=== PATIENT | male | born 1950 | race Caucasian/White ===

== ENCOUNTER 2023-11-29 15:09 | Emergency (ER) | payer OTHER ==
--- NOTE | 2023-11-29 15:14 | ED ---
Lower Extremity Injury HPI - General Source: patient, RN notes reviewed Mode of arrival: ambulatory Limitations: no limitations <Kathryn Angel - Last Filed: 11/29/23 15:12> <Jose Bunch - Last Filed: 11/29/23 18:02> - General Chief Complaint: Extremity Injury, Lower Stated Complaint: poss hematoma Time Seen by Provider: 11/29/23 15:12 - History of Present Illness Initial Comments: Quick Note: This is a 73-year-old male who presents to the emergency department for a left leg injury. States that part of his lawnmower injured his left lower leg about a week ago and he has since had swelling. This morning he started to notice that the scab came off and the wound was leaking. Believes that he has a hematoma to the leg. This is not particularly painful. He does take warfarin. (Kathryn Angel) Patient presents to the ED with his for evaluation. Patient states that he accidentally injured his left lower leg when he put down his lawnmower seat about 10 days ago. Patient states that he developed swelling and bruising along his left lower leg at that time. Patient states that today this area of swelling/bruising has opened up and been draining blood. Patient is on warfarin due to atrial fibrillation. Patient states that he is unsure of his last tetanus shot. Patient denies any other injury or site of bleeding. Patient denies fever or chills, headache, chest pain, dyspnea, dizziness, nausea or vomiting, focal neuro deficit, or any other symptoms or complaints. (Jose Bunch) - Related Data Previous Rx's Medication Instructions Recorded Cephalexin [Keflex] 500 mg PO QID 7 Days #28 cap 11/29/23 Menthol-Zinc Oxide Oint 1 applic TOPICAL BID #113 gm 11/29/23 [Calmoseptine Ointment] Allergies Allergy/AdvReac Type Severity Reaction Status Date / Time No Known Allergies Allergy Verified 11/29/23 16:19 Review of Systems ROS Other: All systems not noted in ROS Statement are negative. <Kathryn Angel - Last Filed: 11/29/23 15:12> ROS Other: All systems not noted in ROS Statement are negative. <Jose Bunch - Last Filed: 06/02/24 18:02> ROS Statement: Those systems with pertinent positive or pertinent negative responses have been documented in the HPI. General Exam <Kathryn Angel - Last Filed: 11/29/23 15:12> Limitations: no limitations General appearance: alert, in no apparent distress Head exam: Present: atraumatic Eye exam: Present: normal appearance ENT exam: Present: mucous membranes moist Respiratory exam: Present: normal lung sounds bilaterally. Absent: respiratory distress, wheezes, rales, rhonchi, stridor Cardiovascular Exam: Present: regular rate, normal rhythm, normal heart sounds, other (Normal dorsalis pedis pulses bilaterally) GI/Abdominal exam: Present: soft. Absent: distended, tenderness, guarding Extremities exam: Present: full ROM, other (2+ bilateral lower extremity pitting edema; a golf ball-sized hematoma noted to left lower lateral johnson region with a portion of it open and draining a small amount of clotted blood-> mild surrounding tenderness, no deformity or crepitation, no evidence of cellulitis/infection at this time) Neurological exam: Present: alert, oriented X3. Absent: motor sensory deficit Psychiatric exam: Present: normal affect Skin exam: Present: warm, dry <Jose Bunch - Last Filed: 11/29/23 18:02> - General Exam Comments Initial Comments: Visual Physical Exam Vital signs reviewed General: Well-appearing, nontoxic, no acute distress. Head: Normocephalic, atraumatic Eyes: PERRLA, EOMI ENT: Airway patent Chest: Nonlabored breathing Skin: No visual rash, normal skin tone Neuro: Alert and oriented 3 Musculoskeletal: No gross abnormalities (Kathryn Angel) Course Vital Signs 11/29/23 16:16 Temperature 98.1 F Pulse Rate 102 H Respiratory 18 Rate Blood Pressure 167/85 O2 Sat by Pulse 98 Oximetry Medical Decision Making <Kathryn Angel - Last Filed: 11/29/23 15:12> - Lab Data Result diagrams: 11/29/23 17:01 <Jose Bunch - Last Filed: 11/29/23 18:02> - Medical Decision Making I performed the QuickNote portion of this chart. Signed Kathryn Angel PA-C. (Kathryn Angel) Was pt. sent in by a medical professional or institution (SHAUNNA Nash, HOSPITAL SALES REPRESENTATIVE, urgent care, hospital, or half-way...) When possible be specific @ -No Did you speak to anyone other than the patient for history (EMS, parent, family, police, friend...)? What history was obtained from this source @ -No Did you review nursing and triage notes (agree or disagree)? Why? @ -I reviewed and agree with nursing and triage notes Were old charts reviewed (outside hosp., previous admission, EMS record, old EKG, old radiological studies, urgent care reports/EKG's, half-way records)? Report findings @ -No old charts were reviewed Differential Diagnosis (chest pain, altered mental status, abdominal pain women, abdominal pain men, vaginal bleeding, weakness, fever, dyspnea, syncope, headache, dizziness, GI bleed, back pain, seizure, CVA, palpatations, mental health, musculoskeletal)? @ -Contusion, fracture, hematoma, open wound, coagulopathy, anemia EKG interpreted by me (3pts min.). @ -None done X-rays interpreted by me (1pt min.). @ -Left tibia/fib x-rays were reviewed myself and do not demonstrate any acute osseous injury. I agree with the radiologist's interpretation as above. CT interpreted by me (1pt min.). @ -None done U/S interpreted by me (1pt. min.). @ -None done What testing was considered but not performed or refused? (CT, X-rays, U/S, labs)? Why? @ -None What meds were considered but not given or refused? Why? @ -None Did you discuss the management of the patient with other professionals (moise cali i.e. SHAUNNA Nash, HOSPITAL SALES REPRESENTATIVE, lab, RT, psych nurse, social director, sign writer hand, teacher, public relations officer, briefcase sewer)? Give summary @ -No Was smoking cessation discussed for >3mins.? @ -No Was critical care preformed (if so, how long)? @ -No Were there social determinants of health that impacted care today? How? (Homelessness, low income, unemployed, alcoholism, drug addiction, transportation, low edu. Level, literacy, decrease access to med. care, correction, rehab)? @ -No Was there de-escalation of care discussed even if they declined (Discuss DNR or withdrawal of care, Hospice)? DNR status @ -No What co-morbidities impacted this encounter? (DM, HTN, Smoking, COPD, CAD, Cancer, CVA, ARF, Chemo, Hep., AIDS, mental health diagnosis, sleep apnea, morbid obesity)? @ -None Was patient admitted / discharged? Hospital course, mention meds given and route, prescriptions, significant lab abnormalities, going to OR and other pertinent info. @ -Patient reports developing a left lower leg hematoma about 10 days ago, and he states that his hematoma opened and began draining blood today. Patient is not noted to have any active bleeding at this time. Patient's wound does not appear infected. Patient's x-rays are negative. Patient's hemoglobin is stable. Patient's INR is subtherapeutic. Patient's wound was cleaned and dressed with a pressure dressing by ED nurse. Patient's tetanus was updated. Will start the patient on a prophylactic course of Keflex given risk of infection with his wound. Patient was counseled about draining hematomas and provided instructions on regular dressing changes. Patient was also provided with materials from the ED to perform dressing changes at home. Patient was instructed to follow-up closely with his primary care provider for wound reevaluation. Patient was clearly explained return and follow-up instructions. Patient feels comfortable with this plan, and he feels comfortable being discharged home at this time. states that she will contact the patient's wound care nurse who is seen in the past for wound issues. Undiagnosed new problem with uncertain prognosis? @ -No Drug Therapy requiring intensive monitoring for toxicity (Heparin, Nitro, Insulin, Cardizem)? @ -No Were any procedures done? @ -No Diagnosis/symptom? @ -Draining left lower leg hematoma Acute, or Chronic, or Acute on Chronic? @ -Acute Uncomplicated (without systemic symptoms) or Complicated (systemic symptoms)? @ -Default Side effects of treatment? @ -No Exacerbation, Progression, or Severe Exacerbation? @ -No Poses a threat to life or bodily function? How? (Chest pain, [place], [place], pneumonia, PE, COPD, DKA, ARF, appy, cholecystitis, CVA, Diverticulitis, Homicidal, Suicidal, threat to staff... and all critical care pts) @ -No (Jose Bunch) - Lab Data Lab Results 11/29/23 11/29/23 Range/Units 17:01 17:01 WBC 7.4 (3.8-10.6) k/uL RBC 3.99 L (4.30-5.90) m/uL Hgb 12.7 L (13.0-17.5) gm/dL Hct 39.2 (39.0-53.0) % MCV 98.2 (80.0-100.0) fL MCH 31.8 (25.0-35.0) pg MCHC 32.4 (31.0-37.0) g/dL RDW 16.1 H (11.5-15.5) % Plt Count 196 (150-450) k/uL MPV 7.1 Neutrophils % 85 % Lymphocytes % 7 % Monocytes % 6 % Eosinophils % 0 % Basophils % 0 % Neutrophils # 6.3 (1.3-7.7) k/uL Lymphocytes # 0.5 L (1.0-4.8) k/uL Monocytes # 0.4 (0-1.0) k/uL Eosinophils # 0.0 (0-0.7) k/uL Basophils # 0.0 (0-0.2) k/uL Anisocytosis Slight Macrocytosis Slight PT 19.4 H (10.0-12.5) sec INR 1.9 H (<1.2) APTT 33.9 H (22.0-30.0) sec - Radiology Data Left tibia/fib x-rays: 1. Soft tissue swelling without evidence of acute fracture. 2. Severe end-stage osteoarthrosis of the left knee. (Jose Bunch) Disposition <Kathryn Angel - Last Filed: 11/29/23 15:12> Is patient prescribed a controlled substance at d/c from ED?: No Time of Disposition: 18:02 <Jose Bunch - Last Filed: 11/29/23 18:02> Clinical Impression: Hematoma of left lower leg, Lower extremity edema Disposition: HOME SELF-CARE Condition: Stable Instructions (If sedation given, give patient instructions): Hematoma (ED) Additional Instructions: Return to the ER immediately should you develop significant bleeding, new or worsening pain, leg redness or drainage of pus, a fever, shortness of breath, feeling dizzy or pain, or new or worsening symptoms. Follow-up closely with your primary care provider. Prescriptions: Menthol-Zinc Oxide Oint [Calmoseptine Ointment] 1 applic TOPICAL BID #113 gm Cephalexin [Keflex] 500 mg PO QID 7 Days #28 cap Referrals: Nonstaff,Physician [Primary Care Provider] - 1-2 days Enrique Vega DO [STAFF PHYSICIAN] - 1-2 days
--- NOTE | 2023-11-29 16:06 | XR ---
EXAMINATION TYPE: XR tibia fibula LT DATE OF EXAM: 11/29/2023 3:51 PM CLINICAL INDICATION:Male, 73 years old with history of Injury; [facility] COMPARISON: None TECHNIQUE: XR tibia fibula LT; tibia/fibula was examined in AP and lateral projections. FINDINGS: Severe degeneration changes throughout the knee with joint space loss osteophytes present. Diffuse soft tissue swelling throughout the leg. Degeneration changes of the ankle. No evidence of an y acute osseous pathology, joint dislocation, or soft tissue swelling is noted. IMPRESSION: 1. Soft tissue swelling without evidence of acute fracture. 2. Severe end-stage osteoarthrosis of the left knee.
[2023-11-29 16:30] VITALS: BP 167/85; PULSE 102; RESP 18; TEMP 98.1
[2023-11-29 17:11] LABS: Anisocytosis Slight; Basophils % (A) 0 %; Eosinophils % (A) 0 %; HCT 39.2 % (39.0-53.0); HGB 12.7 gm/dL (13.0-17.5); Lymphocytes # (A) 0.5 k/uL (1.0-4.8); Lymphocytes % (A) 7 %; MCH 31.8 pg (25.0-35.0); MCHC 32.4 g/dL (31.0-37.0); MCV 98.2 fL (80.0-100.0); Macrocytosis Slight; Mean Platelet Volume 7.1; Monocytes # (A) 0.4 k/uL (0-1.0); Monocytes % (A) 6 %; Neutrophils # (A) 6.3 k/uL (1.3-7.7); Neutrophils % (A) 85 %; Platelet Count 196 k/uL (150-450); RBC 3.99 m/uL (4.30-5.90); RDW 16.1 % (11.5-15.5); WBC 7.4 k/uL (3.8-10.6)
[2023-11-29] MEDS: CEPHALEXIN 500 MG CAP PO STA (17:17)
[2023-11-29 17:18] LABS: INR 1.9 (<1.2); Partial Thromboplastin Time 33.9 sec (22.0-30.0); Prothrombin Time 19.4 sec (10.0-12.5)
[2023-11-29] MEDS: DIPH,PERTUS(ACELL)TETVAC-LF 0.5 ML VIAL IM ONE (17:18)
== END 2023-11-29 18:50 | disposition home or self-care (01) ==
LOC: EC 15:09
DX: S80.12XA Contusion of left lower leg, initial encounter (principal); R60.0 Localized edema; Z23 Encounter for immunization; X58.XXXA Exposure to other specified factors, initial encounter
CPT/HCPCS: 36415; 85025; 85610; 85730; 90471; 90715; 99283

== ENCOUNTER 2024-01-05 15:35 | Inpatient (IN) | payer MEDICARE, OTHER ==
--- NOTE | 2024-01-05 16:12 | ED ---
Upper Extremity HPI - General Source: patient, RN notes reviewed Mode of arrival: wheelchair Limitations: no limitations - History of Present Illness MD Complaint: Injury to:: left, shoulder <Kathryn Angel - Last Filed: 01/05/24 16:12> <Shaquille Harris - Last Filed: 01/05/24 20:03> - General Chief Complaint: Extremity Injury, Upper Stated Complaint: Pain R Arm/Neck Time Seen by Provider: 01/05/24 16:09 - History of Present Illness Initial Comments: Quick Note: This is a 73-year-old male who presents to the emergency department for left arm pain. Patient states that a couple of days ago he was working out lifting weights above his head. That evening he developed severe pain in the left shoulder. Believes that he pulled a muscle in his deltoid region. He has since had a lot of difficulty moving the arm. Not taking anything for pain. (Kathryn Angel) Dictation was produced using [employer] dictation software. please excuse any grammatical, word or spelling errors. Chief Complaint: 73-year-old male presents with left shoulder pain History of Present Illness: Patient 73-year-old male with 3 days of left shoulder pain states that his pain was triggered while he was doing shoulder press at the gym. He was lifting 3 pounds all of a sudden he felt a strain in his neck and left shoulder. Patient denies any other complaints. at the bedside states that he is been significantly ecchymotic. Patient takes Coumadin for A-fib. The ROS documented in this emergency department record has been reviewed and confirmed by me. Those systems with pertinent positive or negative responses have been documented in the HPI. All other systems are other negative and/or noncontributory. (Shaquille Harris) - Related Data Previous Rx's Medication Instructions Recorded Cephalexin [Keflex] 500 mg PO QID 7 Days #28 cap 11/29/23 Menthol-Zinc Oxide Oint 1 applic TOPICAL BID #113 gm 11/29/23 [Calmoseptine Ointment] Allergies Allergy/AdvReac Type Severity Reaction Status Date / Time No Known Allergies Allergy Verified 11/29/23 16:19 Review of Systems ROS Other: All systems not noted in ROS Statement are negative. <Kathryn Angel - Last Filed: 01/05/24 16:12> ROS Other: All systems not noted in ROS Statement are negative. <Shaquille Harris - Last Filed: 01/05/24 20:03> ROS Statement: Those systems with pertinent positive or pertinent negative responses have been documented in the HPI. Past Medical History Past Medical History: Atrial Fibrillation, Hypertension History of Any Multi-Drug Resistant Organisms: None Reported Past Surgical History: Orthopedic Surgery Additional Past Surgical History / Comment(s): cardiac ablation Past Psychological History: No Psychological Hx Reported Smoking Status: Former smoker Past Alcohol Use History: None Reported Past Drug Use History: None Reported <Kathryn Angel - Last Filed: 01/05/24 16:12> General Exam Limitations: no limitations <Kathryn Angel - Last Filed: 01/05/24 16:12> <Shaquille Harris - Last Filed: 01/05/24 20:03> - General Exam Comments Initial Comments: Visual Physical Exam Vital signs reviewed General: Well-appearing, nontoxic, no acute distress. Head: Normocephalic, atraumatic Eyes: PERRLA, EOMI ENT: Airway patent Chest: Nonlabored breathing Skin: No visual rash, normal skin tone Neuro: Alert and oriented 3 Musculoskeletal: No gross abnormalities (Kathryn Angel) PHYSICAL EXAM: General Impression: Alert and oriented x3, not in acute distress HEENT: Normocephalic atraumatic, extra-ocular movements intact, pupils equal and reactive to light bilaterally, mucous membranes moist. Cardiovascular: Heart regular rate and rhythm Chest: Able to complete full sentences, no retractions, no tachypnea Abdomen: abdomen soft, non-tender, non-distended, no organomegaly Musculoskeletal: Pulses present and equal in all extremities, no peripheral edema Motor: no focal deficits noted Neurological: CN II-XII grossly intact, no focal motor or sensory deficits noted Skin: Ecchymosis diffusely Psych: Normal affect and mood Left shoulder: Passive range of motion intact though painful. Active range of motion diminished to approximately 40 degrees abduction (Shaquille Harris) Course Vital Signs 01/05/24 01/05/24 15:59 18:27 Temperature 97.3 F L 98 F Pulse Rate 70 95 Respiratory 18 18 Rate Blood Pressure 95/51 107/72 O2 Sat by Pulse 100 100 Oximetry Medical Decision Making <Kathryn Angel - Last Filed: 01/05/24 16:12> - Lab Data Result diagrams: 01/05/24 18:15 01/05/24 18:15 <Akhil Harrissspj Garcia - Last Filed: 01/05/24 20:03> - Medical Decision Making I performed the QuickNote portion of this chart. Signed Kathryn Angel PA-C. (Kathryn Angel) Was pt. sent in by a medical professional or institution (SHAUNNA Nash, ARTIST SUSPECT, urgent care, hospital, or snf...) When possible be specific @ -No Did you speak to anyone other than the patient for history (EMS, parent, family, police, friend...)? What history was obtained from this source @ -Some history obtained from at the bedside states that he has history of CKD Did you review nursing and triage notes (agree or disagree)? Why? @ -I reviewed and agree with nursing and triage notes Were old charts reviewed (outside hosp., previous admission, EMS record, old EKG, old radiological studies, urgent care reports/EKG's, snf records)? Report findings @ -No old charts were reviewed Differential Diagnosis (chest pain, altered mental status, abdominal pain women, abdominal pain men, vaginal bleeding, musculoskeletal, weakness, fever, dyspnea, syncope, headache, dizziness, GI bleed, back pain, seizure, CVA, palpatations, mental health)? @ -Shoulder strain, shoulder dislocation, shoulder fracture EKG interpreted by me (3pts min.). @ -None done X-rays interpreted by me (1pt min.). @ -None done CT interpreted by me (1pt min.). @ -None done U/S interpreted by me (1pt. min.). @ -None done What testing was considered but not performed or refused? (CT, X-rays, U/S, labs)? Why? @ -None What meds were considered but not given or refused? Why? @ -None Was smoking cessation discussed for >3mins.? @ -No Were there social determinants of health that impacted care today? How? (Homelessness, low income, unemployed, alcoholism, drug addiction, transportation, low edu. Level, literacy, decrease access to med. care, retirement, rehab)? @ -No Was there de-escalation of care discussed even if they declined (Discuss DNR or withdrawal of care, Hospice)? DNR status @ -No What co-morbidities impacted this encounter? (DM, HTN, Smoking, COPD, CAD, Cancer, CVA, ARF, Chemo, Hep., AIDS, mental health diagnosis, sleep apnea, morbid obesity)? @ -None Was patient admitted / discharged? Hospital course, mention meds given and route, prescriptions, significant lab abnormalities, going to OR and other pertinent info. @ -73-year-old male with multiple comorbidities presents emergency department chief complaint of left shoulder pain he was noted to have significant bruising at the bedside. Vital signs upon arrival shows blood pressure 95/51, rest of vital signs within acceptable limits. Laboratory evaluation obtained. Hemoglobin stable. INR supratherapeutic 6.4. Metabolic panel shows sodium 128, elevated renal function with creatinine of 3.9 and BUN of 116. Left shoulder x- ray shows no acute processes. Given patient's metabolic derangement he will be admitted with consultation to nephrology. Case discussed with hospitalist for admission. Patient given IV fluids. Warfarin will be withheld at this time. Nephrology consulted Did you discuss the management of the patient with other professionals (professionals i.e. , PA, ARTIST SUSPECT, lab, RT, psych nurse, social work faculty member, fabrication supervisor, teacher, drug abuse resistance education officer, case liner)? Give summary @ -See above Was critical care preformed (if so, how long)? @ -No Undiagnosed new problem with uncertain prognosis? @ -No Drug Therapy requiring intensive monitoring for toxicity (Heparin, Nitro, Insulin, Cardizem)? @ -No Were any procedures done? @ -No Diagnosis/symptom? Acute, or Chronic, or Acute on Chronic? Uncomplicated (without systemic symptoms) or Complicated (systemic symptoms)? @ -FRED Side effects of treatment? @ -No Exacerbation, Progression, or Severe Exacerbation? @ -No Poses a threat to life or bodily function? How? (Chest pain, [place], [place], pneumonia, PE, COPD, DKA, ARF, appy, cholecystitis, CVA, Diverticulitis, Homicidal, Suicidal, threat to staff... and all critical care pts) @ -yes (Shaquille Harris) - Lab Data Lab Results 01/05/24 01/05/24 01/05/24 Range/Units 18:15 18:15 18:15 WBC 6.6 (3.8-10.6) k/uL RBC 3.58 L (4.30-5.90) m/uL Hgb 11.3 L (13.0-17.5) gm/dL Hct 34.7 L (39.0-53.0) % MCV 97.0 (80.0-100.0) fL MCH 31.7 (25.0-35.0) pg MCHC 32.6 (31.0-37.0) g/dL RDW 15.9 H (11.5-15.5) % Plt Count 182 (150-450) k/uL MPV 8.7 Neutrophils % 93 % Lymphocytes % 2 % Monocytes % 2 % Eosinophils % 0 % Basophils % 0 % Neutrophils # 6.1 (1.3-7.7) k/uL Lymphocytes # 0.1 L (1.0-4.8) k/uL Monocytes # 0.1 (0-1.0) k/uL Eosinophils # 0.0 (0-0.7) k/uL Basophils # 0.0 (0-0.2) k/uL PT 62.8 H (10.0-12.5) sec INR 6.4 H* (<1.2) APTT 64.9 H (22.0-30.0) sec Sodium 128 L (137-145) mmol/L Potassium 5.4 H (3.5-5.1) mmol/L Chloride 93 L (98-107) mmol/L Carbon Dioxide 22 (22-30) mmol/L Anion Gap 13 mmol/L BUN 116 H* (9-20) mg/dL Creatinine 3.90 H (0.66-1.25) mg/dL Est GFR (CKD-EPI)AfAm 17 (>60 ml/min/1.73 sqM) Est GFR (CKD-EPI)NonAf 15 (>60 ml/min/1.73 sqM) Glucose 77 (74-99) mg/dL Calcium 7.8 L (8.4-10.2) mg/dL Total Bilirubin 0.9 (0.2-1.3) mg/dL AST 105 H (17-59) U/L ALT 40 (4-49) U/L Alkaline Phosphatase 101 (38-126) U/L Total Protein 5.5 L (6.3-8.2) g/dL Albumin 2.8 L (3.5-5.0) g/dL Disposition <Kathryn Angel - Last Filed: 01/05/24 16:12> Decision Time: 20:03 <Shaquille Harris - Last Filed: 01/05/24 20:03> Clinical Impression: FRED (acute kidney injury) Disposition: ADMITTED IP TO THIS HOSP Condition: Fair Referrals: Laura Wade DO [Primary Care Provider] - 1-2 days
--- NOTE | 2024-01-05 16:46 | XR ---
EXAMINATION TYPE: XR shoulder complete LT DATE OF EXAM: 01/05/2024 4:27 PM CLINICAL INDICATION:Male, 73 years old with history of pain; [facility] COMPARISON: None TECHNIQUE: XR shoulder complete LT; examined in AP, internally rotated and scapular Y projections. FINDINGS: No evidence of acute osseous pathology, joint dislocation, or soft tissue swelling. The remaining po rtions of the visualized chest are unremarkable. As acetabularization of the acromion with severe deg eneration changes of the right and acromion. IMPRESSION: 1. No acute osseous pathology. 2. Severe degeneration changes of the left shoulder with likely full-thickness rotator cuff tear
[2024-01-05] MEDS: MORPHINE SULFATE 4 MG/ML SYRINGE IVP PRN (18:28)
[2024-01-05 18:35] LABS: Basophils % (A) 0 %; Eosinophils % (A) 0 %; HCT 34.7 % (39.0-53.0); HGB 11.3 gm/dL (13.0-17.5); Lymphocytes # (A) 0.1 k/uL (1.0-4.8); Lymphocytes % (A) 2 %; MCH 31.7 pg (25.0-35.0); MCHC 32.6 g/dL (31.0-37.0); Mean Platelet Volume 8.7; Monocytes # (A) 0.1 k/uL (0-1.0); Monocytes % (A) 2 %; Neutrophils # (A) 6.1 k/uL (1.3-7.7); Neutrophils % (A) 93 %; Platelet Count 182 k/uL (150-450); RBC 3.58 m/uL (4.30-5.90); RDW 15.9 % (11.5-15.5); WBC 6.6 k/uL (3.8-10.6)
[2024-01-05 18:52] LABS: ALT 40 U/L (4-49); AST 105 U/L (17-59); African American GFR (CKD) 17 (>60 ml/min/1.73 sqM); Albumin 2.8 g/dL (3.5-5.0); Alkaline Phosphatase 101 U/L (38-126); Anion Gap 13 mmol/L; Calcium 7.8 mg/dL (8.4-10.2); Carbon Dioxide 22 mmol/L (22-30); Chloride 93 mmol/L (98-107); Glucose 77 mg/dL (74-99); Non-African American GFR(CKD) 15 (>60 ml/min/1.73 sqM); Potassium 5.4 mmol/L (3.5-5.1); Prothrombin Time 62.8 sec (10.0-12.5); Sodium 128 mmol/L (137-145); Total Bilirubin 0.9 mg/dL (0.2-1.3); Total Protein 5.5 g/dL (6.3-8.2)
[2024-01-05 18:57] LABS: Blood Urea Nitrogen 116 mg/dL (9-20)
[2024-01-05 19:05] LABS: INR 6.4 (<1.2)
[2024-01-05 19:06] LABS: Partial Thromboplastin Time 64.9 sec (22.0-30.0)
[2024-01-05] MEDS ORDERED: NALOXONE 0.4 MG/ML 1 ML VIAL IV PRN (19:55)
[2024-01-05] MEDS: SODIUM CHLORIDE 0.9% 1,000 ML IV SCH (20:49)
[2024-01-06] MEDS: MORPHINE SULFATE 4 MG/ML SYRINGE IVP PRN (03:33)
--- NOTE | 2024-01-06 12:03 | P.NPCON ---
History of Present Illness - Reason for Consult acute renal failure - History of Present Illness patient is a 73-year-old male with history of A. fib and hypertension, who was admitted to the hospital with complaints of severe pain in his left shoulder after lifting weights. Patient states that the pain has been getting worse. Patient denies any previous history of kidney diseases. No history of fever chills nausea vomiting or abdominal pain. At this time patient states he is not able to move any of his arms or shoulders. His neck hurts as well. He does have underlying history of rheumatoid arthri tis. Patient has an external catheter and has had decent urine output. Blood pressure was low with systolic blood pressure documented at 95 mmHg. Patient is maintained on CAR inhibitor's and Farxiga at home. Serum creatinine was 3.9 on admission with BUN of 116. Sodium was 128. Previous creatinine was 2.3 on 10/13/2023 and 1.5-1.8 in August 2023. Previous creatinine had been around 2-2.3 in 2022 Review of Systems as per HPI Past Medical History Past Medical History: Atrial Fibrillation, Hypertension History of Any Multi-Drug Resistant Organisms: None Reported Past Surgical History: Orthopedic Surgery Additional Past Surgical History / Comment(s): cardiac ablation Past Psychological History: No Psychological Hx Reported Smoking Status: Former smoker Past Alcohol Use History: None Reported Past Drug Use History: None Reported Medications and Allergies Home Medications Medication Instructions Recorded Confirmed Type Ascorbic Acid/Multivit-Min 1,000 mg PO DAILY 01/05/24 01/05/24 History [Emergen-C 1,000 mg Packet] Cholecalciferol [Vitamin D3 (25 50 mcg PO DAILY 01/05/24 01/05/24 History Mcg = 1000 Iu)] Colchicine 0.6 mg PO DAILY 01/05/24 01/05/24 History Cyanocobalamin (Vitamin B-12) 1,000 mcg PO DAILY 01/05/24 01/05/24 History [Vitamin B-12] Empagliflozin [Jardiance] 10 mg PO DAILY 01/05/24 01/05/24 History Folic Acid 1 mg PO DAILY 01/05/24 01/05/24 History Furosemide [Lasix] 40 mg PO BID 01/05/24 01/05/24 History Glucosa Yeh 2Kcl/Chondroitin Yeh 1 cap PO BID 01/05/24 01/05/24 History [Glucosamine-Chondroitin Cap] L.acidoph,Paracasei, B.lactis 1 cap PO DAILY 01/05/24 01/05/24 History [Probiotic] Magnesium Oxide [Mag-Ox] 400 mg PO DAILY 01/05/24 01/05/24 History Potassium Chloride ER [K-Dur 10] 20 meq PO BID 01/05/24 01/05/24 History Super Beets 1 scoop PO DAILY 01/05/24 01/05/24 History Tart Bourne 2 tab PO DAILY 01/05/24 01/05/24 History Warfarin [Coumadin] 2.5 mg PO MOTUWETHFRSA 01/05/24 01/05/24 History Warfarin [Coumadin] 5 mg PO YEH 01/05/24 01/05/24 History allopurinoL [Zyloprim] 300 mg PO W/SUPPER 01/05/24 01/05/24 History atenoloL [Tenormin] 50 mg PO DAILY 01/05/24 01/05/24 History calcitrioL [Rocaltrol] 0.25 mcg PO MOFR 01/05/24 01/05/24 History lisinopriL [Zestril] 5 mg PO PC-LUNCH 01/05/24 01/05/24 History metHOTREXate sodium [Methotrexate] 17.5 mg PO SA 01/05/24 01/05/24 History metOLazone [Zaroxolyn] 2.5 mg PO MOWEFR 01/05/24 01/05/24 History methIMAzole [Tapazole] 2.5 mg PO Q2D 01/05/24 01/05/24 History Allergies Allergy/AdvReac Type Severity Reaction Status Date / Time No Known Allergies Allergy Verified 01/05/24 20:31 Physical Exam Vitals: Vital Signs Temp Pulse Resp BP Pulse Ox 01/06/24 08:50 98.4 F 80 18 105/71 95 01/06/24 06:10 97.3 F L 91 17 109/65 96 01/06/24 01:58 98.2 F 93 18 111/74 99 01/05/24 23:35 98.8 F 96 16 107/65 96 01/05/24 20:57 97.9 F 112 H 20 132/56 95 01/05/24 18:27 98 F 95 18 107/72 100 07/09/24 15:59 97.3 F L 70 18 95/51 100 Intake and Output 01/05/24 01/06/24 01/06/24 22:59 06:59 14:59 Other: # Voids 4 Weight 93.44 kg patient is awake, comfortable, no acute distress complaining of significant pain and stiffness in the neck and shoulders. Examination of the heart S1 and S2 Examination the lungs bilateral breath sounds are heard Areas of bruising noted in the left upper arm. Rheumatoid deformities noted in the right hand Abdomen is soft nontender Examination lower extremities shows edema 1+ bilaterally Results - Lab Results Most recent lab results Calcium 7.8 mg/dL (8.4-10.2) L 01/05/24 18:15 01/05/24 18:15 01/05/24 18:15 Assessment and Plan Assessment: 1. Acute kidney injury, ATN currently nonoliguric.. Patient is maintained on IV fluids. Blood pressure was low on admission. check UA and ultrasound of the kidneys. Rule out rhabdo my lysis 2. Chronic kidney disease, NKF stage IIIB to 4 with baseline creatinine around 1.5-1.8 mg/dL.etiology is likely nephrosclerosis. No significant proteinuria in May 2023. 3. Hyperkalemia associated with acute kidney injury and use of CAR inhibitor'sand potassium supplementation. 4. CK D mineral bone disorder 5. Rheumatoid arthritis maintained on methotrexate 6. Hypertension with blood pressure currently low 7. Type 2 diabetes maintained on Jardiance 8. Chronic A. fib maintained on Coumadin and atenolol Plan: continue with IV fluids. Hold Car inhibitors and jardiance. Check CK level Repeat labs in a.m. Check ultrasound of the kidneys Continue to hold CAR inhibitor's Consider cervical imaging Thank you for the consultation. We will continue to follow the patient with you during his hospitalization.
[2024-01-06 12:20] LABS: Anisocytosis Slight; Basophils # (A) 0.1 k/uL (0-0.2); Basophils % (A) 3 %; Eosinophils % (A) 1 %; Lymphocytes # (A) 0.3 k/uL (1.0-4.8); Lymphocytes % (A) 9 %; MCH 31.8 pg (25.0-35.0); MCHC 33.4 g/dL (31.0-37.0); Mean Platelet Volume 9.5; Monocytes # (A) 0.1 k/uL (0-1.0); Monocytes % (A) 4 %; Neutrophils # (A) 2.7 k/uL (1.3-7.7); Neutrophils % (A) 80 %; Platelet Count 168 k/uL (150-450); RBC 3.47 m/uL (4.30-5.90); RDW 16.4 % (11.5-15.5); WBC 3.4 k/uL (3.8-10.6)
[2024-01-06 15:08] LABS: ALT 46 U/L (4-49); African American GFR (CKD) 24 (>60 ml/min/1.73 sqM); Albumin 2.6 g/dL (3.5-5.0); Anion Gap 15 mmol/L; Carbon Dioxide 19 mmol/L (22-30); Chloride 97 mmol/L (98-107); Creatine Kinase 55 U/L (55-170); Glucose 112 mg/dL (74-99); Non-African American GFR(CKD) 20 (>60 ml/min/1.73 sqM); Sodium 131 mmol/L (137-145); Total Bilirubin 1.2 mg/dL (0.2-1.3); Total Protein 5.4 g/dL (6.3-8.2)
[2024-01-06] MEDS ORDERED: ACETAMINOPHEN TAB 325 MG TAB PO PRN (15:09)
[2024-01-06 15:13] LABS: NT-Pro-B-Type Natriuretic Pept 10100 pg/mL
[2024-01-06 15:21] LABS: AST 127 U/L (17-59); Alkaline Phosphatase 69 U/L (38-126); Potassium 4.4 mmol/L (3.5-5.1)
[2024-01-06 15:22] LABS: Blood Urea Nitrogen 138 mg/dL (9-20)
--- NOTE | 2024-01-06 15:22 | US ---
EXAMINATION TYPE: US kidneys/renal and bladder DATE OF EXAM: 01/06/2024 COMPARISON: NONE CLINICAL INDICATION: Male, 73 years old with history of arely; arely, patient is in extreme pain everywh ere EXAM MEASUREMENTS: Right Kidney: 9.6 x 3.8 x 4.0 cm Left Kidney: not seen Right Kidney: No hydronephrosis or masses seen Left Kidney: Patient could not tolerate any pressure in LUQ Bladder: wnl There is no evidence for hydronephrosis at this point in time. No nephrolithiasis is seen. No bessie s are identified. The urinary bladder is anechoic. Bilateral ureteral jets are seen. IMPRESSION: No evidence for obstructive uropathy. No renal calculi visualized.
[2024-01-06] MEDS: HYDROcodone/APAP 7.5-325MG 1 EACH TAB PO PRN (15:35)
[2024-01-06] MEDS: METOPROLOL TARTRATE 50 MG TAB PO SCH (15:35)
--- NOTE | 2024-01-06 15:36 | P.HPIM ---
History of Present Illness Patient is 73-year-old male came in for left shoulder pain found to have rotator cuff. The left shoulder. Patient also found to have elevated INR of around 6.5 patient takes Coumadin for atrial fibrillation. Patient is also found to have acute renal failure with creatinine of around 3.6 patient was hypotensive patient is on Lasix, metolazone, lisinopril at home. Patient does have history of rheumatoid arthritis with rheumatoid deformities patient is on colchicine, methotrexate as an outpatient. Patient is also taking Farxiga at home. Patient does have a history of atrial fibrillation on atenolol patient is hypotensive cannot use atenolol patient heart rate started going up now is around 120s at this time. REVIEW OF SYSTEMS: All other systems are negative except those mentioned in the HPI PHYSICAL EXAMINATION: GENERAL: The patient is alert and oriented x3, not in any acute distress. Well developed, well nourished. HEENT: Pupils are round and equally reacting to light. EOMI. No scleral icterus. No conjunctival pallor. Normocephalic, atraumatic. No pharyngeal erythema. No thyromegaly. CARDIOVASCULAR: S1 and S2 present. No murmurs, rubs, or gallops. Tachycardic irregularly irregular rhythm PULMONARY: Chest is clear to auscultation, no wheezing or crackles. ABDOMEN: Soft, nontender, nondistended, normoactive bowel sounds. No palpable organomegaly. MUSCULOSKELETAL: Passive and active to motions of the shoulder limited EXTREMITIES: No cyanosis, clubbing, or pedal edema. NEUROLOGICAL: Gross neurological examination did not reveal any focal deficits. SKIN: No rashes. Assessment and plan -Acute renal failure: Nonoliguric acute tubular necrosis from hypotension kidney ultrasound is being obtained patient was started on IV fluids nephrology evaluated the patient -Chronic kidney disease stage IV baseline creatinine around 1.5-0.8 -Supratherapeutic INR hold off on Coumadin target INR 2-3 patient is on Coumadin for atrial fibrillation -Atrial fibrillation paroxysmal rapid ventricular rate secondary to not taking his atenolol today because of low blood pressure I will start him on metoprolol whenever this patient is awake patient will be given the metoprolol. -Left rotator cuff tear: Orthopedic surgery was consulted avoid morphine because of acute renal failure. Patient was started on Risingsun as needed Dilaudid unfortunately cannot utilize NSAIDs and will also use Tylenol for pain -Hypertension hold off antihypertensive medications as mentioned above because of low blood pressure and acute renal failure -Type 2 diabetes mellitus patient was started on insulin hold off further medica tions Farxiga will be held because of renal failure -Rheumatoid arthritis for now we have to hold colchicine and methotrexate because of renal failure Hyperkalemia: Secondary to REX inhibitor, acute renal failure -Hypothyroidism for which patient is on methimazole will obtain a TSH level -Hyponatremia secondary to renal failure IV fluids as mentioned above DVT prophylaxis: Patient's INR is supratherapeutic will not need any pharmacological anticoagulation at this time Past Medical History Past Medical History: Atrial Fibrillation, Hypertension History of Any Multi-Drug Resistant Organisms: None Reported Past Surgical History: Orthopedic Surgery Additional Past Surgical History / Comment(s): cardiac ablation Past Psychological History: No Psychological Hx Reported Smoking Status: Former smoker Past Alcohol Use History: None Reported Past Drug Use History: None Reported Medications and Allergies Home Medications Medication Instructions Recorded Confirmed Type Ascorbic Acid/Multivit-Min 1,000 mg PO DAILY 01/05/24 01/05/24 History [Emergen-C 1,000 mg Packet] Cholecalciferol [Vitamin D3 (25 50 mcg PO DAILY 01/05/24 01/05/24 History Mcg = 1000 Iu)] Colchicine 0.6 mg PO DAILY 01/05/24 01/05/24 History Cyanocobalamin (Vitamin B-12) 1,000 mcg PO DAILY 01/05/24 01/05/24 History [Vitamin B-12] Empagliflozin [Jardiance] 10 mg PO DAILY 01/05/24 01/05/24 History Folic Acid 1 mg PO DAILY 01/05/24 01/05/24 History Furosemide [Lasix] 40 mg PO BID 01/05/24 01/05/24 History Glucosa Yeh 2Kcl/Chondroitin Yeh 1 cap PO BID 01/05/24 01/05/24 History [Glucosamine-Chondroitin Cap] L.acidoph,Paracasei, B.lactis 1 cap PO DAILY 01/05/24 01/05/24 History [Probiotic] Magnesium Oxide [Mag-Ox] 400 mg PO DAILY 01/05/24 01/05/24 History Potassium Chloride ER [K-Dur 10] 20 meq PO BID 01/05/24 01/05/24 History Super Beets 1 scoop PO DAILY 01/05/24 01/05/24 History Tart Bourne 2 tab PO DAILY 01/05/24 01/05/24 History Warfarin [Coumadin] 2.5 mg PO MOTUWETHFRSA 01/05/24 01/05/24 History Warfarin [Coumadin] 5 mg PO YEH 01/05/24 01/05/24 History allopurinoL [Zyloprim] 300 mg PO W/SUPPER 01/05/24 01/05/24 History atenoloL [Tenormin] 50 mg PO DAILY 01/05/24 01/05/24 History calcitrioL [Rocaltrol] 0.25 mcg PO MOFR 01/05/24 01/05/24 History lisinopriL [Zestril] 5 mg PO PC-LUNCH 01/05/24 01/05/24 History metHOTREXate sodium [Methotrexate] 17.5 mg PO SA 01/05/24 01/05/24 History metOLazone [Zaroxolyn] 2.5 mg PO MOWEFR 01/05/24 01/05/24 History methIMAzole [Tapazole] 2.5 mg PO Q2D 01/05/24 01/05/24 History Allergies Allergy/AdvReac Type Severity Reaction Status Date / Time No Known Allergies Allergy Verified 01/05/24 20:31 Physical Exam Vitals: Vital Signs Temp Pulse Resp BP Pulse Ox 01/06/24 15:04 117 H 19 112/91 96 01/06/24 14:50 99.7 F H 120 H 20 104/37 97 01/06/24 14:23 98.3 F 01/06/24 12:00 98.1 F 86 18 112/62 95 01/06/24 08:50 98.4 F 80 18 105/71 95 01/06/24 06:10 97.3 F L 91 17 109/65 96 01/06/24 01:58 98.2 F 93 18 111/74 99 01/05/24 23:35 98.8 F 96 16 107/65 96 01/05/24 20:57 97.9 F 112 H 20 132/56 95 01/05/24 18:27 98 F 95 18 107/72 100 01/05/24 15:59 97.3 F L 70 18 95/51 100 Intake and Output 01/06/24 01/06/24 01/06/24 06:59 14:59 22:59 Output Total 600 Balance -600 Output: Urine 600 Male - External 600 Other: # Voids 4 Results CBC & Chem 7: 01/06/24 11:52 01/06/24 14:23 Labs: Abnormal Lab Results - Last 24 Hours (Table) 01/05/24 01/05/24 01/05/24 Range/Units 18:15 18:15 18:15 WBC (3.8-10.6) k/uL RBC 3.58 L (4.30-5.90) m/uL Hgb 11.3 L (13.0-17.5) gm/dL Hct 34.7 L (39.0-53.0) % RDW 15.9 H (11.5-15.5) % Lymphocytes # 0.1 L (1.0-4.8) k/uL PT 62.8 H (10.0-12.5) sec INR 6.4 H* (<1.2) APTT 64.9 H (22.0-30.0) sec Sodium 128 L (137-145) mmol/L Potassium 5.4 H (3.5-5.1) mmol/L Chloride 93 L (98-107) mmol/L Carbon Dioxide (22-30) mmol/L BUN 116 H* (9-20) mg/dL Creatinine 3.90 H (0.66-1.25) mg/dL Glucose (74-99) mg/dL Calcium 7.8 L (8.4-10.2) mg/dL AST 105 H (17-59) U/L Total Protein 5.5 L (6.3-8.2) g/dL Albumin 2.8 L (3.5-5.0) g/dL 01/06/24 01/06/24 Range/Units 11:52 14:23 WBC 3.4 L (3.8-10.6) k/uL RBC 3.47 L (4.30-5.90) m/uL Hgb 11.0 L (13.0-17.5) gm/dL Hct 33.0 L (39.0-53.0) % RDW 16.4 H (11.5-15.5) % Lymphocytes # 0.3 L (1.0-4.8) k/uL PT (10.0-12.5) sec INR (<1.2) APTT (22.0-30.0) sec Sodium 131 L (137-145) mmol/L Potassium (3.5-5.1) mmol/L Chloride 97 L (98-107) mmol/L Carbon Dioxide 19 L (22-30) mmol/L BUN 138 H* (9-20) mg/dL Creatinine 2.96 H (0.66-1.25) mg/dL Glucose 112 H (74-99) mg/dL Calcium 8.0 L (8.4-10.2) mg/dL AST 127 H (17-59) U/L Total Protein 5.4 L (6.3-8.2) g/dL Albumin 2.6 L (3.5-5.0) g/dL
[2024-01-06] MEDS: methIMAzole 5 MG TAB PO SCH (16:05)
[2024-01-06 17:56] LABS: Glucose,Whole Blood 105 mg/dL (70-110)
[2024-01-06] MEDS: INSULIN ASPART (NovoLOG) 100 UNIT/ML VIAL SQ SCH (17:56)
[2024-01-06] MEDS: ACETAMINOPHEN IV (For NPO) 1,000 MG in EMPTY BAG 1 BAG IVPB PRN (18:55)
[2024-01-06] MEDS ORDERED: MIDODRINE 5 MG TAB PO PRN (21:13)
[2024-01-06] MEDS: SODIUM CHLORIDE 0.9% 500 ML 500 ML IV ONE (21:16)
[2024-01-07] MEDS: SODIUM CHLORIDE 0.9% 500 ML 500 ML IV ONE (00:45)
[2024-01-07 03:27] LABS: Glucose,Whole Blood 72 mg/dL (70-110)
[2024-01-07 04:07] LABS: Glucose,Whole Blood 72 mg/dL (70-110)
[2024-01-07 04:34] LABS: ABG Base Excess -3.5 mmol/L; ABG HCO3 20 mmol/L (21-25); ABG Oxygen Saturation 97.5 % (94-97); ABG PCO2 27 mmHg (35-45); ABG PH 7.46 (7.35-7.45); ABG PO2 91 mmHg (83-108); ABG TCO2 20 mmol/L (19-24); Allen Test Performed? Yes
[2024-01-07] MEDS: NOREPINEPHRINE 4 MG in SODIUM CHLORIDE 0.9% 250 ML IV SCH (04:51)
[2024-01-07] MEDS: HYDROmorphone 0.5 MG/0.5 ML SYRINGE IVP PRN (04:53)
[2024-01-07 04:59] LABS: Anisocytosis Slight; HCT 29.8 % (39.0-53.0); MCH 30.9 pg (25.0-35.0); MCHC 31.6 g/dL (31.0-37.0); MCV 97.6 fL (80.0-100.0); Macrocytosis Slight; Mean Platelet Volume 8.1; Platelet Count 100 k/uL (150-450); RBC 3.06 m/uL (4.30-5.90); RDW 16.2 % (11.5-15.5)
[2024-01-07 05:15] LABS: Prothrombin Time 89.9 sec (10.0-12.5)
[2024-01-07 05:33] LABS: HGB 9.4 gm/dL (13.0-17.5); WBC 0.6 k/uL (3.8-10.6)
[2024-01-07 05:54] LABS: INR 9.1 (<1.2)
[2024-01-07] MEDS ORDERED: PHYTONADIONE 5 MG in SODIUM CHLORIDE 0.9% 50 ML IVPB STA (05:59)
[2024-01-07] MEDS: PHYTONADIONE 10 MG in SODIUM CHLORIDE 0.9% 50 ML IVPB STA ×2 (06:30→09:17)
[2024-01-07 06:34] LABS: Glucose,Whole Blood 65 mg/dL (70-110)
[2024-01-07] MEDS: DEXTROSE 50% SYRINGE 50 ML IVP ONE (06:44)
[2024-01-07] MEDS: DEXTROSE 50% SYRINGE 50 ML IVP STA (06:44)
[2024-01-07] MEDS: VASOPRESSIN 20 UNIT in SODIUM CHLORIDE 0.9% 50 ML IV SCH (07:00)
[2024-01-07 07:02] LABS: Glucose,Whole Blood 70 mg/dL (70-110)
[2024-01-07 07:03] LABS: African American GFR (CKD) 23 (>60 ml/min/1.73 sqM); Anion Gap 14 mmol/L; Calcium 7.3 mg/dL (8.4-10.2); Carbon Dioxide 17 mmol/L (22-30); Chloride 104 mmol/L (98-107); Glucose 73 mg/dL (74-99); Non-African American GFR(CKD) 20 (>60 ml/min/1.73 sqM); Potassium 3.5 mmol/L (3.5-5.1); Sodium 135 mmol/L (137-145)
[2024-01-07 07:11] LABS: Blood Urea Nitrogen 154 mg/dL (9-20)
--- NOTE | 2024-01-07 07:28 | CT ---
EXAMINATION TYPE: CT brain wo con DATE OF EXAM: 01/07/2024 COMPARISON: None INDICATION: AMS DLP: 1271.4 mGycm, Automated exposure control for dose reduction was used. CONTRAST: None CT of the brain is performed utilizing 3 mm thick sections through the posterior fossa and 3 mm thick sections through the remaining calvarium. Study is performed within 24 hours of arrival to the hosp [facility]. No abnormal hyperdensity is present to suggest an acute intracranial hemorrhage. No mass lesion is evident. No acute infarcts are evident. There is some periventricular white matter hypodensity, likely on the basis of chronic white matter ischemic changes. Ventricles and sulci are mildly prominent for the patient age. Some mild mucosal thickening anterior and mid ethmoid air cells. Remaining paranasal sinuses are jermaine r. Left septal deviation is noted. Mastoid air cells are clear. IMPRESSION: 1. Mild atrophy with chronic appearing periventricular white matter ischemic changes
[2024-01-07] MEDS: SODIUM CHLORIDE 0.9% 1,000 ML IV ONE ×2 (08:20→15:44)
[2024-01-07] MEDS ORDERED: VANCOMYCIN IV PER PHARMACY 1 EACH MISC MISCELLANE PRN (09:04)
[2024-01-07] MEDS ORDERED: PROTHROMBIN COMPLEX CONCENTRATE IV ONE (09:17)
[2024-01-07] MEDS: [UNRECOGNIZED DRUG - MIXTURE] IV ONE (09:17)
[2024-01-07] MEDS ORDERED: [UNRECOGNIZED DRUG - OTHER] IV ONE (09:17)
[2024-01-07] MEDS ORDERED: [UNRECOGNIZED DRUG - OTHER] IV ONE (09:17)
[2024-01-07 09:18] LABS: Partial Thromboplastin Time 62.5 sec (22.0-30.0)
[2024-01-07] MEDS ORDERED: VANCOMYCIN 1,500 MG in SODIUM CHLORIDE 0.9% 500 ML 500 ML IVPB ONE (09:30)
[2024-01-07] MEDS: DEXTROSE 5% IN WATER 1,000 ML with SODIUM BICARB (1 MEQ/ML) 150 ML IV SCH (10:40)
[2024-01-07] MEDS: LEUCOVORIN IV SCH (10:50)
[2024-01-07 11:12] LABS: Glucose,Whole Blood 83 mg/dL (70-110)
[2024-01-07] MEDS: METOPROLOL TARTRATE 25 MG TAB PO SCH (11:21)
[2024-01-07] MEDS: CEFEPIME 2 GM in SODIUM CHLORIDE 0.9% 100 ML IVPB SCH (11:50)
[2024-01-07 11:52] LABS: INR 2.2 (<1.2); Prothrombin Time 21.5 sec (10.0-12.5)
--- NOTE | 2024-01-07 12:13 | P.PN ---
Subjective patient is a 73-year-old male being seen for follow-up for acute kidney injury. He has underlying chronic kidney disease stage IIIB to 4 with baseline creatinine 1.5-1.8 mg/dL. This morning patient was transferred to the ICU as he was hypotensive with altered mentation. Patient is currently maintained on pressors. He has received a liter of fluid bolus. Currently with indwelling Villanueva catheter with urine output at about 50 mL an hour. BUN is 154 today with serum creatinine at 3.0. No GI bleed noted however INR is elevated at 9.1. Objective - Vital Signs Vital signs: Vital Signs Temp 98.9 F 01/07/24 08:15 Pulse 103 H 01/07/24 11:30 Resp 15 01/07/24 11:30 BP 82/45 01/07/24 09:30 Pulse Ox 99 01/07/24 11:30 FiO2 Intake & Output 01/06/24 01/07/24 01/07/24 18:59 06:59 18:59 Intake Total 4.094 1810.906 Output Total 400 550 265 Balance -400 -234.615 6498.906 Weight 96.6 kg Intake: IV 1511 0.9 Pressure Bag 12 Dextrose 5% in Water 1, 100 000 ml @ 100 mls/hr IV . [id number] JESSA with Sodium Bicarb (1 Meq/ml) 150 ml Rx#:[id number] Phytonadione 10 mg In 100 Sodium Chloride 0.9% 50 ml @ 100 mls/hr IVPB ONCE STA Rx#:[id number] Sodium Chloride 0.9% 1, 300 000 ml @ 100 mls/hr IV . Q10H JESSA Rx#:[id number] Sodium Chloride 0.9% 1, 999 000 ml @ 999 mls/hr IV . Q1H1M ONE Rx#:[id number] Intake, IV Titration 4.094 299.906 Amount Norepinephrine 4 mg In 4.094 249.906 Sodium Chloride 0.9% 250 ml @ 0.03 MCG/KG/MIN 10. 68 mls/hr IV .[id number] JESSA Rx#:[id number] Phytonadione 10 mg In 50 Sodium Chloride 0.9% 50 ml @ 100 mls/hr IVPB ONCE STA Rx#:[id number] Output: Urine 400 550 265 Male - External 400 ABP, PAP, CO, CI - Last Documented Arterial Blood Pressure 110/53 - Exam patient is awake, comfortable, no acute distress. Exec examination of the heart S1 and S2 Examination of the lungs bilateral breath sounds are heard Abdomen is soft Examination of lower extremities was chronic skin changes no significant edema noted. Left lower extremity has a wound. - Labs CBC & Chem 7: 01/07/24 04:29 01/07/24 04:29 Labs: Abnormal Lab Results - Last 24 Hours (Table) 01/06/24 01/06/24 01/07/24 Range/Units 11:52 14:23 04:23 WBC 3.4 L (3.8-10.6) k/uL RBC 3.47 L (4.30-5.90) m/uL Hgb 11.0 L (13.0-17.5) gm/dL Hct 33.0 L (39.0-53.0) % RDW 16.4 H (11.5-15.5) % Plt Count (150-450) k/uL Lymphocytes # 0.3 L (1.0-4.8) k/uL PT (10.0-12.5) sec INR (<1.2) APTT (22.0-30.0) sec Fibrinogen (200-500) mg/dL D-Dimer (<0.60) mg/L FEU ABG pH 7.46 H (7.35-7.45) ABG pCO2 27 L (35-45) mmHg ABG HCO3 20 L (21-25) mmol/L ABG O2 Saturation 97.5 H (94-97) % Sodium 131 L (137-145) mmol/L Chloride 97 L (98-107) mmol/L Carbon Dioxide 19 L (22-30) mmol/L BUN 138 H* (9-20) mg/dL Creatinine 2.96 H (0.66-1.25) mg/dL Glucose 112 H (74-99) mg/dL POC Glucose (mg/dL) (70-110) mg/dL Plasma Lactic Acid Sav (0.7-2.0) mmol/L Calcium 8.0 L (8.4-10.2) mg/dL AST 127 H (17-59) U/L Total Protein 5.4 L (6.3-8.2) g/dL Albumin 2.6 L (3.5-5.0) g/dL 01/07/24 01/07/24 01/07/24 Range/Units 04:29 04:29 04:29 WBC 0.6 L* (3.8-10.6) k/uL RBC 3.06 L (4.30-5.90) m/uL Hgb 9.4 L D (13.0-17.5) gm/dL Hct 29.8 L (39.0-53.0) % RDW 16.2 H (11.5-15.5) % Plt Count 100 L (150-450) k/uL Lymphocytes # (1.0-4.8) k/uL PT 89.9 H (10.0-12.5) sec INR 9.1 H* (<1.2) APTT (22.0-30.0) sec Fibrinogen (200-500) mg/dL D-Dimer (<0.60) mg/L FEU ABG pH (7.35-7.45) ABG pCO2 (35-45) mmHg ABG HCO3 (21-25) mmol/L ABG O2 Saturation (94-97) % Sodium 135 L (137-145) mmol/L Chloride (98-107) mmol/L Carbon Dioxide 17 L (22-30) mmol/L BUN 154 H* (9-20) mg/dL Creatinine 3.05 H (0.66-1.25) mg/dL Glucose 73 L (74-99) mg/dL POC Glucose (mg/dL) (70-110) mg/dL Plasma Lactic Acid Sav (0.7-2.0) mmol/L Calcium 7.3 L (8.4-10.2) mg/dL AST (17-59) U/L Total Protein (6.3-8.2) g/dL Albumin (3.5-5.0) g/dL 01/07/24 01/07/24 01/07/24 Range/Units 06:33 08:31 08:31 WBC (3.8-10.6) k/uL RBC (4.30-5.90) m/uL Hgb (13.0-17.5) gm/dL Hct (39.0-53.0) % RDW (11.5-15.5) % Plt Count (150-450) k/uL Lymphocytes # (1.0-4.8) k/uL PT (10.0-12.5) sec INR (<1.2) APTT 62.5 H (22.0-30.0) sec Fibrinogen 611 H (200-500) mg/dL D-Dimer 6.16 H (<0.60) mg/L FEU ABG pH (7.35-7.45) ABG pCO2 (35-45) mmHg ABG HCO3 (21-25) mmol/L ABG O2 Saturation (94-97) % Sodium (137-145) mmol/L Chloride (98-107) mmol/L Carbon Dioxide (22-30) mmol/L BUN (9-20) mg/dL Creatinine (0.66-1.25) mg/dL Glucose (74-99) mg/dL POC Glucose (mg/dL) 65 L (70-110) mg/dL Plasma Lactic Acid Sav (0.7-2.0) mmol/L Calcium (8.4-10.2) mg/dL AST 100 H (17-59) U/L Total Protein (6.3-8.2) g/dL Albumin (3.5-5.0) g/dL 01/07/24 01/07/24 01/07/24 Range/Units 08:33 11:37 11:37 WBC (3.8-10.6) k/uL RBC (4.30-5.90) m/uL Hgb (13.0-17.5) gm/dL Hct (39.0-53.0) % RDW (11.5-15.5) % Plt Count (150-450) k/uL Lymphocytes # (1.0-4.8) k/uL PT 21.5 H (10.0-12.5) sec INR 2.2 H (<1.2) APTT (22.0-30.0) sec Fibrinogen (200-500) mg/dL D-Dimer (<0.60) mg/L FEU ABG pH (7.35-7.45) ABG pCO2 (35-45) mmHg ABG HCO3 (21-25) mmol/L ABG O2 Saturation (94-97) % Sodium (137-145) mmol/L Chloride (98-107) mmol/L Carbon Dioxide (22-30) mmol/L BUN (9-20) mg/dL Creatinine (0.66-1.25) mg/dL Glucose (74-99) mg/dL POC Glucose (mg/dL) (70-110) mg/dL Plasma Lactic Acid Sav 2.1 H* 2.8 H* (0.7-2.0) mmol/L Calcium (8.4-10.2) mg/dL AST (17-59) U/L Total Protein (6.3-8.2) g/dL Albumin (3.5-5.0) g/dL Assessment and Plan Assessment: 1. Acute kidney injury, ATN currently nonoliguric secondary to hypotension and underlying infection. Patient is maintained on IV fluids. . check UA and ultrasound of the kidneys does not show any evidence of obstruction. B UN is disproportionately related most likely secondary to underlying GI bleed associated with coagulopathy. 2. Chronic kidney disease, NKF stage IIIB to 4 with baseline creatinine around 1.5-1.8 mg/dL.etiology is likely nephrosclerosis. No significant proteinuria in May 2023. 3. Hyperkalemia associated with acute kidney injury and use of REX inhibitor' sand potassium supplementation. 4. CK D mineral bone disorder 5. Rheumatoid arthritis maintained on methotrexate 6. Hypertension with blood pressure currently low 7. Type 2 diabetes maintained on Jardiance 8. Chronic A. fib maintained on Coumadin and atenolol 9. Non-gap metabolic acidosis associated with acute kidney injury Plan: continue with IV fluids. change to IV bicarb. Repeat labs in a.m. Discussed with family that if renal function continues to deteriorate patient may need renal replacement therapy.
--- NOTE | 2024-01-07 12:15 | CA ---
Transthoracic Echo Report Name: Hardik Mccann Age: 73 Gender: M : 1950 Exam Date: 01/07/2024 08:03 Exam Location: [facility] Ht (in): 67 Wt (lb): 212 Ordering Physician: Garry Ramsey MD ([id number]) Attending/Referring Phys: Braulio PÉREZ [employer] Hali Fleming RDCS Procedure CPT: Indications: hemodynamically unstable Cardiac Hx: Technical Quality: Technically difficult study Contrast 1: Definity Total Dose (mL): 2 Contrast 2: Total Dose (mL): MEASUREMENTS (Male / Female) Normal Values 2D ECHO LV Diastolic Diameter PLAX 3.5 cm 4.2 - 5.9 / 3.9 - 5.3 cm LV Systolic Diameter PLAX 2.7 cm IVS Diastolic Thickness 1.6 cm 0.6 - 1.0 / 0.6 - 0.9 cm LVPW Diastolic Thickness 1.3 cm 0.6 - 1.0 / 0.6 - 0.9 cm LV Relative Wall Thickness 0.8 RV Internal Dim ED PLAX 3.9 cm LA Volume 117.9 cm??? 18 - 58 / 22 - 52 cm??? LA Volume Index 54.4 cm???/m??? 16 - 28 cm???/m??? M-MODE Aortic Root Diameter MM 3.5 cm LA Systolic Diameter MM 4.3 cm LA Ao Ratio MM 1.2 AV Cusp Separation MM 1.8 cm DOPPLER AV Peak Velocity 162.2 cm/s AV Peak Gradient 10.5 mmHg AV Mean Velocity 112.0 cm/s AV Mean Gradient 5.6 mmHg AV Velocity Time Integral 25.1 cm AI Peak Velocity 422.4 cm/s AI Peak Gradient 71.4 mmHg AI Pressure Half Time 470.3 ms LVOT Peak Velocity 75.5 cm/s LVOT Peak Gradient 2.3 mmHg LVOT Velocity Time Integral 14.3 cm MV Area PHT 5.3 cm??? Mitral E Point Velocity 103.5 cm/s Mitral A Point Velocity 0.4 cm/s Mitral E to A Ratio 256.9 MV Deceleration Time 144.1 ms MV E' Velocity 7.7 cm/s Mitral E to MV E' Ratio 13.5 TR Peak Velocity 262.3 cm/s TR Peak Gradient 27.5 mmHg Right Ventricular Systolic Press 32.0 mmHg FINDINGS Left Ventricle Moderately increased left ventricular wall thickness. Left ventricular cavity size normal. Reduced global left ventricular systolic function. Left ventricular ejection fraction is estimated at 50 %. Grade 1 diastolic dysfunction. Right Ventricle Mild right ventricular dilatation. Right ventricular systolic pressure within normal limits. Right Atrium Moderate right atrial dilatation. Left Atrium Severely increased left atrial volume. Moderately increased left atrial area. Mitral Valve Structurally normal mitral valve. Mitral valve thickened. Mild mitral annular calcification. [id number] mitral regurgitation. Aortic Valve Trileaflet aortic valve. No aortic stenosis. [id number] aortic regurgitation. Tricuspid Valve Structurally normal tricuspid valve. Mild tricuspid regurgitation. Pulmonic Valve Structurally normal pulmonic valve. Pericardium No pericardial effusion. Aorta Normal size aortic root and proximal ascending aorta. CONCLUSIONS Moderately increased left ventricular wall thickness Mild global reduced left ventricular function Left ventricular ejection fraction 50% RVSP 32 Mild to moderate mitral regurgitation Mild to moderate aortic regurgitation Previewed by: Dr. Jerry Vicente DO (Electronically Signed) Final Date: 07 January 2024 12:15
--- NOTE | 2024-01-07 12:35 | P.CNPUL ---
History of Present Illness Consult date: 01/07/24 Requesting physician: Leticia Obregon Reason for consult: other (ICU management) Chief complaint: Left shoulder. Pain History of present illness: This is a 73-year-old white male with history of chronic atrial fibrillation, hypertension, rheumatoid arthritis, patient is normally maintained on Coumadin for his atrial fibrillation, he is also maintained on methotrexate for rheumatoid arthritis. For the last few days, the patient has been complaining of left shoulder pain. He saw his primary care physician/Dr. Lopez, and he was directed to go to the ER. Patient was evaluated in the ER on 01/05/2024, and after reviewing the ER note, and the admitting note by the admitting physician, patient was admitted with possible rotator cuff tear of the left shoulder, however on his initial evaluation, the patient was found to have significant abnormal labs. Patient was clearly found to have acute on chronic renal failure felt to be acute tubular necrosis related to hypotension as the patient was noted to be hypotensive initially in the ER. Patient was also found to have supratherapeutic INR level. And this was felt to be related to Coumadin. In addition to this the patient is known to have history of diabetes, he is also known to have history of hyperkalemia and hyperthyroidism, maintained on methimazole. Patient was admitted to 3 [address] and seen by the hospitalist, he was also seen by the clothing cutter, and the main concern was mostly related to his acute kidney injury and elevated INR. However at 330 this morning, the rapid response team attended to the patient were in he was noted to have low blood pressure, he was also noted to have INR of 6.4, worsening creatinine of 2.96, and the patient was mostly hypotensive with blood pressure as low as 50/39. Patient was given 1.5 L of fluid bolus, blood pressure came up slightly, and I was notified about this patient at that time. I recommended immediate transfer to the ICU. In the ICU, patient required pressors in the form of norepinephrine he is presently on 0.23 mcg/kg/min he is also on vasopressin at 0.03 units/h. Bailey on IV fluid at 100 cc/h in the form of 0.9 normal saline. Labs in the ICU showed significant worsening compared to previous labs on admission including a WBC count of 0.6, hemoglobin is 9.4, platelets are 100,000's, INR was still elevated, and his D-dimer was 6.16. Renal profile has become worse with a BUN of 154 creatinine 3.05, slightly abnormal liver enzymes. Uric acid was 10.8 on admission. Patient had a CT of the brain earlier this morning which showed no evidence of bleed. I saw the patient in the ICU this morning, he seems to be quite ill and I have reviewed the chart, discussed and updated the family on his condition. In the meantime I have recommended different consultations including infectious disease consult for significant wound noted in the left calf region with purulent drainage from a large deep ulcer in the left calf area. I have also recommended broad-spectrum antibiotics to start empirically. Recommended hematology consultation. Looking at the significant abnormalities and specially his elevated INR, I recommended vitamin K, I also recommended Kcentra to be given repeat INR was 2.2 few hours later considering the overall presentation, I am quite concerned about the possibility of sepsis/septic shock and the most likely source for his sepsis would likely be the left leg wound which seems to be quite deep, and there is a significant purulent drainage from that left leg. Surgical consultation was initiated to address this large wound in the left calf region. Patient was seen by hematology, and felt that this could be methotrexate toxicity. Although this is in the differential, I am more concerned about patient having sepsis/septic shock, of course the differential diagnosis will include methotrexate toxicity or methimazole toxicity. But again clinically this is felt to be less likely based on the fact that the patient presented with normal labs except for abnormal renal profile and abnormal INR on admission. His CBC was otherwise unremarkable. And looking back at his labs from October he had relatively normal CBC and slightly abnormal renal profile with GFR in the 40s. Review of Systems Could not obtain an adequate review of systems as the patient seems to be in significant amount of. Involving his whole body especially the shoulders, also the lower extremities bilaterally patient is not a great historian however according to the this patient has been quite active has not had any issues recently until he developed this left shoulder pain for which she was evaluated in the emergency room to begin with Past Medical History Past Medical History: Atrial Fibrillation, Heart Failure, Diabetes Mellitus, Hypertension Additional Past Medical History / Comment(s): Gout History of Any Multi-Drug Resistant Organisms: None Reported Past Surgical History: Orthopedic Surgery Additional Past Surgical History / Comment(s): cardiac ablation, pain pump in lower back (hockey puck size) Past Psychological History: No Psychological Hx Reported Smoking Status: Former smoker Past Alcohol Use History: None Reported Past Drug Use History: None Reported Medications and Allergies Home Medications Medication Instructions Recorded Confirmed Type Ascorbic Acid/Multivit-Min 1,000 mg PO DAILY 01/05/24 01/05/24 History [Emergen-C 1,000 mg Packet] Cholecalciferol [Vitamin D3 (25 50 mcg PO DAILY 01/05/24 01/05/24 History Mcg = 1000 Iu)] Colchicine 0.6 mg PO DAILY 01/05/24 01/05/24 History Cyanocobalamin (Vitamin B-12) 1,000 mcg PO DAILY 01/05/24 01/05/24 History [Vitamin B-12] Empagliflozin [Jardiance] 10 mg PO DAILY 01/05/24 01/05/24 History Folic Acid 1 mg PO DAILY 01/05/24 01/05/24 History Furosemide [Lasix] 40 mg PO BID 01/05/24 01/05/24 History Glucosa Rondon 2Kcl/Chondroitin Rondon 1 cap PO BID 01/05/24 01/05/24 History [Glucosamine-Chondroitin Cap] L.acidoph,Paracasei, B.lactis 1 cap PO DAILY 01/05/24 01/05/24 History [Probiotic] Magnesium Oxide [Mag-Ox] 400 mg PO DAILY 01/05/24 01/05/24 History Potassium Chloride ER [K-Dur 10] 20 meq PO BID 01/05/24 01/05/24 History Super Beets 1 scoop PO DAILY 01/05/24 01/05/24 History Tart Bourne 2 tab PO DAILY 01/05/24 01/05/24 History Warfarin [Coumadin] 2.5 mg PO MOTUWETHFRSA 01/05/24 01/05/24 History Warfarin [Coumadin] 5 mg PO RONDON 01/05/24 01/05/24 History allopurinoL [Zyloprim] 300 mg PO W/SUPPER 01/05/24 01/05/24 History atenoloL [Tenormin] 50 mg PO DAILY 01/05/24 01/05/24 History calcitrioL [Rocaltrol] 0.25 mcg PO MOFR 01/05/24 01/05/24 History lisinopriL [Zestril] 5 mg PO PC-LUNCH 01/05/24 01/05/24 History metHOTREXate sodium [Methotrexate] 17.5 mg PO SA 01/05/24 01/05/24 History metOLazone [Zaroxolyn] 2.5 mg PO MOWEFR 01/05/24 01/05/24 History methIMAzole [Tapazole] 2.5 mg PO Q2D 01/05/24 01/05/24 History Allergies Allergy/AdvReac Type Severity Reaction Status Date / Time No Known Allergies Allergy Verified 01/05/24 20:31 Physical Exam Vitals: Vital Signs Temp Pulse Pulse Resp BP BP Pulse Ox 01/07/24 11:30 103 H 15 99 01/07/24 11:15 102 H 16 100 01/07/24 11:00 98 12 99 01/07/24 10:45 103 H 12 100 01/07/24 10:30 98 12 100 01/07/24 10:00 117 H 21 100 01/07/24 09:30 82/45 01/07/24 09:00 109 H 19 100 01/07/24 08:45 111/83 01/07/24 08:30 82/45 01/07/24 08:15 98.9 F 105 H 19 103/49 100 01/07/24 08:00 92/48 01/07/24 07:45 82/45 01/07/24 07:00 98.9 F 108 H 25 H 101/58 99 01/07/24 06:00 101 H 19 75/44 100 01/07/24 05:00 99.3 F 20 82/45 76/43 100 01/07/24 04:00 82/45 01/07/24 03:39 100 100/66 96 01/07/24 03:37 112 H 89/56 01/07/24 03:31 99 F 75 79/50 92 L 01/07/24 03:00 68/42 01/07/24 02:45 59/34 01/07/24 02:15 98 22 86/57 92 L 01/07/24 02:00 98.8 F 78 21 72/68 88 L 01/07/24 01:36 98.6 F 78 22 97/67 92 L 01/07/24 00:14 101 H 22 89/42 92 L 01/06/24 23:50 99.1 F 104 H 94/65 99 01/06/24 22:59 106 H 20 94/54 99 01/06/24 21:01 113 H 20 107/95 92 L 01/06/24 20:50 117 H 22 92/72 96 01/06/24 20:43 113 H 20 80/43 94 L 01/06/24 20:28 98.7 F 112 H 16 111/47 95 01/06/24 18:26 100.5 F H 120 H 16 97/54 98 01/06/24 17:09 111 H 16 103/77 98 01/06/24 16:00 114 H 16 112/61 95 01/06/24 15:04 117 H 19 112/91 96 01/06/24 14:50 99.7 F H 120 H 20 104/37 97 01/06/24 14:23 98.3 F Intake and Output 01/06/24 01/07/24 01/07/24 22:59 06:59 14:59 Intake Total 4.094 1810.906 Output Total 400 550 265 Balance -400 -865.953 1400.906 Intake: IV 1511 0.9 Pressure Bag 12 Dextrose 5% in Water 1, 100 000 ml @ 100 mls/hr IV . [id number] JESSA with Sodium Bicarb (1 Meq/ml) 150 ml Rx#:[id number] Phytonadione 10 mg In 100 Sodium Chloride 0.9% 50 ml @ 100 mls/hr IVPB ONCE STA Rx#:[id number] Sodium Chloride 0.9% 1, 300 000 ml @ 100 mls/hr IV . Q10H JESSA Rx#:[id number] Sodium Chloride 0.9% 1, 999 000 ml @ 999 mls/hr IV . Q1H1M ONE Rx#:[id number] Intake, IV Titration 4.094 299.906 Amount Norepinephrine 4 mg In 4.094 249.906 Sodium Chloride 0.9% 250 ml @ 0.03 MCG/KG/MIN 10. 68 mls/hr IV .[id number] JESSA Rx#:[id number] Phytonadione 10 mg In 50 Sodium Chloride 0.9% 50 ml @ 100 mls/hr IVPB ONCE STA Rx#:[id number] Output: Urine 400 550 265 Male - External 400 Other: Weight 96.6 kg ABP, PAP, CO, CI - Last 8 Hours Arterial Blood Pressure 110/53 Arterial Blood Pressure 107/56 Arterial Blood Pressure 111/55 Arterial Blood Pressure 117/61 Arterial Blood Pressure 108/56 Arterial Blood Pressure 98/54 Arterial Blood Pressure 105/58 Arterial Blood Pressure 106/57 Arterial Blood Pressure 103/54 Arterial Blood Pressure 98/58 Arterial Blood Pressure 94/54 GENERAL: Revealed a 73-year-old white male, quite ill, complaining of severe pain and aches all over., On 2 L nasal cannula with O2 sat of 99% And: Atraumatic, normocephalic. HEENT: Pupils are round and equally reacting to light. EOMI. No scleral icterus. No conjunctival pallor. Normocephalic, atraumatic. No pharyngeal erythema. No thyromegaly. CARDIOVASCULAR: Irregular irregular rhythm, no S3 gallop. PULMONARY: Diminished breath sounds at the bases, minimal crackles, no rhonchi no wheezes ABDOMEN: Obese, soft, slightly tender to palpation, no rebound, no guarding.. MUSCULOSKELETAL: Extreme limitation range of motion of upper extremities with significant ecchymosis and swelling of both upper extremities bilaterally. EXTREMITIES: Limitation range of motion and ecchymosis of both upper extremities otherwise negative. There is a large ulcer, relatively deep into the skin, noted at the left calf region, mid aspect laterally, with significant drainage of purulent material., There is also chronic venous stasis changes in both lower extremities. NEUROLOGICAL: Patient is awake, but he is in severe pain, follows simple instructions, no gross focal deficit otherwise SKIN: Numerous areas of bruising and ecchymosis all over involving upper and lower extremities also involving the chest and abdomen.. Results - Laboratory Findings CBC and BMP: 01/07/24 04:29 01/07/24 04:29 ABG ABG pH 7.46 (7.35-7.45) H 01/07/24 04:23 ABG pCO2 27 mmHg (35-45) L 01/07/24 04:23 ABG pO2 91 mmHg (83-108) 01/07/24 04:23 ABG O2 Saturation 97.5 % (94-97) H 01/07/24 04:23 PT/INR, D-dimer PT 21.5 sec (10.0-12.5) H 01/07/24 11:37 INR 2.2 (<1.2) H 01/07/24 11:37 D-Dimer 6.16 mg/L FEU (<0.60) H 01/07/24 08:31 Abnormal lab findings: Abnormal Labs 01/05/24 01/05/24 01/05/24 18:15 18:15 18:15 WBC RBC 3.58 L Hgb 11.3 L Hct 34.7 L RDW 15.9 H Plt Count Lymphocytes # 0.1 L PT 62.8 H INR 6.4 H* APTT 64.9 H Fibrinogen D-Dimer ABG pH ABG pCO2 ABG HCO3 ABG O2 Saturation Sodium 128 L Potassium 5.4 H Chloride 93 L Carbon Dioxide BUN 116 H* Creatinine 3.90 H Glucose POC Glucose (mg/dL) Plasma Lactic Acid Sav Calcium 7.8 L AST 105 H Total Protein 5.5 L Albumin 2.8 L 01/06/24 01/06/24 01/07/24 11:52 14:23 04:23 WBC 3.4 L RBC 3.47 L Hgb 11.0 L Hct 33.0 L RDW 16.4 H Plt Count Lymphocytes # 0.3 L PT INR APTT Fibrinogen D-Dimer ABG pH 7.46 H ABG pCO2 27 L ABG HCO3 20 L ABG O2 Saturation 97.5 H Sodium 131 L Potassium Chloride 97 L Carbon Dioxide 19 L BUN 138 H* Creatinine 2.96 H Glucose 112 H POC Glucose (mg/dL) Plasma Lactic Acid Sav Calcium 8.0 L AST 127 H Total Protein 5.4 L Albumin 2.6 L 01/07/24 01/07/24 01/07/24 04:29 04:29 04:29 WBC 0.6 L* RBC 3.06 L Hgb 9.4 L D Hct 29.8 L RDW 16.2 H Plt Count 100 L Lymphocytes # PT 89.9 H INR 9.1 H* APTT Fibrinogen D-Dimer ABG pH ABG pCO2 ABG HCO3 ABG O2 Saturation Sodium 135 L Potassium Chloride Carbon Dioxide 17 L BUN 154 H* Creatinine 3.05 H Glucose 73 L POC Glucose (mg/dL) Plasma Lactic Acid Sav Calcium 7.3 L AST Total Protein Albumin 01/07/24 01/07/24 01/07/24 06:33 08:31 08:31 WBC RBC Hgb Hct RDW Plt Count Lymphocytes # PT INR APTT 62.5 H Fibrinogen 611 H D-Dimer 6.16 H ABG pH ABG pCO2 ABG HCO3 ABG O2 Saturation Sodium Potassium Chloride Carbon Dioxide BUN Creatinine Glucose POC Glucose (mg/dL) 65 L Plasma Lactic Acid Sav Calcium AST 100 H Total Protein Albumin 01/07/24 01/07/24 08:33 11:37 WBC RBC Hgb Hct RDW Plt Count Lymphocytes # PT 21.5 H INR 2.2 H APTT Fibrinogen D-Dimer ABG pH ABG pCO2 ABG HCO3 ABG O2 Saturation Sodium Potassium Chloride Carbon Dioxide BUN Creatinine Glucose POC Glucose (mg/dL) Plasma Lactic Acid Sav 2.1 H* Calcium AST Total Protein Albumin - Diagnostic Findings Additional studies: Brain CT report was noted, as noted in HPI X-rays of left shoulder showed no acute osseous pathology however there is diffuse severe degenerative changes in the left shoulder with likely full- thickness rotator cuff tear Assessment and Plan Assessment: Impression: Sepsis/septic shock, I believe the most likely source is his left lower extremity. Pancytopenia most likely secondary to sepsis although the possibility of methotrexate and methimazole toxicity is in the differential., That is being addressed by hematology on the case. Elevated INR most likely secondary to his supratherapeutic Coumadin although I am concerned that the patient may be a set up for possible DIC. Left lower extremity cellulitis and large infected ulcer noted in the calf region. Severe pain/left shoulder secondary to rotator cuff tear. Chronic atrial fibrillation History of rheumatoid arthritis history of chronic kidney disease stage IIIb History of type 2 diabetes, maintained on Jardiance. Acute on chronic kidney injury, most likely secondary to acute tubular necrosis secondary to hypotension and I suspect underlying infection. Profound hypotension secondary to sepsis/septic shock requiring pressors and received multiple fluid boluses since admission. History of hyperthyroidism, maintained on methimazole. Recommendation: Continue to monitor the patient in the ICU, I did transfer the patient down to the ICU as soon as I was made aware of this patient earlier this morning Broad-spectrum antibiotics empirically for presumptive sepsis and septic shock Reverse elevated INR by giving the patient Kcentra and he also received vitamin K no need for fresh frozen plasma at this point. Continue pressors including norepinephrine and vasopressin, will try to establish central access in this patient shortly. Hematology consultation initiated. Infectious disease consultation initiated. Surgical consultation initiated to evaluate left leg deep ulcer which could be the likely source of infection./Sepsis Updated family on his condition and made aware that the patient is extremely ill and may eventually require intubation mechanical ventilation Continue to monitor daily labs including CBC and complete metabolic profile as well as renal profile patient is a good set up for possible worsening renal failure where and he may require renal replacement but not at this point yet. Hold methotrexate and hold methimazole, leucovorin was initiated by hematology on the case. Orthopedics to evaluate shoulders pain Patient is extremely and critically ill. Critical care time is over 55 minutes. Time with Patient: Greater than 30
[2024-01-07] MEDS ORDERED: ACETAMINOPHEN IV (For NPO) 1,000 MG in EMPTY BAG 1 BAG IVPB PRN (13:20)
--- NOTE | 2024-01-07 13:24 | XR ---
EXAMINATION TYPE: XR chest 1V portable DATE OF EXAM: 01/07/2024 COMPARISON: None INDICATION: Short of breath TECHNIQUE: Single frontal view of the chest is obtained. FINDINGS: The heart size is normal. The pulmonary vasculature is normal. The lungs are clear. IMPRESSION: 1. No acute pulmonary process.
--- NOTE | 2024-01-07 13:26 | P.PN ---
Subjective January 07, 2024 Patient mental status close and and the patient is also receiving Dilaudid may have contributed to his altered mental status his blood pressure dropped as well and patient was presumed to have sepsis and septic shock was transferred to ICU he is on 2 pressors at this time patient does not have any fever but does have severe neutropenia may be related to methotrexate although patient white count was normal yesterday which probably because of his left shoulder tear. Patient is moaning unable to give me any history patient does have wounds but does not appear to have any cellulitis there is no foul-smelling discharge there is some redness which is chronic and chronic venous stasis dermatosis patient was started on vancomycin and cefepime, logging superintendent was consulted. January 06, 2024 Patient is 73-year-old male came in for left shoulder pain found to have rotator cuff. The left shoulder. Patient also found to have elevated INR of around 6.5 patient takes Coumadin for atrial fibrillation. Patient is also found to have acute renal failure with creatinine of around 3.6 patient was hypotensive patient is on Lasix, metolazone, lisinopril at home. Patient does have history of rheumatoid arthritis with rheumatoid deformities patient is on colchicine, methotrexate as an outpatient. Patient is also taking Farxiga at home. Patient does have a history of atrial fibrillation on atenolol patient is hypotensive cannot use atenolol patient heart rate started going up now is around 120s at this time. REVIEW OF SYSTEMS: All other systems are negative except those mentioned in the HPI PHYSICAL EXAMINATION: GENERAL: Patient sleeping morning HEENT: Pupils are round and equally reacting to light. EOMI. No scleral icterus. No conjunctival pallor. Normocephalic, atraumatic. No pharyngeal erythema. No thyromegaly. CARDIOVASCULAR: S1 and S2 present. No murmurs, rubs, or gallops. Tachycardic irregularly irregular rhythm PULMONARY: Chest is clear to auscultation, no wheezing or crackles. ABDOMEN: Soft, nontender, nondistended, normoactive bowel sounds. No palpable organomegaly. MUSCULOSKELETAL: Passive and active to motions of the shoulder limited EXTREMITIES: No cyanosis, clubbing, or pedal edema. NEUROLOGICAL: Gross neurological examination did not reveal any focal deficits. SKIN: Ulcers in the lower extremity chronic venous stasis with no cellulitis Assessment and plan -Shock etiology of shock is not clear although septic shock cannot be ruled out possible cirrhosis not clear infectious disease will evaluate the patient patient is presently on broad-spectrum antibiotics -Severe neutropenia secondary to methotrexate which is being held -Acute renal failure: Nonoliguric acute tubular necrosis from hypotension nephrology is following the patient renal ultrasound did not show any obstruction -Chronic kidney disease stage IV baseline creatinine around 1.5-0.8 -Supratherapeutic INR hold off on Coumadin target INR 2-3 patient is on Coumadin for atrial fibrillation. Patient INR today has come down to 2.2 after vitamin K -Atrial fibrillation paroxysmal rapid ventricular rate presently on metoprolol failure rate controlled -Left rotator cuff tear: Orthopedic surgery evaluated the patient, Tylenol for pain and low-dose Dilaudid -Hypertension hold off antihypertensive medications as mentioned above because of low blood pressure and acute renal failure -Type 2 diabetes mellitus patient was started on insulin hold off further medications Farxiga will be held because of renal failure -Rheumatoid arthritis for now we have to hold colchicine and methotrexate because of renal failure Hyperkalemia: Secondary to REX inhibitor, acute renal failure -Hypothyroidism for which patient is on methimazole will obtain a TSH level -Hyponatremia secondary to renal failure IV fluids as mentioned above DVT prophylaxis: Patient's INR is supratherapeutic will not need any pharmacological anticoagulation at this time Objective - Vital Signs Vital signs: Vital Signs Temp 98.9 F 01/07/24 08:15 Pulse 103 H 01/07/24 11:30 Resp 15 01/07/24 11:30 BP 82/45 01/07/24 09:30 Pulse Ox 99 01/07/24 11:30 FiO2 Intake & Output 01/06/24 01/07/24 01/07/24 18:59 06:59 18:59 Intake Total 4.094 1810.906 Output Total 400 550 265 Balance -400 -830.033 2452.906 Weight 96.6 kg 96.6 kg Intake: IV 1511 0.9 Pressure Bag 12 Dextrose 5% in Water 1, 100 000 ml @ 100 mls/hr IV . [id number] JESSA with Sodium Bicarb (1 Meq/ml) 150 ml Rx#:[id number] Phytonadione 10 mg In 100 Sodium Chloride 0.9% 50 ml @ 100 mls/hr IVPB ONCE STA Rx#:[id number] Sodium Chloride 0.9% 1, 300 000 ml @ 100 mls/hr IV . Q10H [facility] Rx#:[id number] Sodium Chloride 0.9% 1, 999 000 ml @ 999 mls/hr IV . Q1H1M [facility] Rx#:[id number] Intake, IV Titration 4.094 299.906 Amount Norepinephrine 4 mg In 4.094 249.906 Sodium Chloride 0.9% 250 ml @ 0.03 MCG/KG/MIN 10. 68 mls/hr IV .[id number] [facility] Rx#:[id number] Phytonadione 10 mg In 50 Sodium Chloride 0.9% 50 ml @ 100 mls/hr IVPB ONCE STA Rx#:[id number] Output: Urine 400 550 265 Male - External 400 ABP, PAP, CO, CI - Last Documented Arterial Blood Pressure 110/53 - Labs CBC & Chem 7: 01/07/24 04:29 01/07/24 04:29 Labs: Abnormal Lab Results - Last 24 Hours (Table) 01/06/24 01/06/24 01/07/24 Range/Units 11:52 14:23 04:23 WBC (3.8-10.6) k/uL RBC (4.30-5.90) m/uL Hgb (13.0-17.5) gm/dL Hct (39.0-53.0) % RDW (11.5-15.5) % Plt Count (150-450) k/uL Lymphocytes # 0.3 L (1.0-4.8) k/uL PT (10.0-12.5) sec INR (<1.2) APTT (22.0-30.0) sec Fibrinogen (200-500) mg/dL D-Dimer (<0.60) mg/L FEU ABG pH 7.46 H (7.35-7.45) ABG pCO2 27 L (35-45) mmHg ABG HCO3 20 L (21-25) mmol/L ABG O2 Saturation 97.5 H (94-97) % Sodium 131 L (137-145) mmol/L Chloride 97 L (98-107) mmol/L Carbon Dioxide 19 L (22-30) mmol/L BUN 138 H* (9-20) mg/dL Creatinine 2.96 H (0.66-1.25) mg/dL Glucose 112 H (74-99) mg/dL POC Glucose (mg/dL) (70-110) mg/dL Plasma Lactic Acid Sav (0.7-2.0) mmol/L Calcium 8.0 L (8.4-10.2) mg/dL AST 127 H (17-59) U/L Total Protein 5.4 L (6.3-8.2) g/dL Albumin 2.6 L (3.5-5.0) g/dL 01/07/24 01/07/24 01/07/24 Range/Units 04:29 04:29 04:29 WBC 0.6 L* (3.8-10.6) k/uL RBC 3.06 L (4.30-5.90) m/uL Hgb 9.4 L D (13.0-17.5) gm/dL Hct 29.8 L (39.0-53.0) % RDW 16.2 H (11.5-15.5) % Plt Count 100 L (150-450) k/uL Lymphocytes # (1.0-4.8) k/uL PT 89.9 H (10.0-12.5) sec INR 9.1 H* (<1.2) APTT (22.0-30.0) sec Fibrinogen (200-500) mg/dL D-Dimer (<0.60) mg/L FEU ABG pH (7.35-7.45) ABG pCO2 (35-45) mmHg ABG HCO3 (21-25) mmol/L ABG O2 Saturation (94-97) % Sodium 135 L (137-145) mmol/L Chloride (98-107) mmol/L Carbon Dioxide 17 L (22-30) mmol/L BUN 154 H* (9-20) mg/dL Creatinine 3.05 H (0.66-1.25) mg/dL Glucose 73 L (74-99) mg/dL POC Glucose (mg/dL) (70-110) mg/dL Plasma Lactic Acid Sav (0.7-2.0) mmol/L Calcium 7.3 L (8.4-10.2) mg/dL AST (17-59) U/L Total Protein (6.3-8.2) g/dL Albumin (3.5-5.0) g/dL 01/07/24 01/07/24 01/07/24 Range/Units 06:33 08:31 08:31 WBC (3.8-10.6) k/uL RBC (4.30-5.90) m/uL Hgb (13.0-17.5) gm/dL Hct (39.0-53.0) % RDW (11.5-15.5) % Plt Count (150-450) k/uL Lymphocytes # (1.0-4.8) k/uL PT (10.0-12.5) sec INR (<1.2) APTT 62.5 H (22.0-30.0) sec Fibrinogen 611 H (200-500) mg/dL D-Dimer 6.16 H (<0.60) mg/L FEU ABG pH (7.35-7.45) ABG pCO2 (35-45) mmHg ABG HCO3 (21-25) mmol/L ABG O2 Saturation (94-97) % Sodium (137-145) mmol/L Chloride (98-107) mmol/L Carbon Dioxide (22-30) mmol/L BUN (9-20) mg/dL Creatinine (0.66-1.25) mg/dL Glucose (74-99) mg/dL POC Glucose (mg/dL) 65 L (70-110) mg/dL Plasma Lactic Acid Sav (0.7-2.0) mmol/L Calcium (8.4-10.2) mg/dL AST 100 H (17-59) U/L Total Protein (6.3-8.2) g/dL Albumin (3.5-5.0) g/dL 01/07/24 01/07/24 01/07/24 Range/Units 08:33 11:37 11:37 WBC (3.8-10.6) k/uL RBC (4.30-5.90) m/uL Hgb (13.0-17.5) gm/dL Hct (39.0-53.0) % RDW (11.5-15.5) % Plt Count (150-450) k/uL Lymphocytes # (1.0-4.8) k/uL PT 21.5 H (10.0-12.5) sec INR 2.2 H (<1.2) APTT (22.0-30.0) sec Fibrinogen (200-500) mg/dL D-Dimer (<0.60) mg/L FEU ABG pH (7.35-7.45) ABG pCO2 (35-45) mmHg ABG HCO3 (21-25) mmol/L ABG O2 Saturation (94-97) % Sodium (137-145) mmol/L Chloride (98-107) mmol/L Carbon Dioxide (22-30) mmol/L BUN (9-20) mg/dL Creatinine (0.66-1.25) mg/dL Glucose (74-99) mg/dL POC Glucose (mg/dL) (70-110) mg/dL Plasma Lactic Acid Sav 2.1 H* 2.8 H* (0.7-2.0) mmol/L Calcium (8.4-10.2) mg/dL AST (17-59) U/L Total Protein (6.3-8.2) g/dL Albumin (3.5-5.0) g/dL
--- NOTE | 2024-01-07 13:46 | P.GSCN ---
History of Present Illness Consult date: 01/07/24 Reason for Consult: Lower extremity wound Requesting physician: Stephanie Guillory History of present illness: This is a 73-year-old male who had presented to the emergency department 2 days ago with complaints of left arm pain after working out. He has a past medical history of atrial fibrillation on Coumadin, rheumatoid arthritis, and hypertension. On initial evaluation patient had significantly abnormal labs. He was admitted to the ICU. Patient has a wound to the left lower extremity patient's family is at the bedside and states that he had hit his leg and had a blood clot a couple weeks ago that caused the wound. Vascular surgery consulted for lower extremity wound. Initially it was much deeper. They have a wound care nurse coming to the house that takes care of his wound weekly and states they have been using wet-to-dry dressing with Dakin solution and Triad cream on his leg. Family states the wound is looking better. Patient has been afebrile for the most part he did have a spike in his temp yesterday to 100.5. He is currently on cefepime and daptomycin. Patient is moaning in pain that there is pain all over. Vascular surgery was consulted Review of Systems A 14 point review systems was completed all pertinent positives and negatives as stated in the HPI. Past Medical History Past Medical History: Atrial Fibrillation, Heart Failure, Diabetes Mellitus, Hypertension Additional Past Medical History / Comment(s): Gout History of Any Multi-Drug Resistant Organisms: None Reported Past Surgical History: Orthopedic Surgery Additional Past Surgical History / Comment(s): cardiac ablation, pain pump in lower back (hockey puck size) Past Psychological History: No Psychological Hx Reported Smoking Status: Former smoker Past Alcohol Use History: None Reported Past Drug Use History: None Reported Medications and Allergies Home Medications Medication Instructions Recorded Confirmed Type Ascorbic Acid/Multivit-Min 1,000 mg PO DAILY 01/05/24 01/05/24 History [Emergen-C 1,000 mg Packet] Cholecalciferol [Vitamin D3 (25 50 mcg PO DAILY 01/05/24 01/05/24 History Mcg = 1000 Iu)] Colchicine 0.6 mg PO DAILY 01/05/24 01/05/24 History Cyanocobalamin (Vitamin B-12) 1,000 mcg PO DAILY 01/05/24 01/05/24 History [Vitamin B-12] Empagliflozin [Jardiance] 10 mg PO DAILY 01/05/24 01/05/24 History Folic Acid 1 mg PO DAILY 01/05/24 01/05/24 History Furosemide [Lasix] 40 mg PO BID 01/05/24 01/05/24 History Glucosa Yeh 2Kcl/Chondroitin Yeh 1 cap PO BID 01/05/24 01/05/24 History [Glucosamine-Chondroitin Cap] L.acidoph,Paracasei, B.lactis 1 cap PO DAILY 01/05/24 01/05/24 History [Probiotic] Magnesium Oxide [Mag-Ox] 400 mg PO DAILY 01/05/24 01/05/24 History Potassium Chloride ER [K-Dur 10] 20 meq PO BID 01/05/24 01/05/24 History Super Beets 1 scoop PO DAILY 01/05/24 01/05/24 History Tart Bourne 2 tab PO DAILY 01/05/24 01/05/24 History Warfarin [Coumadin] 2.5 mg PO [id number] 01/05/24 01/05/24 History Warfarin [Coumadin] 5 mg PO YEH 01/05/24 01/05/24 History allopurinoL [Zyloprim] 300 mg PO W/SUPPER 01/05/24 01/05/24 History atenoloL [Tenormin] 50 mg PO DAILY 01/05/24 01/05/24 History calcitrioL [Rocaltrol] 0.25 mcg PO MOFR 01/05/24 01/05/24 History lisinopriL [Zestril] 5 mg PO PC-LUNCH 01/05/24 01/05/24 History metHOTREXate sodium [Methotrexate] 17.5 mg PO SA 01/05/24 01/05/24 History metOLazone [Zaroxolyn] 2.5 mg PO MOWEFR 01/05/24 01/05/24 History methIMAzole [Tapazole] 2.5 mg PO Q2D 01/05/24 01/05/24 History Allergies Allergy/AdvReac Type Severity Reaction Status Date / Time No Known Allergies Allergy Verified 01/05/24 20:31 Surgical - Exam Vital Signs Temp Pulse Resp BP Pulse Ox 97.3 F L 70 18 95/51 100 01/05/24 15:59 01/05/24 15:59 01/05/24 15:59 01/05/24 15:59 01/05/24 15:59 General appearance: The patient is alert, oriented, appears in no acute distress. HET: Head is normocephalic and atraumatic. Pupils are equal and reactive. Neck: Supple. Heart: Regular. Lungs: Equal expansion, normal respiratory effort. Abdomen: Soft, nontender, nondistended. Extremities: Bilateral lower extremities warm to the touch, venous stasis/dermatitis. Palpable DP pulses with multiphasic PT and DP signals. Left lower extremity wound to the lateral aspect to subcutaneous tissue with granulation. No drainage, no foul odor and does not appear infected. Neurological: Alert Results - Labs 01/07/24 04:29 01/07/24 04:29 Abnormal Lab Results - Last 24 Hours (Table) 01/06/24 01/06/24 01/07/24 Range/Units 11:52 14:23 04:23 WBC 3.4 L (3.8-10.6) k/uL RBC 3.47 L (4.30-5.90) m/uL Hgb 11.0 L (13.0-17.5) gm/dL Hct 33.0 L (39.0-53.0) % RDW 16.4 H (11.5-15.5) % Plt Count (150-450) k/uL Lymphocytes # 0.3 L (1.0-4.8) k/uL PT (10.0-12.5) sec INR (<1.2) APTT (22.0-30.0) sec Fibrinogen (200-500) mg/dL D-Dimer (<0.60) mg/L FEU ABG pH 7.46 H (7.35-7.45) ABG pCO2 27 L (35-45) mmHg ABG HCO3 20 L (21-25) mmol/L ABG O2 Saturation 97.5 H (94-97) % Sodium 131 L (137-145) mmol/L Chloride 97 L (98-107) mmol/L Carbon Dioxide 19 L (22-30) mmol/L BUN 138 H* (9-20) mg/dL Creatinine 2.96 H (0.66-1.25) mg/dL Glucose 112 H (74-99) mg/dL POC Glucose (mg/dL) (70-110) mg/dL Plasma Lactic Acid Sav (0.7-2.0) mmol/L Calcium 8.0 L (8.4-10.2) mg/dL AST 127 H (17-59) U/L Total Protein 5.4 L (6.3-8.2) g/dL Albumin 2.6 L (3.5-5.0) g/dL 01/07/24 01/07/24 01/07/24 Range/Units 04:29 04:29 04:29 WBC 0.6 L* (3.8-10.6) k/uL RBC 3.06 L (4.30-5.90) m/uL Hgb 9.4 L D (13.0-17.5) gm/dL Hct 29.8 L (39.0-53.0) % RDW 16.2 H (11.5-15.5) % Plt Count 100 L (150-450) k/uL Lymphocytes # (1.0-4.8) k/uL PT 89.9 H (10.0-12.5) sec INR 9.1 H* (<1.2) APTT (22.0-30.0) sec Fibrinogen (200-500) mg/dL D-Dimer (<0.60) mg/L FEU ABG pH (7.35-7.45) ABG pCO2 (35-45) mmHg ABG HCO3 (21-25) mmol/L ABG O2 Saturation (94-97) % Sodium 135 L (137-145) mmol/L Chloride (98-107) mmol/L Carbon Dioxide 17 L (22-30) mmol/L BUN 154 H* (9-20) mg/dL Creatinine 3.05 H (0.66-1.25) mg/dL Glucose 73 L (74-99) mg/dL POC Glucose (mg/dL) (70-110) mg/dL Plasma Lactic Acid Sav (0.7-2.0) mmol/L Calcium 7.3 L (8.4-10.2) mg/dL AST (17-59) U/L Total Protein (6.3-8.2) g/dL Albumin (3.5-5.0) g/dL 01/07/24 01/07/24 01/07/24 Range/Units 06:33 08:31 08:31 WBC (3.8-10.6) k/uL RBC (4.30-5.90) m/uL Hgb (13.0-17.5) gm/dL Hct (39.0-53.0) % RDW (11.5-15.5) % Plt Count (150-450) k/uL Lymphocytes # (1.0-4.8) k/uL PT (10.0-12.5) sec INR (<1.2) APTT 62.5 H (22.0-30.0) sec Fibrinogen 611 H (200-500) mg/dL D-Dimer 6.16 H (<0.60) mg/L FEU ABG pH (7.35-7.45) ABG pCO2 (35-45) mmHg ABG HCO3 (21-25) mmol/L ABG O2 Saturation (94-97) % Sodium (137-145) mmol/L Chloride (98-107) mmol/L Carbon Dioxide (22-30) mmol/L BUN (9-20) mg/dL Creatinine (0.66-1.25) mg/dL Glucose (74-99) mg/dL POC Glucose (mg/dL) 65 L (70-110) mg/dL Plasma Lactic Acid Sav (0.7-2.0) mmol/L Calcium (8.4-10.2) mg/dL AST 100 H (17-59) U/L Total Protein (6.3-8.2) g/dL Albumin (3.5-5.0) g/dL 01/07/24 Range/Units 08:33 WBC (3.8-10.6) k/uL RBC (4.30-5.90) m/uL Hgb (13.0-17.5) gm/dL Hct (39.0-53.0) % RDW (11.5-15.5) % Plt Count (150-450) k/uL Lymphocytes # (1.0-4.8) k/uL PT (10.0-12.5) sec INR (<1.2) APTT (22.0-30.0) sec Fibrinogen (200-500) mg/dL D-Dimer (<0.60) mg/L FEU ABG pH (7.35-7.45) ABG pCO2 (35-45) mmHg ABG HCO3 (21-25) mmol/L ABG O2 Saturation (94-97) % Sodium (137-145) mmol/L Chloride (98-107) mmol/L Carbon Dioxide (22-30) mmol/L BUN (9-20) mg/dL Creatinine (0.66-1.25) mg/dL Glucose (74-99) mg/dL POC Glucose (mg/dL) (70-110) mg/dL Plasma Lactic Acid Sav 2.1 H* (0.7-2.0) mmol/L Calcium (8.4-10.2) mg/dL AST (17-59) U/L Total Protein (6.3-8.2) g/dL Albumin (3.5-5.0) g/dL Diabetes panel 01/06/24 01/07/24 01/07/24 Range/Units 14:23 04:29 08:31 Sodium 131 L 135 L (137-145) mmol/L Potassium 4.4 3.5 (3.5-5.1) mmol/L Chloride 97 L 104 (98-107) mmol/L Carbon Dioxide 19 L 17 L (22-30) mmol/L BUN 138 H* 154 H* (9-20) mg/dL Creatinine 2.96 H 3.05 H (0.66-1.25) mg/dL Glucose 112 H 73 L (74-99) mg/dL Calcium 8.0 L 7.3 L (8.4-10.2) mg/dL AST 127 H 100 H (17-59) U/L ALT 46 38 (4-49) U/L Alkaline Phosphatase 69 (38-126) U/L Total Protein 5.4 L (6.3-8.2) g/dL Albumin 2.6 L (3.5-5.0) g/dL Thyroid panel 01/07/24 Range/Units 04:29 TSH 0.989 (0.465-4.680) mIU/L Calcium panel 01/06/24 01/07/24 Range/Units 14:23 04:29 Calcium 8.0 L 7.3 L (8.4-10.2) mg/dL Albumin 2.6 L (3.5-5.0) g/dL Pituitary panel 01/06/24 01/07/24 Range/Units 14:23 04:29 Sodium 131 L 135 L (137-145) mmol/L Potassium 4.4 3.5 (3.5-5.1) mmol/L Chloride 97 L 104 (98-107) mmol/L Carbon Dioxide 19 L 17 L (22-30) mmol/L BUN 138 H* 154 H* (9-20) mg/dL Creatinine 2.96 H 3.05 H (0.66-1.25) mg/dL Glucose 112 H 73 L (74-99) mg/dL Calcium 8.0 L 7.3 L (8.4-10.2) mg/dL TSH 0.989 (0.465-4.680) mIU/L Adrenal panel 01/06/24 01/07/24 01/07/24 Range/Units 14:23 04:29 08:31 Sodium 131 L 135 L (137-145) mmol/L Potassium 4.4 3.5 (3.5-5.1) mmol/L Chloride 97 L 104 (98-107) mmol/L Carbon Dioxide 19 L 17 L (22-30) mmol/L BUN 138 H* 154 H* (9-20) mg/dL Creatinine 2.96 H 3.05 H (0.66-1.25) mg/dL Glucose 112 H 73 L (74-99) mg/dL Calcium 8.0 L 7.3 L (8.4-10.2) mg/dL Total Bilirubin 1.2 (0.2-1.3) mg/dL AST 127 H 100 H (17-59) U/L ALT 46 38 (4-49) U/L Alkaline Phosphatase 69 (38-126) U/L Total Protein 5.4 L (6.3-8.2) g/dL Albumin 2.6 L (3.5-5.0) g/dL Assessment and Plan Assessment: 1. Left lower extremity wound status post injury and hematoma evacuation 2. Acute on chronic kidney injury 3. left shoulder pain 4. Atrial fibrillation Plan: 1. Continue symptomatic and supportive care 2. Consult to wound care for left lower extremity 3. Wet-to-dry dressing for now 4. Continue with recommendations from other consultants 5. There is no indication for any vascular surgical intervention Thank you for this consultation, we will sign off at this time. The impression and plan of care has been dictated as directed. I performed a history and examination of this patient, discussed the same with the dictator. I agree with the dictator's note ,documented as a scribe. Any ad ditional findings or plans will be noted.
[2024-01-07] MEDS ORDERED: methylPREDNISolone SOD SUCCI 125 MG/2 ML VIAL IV SCH (14:00)
[2024-01-07] MEDS ORDERED: IPRATROPIUM-ALBUTEROL 3 ML NEB INHALATION PRN (15:20)
[2024-01-07 15:23] LABS: Protein, Total 4.4 g/dL (6.2-8.2)
[2024-01-07] MEDS: IPRATROPIUM-ALBUTEROL 3 ML NEB INHALATION SCH (15:33)
--- NOTE | 2024-01-07 15:37 | P.CONS ---
History of Present Illness - Reason for Consult Consult date: 01/07/24 coagulopathy, DIC? Requesting physician: Emma Collazo - Chief Complaint shoulder pain - History of Present Illness Mr. Mccann is a 73 yo male we have been asked to see because of concerns for possible DIC. Pt is a poor historian, confused and unable to give much information, most info comes from chart and Nursing. He was lifting weights and heard a "pop" in his shoulder associated with pain, the pain did not improve so, he came to ER to have it evaluated. Once here he was found to be in acute on chronic renal failure, coagulopathic (on coumadin for a-fib, INR 6.4, 9.1, and 2.2 after 20mg vit K) and pancytopenic. On chart review patient has not been pancytopenic previously, some mild anemia is noted chronically. Review of Systems ROS unobtainable: due to mental status Past Medical History Past Medical History: Atrial Fibrillation, Heart Failure, Diabetes Mellitus, Hypertension Additional Past Medical History / Comment(s): Gout History of Any Multi-Drug Resistant Organisms: None Reported Past Surgical History: Orthopedic Surgery Additional Past Surgical History / Comment(s): cardiac ablation, pain pump in lower back (hockey puck size) Past Psychological History: No Psychological Hx Reported Smoking Status: Former smoker Past Alcohol Use History: None Reported Past Drug Use History: None Reported Medications and Allergies Home Medications Medication Instructions Recorded Confirmed Type Ascorbic Acid/Multivit-Min 1,000 mg PO DAILY 01/05/24 01/05/24 History [Emergen-C 1,000 mg Packet] Cholecalciferol [Vitamin D3 (25 50 mcg PO DAILY 01/05/24 01/05/24 History Mcg = 1000 Iu)] Colchicine 0.6 mg PO DAILY 01/05/24 01/05/24 History Cyanocobalamin (Vitamin B-12) 1,000 mcg PO DAILY 01/05/24 01/05/24 History [Vitamin B-12] Empagliflozin [Jardiance] 10 mg PO DAILY 01/05/24 01/05/24 History Folic Acid 1 mg PO DAILY 01/05/24 01/05/24 History Furosemide [Lasix] 40 mg PO BID 01/05/24 01/05/24 History Glucosa Rondon 2Kcl/Chondroitin Rondon 1 cap PO BID 01/05/24 01/05/24 History [Glucosamine-Chondroitin Cap] L.acidoph,Paracasei, B.lactis 1 cap PO DAILY 01/05/24 01/05/24 History [Probiotic] Magnesium Oxide [Mag-Ox] 400 mg PO DAILY 01/05/24 01/05/24 History Potassium Chloride ER [K-Dur 10] 20 meq PO BID 01/05/24 01/05/24 History Super Beets 1 scoop PO DAILY 01/05/24 01/05/24 History Tart Bourne 2 tab PO DAILY 01/05/24 01/05/24 History Warfarin [Coumadin] 2.5 mg PO [id number] 01/05/24 01/05/24 History Warfarin [Coumadin] 5 mg PO RONDON 01/05/24 01/05/24 History allopurinoL [Zyloprim] 300 mg PO W/SUPPER 01/05/24 01/05/24 History atenoloL [Tenormin] 50 mg PO DAILY 01/05/24 01/05/24 History calcitrioL [Rocaltrol] 0.25 mcg PO MOFR 01/05/24 01/05/24 History lisinopriL [Zestril] 5 mg PO PC-LUNCH 01/05/24 01/05/24 History metHOTREXate sodium [Methotrexate] 17.5 mg PO SA 01/05/24 01/05/24 History metOLazone [Zaroxolyn] 2.5 mg PO MOWEFR 01/05/24 01/05/24 History methIMAzole [Tapazole] 2.5 mg PO Q2D 01/05/24 01/05/24 History Allergies Allergy/AdvReac Type Severity Reaction Status Date / Time No Known Allergies Allergy Verified 01/05/24 20:31 Physical Exam Vitals: Vital Signs Temp Pulse Pulse Resp BP BP Pulse Ox 01/07/24 10:00 117 H 21 100 01/07/24 09:30 82/45 01/07/24 09:00 109 H 19 100 01/07/24 08:45 111/83 01/07/24 08:30 82/45 01/07/24 08:15 98.9 F 105 H 19 103/49 100 01/07/24 08:00 92/48 01/07/24 07:45 82/45 01/07/24 07:00 98.9 F 108 H 25 H 101/58 99 01/07/24 06:00 101 H 19 75/44 100 01/07/24 05:00 99.3 F 20 82/45 76/43 100 01/07/24 04:00 82/45 01/07/24 03:39 100 100/66 96 01/07/24 03:37 112 H 89/56 01/07/24 03:31 99 F 75 79/50 92 L 01/07/24 03:00 68/42 01/07/24 02:45 59/34 01/07/24 02:15 98 22 86/57 92 L 01/07/24 02:00 98.8 F 78 21 72/68 88 L 01/07/24 01:36 98.6 F 78 22 97/67 92 L 01/07/24 00:14 101 H 22 89/42 92 L 01/06/24 23:50 99.1 F 104 H 94/65 99 01/06/24 22:59 106 H 20 94/54 99 01/06/24 21:01 113 H 20 107/95 92 L 01/06/24 20:50 117 H 22 92/72 96 01/06/24 20:43 113 H 20 80/43 94 L 01/06/24 20:28 98.7 F 112 H 16 111/47 95 01/06/24 18:26 100.5 F H 120 H 16 97/54 98 01/06/24 17:09 111 H 16 103/77 98 01/06/24 16:00 114 H 16 112/61 95 01/06/24 15:04 117 H 19 112/91 96 01/06/24 14:50 99.7 F H 120 H 20 104/37 97 01/06/24 14:23 98.3 F 01/06/24 12:00 98.1 F 86 18 112/62 95 Intake and Output 01/06/24 01/07/24 01/07/24 22:59 06:59 14:59 Intake Total 4.094 50 Output Total 400 550 40 Balance -400 -545.906 10 Intake: Intake, IV Titration 4.094 50 Amount Norepinephrine 4 mg In 4.094 Sodium Chloride 0.9% 250 ml @ 0.03 MCG/KG/MIN 10. 68 mls/hr IV .[id number] [facility] Rx#:[id number] Phytonadione 10 mg In 50 Sodium Chloride 0.9% 50 ml @ 100 mls/hr IVPB ONCE STA Rx#:[id number] Output: Urine 400 550 40 Male - External 400 Other: Weight 96.6 kg ABP, PAP, CO, CI - Last 8 Hours Arterial Blood Pressure 98/54 Arterial Blood Pressure 105/58 Arterial Blood Pressure 106/57 Arterial Blood Pressure 103/54 Arterial Blood Pressure 98/58 Arterial Blood Pressure 94/54 - Constitutional General appearance: disheveled, mild distress, obese - EENT oral mucosal ulcerations, dried blood in mouth, dry Eyes: anicteric sclerae, EOMI ENT: pharyngeal erythema - Neck Neck: no lymphadenopathy - Respiratory Respiratory: bilateral: diminished - Cardiovascular tachycardia leg Peripheral Edema: bilateral: 1+, Other (upper extremity 3+) - Gastrointestinal General gastrointestinal: soft - Integumentary significant bruising to the arms - Neurologic speech is not always clear, allodynia when plantar surface of foot touched (pt screamed out in pain) - Musculoskeletal Musculoskeletal: generalized weakness - Psychiatric alert to place, cannot carry on a conversation Results CBC & Chem 7: 01/07/24 04:29 01/07/24 04:29 Labs: Abnormal Lab Results - Last 24 Hours (Table) 01/06/24 01/06/24 01/07/24 Range/Units 11:52 14:23 04:23 WBC 3.4 L (3.8-10.6) k/uL RBC 3.47 L (4.30-5.90) m/uL Hgb 11.0 L (13.0-17.5) gm/dL Hct 33.0 L (39.0-53.0) % RDW 16.4 H (11.5-15.5) % Plt Count (150-450) k/uL Lymphocytes # 0.3 L (1.0-4.8) k/uL PT (10.0-12.5) sec INR (<1.2) APTT (22.0-30.0) sec Fibrinogen (200-500) mg/dL D-Dimer (<0.60) mg/L FEU ABG pH 7.46 H (7.35-7.45) ABG pCO2 27 L (35-45) mmHg ABG HCO3 20 L (21-25) mmol/L ABG O2 Saturation 97.5 H (94-97) % Sodium 131 L (137-145) mmol/L Chloride 97 L (98-107) mmol/L Carbon Dioxide 19 L (22-30) mmol/L BUN 138 H* (9-20) mg/dL Creatinine 2.96 H (0.66-1.25) mg/dL Glucose 112 H (74-99) mg/dL POC Glucose (mg/dL) (70-110) mg/dL Plasma Lactic Acid Sav (0.7-2.0) mmol/L Calcium 8.0 L (8.4-10.2) mg/dL AST 127 H (17-59) U/L Total Protein 5.4 L (6.3-8.2) g/dL Albumin 2.6 L (3.5-5.0) g/dL 01/07/24 01/07/24 01/07/24 Range/Units 04:29 04:29 04:29 WBC 0.6 L* (3.8-10.6) k/uL RBC 3.06 L (4.30-5.90) m/uL Hgb 9.4 L D (13.0-17.5) gm/dL Hct 29.8 L (39.0-53.0) % RDW 16.2 H (11.5-15.5) % Plt Count 100 L (150-450) k/uL Lymphocytes # (1.0-4.8) k/uL PT 89.9 H (10.0-12.5) sec INR 9.1 H* (<1.2) APTT (22.0-30.0) sec Fibrinogen (200-500) mg/dL D-Dimer (<0.60) mg/L FEU ABG pH (7.35-7.45) ABG pCO2 (35-45) mmHg ABG HCO3 (21-25) mmol/L ABG O2 Saturation (94-97) % Sodium 135 L (137-145) mmol/L Chloride (98-107) mmol/L Carbon Dioxide 17 L (22-30) mmol/L BUN 154 H* (9-20) mg/dL Creatinine 3.05 H (0.66-1.25) mg/dL Glucose 73 L (74-99) mg/dL POC Glucose (mg/dL) (70-110) mg/dL Plasma Lactic Acid Sav (0.7-2.0) mmol/L Calcium 7.3 L (8.4-10.2) mg/dL AST (17-59) U/L Total Protein (6.3-8.2) g/dL Albumin (3.5-5.0) g/dL 01/07/24 01/07/24 01/07/24 Range/Units 06:33 08:31 08:31 WBC (3.8-10.6) k/uL RBC (4.30-5.90) m/uL Hgb (13.0-17.5) gm/dL Hct (39.0-53.0) % RDW (11.5-15.5) % Plt Count (150-450) k/uL Lymphocytes # (1.0-4.8) k/uL PT (10.0-12.5) sec INR (<1.2) APTT 62.5 H (22.0-30.0) sec Fibrinogen 611 H (200-500) mg/dL D-Dimer 6.16 H (<0.60) mg/L FEU ABG pH (7.35-7.45) ABG pCO2 (35-45) mmHg ABG HCO3 (21-25) mmol/L ABG O2 Saturation (94-97) % Sodium (137-145) mmol/L Chloride (98-107) mmol/L Carbon Dioxide (22-30) mmol/L BUN (9-20) mg/dL Creatinine (0.66-1.25) mg/dL Glucose (74-99) mg/dL POC Glucose (mg/dL) 65 L (70-110) mg/dL Plasma Lactic Acid Sav (0.7-2.0) mmol/L Calcium (8.4-10.2) mg/dL AST 100 H (17-59) U/L Total Protein (6.3-8.2) g/dL Albumin (3.5-5.0) g/dL 01/07/24 Range/Units 08:33 WBC (3.8-10.6) k/uL RBC (4.30-5.90) m/uL Hgb (13.0-17.5) gm/dL Hct (39.0-53.0) % RDW (11.5-15.5) % Plt Count (150-450) k/uL Lymphocytes # (1.0-4.8) k/uL PT (10.0-12.5) sec INR (<1.2) APTT (22.0-30.0) sec Fibrinogen (200-500) mg/dL D-Dimer (<0.60) mg/L FEU ABG pH (7.35-7.45) ABG pCO2 (35-45) mmHg ABG HCO3 (21-25) mmol/L ABG O2 Saturation (94-97) % Sodium (137-145) mmol/L Chloride (98-107) mmol/L Carbon Dioxide (22-30) mmol/L BUN (9-20) mg/dL Creatinine (0.66-1.25) mg/dL Glucose (74-99) mg/dL POC Glucose (mg/dL) (70-110) mg/dL Plasma Lactic Acid Sav 2.1 H* (0.7-2.0) mmol/L Calcium (8.4-10.2) mg/dL AST (17-59) U/L Total Protein (6.3-8.2) g/dL Albumin (3.5-5.0) g/dL Chest x-ray: report reviewed CT Scan - head: report reviewed Assessment and Plan (1) Coagulopathy Current Visit: Yes Status: Acute Priority: High Code(s): D68.9 - COAGULA TION DEFECT, UNSPECIFIED SNOMED Code(s): 01176726 (2) Methotrexate adverse reaction Current Visit: Yes Status: Acute Priority: High Code(s): T45.1X5A - ADVERSE EFFECT OF ANTINEOPLASTIC AND IMMUNOSUP DRUGS, INIT SNOMED Code(s): 452583906 (3) Pancytopenia Current Visit: Yes Status: Acute Priority: High Code(s): D61.818 - OTHER PANCYTOPENIA SNOMED Code(s): 974377704 Plan: Coagulopathy -Patient on Coumadin for atrial fibrillation. On admission INR 9.1 -Patient has received 2 doses of IV vitamin K, INR 2.2 on recheck. -INR daily for now. INR may rebound as patient is not consuming oral intake at this time and is acutely ill Concerns for DIC -Fibrinogen ordered, currently level is elevated. INR is lowering with administration of vit K. Plt stable at this time -CBC, Coags and fibrinogen daily for now as pt condition remains acute and critical Pancytopenia -After chart review, suspect methotrexate toxicity secondary to acute on chronic renal failure -Rescue leucovorin ordered -Methotrexate levels have been ordered prior to administration of leucovorin and for level to be drawn tomorrow after several doses of leucovorin. Unfo rtunately, this lab can take several days to return. Will base leucovorin administration on response i.e. improvement in patient's pancytopenia -Pancytopenia work up ordered -CBC daily. -Transfuse for hemoglobin less than 7. -Transfuse for platelets less than 10,000 or if patient is symptomatic -No G-CSF at this time as methotrexate levels may still be elevated and would potentially destroy new white blood cells sent into the periphery. Doctor attests: I performed a history and physical examination of this patient, developed impression and plan of care. Discussed with dictator. I agree with dictators note, documented as a scribe.
[2024-01-07 15:39] LABS: % Iron Saturation 61.24 (15.00-50.00)
[2024-01-07] MEDS: CISATRACURIUM 2 MG/ML 5 ML VIAL IV ONE ×2 (15:41→16:21)
[2024-01-07] MEDS: propofoL 100 ML IV ONE (15:44)
[2024-01-07 16:10] LABS: ABG Base Excess -8.8 mmol/L; ABG HCO3 16 mmol/L (21-25); ABG Oxygen Saturation 100.4 % (94-97); ABG PCO2 32 mmHg (35-45); ABG PH 7.32 (7.35-7.45); ABG PO2 415 mmHg (83-108); ABG TCO2 17 mmol/L (19-24)
[2024-01-07 16:12] LABS: Allen Test Performed? no
--- NOTE | 2024-01-07 16:16 | XR ---
EXAMINATION TYPE: XR chest 1V DATE OF EXAM: 01/07/2024 COMPARISON: 01/07/2024 INDICATION: ET tube placement TECHNIQUE: Single frontal view of the chest is obtained. FINDINGS: The heart size is normal. The pulmonary vasculature is normal. The lungs are clear. Endotracheal tube is in place with tip 1.5 cm above the hayder. This could be pulled back 1 cm. Nasog astric tube transverses the thorax with tip in the left upper quadrant of the abdomen. IMPRESSION: 1. No acute pulmonary process. 2. ET tube 1.5 cm above the hayder. 2. Nasogastric tube tip in the left upper quadrant of the abdomen.
[2024-01-07] MEDS: EPINEPHrine 4 MG in DEXTROSE 5% IN WATER 250 ML IV SCH (16:21)
[2024-01-07] MEDS: DAPTOmycin 500 MG in SODIUM CHLORIDE 0.9% 50 ML IVPB SCH (16:27)
[2024-01-07] MEDS: HYDROCORTISONE SUCCINATE 100 MG/2 ML VIAL IV SCH (16:31)
--- NOTE | 2024-01-07 20:21 | CONS ---
CONSULTATION CHIEF COMPLAINT: Atrial fibrillation. HISTORY OF PRESENT ILLNESS: Hardik Mccann is a 73-year-old gentleman with multiple medical problems including permanent atrial fibrillation, rheumatoid arthritis, hypertension, and type 2 diabetes, who presented to hospital with left shoulder pain, thought to be secondary to the rotator cuff related issue. He also had coagulopathy on initial presentation with an elevated INR. The patient came to hospital on 01/05/2024. Cardiology was consulted on the evening of 01/05 because of his history of atrial fibrillation. I am evaluating the patient in ICU on the morning of 01/06 . The patient had renalinsufficiency on his initial presentation with BUN of 116 and creatinine of 3.9. The patient is currently in the intensive care unit. He was initially admitted to [address] [place] [address] and had profound hypotension with systolic blood pressures dropping into the 50s and had to be transferred to ICU. INR this morning is 9.1 and the patient is waiting to receive FFP, apparently has already received vitamin K. Patient is on pressors and systolic blood pressure is around 101/58, heart rate is 110 beats per minute. It is varying between 100 and 110 beats per minute. O2 saturation is 99% on 3 L. The patient appears intravascularly volume depleted, and his hypotension and renal failure were probably partly related to it. CBC done this morning shows that the white cell count is 0.6. It was 6.6 on his initial presentation and subsequently dropped to 3.4 and this morning it is 0.6. Hematology had been consulted for the same. I ordered a stat echocardiogram to evaluate his LV function and the patient is currently receiving IV fluids at KVO rate. I asked the ICU nurse to increase it to 100 mL/hour. I spoke to the automatic typewriter inspector. Nephrology is already on the case. PAST MEDICAL HISTORY: Significant for permanent atrial fibrillation, CHF ,rheumatoid arthritis, diabetes, and hypertension. MEDICATIONS: At home include: 1. K-Dur 20 b.i.d. 2. Colchicine. 3. Metolazone. 4. Calcitriol. 5. Jardiance. 6. Vitamin D. 7. B12. 8. Methimazole. 9. Methotrexate. 10.Zestril. 11.Zyloprim. 12.Lasix 40 b.i.d. 13.Tenormin 50 daily. 14.Coumadin. ALLERGIES: There are no known drug allergies. SOCIAL HISTORY: Negative for current smoking, EtOH abuse, or drug abuse. REVIEW OF SYSTEMS: I am unable to obtain from the patient at the moment. PHYSICAL EXAMINATION: VITAL SIGNS: Afebrile, heart rate is around 100-110 beats per minute, blood pressure is 101/58, respiratory rate is 19, O2 saturation is 99% on 3 L. CHEST: Reveals good air entry without any crackles or rhonchi. HEART: Reveals first and second heart sounds. Irregular rhythm and a short systolic murmur at the apex. ABDOMEN: Soft. EXTREMITIES: Reveal mild bilateral edema. Both his lower extremities are covered by dressing. He has deformities related to his rheumatoid arthritis and has areas of skin excoriation. stasis dermatitis involving lower extremities IMAGING: EKG shows atrial fibrillation with a heart rate of 110 beats per minute, PVC, and nonspecific ST-T wave changes. Echocardiogram is pending at this time. LABS: Show that the white cell count is 0.6, hemoglobin is 9.4, INR is elevated at 9.1, potassium is 3.5, BUN is 154, creatinine is 3. TSH is normal at 0.9. ASSESSMENT: 1. Persistent atrial fibrillation with elevated heart rate. 2. Acute renal failure. 3. Hypotension, probably secondary to intravascular volume depletion. 4. Coagulopathy from Coumadin. PLAN: I ordered a stat echo, IV fluids at 100 mL/hour. I spoke to the automatic typewriter inspector. The patient is to receive FFP which has already been ordered. I will decrease the dose of his metoprolol to 25 b.i.d. JEFF / DARRICK: [id number] / MTDD
--- NOTE | 2024-01-07 20:37 | OP ---
OPERATIVE REPORT DATE OF SERVICE : PROCEDURE PERFORMED: Placement of a right femoral arterial line. PREOPERATIVE DIAGNOSIS: Respiratory failure and hypotension. POSTOPERATIVE DIAGNOSIS: Respiratory failure and hypotension. ANESTHESIA USED: 2 mL of 1% lidocaine. DESCRIPTION OF PROCEDURE: The patient was placed in supine position. The right groin was prepared in a sterile fashion. Drapes were applied. The right groin was locally anesthetized. Then, the right femoral artery was easily palpated, cannulated, and a guidewire was placed. A Cook's catheter was inserted over the guidewire, and the guidewire was removed. Good blood flow, good waveform noted. No complications. Line was secured using 3.0 silk sutures. MMODL / IJN: [id number] /
--- NOTE | 2024-01-07 20:37 | OP ---
OPERATIVE REPORT DATE OF SERVICE : OPERATIVE REPORT: Placement of a right femoral triple-lumen catheter. PREOPERATIVE DIAGNOSIS: Acute hypoxic respiratory failure and hypotension with suspected sepsis and septic shock. POSTOPERATIVE DIAGNOSIS: Acute hypoxic respiratory failure and hypotension with suspected sepsis and septic shock. ANESTHESIA USED: 2 mL of 1% lidocaine. DESCRIPTION OF PROCEDURE: The patient was placed in a supine position. The right groin was prepared in a sterile fashion. Drapes were applied. The area was locally anesthetized with lidocaine. Then, the right femoral vein was easily cannulated and a guidewire was placed. A triple-lumen catheter was inserted over the guidewire, and the guidewire was removed. Good blood flow noted in 3 different ports of the triple-lumen catheter. Line was secured using 3.0 silk sutures. The procedure was well tolerated and no complications. MMODL / IJN: [id number] /
[2024-01-07] MEDS: NOREPINEPHRINE 32 MG in SODIUM CHLORIDE 0.9% 218 ML IV SCH (21:00)
[2024-01-07] MEDS: CHLORHEXIDINE GLUCONATE 15 ML CUP MUCOUS MEM SCH (21:50)
[2024-01-07] MEDS: CEFEPIME 1 GM in SODIUM CHLORIDE 0.9% 50 ML IVPB SCH (21:50)
--- NOTE | 2024-01-07 22:40 | P.CONS ---
History of Present Illness - Reason for Consult Consult date: 01/07/24 Wounds Requesting physician: Lesly Slade - Chief Complaint Left shoulder pain x days - History of Present Illness Patient is 73-year-old male with a past medical history significant for diabetes mellitus hypertension heart failure atrial fibrillation gout pat ient presenting to the hospital 2 days ago concerning for left shoulder pain apparently patient has been working out lifting weights and has developed severe pain in his left shoulder area that has been treated with some local care with ice packing at home and pain medication however the patient did have worsening of the pain and difficulty moving his arm for the patient was brought into the hospital on arrival to the ER patient was afebrile and the patient was initially admitted to the cardiac floor last evening the patient did spike a fever of 100.5 F patient was tachycardic and hypotensive for the patient was transferred to the ICU patient did have a normal white count elevation with a white count of 0.6 this morning did have elevated lactic acid elevated BUN and creatinine patient did have a shoulder x-ray did show severe degenerative changes likely full-thickness rotator cuff tear chest x-ray no acute pulmonary process patient has been started on cefepime and vancomycin infectious disease was consulted for further management of antibiotic therapy. Patient's time my evaluation is afebrile patient has been screaming in pain and did not provide any history most information has been pain from review the chart talking to the at the bedside no clear history of nausea vomiting or diarrhea reported patient also have a wound to the left lower extremity apparently has been going on for the last few weeks started as a trauma has been taking care of at home by the home care nurse is not clear about the lack currently being provided did not mention any foul-smelling drainage from it Review of Systems Positive points has been mentioned in HPI complete review could not be obtained because of his underlying mental status Past Medical History Past Medical History: Atrial Fibrillation, Heart Failure, Diabetes Mellitus, Hypertension Additional Past Medical History / Comment(s): Gout History of Any Multi-Drug Resistant Organisms: None Reported Past Surgical History: Orthopedic Surgery Additional Past Surgical History / Comment(s): cardiac ablation, pain pump in lower back (hockey puck size) Past Psychological History: No Psychological Hx Reported Smoking Status: Former smoker Past Alcohol Use History: None Reported Past Drug Use History: None Reported Medications and Allergies Home Medications Medication Instructions Recorded Confirmed Type Ascorbic Acid/Multivit-Min 1,000 mg PO DAILY 01/05/24 01/05/24 History [Emergen-C 1,000 mg Packet] Cholecalciferol [Vitamin D3 (25 50 mcg PO DAILY 01/05/24 01/05/24 History Mcg = 1000 Iu)] Colchicine 0.6 mg PO DAILY 01/05/24 01/05/24 History Cyanocobalamin (Vitamin B-12) 1,000 mcg PO DAILY 01/05/24 01/05/24 History [Vitamin B-12] Empagliflozin [Jardiance] 10 mg PO DAILY 01/05/24 01/05/24 History Folic Acid 1 mg PO DAILY 01/05/24 01/05/24 History Furosemide [Lasix] 40 mg PO BID 01/05/24 01/05/24 History Glucosa Yeh 2Kcl/Chondroitin Yeh 1 cap PO BID 01/05/24 01/05/24 History [Glucosamine-Chondroitin Cap] L.acidoph,Paracasei, B.lactis 1 cap PO DAILY 01/05/24 01/05/24 History [Probiotic] Magnesium Oxide [Mag-Ox] 400 mg PO DAILY 01/05/24 01/05/24 History Potassium Chloride ER [K-Dur 10] 20 meq PO BID 01/05/24 01/05/24 History Super Beets 1 scoop PO DAILY 01/05/24 01/05/24 History Tart Bourne 2 tab PO DAILY 01/05/24 01/05/24 History Warfarin [Coumadin] 2.5 mg PO [id number] 01/05/24 01/05/24 History Warfarin [Coumadin] 5 mg PO YEH 01/05/24 01/05/24 History allopurinoL [Zyloprim] 300 mg PO W/SUPPER 01/05/24 01/05/24 History atenoloL [Tenormin] 50 mg PO DAILY 01/05/24 01/05/24 History calcitrioL [Rocaltrol] 0.25 mcg PO MOFR 01/05/24 01/05/24 History lisinopriL [Zestril] 5 mg PO PC-LUNCH 01/05/24 01/05/24 History metHOTREXate sodium [Methotrexate] 17.5 mg PO SA 01/05/24 01/05/24 History metOLazone [Zaroxolyn] 2.5 mg PO MOWEFR 01/05/24 01/05/24 History methIMAzole [Tapazole] 2.5 mg PO Q2D 01/05/24 01/05/24 History Allergies Allergy/AdvReac Type Severity Reaction Status Date / Time No Known Allergies Allergy Verified 01/05/24 20:31 Physical Exam Vitals: Vital Signs Temp Pulse Pulse Resp BP BP Pulse Ox 01/07/24 10:00 117 H 21 100 01/07/24 09:30 82/45 01/07/24 09:00 109 H 19 100 01/07/24 08:45 111/83 01/07/24 08:30 82/45 01/07/24 08:15 98.9 F 105 H 19 103/49 100 01/07/24 08:00 92/48 01/07/24 07:45 82/45 01/07/24 07:00 98.9 F 108 H 25 H 101/58 99 01/07/24 06:00 101 H 19 75/44 100 01/07/24 05:00 99.3 F 20 82/45 76/43 100 01/07/24 04:00 82/45 01/07/24 03:39 100 100/66 96 01/07/24 03:37 112 H 89/56 01/07/24 03:31 99 F 75 79/50 92 L 01/07/24 03:00 68/42 01/07/24 02:45 59/34 01/07/24 02:15 98 22 86/57 92 L 01/07/24 02:00 98.8 F 78 21 72/68 88 L 01/07/24 01:36 98.6 F 78 22 97/67 92 L 01/07/24 00:14 101 H 22 89/42 92 L 01/06/24 23:50 99.1 F 104 H 94/65 99 01/06/24 22:59 106 H 20 94/54 99 01/06/24 21:01 113 H 20 107/95 92 L 01/06/24 20:50 117 H 22 92/72 96 01/06/24 20:43 113 H 20 80/43 94 L 01/06/24 20:28 98.7 F 112 H 16 111/47 95 01/06/24 18:26 100.5 F H 120 H 16 97/54 98 01/06/24 17:09 111 H 16 103/77 98 01/06/24 16:00 114 H 16 112/61 95 01/06/24 15:04 117 H 19 112/91 96 01/06/24 14:50 99.7 F H 120 H 20 104/37 97 01/06/24 14:23 98.3 F 01/06/24 12:00 98.1 F 86 18 112/62 95 Intake and Output 01/06/24 01/07/24 01/07/24 22:59 06:59 14:59 Intake Total 4.094 299.906 Output Total 400 550 40 Balance -400 -545.906 259.906 Intake: Intake, IV Titration 4.094 299.906 Amount Norepinephrine 4 mg In 4.094 249.906 Sodium Chloride 0.9% 250 ml @ 0.03 MCG/KG/MIN 10. 68 mls/hr IV .[id number] [facility] Rx#:[id number] Phytonadione 10 mg In 50 Sodium Chloride 0.9% 50 ml @ 100 mls/hr IVPB ONCE STA Rx#:[id number] Output: Urine 400 550 40 Male - External 400 Other: Weight 96.6 kg ABP, PAP, CO, CI - Last 8 Hours Arterial Blood Pressure 98/54 Arterial Blood Pressure 105/58 Arterial Blood Pressure 106/57 Arterial Blood Pressure 103/54 Arterial Blood Pressure 98/58 Arterial Blood Pressure 94/54 GENERAL DESCRIPTION: Elderly male lying in bed, mild distress. No tachypnea or accessory muscle of respiration use. HEENT: Shows Pallor , no scleral icterus. Oral mucous membrane is dry. NECK: Trachea central, no thyromegaly. LUNGS: Unlabored breathing. Decreased breath sound the base. HEART: S1, S2, regular rate and rhythm. No loud murmur ABDOMEN: Soft, no tenderness , EXTREMITIES: Left lower leg with a gaping wound some slough tissue no significant surrounding redness SKIN: Multiple skin bruises and erythema especially to the left shoulder, no masses palpable. NEUROLOGICAL: The patient is awake, screaming in pain orientation could not determine Results CBC & Chem 7: 01/07/24 04:29 01/07/24 04:29 Labs: Abnormal Lab Results - Last 24 Hours (Table) 01/06/24 01/06/24 01/07/24 Range/Units 11:52 14:23 04:23 WBC 3.4 L (3.8-10.6) k/uL RBC 3.47 L (4.30-5.90) m/uL Hgb 11.0 L (13.0-17.5) gm/dL Hct 33.0 L (39.0-53.0) % RDW 16.4 H (11.5-15.5) % Plt Count (150-450) k/uL Lymphocytes # 0.3 L (1.0-4.8) k/uL PT (10.0-12.5) sec INR (<1.2) APTT (22.0-30.0) sec Fibrinogen (200-500) mg/dL D-Dimer (<0.60) mg/L FEU ABG pH 7.46 H (7.35-7.45) ABG pCO2 27 L (35-45) mmHg ABG HCO3 20 L (21-25) mmol/L ABG O2 Saturation 97.5 H (94-97) % Sodium 131 L (137-145) mmol/L Chloride 97 L (98-107) mmol/L Carbon Dioxide 19 L (22-30) mmol/L BUN 138 H* (9-20) mg/dL Creatinine 2.96 H (0.66-1.25) mg/dL Glucose 112 H (74-99) mg/dL POC Glucose (mg/dL) (70-110) mg/dL Plasma Lactic Acid Sav (0.7-2.0) mmol/L Calcium 8.0 L (8.4-10.2) mg/dL AST 127 H (17-59) U/L Total Protein 5.4 L (6.3-8.2) g/dL Albumin 2.6 L (3.5-5.0) g/dL 01/07/24 01/07/24 01/07/24 Range/Units 04:29 04:29 04:29 WBC 0.6 L* (3.8-10.6) k/uL RBC 3.06 L (4.30-5.90) m/uL Hgb 9.4 L D (13.0-17.5) gm/dL Hct 29.8 L (39.0-53.0) % RDW 16.2 H (11.5-15.5) % Plt Count 100 L (150-450) k/uL Lymphocytes # (1.0-4.8) k/uL PT 89.9 H (10.0-12.5) sec INR 9.1 H* (<1.2) APTT (22.0-30.0) sec Fibrinogen (200-500) mg/dL D-Dimer (<0.60) mg/L FEU ABG pH (7.35-7.45) ABG pCO2 (35-45) mmHg ABG HCO3 (21-25) mmol/L ABG O2 Saturation (94-97) % Sodium 135 L (137-145) mmol/L Chloride (98-107) mmol/L Carbon Dioxide 17 L (22-30) mmol/L BUN 154 H* (9-20) mg/dL Creatinine 3.05 H (0.66-1.25) mg/dL Glucose 73 L (74-99) mg/dL POC Glucose (mg/dL) (70-110) mg/dL Plasma Lactic Acid Sav (0.7-2.0) mmol/L Calcium 7.3 L (8.4-10.2) mg/dL AST (17-59) U/L Total Protein (6.3-8.2) g/dL Albumin (3.5-5.0) g/dL 01/07/24 01/07/24 01/07/24 Range/Units 06:33 08:31 08:31 WBC (3.8-10.6) k/uL RBC (4.30-5.90) m/uL Hgb (13.0-17.5) gm/dL Hct (39.0-53.0) % RDW (11.5-15.5) % Plt Count (150-450) k/uL Lymphocytes # (1.0-4.8) k/uL PT (10.0-12.5) sec INR (<1.2) APTT 62.5 H (22.0-30.0) sec Fibrinogen 611 H (200-500) mg/dL D-Dimer 6.16 H (<0.60) mg/L FEU ABG pH (7.35-7.45) ABG pCO2 (35-45) mmHg ABG HCO3 (21-25) mmol/L ABG O2 Saturation (94-97) % Sodium (137-145) mmol/L Chloride (98-107) mmol/L Carbon Dioxide (22-30) mmol/L BUN (9-20) mg/dL Creatinine (0.66-1.25) mg/dL Glucose (74-99) mg/dL POC Glucose (mg/dL) 65 L (70-110) mg/dL Plasma Lactic Acid Sav (0.7-2.0) mmol/L Calcium (8.4-10.2) mg/dL AST 100 H (17-59) U/L Total Protein (6.3-8.2) g/dL Albumin (3.5-5.0) g/dL 01/07/24 Range/Units 08:33 WBC (3.8-10.6) k/uL RBC (4.30-5.90) m/uL Hgb (13.0-17.5) gm/dL Hct (39.0-53.0) % RDW (11.5-15.5) % Plt Count (150-450) k/uL Lymphocytes # (1.0-4.8) k/uL PT (10.0-12.5) sec INR (<1.2) APTT (22.0-30.0) sec Fibrinogen (200-500) mg/dL D-Dimer (<0.60) mg/L FEU ABG pH (7.35-7.45) ABG pCO2 (35-45) mmHg ABG HCO3 (21-25) mmol/L ABG O2 Saturation (94-97) % Sodium (137-145) mmol/L Chloride (98-107) mmol/L Carbon Dioxide (22-30) mmol/L BUN (9-20) mg/dL Creatinine (0.66-1.25) mg/dL Glucose (74-99) mg/dL POC Glucose (mg/dL) (70-110) mg/dL Plasma Lactic Acid Sav 2.1 H* (0.7-2.0) mmol/L Calcium (8.4-10.2) mg/dL AST (17-59) U/L Total Protein (6.3-8.2) g/dL Albumin (3.5-5.0) g/dL Assessment and Plan (1) Sepsis Current Visit: Yes Status: Acute Code(s): A41.9 - SEPSIS, UNSPECIFIED ORGANISM SNOMED Code(s): 18470902 (2) Leg wound, left Current Visit: Yes Status: Acute Code(s): S81.802A - UNSPECIFIED OPEN WOUND, LEFT LOWER LEG, INITIAL ENCOUNTER SNOMED Code(s): 59997141133135652 Plan: 1patient with sepsis in this patient who did have fever leukopenia hypertension requiring admission to the ICU and this patient was in the hospital with escalation pain to the left shoulder area and also have a wound to the left lower extremity likely differential of as currently no evidence of pneumonia on the chest x-ray abdominal soft on clinical examination 2-patient with renal insufficiency high risk of nephrotoxicity 3-we will discontinue vancomycin start the patient on daptomycin to cover for the gram-positive and continue with cefepime 4-local wound care to the left leg wound with Santyl followed by moist dressing change daily 5-we will follow-up on clinical condition and culture and adjust body further if needed We will follow on clinical condition and cultures to further adjust medication if needed Thank you for this consultation we will follow the patient along with you Dictation was produced using [email or web address] dictation software. please excuse any grammatical, word or spelling errors. Time with Patient: Greater than 30
[2024-01-08 00:24] LABS: Glucose,Whole Blood 106 mg/dL (70-110)
[2024-01-08] MEDS: SODIUM CHLORIDE 0.9% 1,000 ML IV ONE ×2 (00:24→10:02)
[2024-01-08 01:52] LABS: Amorphous Sediment,Urine Occasional /hpf; Appearance,Urine Cloudy (Clear); Bacteria,Urine Occasional /hpf; Bilirubin,Urine Negative (Negative); Blood,Urine Negative (Negative); Color,Urine Yellow; Glucose,Urine (UA) Negative (Negative); Hyaline Casts,Urine 88 /lpf (0-2); Ketones,Urine Negative (Negative); Leukocyte Esterase,Urine Negative (Negative); Mucus,Urine Occasional /hpf; Nitrite,Urine Negative (Negative); Protein,Urine Trace (Negative); RBC,Urine 6 /hpf (0-5); Specific Gravity,Urine 1.015 (1.001-1.035); Squamous Epithelial Cell,Urine 1 /hpf (0-4); Urobilinogen,Urine <2.0 mg/dL (<2.0); WBC,Urine 10 /hpf (0-5)
[2024-01-08 05:11] LABS: ABG Base Excess -7.6 mmol/L; ABG HCO3 17 mmol/L (21-25); ABG Oxygen Saturation 99.6 % (94-97); ABG PCO2 29 mmHg (35-45); ABG PH 7.37 (7.35-7.45); ABG PO2 146 mmHg (83-108); ABG TCO2 18 mmol/L (19-24); Allen Test Performed? Yes
[2024-01-08 05:26] LABS: Anisocytosis Slight; HCT 28.8 % (39.0-53.0); HGB 9.1 gm/dL (13.0-17.5); MCH 31.4 pg (25.0-35.0); MCHC 31.8 g/dL (31.0-37.0); MCV 98.8 fL (80.0-100.0); Macrocytosis Slight; Mean Platelet Volume 10.5; RBC 2.91 m/uL (4.30-5.90); RDW 16.6 % (11.5-15.5)
[2024-01-08 05:28] LABS: WBC 1.2 k/uL (3.8-10.6)
[2024-01-08 05:29] LABS: Platelet Count 33 k/uL (150-450)
[2024-01-08 05:45] LABS: ALT 31 U/L (4-49); AST 80 U/L (17-59); Albumin 1.8 g/dL (3.5-5.0); Alkaline Phosphatase 50 U/L (38-126); Anion Gap 16 mmol/L; Calcium 7.2 mg/dL (8.4-10.2); Carbon Dioxide 13 mmol/L (22-30); Chloride 106 mmol/L (98-107); Glucose 102 mg/dL (74-99); Sodium 135 mmol/L (137-145); Total Bilirubin 2.7 mg/dL (0.2-1.3); Total Protein 4.1 g/dL (6.3-8.2)
[2024-01-08 05:51] LABS: African American GFR (CKD) 22 (>60 ml/min/1.73 sqM); Non-African American GFR(CKD) 19 (>60 ml/min/1.73 sqM)
[2024-01-08 05:57] LABS: Blood Urea Nitrogen 157 mg/dL (9-20)
[2024-01-08 06:22] LABS: INR 1.6 (<1.2); Partial Thromboplastin Time 34.4 sec (22.0-30.0); Prothrombin Time 16.3 sec (10.0-12.5)
[2024-01-08 06:24] LABS: Glucose,Whole Blood 92 mg/dL (70-110)
[2024-01-08] MEDS ORDERED: VANCOMYCIN 1,500 MG in SODIUM CHLORIDE 0.9% 500 ML 500 ML IVPB ONE (08:00)
--- NOTE | 2024-01-08 08:04 | XR ---
EXAMINATION TYPE: XR chest 1V portable DATE OF EXAM: 01/08/2024 COMPARISON: 01/07/2024 INDICATION: Tube placement TECHNIQUE: Single frontal view of the chest is obtained. FINDINGS: The heart size is normal. The pulmonary vasculature is normal. Some mild right lower lobe infiltrate is present. Atelectasis or pneumonia. Endotracheal tube tip is 2.3 cm above hayder. Nasogastric tube tip is in the left upper quadrant of t he abdomen. There are advanced degenerative changes at the bilateral shoulders. IMPRESSION: 1. Mild right lower lobe infiltrate. Correlate for atelectasis and pneumonia
[2024-01-08 09:09] LABS: Eosinophils # (M) 0.01 k/uL (0-0.7); Lymphocytes # (M) 0.44 k/uL (1.0-4.8); Monocytes # (M) 0.23 k/uL (0-1.0); Neutrophils # (M) 0.52 k/uL (1.3-7.7); Neutrophils % (M) 43 %; Nucleated Red Blood Cells 0 /100 WBC (0-0); Total Cells Counted 100
[2024-01-08 09:10] LABS: Poikilocytosis (M) Present
--- NOTE | 2024-01-08 09:13 | P.PN ---
Progress Note - Text Progress Note Date: 01/08/24 This is a 73-year-old male whom we were asked to evaluate for rotator cuff tear of the left shoulder. The patient was admitted through the emergency department with severe left shoulder pain. He was also found to have elevated BUN/creatinine and had developed septic shock and was transferred to ICU. I presented to the ICU on 01/07/2024 to evaluate the patient. Family was present at bedside. The patient was unable to participate with exam and was unable to communicate at that time. 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 It was discussed with the family that treatment options under ordinary circumstances would include possible cortisone injection, physical therapy and surgical intervention consisting of a reverse total shoulder. The patient is not a candidate for any surgical intervention at this time. I would hesitate to do a cortisone injection with his current medical issues. Family has requested that we canceled the Ortho consult at this time. We may be reconsulted when the patient is stable medically and able to participate in exam.
[2024-01-08] MEDS: PANTOPRAZOLE 40 MG/10 ML VIAL IVP SCH (10:01)
[2024-01-08] MEDS ORDERED: ZINC OXIDE 20% OINT 28.4 GM TUBE TOPICAL PRN (10:01)
--- NOTE | 2024-01-08 10:05 | P.CONS ---
History of Present Illness - Reason for Consult Consult date: 01/08/24 wound care - History of Present Illness 73-year-old patient being seen in ICU for a nonhealing ulceration to the left lateral calf. Patient is currently intubated. Weeping edema noted to all 4 extremities. Patient has multiple skin tears and ecchymosis noted to bilateral upper extremities and bilateral lower extremities. Patient has a open ulceration measuring 4 x 3 x 1 cm with muscle involvement without necrosis no tunneling noted undermining noted from 12:00 to 3:00. Per nursing note patient has had the ulceration for some time after a hematoma. Home care has been providing treatment of Dakin solution and a wet to dry dressing to the site. Family stated that the ulceration had been improving. Patient's past medical history significant for atrial fibrillation, heart failure, diabetes, hypertension. Review of system: Unable to obtain due to intubation Physical exam: General Appearance: Alert, cooperative, no distress, appears stated age. Skin: See HPI all other Skin color, texture, tugor normal, no rashes or lesions. Neurologic: Alert oriented x3 Assessment: 1. Nonhealing ulceration left lateral calf with muscle involvement without necrosis 2. Diabetes with skin ulceration Plan: 1. Left lateral lower extremity: Apply Santyl, saline moist gauze, dry gauze, rolled gauze and secure with paper tape. Change daily right lower extremity bilateral arms multiple skin tears: Apply zinc barrier cream and may cover with dressing as needed. Change daily and as needed. Thank you for the consultation any questions please contact the wound care center. DNP note has been reviewed and discussed with Dr. Talley and the impression and plan of care has been directed as dictated. Past Medical History Past Medical History: Atrial Fibrillation, Heart Failure, Diabetes Mellitus, Hypertension Additional Past Medical History / Comment(s): Gout History of Any Multi-Drug Resistant Organisms: None Reported Past Surgical History: Orthopedic Surgery Additional Past Surgical History / Comment(s): cardiac ablation, pain pump in lower back (hockey puck size) Past Psychological History: No Psychological Hx Reported Smoking Status: Former smoker Past Alcohol Use History: None Reported Past Drug Use History: None Reported Medications and Allergies Home Medications Medication Instructions Recorded Confirmed Type Ascorbic Acid/Multivit-Min 1,000 mg PO DAILY 01/05/24 01/05/24 History [Emergen-C 1,000 mg Packet] Cholecalciferol [Vitamin D3 (25 50 mcg PO DAILY 01/05/24 01/05/24 History Mcg = 1000 Iu)] Colchicine 0.6 mg PO DAILY 01/05/24 01/05/24 History Cyanocobalamin (Vitamin B-12) 1,000 mcg PO DAILY 01/05/24 01/05/24 History [Vitamin B-12] Empagliflozin [Jardiance] 10 mg PO DAILY 01/05/24 01/05/24 History Folic Acid 1 mg PO DAILY 01/05/24 01/05/24 History Furosemide [Lasix] 40 mg PO BID 01/05/24 01/05/24 History Glucosa Yeh 2Kcl/Chondroitin Yeh 1 cap PO BID 01/05/24 01/05/24 History [Glucosamine-Chondroitin Cap] L.acidoph,Paracasei, B.lactis 1 cap PO DAILY 01/05/24 01/05/24 History [Probiotic] Magnesium Oxide [Mag-Ox] 400 mg PO DAILY 01/05/24 01/05/24 History Potassium Chloride ER [K-Dur 10] 20 meq PO BID 01/05/24 01/05/24 History Super Beets 1 scoop PO DAILY 01/05/24 01/05/24 History Tart Bourne 2 tab PO DAILY 01/05/24 01/05/24 History Warfarin [Coumadin] 2.5 mg PO [id number] 01/05/24 01/05/24 History Warfarin [Coumadin] 5 mg PO YEH 01/05/24 01/05/24 History allopurinoL [Zyloprim] 300 mg PO W/SUPPER 01/05/24 01/05/24 History atenoloL [Tenormin] 50 mg PO DAILY 01/05/24 01/05/24 History calcitrioL [Rocaltrol] 0.25 mcg PO MOFR 01/05/24 01/05/24 History lisinopriL [Zestril] 5 mg PO PC-LUNCH 01/05/24 01/05/24 History metHOTREXate sodium [Methotrexate] 17.5 mg PO SA 01/05/24 01/05/24 History metOLazone [Zaroxolyn] 2.5 mg PO MOWEFR 01/05/24 01/05/24 History methIMAzole [Tapazole] 2.5 mg PO Q2D 01/05/24 01/05/24 History Allergies Allergy/AdvReac Type Severity Reaction Status Date / Time No Known Allergies Allergy Verified 01/05/24 20:31 Physical Exam Vitals: Vital Signs Temp Pulse Pulse Resp BP Pulse Ox FiO2 01/08/24 08:30 100 20 100 01/08/24 08:15 101 H 20 99 01/08/24 08:00 98.0 F 103 H 20 100 40 01/08/24 07:45 104 H 20 100 01/08/24 07:30 107 H 20 100 01/08/24 07:15 97 23 100 01/08/24 07:00 109 H 20 99 01/08/24 06:45 108 H 20 100 01/08/24 06:30 102 H 20 99 01/08/24 06:15 112 H 20 99 01/08/24 06:00 117 H 21 99 01/08/24 05:45 133 H 20 99 01/08/24 05:30 112 H 20 99 01/08/24 05:15 121 H 22 100 01/08/24 05:13 40 01/08/24 05:00 140 H 20 100 01/08/24 04:45 149 H 20 100 01/08/24 04:30 140 H 20 99 01/08/24 04:15 133 H 20 100 01/08/24 04:14 50 01/08/24 04:00 98.8 F 170 H 25 H 100 50 01/08/24 03:45 135 H 22 100 01/08/24 03:30 114 H 20 100 01/08/24 03:15 111 H 20 100 01/08/24 03:00 104 H 16 100 01/08/24 02:45 113 H 20 100 01/08/24 02:30 105 H 18 100 01/08/24 02:15 109 H 20 99 01/08/24 02:00 114 H 20 100 01/08/24 01:45 125 H 20 100 01/08/24 01:30 112 H 22 100 01/08/24 01:15 137 H 20 100 01/08/24 01:00 115 H 20 100 01/08/24 00:45 126 H 20 100 01/08/24 00:30 117 H 20 100 01/08/24 00:15 122 H 20 100 01/08/24 00:01 146 H 20 99 01/08/24 00:00 99.2 F 109 H 20 99 50 01/07/24 23:55 111 H 21 50 01/07/24 23:45 124 H 20 100 01/07/24 23:30 128 H 20 100 01/07/24 23:15 122 H 20 100 01/07/24 23:00 129 H 21 100 01/07/24 22:45 122 H 20 100 01/07/24 22:30 122 H 20 99 01/07/24 22:15 144 H 22 99 01/07/24 22:00 163 H 21 99 01/07/24 21:45 125 H 22 98 01/07/24 21:30 129 H 23 98 01/07/24 21:15 140 H 23 96 01/07/24 21:00 118 H 26 H 98 01/07/24 20:45 120 H 24 98 01/07/24 20:30 124 H 25 H 99 01/07/24 20:15 121 H 24 98 01/07/24 20:00 98.5 F 134 H 24 99 50 01/07/24 19:47 109 H 20 01/07/24 19:45 128 H 24 99 01/07/24 19:43 50 01/07/24 19:40 120 H 24 01/07/24 19:30 103 H 22 99 01/07/24 19:15 104 H 26 H 99 01/07/24 19:00 108 H 32 H 59/21 99 01/07/24 18:45 112 H 24 59/21 99 01/07/24 18:30 118 H 23 83/32 100 01/07/24 18:15 128 H 25 H 83/32 99 01/07/24 18:00 101 H 23 71/32 99 01/07/24 17:45 109 H 24 71/32 99 01/07/24 17:30 115 H 27 H 73/30 98 01/07/24 17:15 112 H 26 H 73/30 98 01/07/24 17:00 108 H 26 H 89/34 99 01/07/24 16:45 121 H 24 70/33 100 01/07/24 16:30 99.0 F 125 H 20 77/37 99 01/07/24 16:21 50 01/07/24 16:15 141 H 20 119/41 100 01/07/24 16:00 138 H 100 37 H 102/51 100 50 01/07/24 15:45 121 H 20 74/56 100 01/07/24 15:30 151 H 19 100 01/07/24 15:23 100 01/07/24 15:16 100 01/07/24 15:15 147 H 31 H 98 01/07/24 15:00 141 H 20 94 L 01/07/24 14:45 142 H 22 95 01/07/24 14:30 142 H 26 H 98 01/07/24 14:15 123 H 25 H 98 01/07/24 14:00 122 H 23 100 01/07/24 13:45 115 H 18 99 01/07/24 13:30 112 H 13 99 01/07/24 13:15 109 H 12 100 01/07/24 13:00 106 H 15 100 01/07/24 12:45 105 H 23 98 01/07/24 12:30 111 H 20 100 01/07/24 12:15 103 H 20 100 01/07/24 12:00 98.9 F 105 H 100 14 100 50 01/07/24 11:45 99 20 100 01/07/24 11:30 103 H 15 99 01/07/24 11:15 102 H 16 100 01/07/24 11:00 98 12 99 01/07/24 10:45 103 H 12 100 01/07/24 10:30 98 12 100 01/07/24 10:00 117 H 21 100 Intake and Output 01/07/24 01/08/24 01/08/24 22:59 06:59 14:59 Intake Total 3903.317 7410.537 246 Output Total 375 560 95 Balance 648.864 2610.537 151 Intake: IV 924 4 246 0.9 Pressure Bag 24 24 6 0.9 at KVO 200 40 Cefepime 1 gm In Sodium 50 Chloride 0.9% 50 ml @ 12. 5 mls/hr IVPB Q12HR [facility] Rx#:[id number] DAPTOmycin 500 mg In 50 Sodium Chloride 0.9% 50 ml @ 100 mls/hr IVPB Q48H [facility] Rx#:[id number] Dextrose 5% in Water 1, 800 800 200 000 ml @ 100 mls/hr IV . [id number] [facility] with Sodium Bicarb (1 Meq/ml) 150 ml Rx#:[id number] Sodium Chloride 0.9% 1, 1000 000 ml @ 999 mls/hr IV . Q1H1M [facility] Rx#:[id number] Intake, IV Titration 347.752 415.537 Amount Norepinephrine 32 mg In 197.617 Sodium Chloride 0.9% 218 ml @ 0.03 MCG/KG/MIN 1. 358 mls/hr IV .Q24H [facility] Rx#:[id number] Norepinephrine 4 mg In 254.000 Sodium Chloride 0.9% 250 ml @ 0.03 MCG/KG/MIN 10. 68 mls/hr IV .[id number] [facility] Rx#:[id number] Vasopressin 20 unit In 21.012 27.617 Sodium Chloride 0.9% 50 ml @ 0.03 UNITS/MIN 4.59 mls/hr IV .Q11H7M [facility] Rx# :[id number] propofoL 1,000 mg In 72.740 190.303 Empty Bag 1 bag @ 15 MCG/ KG/MIN 8.694 mls/hr IV . [id number] [facility] Rx#:[id number] Output: Gastric Drainage 250 Urine 375 310 95 Other: Voiding Method Indwelling Catheter Indwelling Catheter Indwelling Catheter Weight 102.6 kg ABP, PAP, CO, CI - Last 8 Hours Arterial Blood Pressure 114/51 Arterial Blood Pressure 110/49 Arterial Blood Pressure 109/48 Arterial Blood Pressure 113/49 Arterial Blood Pressure 99/47 Arterial Blood Pressure 113/48 Arterial Blood Pressure 113/49 Arterial Blood Pressure 106/45 Arterial Blood Pressure 108/48 Arterial Blood Pressure 102/47 Arterial Blood Pressure 120/52 Arterial Blood Pressure 111/48 Arterial Blood Pressure 119/50 Arterial Blood Pressure 124/54 Arterial Blood Pressure 129/51 Arterial Blood Pressure 129/51 Arterial Blood Pressure 130/52 Arterial Blood Pressure 108/50 Arterial Blood Pressure 131/60 Arterial Blood Pressure 131/55 Arterial Blood Pressure 140/64 Arterial Blood Pressure 142/68 Arterial Blood Pressure 137/68 Arterial Blood Pressure 120/54 Arterial Blood Pressure 123/57 Arterial Blood Pressure 120/58 Arterial Blood Pressure 132/57 Results CBC & Chem 7: 01/08/24 04:45 01/08/24 04:45 Labs: Abnormal Lab Results - Last 24 Hours (Table) 01/07/24 01/07/24 01/07/24 Range/Units 08:31 08:31 11:37 WBC (3.8-10.6) k/uL RBC (4.30-5.90) m/uL Hgb (13.0-17.5) gm/dL Hct (39.0-53.0) % RDW (11.5-15.5) % Plt Count (150-450) k/uL Neutrophils # (Manual) (1.3-7.7) k/uL Lymphocytes # (Manual) (1.0-4.8) k/uL PT 21.5 H (10.0-12.5) sec INR 2.2 H (<1.2) APTT (22.0-30.0) sec Fibrinogen (200-500) mg/dL ABG pH (7.35-7.45) ABG pCO2 (35-45) mmHg ABG pO2 (83-108) mmHg ABG HCO3 (21-25) mmol/L ABG Total CO2 (19-24) mmol/L ABG O2 Saturation (94-97) % Sodium (137-145) mmol/L Carbon Dioxide (22-30) mmol/L BUN (9-20) mg/dL Creatinine (0.66-1.25) mg/dL Glucose (74-99) mg/dL Plasma Lactic Acid Sav (0.7-2.0) mmol/L Calcium (8.4-10.2) mg/dL TIBC 129 L (228-460) UG/DL % Saturation 61.24 H (15.00-50.00) Transferrin 92.4 L (204.0-354.0) mg/dL Ferritin 1408.0 H (22.0-322.0) ng/mL Total Bilirubin (0.2-1.3) mg/dL AST (17-59) U/L Total Protein (6.3-8.2) g/dL Total Protein (PEP) 4.4 L (6.2-8.2) g/dL Albumin (3.5-5.0) g/dL Vitamin B12 2637.0 H (200.0-944.0) pg/mL Urine Protein (Negative) Urine RBC (0-5) /hpf Urine WBC (0-5) /hpf Amorphous Sediment (None) /hpf Urine Bacteria (None) /hpf Hyaline Casts (0-2) /lpf Urine Mucus (None) /hpf 0701/07/24 01/07/24 Range/Units 11:37 16:08 19:33 WBC (3.8-10.6) k/uL RBC (4.30-5.90) m/uL Hgb (13.0-17.5) gm/dL Hct (39.0-53.0) % RDW (11.5-15.5) % Plt Count (150-450) k/uL Neutrophils # (Manual) (1.3-7.7) k/uL Lymphocytes # (Manual) (1.0-4.8) k/uL PT (10.0-12.5) sec INR (<1.2) APTT (22.0-30.0) sec Fibrinogen (200-500) mg/dL ABG pH 7.32 L (7.35-7.45) ABG pCO2 32 L (35-45) mmHg ABG pO2 415 H (83-108) mmHg ABG HCO3 16 L (21-25) mmol/L ABG Total CO2 17 L (19-24) mmol/L ABG O2 Saturation 100.4 H (94-97) % Sodium (137-145) mmol/L Carbon Dioxide (22-30) mmol/L BUN (9-20) mg/dL Creatinine (0.66-1.25) mg/dL Glucose (74-99) mg/dL Plasma Lactic Acid Sav 2.8 H* 4.7 H* (0.7-2.0) mmol/L Calcium (8.4-10.2) mg/dL TIBC (228-460) UG/DL % Saturation (15.00-50.00) Transferrin (204.0-354.0) mg/dL Ferritin (22.0-322.0) ng/mL Total Bilirubin (0.2-1.3) mg/dL AST (17-59) U/L Total Protein (6.3-8.2) g/dL Total Protein (PEP) (6.2-8.2) g/dL Albumin (3.5-5.0) g/dL Vitamin B12 (200.0-944.0) pg/mL Urine Protein (Negative) Urine RBC (0-5) /hpf Urine WBC (0-5) /hpf Amorphous Sediment (None) /hpf Urine Bacteria (None) /hpf Hyaline Casts (0-2) /lpf Urine Mucus (None) /hpf 01/08/24 01/08/24 01/08/24 Range/Units 00:45 01:07 04:45 WBC (3.8-10.6) k/uL RBC (4.30-5.90) m/uL Hgb (13.0-17.5) gm/dL Hct (39.0-53.0) % RDW (11.5-15.5) % Plt Count (150-450) k/uL Neutrophils # (Manual) (1.3-7.7) k/uL Lymphocytes # (Manual) (1.0-4.8) k/uL PT 16.3 H (10.0-12.5) sec INR 1.6 H (<1.2) APTT 34.4 H (22.0-30.0) sec Fibrinogen 605 H (200-500) mg/dL ABG pH (7.35-7.45) ABG pCO2 (35-45) mmHg ABG pO2 (83-108) mmHg ABG HCO3 (21-25) mmol/L ABG Total CO2 (19-24) mmol/L ABG O2 Saturation (94-97) % Sodium (137-145) mmol/L Carbon Dioxide (22-30) mmol/L BUN (9-20) mg/dL Creatinine (0.66-1.25) mg/dL Glucose (74-99) mg/dL Plasma Lactic Acid Sav 4.1 H* (0.7-2.0) mmol/L Calcium (8.4-10.2) mg/dL TIBC (228-460) UG/DL % Saturation (15.00-50.00) Transferrin (204.0-354.0) mg/dL Ferritin (22.0-322.0) ng/mL Total Bilirubin (0.2-1.3) mg/dL AST (17-59) U/L Total Protein (6.3-8.2) g/dL Total Protein (PEP) (6.2-8.2) g/dL Albumin (3.5-5.0) g/dL Vitamin B12 (200.0-944.0) pg/mL Urine Protein Trace H (Negative) Urine RBC 6 H (0-5) /hpf Urine WBC 10 H (0-5) /hpf Amorphous Sediment Occasional H (None) /hpf Urine Bacteria Occasional H (None) /hpf Hyaline Casts 88 H (0-2) /lpf Urine Mucus Occasional H (None) /hpf 01/08/24 01/08/24 01/08/24 Range/Units 04:45 04:45 04:45 WBC 1.2 L* (3.8-10.6) k/uL RBC 2.91 L (4.30-5.90) m/uL Hgb 9.1 L (13.0-17.5) gm/dL Hct 28.8 L (39.0-53.0) % RDW 16.6 H (11.5-15.5) % Plt Count 33 L D (150-450) k/uL Neutrophils # (Manual) 0.52 L (1.3-7.7) k/uL Lymphocytes # (Manual) 0.44 L (1.0-4.8) k/uL PT (10.0-12.5) sec INR (<1.2) APTT (22.0-30.0) sec Fibrinogen (200-500) mg/dL ABG pH (7.35-7.45) ABG pCO2 (35-45) mmHg ABG pO2 (83-108) mmHg ABG HCO3 (21-25) mmol/L ABG Total CO2 (19-24) mmol/L ABG O2 Saturation (94-97) % Sodium 135 L (137-145) mmol/L Carbon Dioxide 13 L (22-30) mmol/L BUN 157 H* (9-20) mg/dL Creatinine 3.11 H (0.66-1.25) mg/dL Glucose 102 H (74-99) mg/dL Plasma Lactic Acid Sav 3.8 H* (0.7-2.0) mmol/L Calcium 7.2 L (8.4-10.2) mg/dL TIBC (228-460) UG/DL % Saturation (15.00-50.00) Transferrin (204.0-354.0) mg/dL Ferritin (22.0-322.0) ng/mL Total Bilirubin 2.7 H (0.2-1.3) mg/dL AST 80 H (17-59) U/L Total Protein 4.1 L (6.3-8.2) g/dL Total Protein (PEP) (6.2-8.2) g/dL Albumin 1.8 L (3.5-5.0) g/dL Vitamin B12 (200.0-944.0) pg/mL Urine Protein (Negative) Urine RBC (0-5) /hpf Urine WBC (0-5) /hpf Amorphous Sediment (None) /hpf Urine Bacteria (None) /hpf Hyaline Casts (0-2) /lpf Urine Mucus (None) /hpf 01/08/24 Range/Units 05:06 WBC (3.8-10.6) k/uL RBC (4.30-5.90) m/uL Hgb (13.0-17.5) gm/dL Hct (39.0-53.0) % RDW (11.5-15.5) % Plt Count (150-450) k/uL Neutrophils # (Manual) (1.3-7.7) k/uL Lymphocytes # (Manual) (1.0-4.8) k/uL PT (10.0-12.5) sec INR (<1.2) APTT (22.0-30.0) sec Fibrinogen (200-500) mg/dL ABG pH (7.35-7.45) ABG pCO2 29 L (35-45) mmHg ABG pO2 146 H (83-108) mmHg ABG HCO3 17 L (21-25) mmol/L ABG Total CO2 18 L (19-24) mmol/L ABG O2 Saturation 99.6 H (94-97) % Sodium (137-145) mmol/L Carbon Dioxide (22-30) mmol/L BUN (9-20) mg/dL Creatinine (0.66-1.25) mg/dL Glucose (74-99) mg/dL Plasma Lactic Acid Sav (0.7-2.0) mmol/L Calcium (8.4-10.2) mg/dL TIBC (228-460) UG/DL % Saturation (15.00-50.00) Transferrin (204.0-354.0) mg/dL Ferritin (22.0-322.0) ng/mL Total Bilirubin (0.2-1.3) mg/dL AST (17-59) U/L Total Protein (6.3-8.2) g/dL Total Protein (PEP) (6.2-8.2) g/dL Albumin (3.5-5.0) g/dL Vitamin B12 (200.0-944.0) pg/mL Urine Protein (Negative) Urine RBC (0-5) /hpf Urine WBC (0-5) /hpf Amorphous Sediment (None) /hpf Urine Bacteria (None) /hpf Hyaline Casts (0-2) /lpf Urine Mucus (None) /hpf Microbiology - Last 24 Hours (Table) 01/07/24 09:05 Gram Stain - Preliminary Leg - Left Assessment and Plan (1) 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
--- NOTE | 2024-01-08 11:26 | P.PN ---
Subjective patient is a 73-year-old male being seen for follow-up for acute kidney injury. He has underlying chronic kidney disease stage IIIB to 4 with baseline creatinine 1.5-1.8 mg/dL. patient was intubated last night. Urine output at 60-70 mL an hour. Patient is maintained on bicarb drip at 100 mL an hour. BUN has increased to 157 and serum creatinine at 3.1 today. Objective - Vital Signs Vital signs: Vital Signs Temp 98.0 F 01/08/24 08:00 Pulse 100 01/08/24 11:15 Resp 18 01/08/24 11:15 BP 59/21 01/07/24 19:00 Pulse Ox 100 01/08/24 11:15 FiO2 35 01/08/24 10:07 Intake & Output 01/07/24 01/08/24 01/08/24 18:59 06:59 18:59 Intake Total 2997.420 3218.375 1811.716 Output Total 765 710 285 Balance 2232.420 2508.375 1526.716 Weight 96.6 kg 102.6 kg Intake: IV 2382 2486 1715 0.9 Pressure Bag 33 36 15 0.9 at KVO 200 100 Cefepime 1 gm In Sodium 50 100 Chloride 0.9% 50 ml @ 12. 5 mls/hr IVPB Q12HR [facility] Rx#:[id number] Cefepime 2 gm In Sodium 100 Chloride 0.9% 100 ml @ 25 mls/hr IVPB Q8HR [facility] Rx# :[id number] DAPTOmycin 500 mg In 50 Sodium Chloride 0.9% 50 ml @ 100 mls/hr IVPB Q48H [facility] Rx#:[id number] Dextrose 5% in Water 1, 800 1200 500 000 ml @ 100 mls/hr IV . [id number] [facility] with Sodium Bicarb (1 Meq/ml) 150 ml Rx#:[id number] Phytonadione 10 mg In 100 Sodium Chloride 0.9% 50 ml @ 100 mls/hr IVPB ONCE STA Rx#:[id number] Sodium Chloride 0.9% 1, 300 000 ml @ 100 mls/hr IV . Q10H [facility] Rx#:[id number] Sodium Chloride 0.9% 1, 999 1000 000 ml @ 999 mls/hr IV . Q1H1M ONE Rx#:[id number] Sodium Chloride 0.9% 1, 1000 000 ml @ 999 mls/hr IV . Q1H1M ONE Rx#:[id number] Intake, IV Titration 615.420 732.375 96.716 Amount Norepinephrine 32 mg In 197.617 Sodium Chloride 0.9% 218 ml @ 0.03 MCG/KG/MIN 1. 358 mls/hr IV .Q24H [facility] Rx#:[id number] Norepinephrine 4 mg In 503.906 254.000 Sodium Chloride 0.9% 250 ml @ 0.03 MCG/KG/MIN 10. 68 mls/hr IV .[id number] [facility] Rx#:[id number] Phytonadione 10 mg In 50 Sodium Chloride 0.9% 50 ml @ 100 mls/hr IVPB ONCE STA Rx#:[id number] Vasopressin 20 unit In 45.237 33.992 34.119 Sodium Chloride 0.9% 50 ml @ 0.03 UNITS/MIN 4.59 mls/hr IV .[id number] [facility] Rx# :[id number] propofoL 1,000 mg In 16.277 246.766 62.597 Empty Bag 1 bag @ 15 MCG/ KG/MIN 8.694 mls/hr IV . [id number] [facility] Rx#:[id number] Output: Gastric Drainage 250 Urine 765 460 285 Other: Voiding Method Indwelling Catheter Indwelling Catheter Indwelling Catheter ABP, PAP, CO, CI - Last Documented Arterial Blood Pressure 119/54 - Exam patient is sedated and on the vent Exec examination of the heart S1 and S2 Examination of the lungs bilateral breath sounds are heard Abdomen is soft Examination of lower extremities was chronic skin changes no significant edema noted. Left lower extremity has a wound. - Labs CBC & Chem 7: 01/08/24 04:45 01/08/24 04:45 Labs: Abnormal Lab Results - Last 24 Hours (Table) 01/07/24 01/07/24 01/07/24 Range/Units 08:31 08:31 11:37 WBC (3.8-10.6) k/uL RBC (4.30-5.90) m/uL Hgb (13.0-17.5) gm/dL Hct (39.0-53.0) % RDW (11.5-15.5) % Plt Count (150-450) k/uL Neutrophils # (Manual) (1.3-7.7) k/uL Lymphocytes # (Manual) (1.0-4.8) k/uL PT 21.5 H (10.0-12.5) sec INR 2.2 H (<1.2) APTT (22.0-30.0) sec Fibrinogen (200-500) mg/dL ABG pH (7.35-7.45) ABG pCO2 (35-45) mmHg ABG pO2 (83-108) mmHg ABG HCO3 (21-25) mmol/L ABG Total CO2 (19-24) mmol/L ABG O2 Saturation (94-97) % Sodium (137-145) mmol/L Carbon Dioxide (22-30) mmol/L BUN (9-20) mg/dL Creatinine (0.66-1.25) mg/dL Glucose (74-99) mg/dL Plasma Lactic Acid Sav (0.7-2.0) mmol/L Calcium (8.4-10.2) mg/dL TIBC 129 L (228-460) UG/DL % Saturation 61.24 H (15.00-50.00) Transferrin 92.4 L (204.0-354.0) mg/dL Ferritin 1408.0 H (22.0-322.0) ng/mL Total Bilirubin (0.2-1.3) mg/dL AST (17-59) U/L Total Protein (6.3-8.2) g/dL Total Protein (PEP) 4.4 L (6.2-8.2) g/dL Albumin (3.5-5.0) g/dL Vitamin B12 2637.0 H (200.0-944.0) pg/mL Urine Protein (Negative) Urine RBC (0-5) /hpf Urine WBC (0-5) /hpf Amorphous Sediment (None) /hpf Urine Bacteria (None) /hpf Hyaline Casts (0-2) /lpf Urine Mucus (None) /hpf 01/07/24 01/07/24 01/07/24 Range/Units 11:37 16:08 19:33 WBC (3.8-10.6) k/uL RBC (4.30-5.90) m/uL Hgb (13.0-17.5) gm/dL Hct (39.0-53.0) % RDW (11.5-15.5) % Plt Count (150-450) k/uL Neutrophils # (Manual) (1.3-7.7) k/uL Lymphocytes # (Manual) (1.0-4.8) k/uL PT (10.0-12.5) sec INR (<1.2) APTT (22.0-30.0) sec Fibrinogen (200-500) mg/dL ABG pH 7.32 L (7.35-7.45) ABG pCO2 32 L (35-45) mmHg ABG pO2 415 H (83-108) mmHg ABG HCO3 16 L (21-25) mmol/L ABG Total CO2 17 L (19-24) mmol/L ABG O2 Saturation 100.4 H (94-97) % Sodium (137-145) mmol/L Carbon Dioxide (22-30) mmol/L BUN (9-20) mg/dL Creatinine (0.66-1.25) mg/dL Glucose (74-99) mg/dL Plasma Lactic Acid Sav 2.8 H* 4.7 H* (0.7-2.0) mmol/L Calcium (8.4-10.2) mg/dL TIBC (228-460) UG/DL % Saturation (15.00-50.00) Transferrin (204.0-354.0) mg/dL Ferritin (22.0-322.0) ng/mL Total Bilirubin (0.2-1.3) mg/dL AST (17-59) U/L Total Protein (6.3-8.2) g/dL Total Protein (PEP) (6.2-8.2) g/dL Albumin (3.5-5.0) g/dL Vitamin B12 (200.0-944.0) pg/mL Urine Protein (Negative) Urine RBC (0-5) /hpf Urine WBC (0-5) /hpf Amorphous Sediment (None) /hpf Urine Bacteria (None) /hpf Hyaline Casts (0-2) /lpf Urine Mucus (None) /hpf 01/08/24 01/08/24 01/08/24 Range/Units 00:45 01:07 04:45 WBC (3.8-10.6) k/uL RBC (4.30-5.90) m/uL Hgb (13.0-17.5) gm/dL Hct (39.0-53.0) % RDW (11.5-15.5) % Plt Count (150-450) k/uL Neutrophils # (Manual) (1.3-7.7) k/uL Lymphocytes # (Manual) (1.0-4.8) k/uL PT 16.3 H (10.0-12.5) sec INR 1.6 H (<1.2) APTT 34.4 H (22.0-30.0) sec Fibrinogen 605 H (200-500) mg/dL ABG pH (7.35-7.45) ABG pCO2 (35-45) mmHg ABG pO2 (83-108) mmHg ABG HCO3 (21-25) mmol/L ABG Total CO2 (19-24) mmol/L ABG O2 Saturation (94-97) % Sodium (137-145) mmol/L Carbon Dioxide (22-30) mmol/L BUN (9-20) mg/dL Creatinine (0.66-1.25) mg/dL Glucose (74-99) mg/dL Plasma Lactic Acid Sav 4.1 H* (0.7-2.0) mmol/L Calcium (8.4-10.2) mg/dL TIBC (228-460) UG/DL % Saturation (15.00-50.00) Transferrin (204.0-354.0) mg/dL Ferritin (22.0-322.0) ng/mL Total Bilirubin (0.2-1.3) mg/dL AST (17-59) U/L Total Protein (6.3-8.2) g/dL Total Protein (PEP) (6.2-8.2) g/dL Albumin (3.5-5.0) g/dL Vitamin B12 (200.0-944.0) pg/mL Urine Protein Trace H (Negative) Urine RBC 6 H (0-5) /hpf Urine WBC 10 H (0-5) /hpf Amorphous Sediment Occasional H (None) /hpf Urine Bacteria Occasional H (None) /hpf Hyaline Casts 88 H (0-2) /lpf Urine Mucus Occasional H (None) /hpf 01/08/24 01/08/24 01/08/24 Range/Units 04:45 04:45 04:45 WBC 1.2 L* (3.8-10.6) k/uL RBC 2.91 L (4.30-5.90) m/uL Hgb 9.1 L (13.0-17.5) gm/dL Hct 28.8 L (39.0-53.0) % RDW 16.6 H (11.5-15.5) % Plt Count 33 L D (150-450) k/uL Neutrophils # (Manual) 0.52 L (1.3-7.7) k/uL Lymphocytes # (Manual) 0.44 L (1.0-4.8) k/uL PT (10.0-12.5) sec INR (<1.2) APTT (22.0-30.0) sec Fibrinogen (200-500) mg/dL ABG pH (7.35-7.45) ABG pCO2 (35-45) mmHg ABG pO2 (83-108) mmHg ABG HCO3 (21-25) mmol/L ABG Total CO2 (19-24) mmol/L ABG O2 Saturation (94-97) % Sodium 135 L (137-145) mmol/L Carbon Dioxide 13 L (22-30) mmol/L BUN 157 H* (9-20) mg/dL Creatinine 3.11 H (0.66-1.25) mg/dL Glucose 102 H (74-99) mg/dL Plasma Lactic Acid Sav 3.8 H* (0.7-2.0) mmol/L Calcium 7.2 L (8.4-10.2) mg/dL TIBC (228-460) UG/DL % Saturation (15.00-50.00) Transferrin (204.0-354.0) mg/dL Ferritin (22.0-322.0) ng/mL Total Bilirubin 2.7 H (0.2-1.3) mg/dL AST 80 H (17-59) U/L Total Protein 4.1 L (6.3-8.2) g/dL Total Protein (PEP) (6.2-8.2) g/dL Albumin 1.8 L (3.5-5.0) g/dL Vitamin B12 (200.0-944.0) pg/mL Urine Protein (Negative) Urine RBC (0-5) /hpf Urine WBC (0-5) /hpf Amorphous Sediment (None) /hpf Urine Bacteria (None) /hpf Hyaline Casts (0-2) /lpf Urine Mucus (None) /hpf 01/08/24 Range/Units 05:06 WBC (3.8-10.6) k/uL RBC (4.30-5.90) m/uL Hgb (13.0-17.5) gm/dL Hct (39.0-53.0) % RDW (11.5-15.5) % Plt Count (150-450) k/uL Neutrophils # (Manual) (1.3-7.7) k/uL Lymphocytes # (Manual) (1.0-4.8) k/uL PT (10.0-12.5) sec INR (<1.2) APTT (22.0-30.0) sec Fibrinogen (200-500) mg/dL ABG pH (7.35-7.45) ABG pCO2 29 L (35-45) mmHg ABG pO2 146 H (83-108) mmHg ABG HCO3 17 L (21-25) mmol/L ABG Total CO2 18 L (19-24) mmol/L ABG O2 Saturation 99.6 H (94-97) % Sodium (137-145) mmol/L Carbon Dioxide (22-30) mmol/L BUN (9-20) mg/dL Creatinine (0.66-1.25) mg/dL Glucose (74-99) mg/dL Plasma Lactic Acid Sav (0.7-2.0) mmol/L Calcium (8.4-10.2) mg/dL TIBC (228-460) UG/DL % Saturation (15.00-50.00) Transferrin (204.0-354.0) mg/dL Ferritin (22.0-322.0) ng/mL Total Bilirubin (0.2-1.3) mg/dL AST (17-59) U/L Total Protein (6.3-8.2) g/dL Total Protein (PEP) (6.2-8.2) g/dL Albumin (3.5-5.0) g/dL Vitamin B12 (200.0-944.0) pg/mL Urine Protein (Negative) Urine RBC (0-5) /hpf Urine WBC (0-5) /hpf Amorphous Sediment (None) /hpf Urine Bacteria (None) /hpf Hyaline Casts (0-2) /lpf Urine Mucus (None) /hpf Microbiology - Last 24 Hours (Table) 01/07/24 09:05 Gram Stain - Preliminary Leg - Left Wound Culture - Preliminary Group D Enterococcus Gram Neg Bacilli Assessment and Plan Assessment: 1. Acute kidney injury, ATN currently nonoliguric secondary to hypotension and underlying infection. Patient is maintained on IV fluids. UA is benign . Ultrasound of the kidneys does not show any evidence of obstruction. B UN is disproportionately related most likely secondary to underlying GI bleed associated with coagulopathy. Patient will need renal replacement therapy if labs are not improved this afternoon. This is mostly due to persistent acidosis and worsening renal function. 2. Chronic kidney disease, NKF stage IIIB to 4 with baseline creatinine around 1.5-1.8 mg/dL.etiology is likely nephrosclerosis. No significant proteinuria in May 2023. 3. Hyperkalemia associated with acute kidney injury and use of REX inhibitor'sand potassium supplementation. 4. CK D mineral bone disorder 5. Rheumatoid arthritis maintained on methotrexate 6. Hypertension with blood pressure currently low 7. Type 2 diabetes maintained on Jardiance 8. Chronic A. fib maintained on Coumadin and atenolol 9. Non-gap metabolic acidosis associated with acute kidney injury 10. Acute hypoxic respiratory failure currently on the vent Plan: continue with bicarb drip. Repeat labs at noon and if acidosis is not improved we will proceed with he modialysis. Continue with empiric antibiotics
[2024-01-08] MEDS: COLLAGENASE 250 UNIT/GM OINTMENT 30 GM TUBE TOPICAL SCH (12:04)
[2024-01-08] MEDS: ZINC OXIDE PASTE (Z-GUARD) 1 APPLIC TOPICAL SCH (12:04)
[2024-01-08 12:07] LABS: Glucose,Whole Blood 109 mg/dL (70-110)
--- NOTE | 2024-01-08 12:10 | P.PN ---
Subjective Progress Note Date: 01/08/24 Principal diagnosis: Sepsis septic shock and acute hypoxic respiratory failure This is a 73-year-old white male with history of chronic atrial fibrillation, hypertension, rheumatoid arthritis, patient is normally maintained on Coumadin for his atrial fibrillation, he is also maintained on methotrexate for rheumatoid arthritis. For the last few days, the patient has been complaining of left shoulder pain. He saw his primary care physician/Dr. Lopez, and he was directed to go to the ER. Patient was evaluated in the ER on 01/05/2024, and after reviewing the ER note, and the admitting note by the admitting physician, patient was admitted with possible rotator cuff tear of the left shoulder, however on his initial evaluation, the patient was found to have significant ab normal labs. Patient was clearly found to have acute on chronic renal failure felt to be acute tubular necrosis related to hypotension as the patient was noted to be hypotensive initially in the ER. Patient was also found to have supratherapeutic INR level. And this was felt to be related to Coumadin. In addition to this the patient is known to have history of diabetes, he is also known to have history of hyperkalemia and hyperthyroidism, maintained on methimazole. Patient was admitted to 3 [address] and seen by the hospitalist, he was also seen by the corrections lieutenant, and the main concern was mostly related to his acute kidney injury and elevated INR. However at 330 this morning, the rapid response team attended to the patient were in he was noted to have low blood pressure, he was also noted to have INR of 6.4, worsening creatinine of 2.96, and the patient was mostly hypotensive with blood pressure as low as 50/39. Patient was given 1.5 L of fluid bolus, blood pressure came up slightly, and I was notified about this patient at that time. I recommended immediate transfer to the ICU. In the ICU, patient required pressors in the form of norepinephrine he is presently on 0.23 mcg/kg/min he is also on vasopressin at 0.03 units/h. Bailey on IV fluid at 100 cc/h in the form of 0.9 normal saline. Labs in the ICU showed significant worsening compared to previous labs on admission including a WBC count of 0.6, hemoglobin is 9.4, platelets are 100,000's, INR was still elevated, and his D-dimer was 6.16. Renal profile has become worse with a BUN of 154 creatinine 3.05, slightly abnormal liver enzymes. Uric acid was 10.8 on admission. Patient had a CT of the brain earlier this morning which showed no evidence of bleed. I saw the patient in the ICU this morning, he seems to be quite ill and I have reviewed the chart, discussed and updated the family on his condition. In the meantime I have recommended different consultations including infectious disease consult for significant wound noted in the left calf region with purulent drainage from a large deep ulcer in the left calf area. I have also recommended broad-spectrum antibiotics to start empirically. Recommended h ematology consultation. Looking at the significant abnormalities and specially his elevated INR, I recommended vitamin K, I also recommended Kcentra to be given repeat INR was 2.2 few hours later considering the overall presentation, I am quite concerned about the possibility of sepsis/septic shock and the most likely source for his sepsis would likely be the left leg wound which seems to be quite deep, and there is a significant purulent drainage from that left leg. Surgical consultation was initiated to address this large wound in the left calf region. Patient was seen by hematology, and felt that this could be methotrexate toxicity. Although this is in the differential, I am more conc erned about patient having sepsis/septic shock, of course the differential diagnosis will include methotrexate toxicity or methimazole toxicity. But again clinically this is felt to be less likely based on the fact that the patient presented with normal labs except for abnormal renal profile and abnormal INR on admission. His CBC was otherwise unremarkable. And looking back at his labs from October he had relatively normal CBC and slightly abnormal renal profile with GFR in the 40s. Today on 01/08/2024, remains in the ICU, intubated and mechanically ventilated, on propofol and on pressors. His assist-control rate is 20 tidal volume 500 FiO2 40% and PEEP of 5 ABG showed a pO2 of 146 pCO2 29 pH of 7.37 hence FiO2 was cut down to 35%. Patient is on propofol at 30 mcg/kg/min vasopressin at 0.03 units, norepinephrine at 0.38 mcg/kg/min. Patient is still receiving bicarb drip as recommended by nephrology. Patient is receiving Solu-Cortef, he is also receiving cefepime and daptomycin. Urine output has been in the range of 50 to 60/h. His renal functioning is a bit worse, patient has nonoliguric renal failure. We believe the patient developed acute tubular necrosis from sepsis and hypotension. Patient received few fluid boluses last night and he will receive more this morning. Again his urine output is picking up with fluid boluses. Labs landry the patient is showing slight improvement in his CBC,WBC count is up to 1.2 hemoglobin is 9.1. Platelets are low at 33,000. His fibr inogen today is 605, INR is 1.6. Sodium and potassium are normal bicarb is 13 anion gap is 16 with a BUN of 157 creatinine 3.11, lactic acid today is 3.8. Albumin is also low at 1.8. Globin is 2.7 chest x-ray is showing mostly right lower lobe atelectasis, possible pneumonia Objective - Vital Signs Vital signs: Vital Signs Temp 98.0 F 01/08/24 08:00 Pulse 100 01/08/24 11:15 Resp 18 01/08/24 11:15 BP 59/21 01/07/24 19:00 Pulse Ox 100 01/08/24 11:15 FiO2 35 01/08/24 10:07 Intake & Output 01/07/24 01/08/24 01/08/24 18:59 06:59 18:59 Intake Total 2997.420 3218.375 1811.716 Output Total 765 710 285 Balance 2232.420 2508.375 1526.716 Weight 96.6 kg 102.6 kg Intake: IV 2382 2486 1715 0.9 Pressure Bag 33 36 15 0.9 at KVO 200 100 Cefepime 1 gm In Sodium 50 100 Chloride 0.9% 50 ml @ 12. 5 mls/hr IVPB Q12HR [facility] Rx#:[id number] Cefepime 2 gm In Sodium 100 Chloride 0.9% 100 ml @ 25 mls/hr IVPB Q8HR [facility] Rx# :[id number] DAPTOmycin 500 mg In 50 Sodium Chloride 0.9% 50 ml @ 100 mls/hr IVPB Q48H [facility] Rx#:[id number] Dextrose 5% in Water 1, 800 1200 500 000 ml @ 100 mls/hr IV . [id number] [facility] with Sodium Bicarb (1 Meq/ml) 150 ml Rx#:[id number] Phytonadione 10 mg In 100 Sodium Chloride 0.9% 50 ml @ 100 mls/hr IVPB ONCE STA Rx#:[id number] Sodium Chloride 0.9% 1, 300 000 ml @ 100 mls/hr IV . Q10H [facility] Rx#:[id number] Sodium Chloride 0.9% 1, 999 1000 000 ml @ 999 mls/hr IV . Q1H1M [facility] Rx#:[id number] Sodium Chloride 0.9% 1, 1000 000 ml @ 999 mls/hr IV . Q1H1M ONE Rx#:[id number] Intake, IV Titration 615.420 732.375 96.716 Amount Norepinephrine 32 mg In 197.617 Sodium Chloride 0.9% 218 ml @ 0.03 MCG/KG/MIN 1. 358 mls/hr IV .Q24H [facility] Rx#:[id number] Norepinephrine 4 mg In 503.906 254.000 Sodium Chloride 0.9% 250 ml @ 0.03 MCG/KG/MIN 10. 68 mls/hr IV .[id number] [facility] Rx#:[id number] Phytonadione 10 mg In 50 Sodium Chloride 0.9% 50 ml @ 100 mls/hr IVPB ONCE STA Rx#:[id number] Vasopressin 20 unit In 45.237 33.992 34.119 Sodium Chloride 0.9% 50 ml @ 0.03 UNITS/MIN 4.59 mls/hr IV .[id number] [facility] Rx# :[id number] propofoL 1,000 mg In 16.277 246.766 62.597 Empty Bag 1 bag @ 15 MCG/ KG/MIN 8.694 mls/hr IV . [id number] [facility] Rx#:[id number] Output: Gastric Drainage 250 Urine 765 460 285 Other: Voiding Method Indwelling Catheter Indwelling Catheter Indwelling Catheter ABP, PAP, CO, CI - Last Documented Arterial Blood Pressure 119/54 - Exam GENERAL: Revealed a 73-year-old white male, intubated, mechanically ventilated, sedated. And: Atraumatic, normocephalic. Endotracheal tube and orogastric tube are intact. HEENT: Pupils are round and equally reacting to light. EOMI. No scleral icterus. No conjunctival pallor. Normocephalic, atraumatic. No pharyngeal erythema. No thyromegaly. CARDIOVASCULAR: Normal S1-S2, no S3 gallop, no murmur. PULMONARY: Diminished breath sounds at the bases, rhonchi no wheezes. ABDOMEN: Obese, soft, slightly tender to palpation, no rebound, no guarding.. MUSCULOSKELETAL: Not assessed, patient is sedated. EXTREMITIES: There is a large ulcer, relatively deep into the skin, noted at the left calf region, mid aspect laterally, with significant drainage of purulent material., There is also chronic venous stasis changes in both lower extremities. Significant areas of erythema and cellulitis noted in the medial aspect of both legs, there is also a large blister noted in the medial aspect of the right thigh. NEUROLOGICAL could not assess, patient is on propofol, sedated, he will have sedation interruption today and assessment of mental status off propofol possibly on lower dose of propofol SKIN: Numerous areas of bruising and ecchymosis all over involving upper and lower extremities also involving the chest and abdomen.. Significant areas of erythema also noted in the medial aspect of both thighs, there is also a large blister on the medial aspect of the right thigh full of blood - Labs CBC & Chem 7: 01/08/24 04:45 01/08/24 04:45 Labs: Abnormal Lab Results - Last 24 Hours (Table) 01/07/24 01/07/24 01/07/24 Range/Units 08:31 08:31 11:37 WBC (3.8-10.6) k/uL RBC (4.30-5.90) m/uL Hgb (13.0-17.5) gm/dL Hct (39.0-53.0) % RDW (11.5-15.5) % Plt Count (150-450) k/uL Neutrophils # (Manual) (1.3-7.7) k/uL Lymphocytes # (Manual) (1.0-4.8) k/uL PT (10.0-12.5) sec INR (<1.2) APTT (22.0-30.0) sec Fibrinogen (200-500) mg/dL ABG pH (7.35-7.45) ABG pCO2 (35-45) mmHg ABG pO2 (83-108) mmHg ABG HCO3 (21-25) mmol/L ABG Total CO2 (19-24) mmol/L ABG O2 Saturation (94-97) % Sodium (137-145) mmol/L Carbon Dioxide (22-30) mmol/L BUN (9-20) mg/dL Creatinine (0.66-1.25) mg/dL Glucose (74-99) mg/dL Plasma Lactic Acid Sav 2.8 H* (0.7-2.0) mmol/L Calcium (8.4-10.2) mg/dL TIBC 129 L (228-460) UG/DL % Saturation 61.24 H (15.00-50.00) Transferrin 92.4 L (204.0-354.0) mg/dL Ferritin 1408.0 H (22.0-322.0) ng/mL Total Bilirubin (0.2-1.3) mg/dL AST (17-59) U/L Total Protein (6.3-8.2) g/dL Total Protein (PEP) 4.4 L (6.2-8.2) g/dL Albumin (3.5-5.0) g/dL Vitamin B12 2637.0 H (200.0-944.0) pg/mL Urine Protein (Negative) Urine RBC (0-5) /hpf Urine WBC (0-5) /hpf Amorphous Sediment (None) /hpf Urine Bacteria (None) /hpf Hyaline Casts (0-2) /lpf Urine Mucus (None) /hpf 01/07/24 01/07/24 01/08/24 Range/Units 16:08 19:33 00:45 WBC (3.8-10.6) k/uL RBC (4.30-5.90) m/uL Hgb (13.0-17.5) gm/dL Hct (39.0-53.0) % RDW (11.5-15.5) % Plt Count (150-450) k/uL Neutrophils # (Manual) (1.3-7.7) k/uL Lymphocytes # (Manual) (1.0-4.8) k/uL PT (10.0-12.5) sec INR (<1.2) APTT (22.0-30.0) sec Fibrinogen (200-500) mg/dL ABG pH 7.32 L (7.35-7.45) ABG pCO2 32 L (35-45) mmHg ABG pO2 415 H (83-108) mmHg ABG HCO3 16 L (21-25) mmol/L ABG Total CO2 17 L (19-24) mmol/L ABG O2 Saturation 100.4 H (94-97) % Sodium (137-145) mmol/L Carbon Dioxide (22-30) mmol/L BUN (9-20) mg/dL Creatinine (0.66-1.25) mg/dL Glucose (74-99) mg/dL Plasma Lactic Acid Sav 4.7 H* 4.1 H* (0.7-2.0) mmol/L Calcium (8.4-10.2) mg/dL TIBC (228-460) UG/DL % Saturation (15.00-50.00) Transferrin (204.0-354.0) mg/dL Ferritin (22.0-322.0) ng/mL Total Bilirubin (0.2-1.3) mg/dL AST (17-59) U/L Total Protein (6.3-8.2) g/dL Total Protein (PEP) (6.2-8.2) g/dL Albumin (3.5-5.0) g/dL Vitamin B12 (200.0-944.0) pg/mL Urine Protein (Negative) Urine RBC (0-5) /hpf Urine WBC (0-5) /hpf Amorphous Sediment (None) /hpf Urine Bacteria (None) /hpf Hyaline Casts (0-2) /lpf Urine Mucus (None) /hpf 01/08/24 01/08/24 01/08/24 Range/Units 01:07 04:45 04:45 WBC 1.2 L* (3.8-10.6) k/uL RBC 2.91 L (4.30-5.90) m/uL Hgb 9.1 L (13.0-17.5) gm/dL Hct 28.8 L (39.0-53.0) % RDW 16.6 H (11.5-15.5) % Plt Count 33 L D (150-450) k/uL Neutrophils # (Manual) 0.52 L (1.3-7.7) k/uL Lymphocytes # (Manual) 0.44 L (1.0-4.8) k/uL PT 16.3 H (10.0-12.5) sec INR 1.6 H (<1.2) APTT 34.4 H (22.0-30.0) sec Fibrinogen 605 H (200-500) mg/dL ABG pH (7.35-7.45) ABG pCO2 (35-45) mmHg ABG pO2 (83-108) mmHg ABG HCO3 (21-25) mmol/L ABG Total CO2 (19-24) mmol/L ABG O2 Saturation (94-97) % Sodium (137-145) mmol/L Carbon Dioxide (22-30) mmol/L BUN (9-20) mg/dL Creatinine (0.66-1.25) mg/dL Glucose (74-99) mg/dL Plasma Lactic Acid Sav (0.7-2.0) mmol/L Calcium (8.4-10.2) mg/dL TIBC (228-460) UG/DL % Saturation (15.00-50.00) Transferrin (204.0-354.0) mg/dL Ferritin (22.0-322.0) ng/mL Total Bilirubin (0.2-1.3) mg/dL AST (17-59) U/L Total Protein (6.3-8.2) g/dL Total Protein (PEP) (6.2-8.2) g/dL Albumin (3.5-5.0) g/dL Vitamin B12 (200.0-944.0) pg/mL Urine Protein Trace H (Negative) Urine RBC 6 H (0-5) /hpf Urine WBC 10 H (0-5) /hpf Amorphous Sediment Occasional H (None) /hpf Urine Bacteria Occasional H (None) /hpf Hyaline Casts 88 H (0-2) /lpf Urine Mucus Occasional H (None) /hpf 01/08/24 01/08/24 01/08/24 Range/Units 04:45 04:45 05:06 WBC (3.8-10.6) k/uL RBC (4.30-5.90) m/uL Hgb (13.0-17.5) gm/dL Hct (39.0-53.0) % RDW (11.5-15.5) % Plt Count (150-450) k/uL Neutrophils # (Manual) (1.3-7.7) k/uL Lymphocytes # (Manual) (1.0-4.8) k/uL PT (10.0-12.5) sec INR (<1.2) APTT (22.0-30.0) sec Fibrinogen (200-500) mg/dL ABG pH (7.35-7.45) ABG pCO2 29 L (35-45) mmHg ABG pO2 146 H (83-108) mmHg ABG HCO3 17 L (21-25) mmol/L ABG Total CO2 18 L (19-24) mmol/L ABG O2 Saturation 99.6 H (94-97) % Sodium 135 L (137-145) mmol/L Carbon Dioxide 13 L (22-30) mmol/L BUN 157 H* (9-20) mg/dL Creatinine 3.11 H (0.66-1.25) mg/dL Glucose 102 H (74-99) mg/dL Plasma Lactic Acid Sav 3.8 H* (0.7-2.0) mmol/L Calcium 7.2 L (8.4-10.2) mg/dL TIBC (228-460) UG/DL % Saturation (15.00-50.00) Transferrin (204.0-354.0) mg/dL Ferritin (22.0-322.0) ng/mL Total Bilirubin 2.7 H (0.2-1.3) mg/dL AST 80 H (17-59) U/L Total Protein 4.1 L (6.3-8.2) g/dL Total Protein (PEP) (6.2-8.2) g/dL Albumin 1.8 L (3.5-5.0) g/dL Vitamin B12 (200.0-944.0) pg/mL Urine Protein (Negative) Urine RBC (0-5) /hpf Urine WBC (0-5) /hpf Amorphous Sediment (None) /hpf Urine Bacteria (None) /hpf Hyaline Casts (0-2) /lpf Urine Mucus (None) /hpf Microbiology - Last 24 Hours (Table) 01/07/24 09:05 Gram Stain - Preliminary Leg - Left Wound Culture - Preliminary Group D Enterococcus Gram Neg Bacilli Assessment and Plan Assessment: Impression: Sepsis/septic shock, I believe the most likely source is his left lower extremi ty. Pancytopenia most likely secondary to sepsis although the possibility of methotrexate and methimazole toxicity is in the differential. Elevated INR most likely secondary to his supratherapeutic Coumadin Profound thrombocytopenia most likely secondary to sepsis and septic shock. Left lower extremity cellulitis and large infected ulcer noted in the calf region. Severe pain/left shoulder secondary to rotator cuff tear. Chronic atrial fibrillation History of rheumatoid arthritis history of chronic kidney disease stage IIIb History of type 2 diabetes, maintained on Jardiance. Acute on chronic kidney injury, most likely secondary to acute tubular necrosis, secondary to sepsis and septic shock and hypotension Profound hypotension secondary to sepsis/septic shock requiring pressors including norepinephrine and vasopressin History of hyperthyroidism, maintained on methimazole. Recommendation: Continue ventilatory support Continue hemodynamic support and titrate pressors accordingly Continue broad-spectrum antibiotics, will adjust based on the final cultures once available Continue to monitor coagulation profile, and CBC as well as platelets, patient is being followed by hematology remains on leucovorin Start nutritional support/enteral feeding Updated family today on his condition Keep methotrexate and methimazole on hold for now. Orthopedics to evaluate shoulders pain Sedation interruption and assessment of mental status on a daily basis Spent quite some time with the explaining to her his overall condition and all her questions were answered regarding his overall status Patient is extremely and critically ill. Critical care time is over 35-minute Time with Patient: Greater than 30
--- NOTE | 2024-01-08 12:54 | PN ---
PROGRESS NOTE SUBJECTIVE: Hardik is a 73-year-old gentleman, who is admitted to ICU from [address] [place] [address] secondary to severe hypotension. The patient developed worsening shortness of breath and hypotension yesterday evening and had to be intubated. At the time of my evaluation this morning, he is intubated ,on the vent, hypotensive requiring pressors to maintain his blood pressure. Renal functions have worsened and his white cell count had improved to 1.2, hemoglobin is 9.1, platelet count is low at 33, it dropped from 100 yesterday. He remains in atrial fibrillation and heart rate is varying between 100 and 110 this morning, it was higher last night. His coagulopathy has improved. INR today is 1.6. The patient is not a candidate for anticoagulation at this time given the severe thrombocytopenia. OBJECTIVE: VITAL SIGNS: Heart rate is 95 to 100 beats per minute, blood pressure is 126/50, respiratory rate is 23, O2 saturation is 99%. CHEST: Reveals diminished air entry at the bases. I do not hear any crackles. HEART: Reveals first and second heart sounds and a systolic murmur at the apex. ABDOMEN: Soft. EXTREMITIES: Reveals chronic venous stasis changes with wound over the left lower extremity. Dorsalis pedis pulses are palpable bilaterally. LABORATORY DATA: Labs this morning show a hemoglobin of 9.1, platelet count is 33, white cell count is 1.2. INR is 1.6. Potassium is 4, BUN is 157, creatinine is 3.1. AST is elevated. ASSESSMENT: 1. Permanent atrial fibrillation with poorly controlled ventricular rate,. 2. Vent requiring respiratory failure. 3. Acute renal failure. 4. Severe hypotension. 5. Coagulopathy. PLAN: From cardiac standpoint, I will increase the dose of metoprolol to better control his heart rate. The patient had an echocardiogram done yesterday, which shows diffuse global hypokinesis with mild LV systolic dysfunction with an ejection fraction of 50%, moderate right atrial enlargement, severe left atrial enlargement, mild to moderate mitral regurgitation, and mild to moderate aortic regurgitation with mild tricuspid regurgitation. The patient's hypotension and multiple complex medical problems are being addressed by the adobe flex developer. Renal failure is being managed by the well puller head. Thrombocytopenia and leukopenia are currently being addressed by Early Childhood Director. Vascular Surgery and Wound Care are also on the case. MMODL / IJN: [id number] / [facility]
--- NOTE | 2024-01-08 12:59 | P.PN ---
Subjective Progress Note Date: 01/08/24 Principal diagnosis: Reason for follow-up is sepsis and left lower extremity wound/cellulitis Patient is 73-year-old male with a past medical history significant for diabetes mellitus hypertension heart failure atrial fibrillation gout patient presenting to the hospital for evaluation of left shoulder pain subsequently developing a fever hypertension requiring admission to ICU concerning for left lower extremity wound with infection. On today's evaluation that is 01/08/2024 patient did have resolution of his fever he did have worsening of his respiratory status requiring intubation currently on 35% FiO2 nursing staff mention some bloody respiratory secretion at the time of intubation but not concerning for aspiration patient has been on pressor support however is requiring lesser support today compared to yesterday no vomiting or diarrhea reported. Patient white count is 1.2, creatinine 3.11 local culture growing group D Enterococcus and gram-negative bacilli blood cultures are pending Objective - Vital Signs Vital signs: Vital Signs Temp 98.0 F 01/08/24 08:00 Pulse 95 01/08/24 10:45 Resp 22 01/08/24 10:45 BP 59/21 01/07/24 19:00 Pulse Ox 100 01/08/24 10:45 FiO2 35 01/08/24 10:07 Intake & Output 01/07/24 01/08/24 01/08/24 18:59 06:59 18:59 Intake Total 2997.420 3218.375 1688.716 Output Total 765 710 215 Balance 2232.420 2508.375 1473.716 Weight 96.6 kg 102.6 kg Intake: IV 2382 2486 1592 0.9 Pressure Bag 33 36 12 0.9 at KVO 200 80 Cefepime 1 gm In Sodium 50 100 Chloride 0.9% 50 ml @ 12. 5 mls/hr IVPB Q12HR [facility] Rx#:[id number] Cefepime 2 gm In Sodium 100 Chloride 0.9% 100 ml @ 25 mls/hr IVPB Q8HR [facility] Rx# :[id number] DAPTOmycin 500 mg In 50 Sodium Chloride 0.9% 50 ml @ 100 mls/hr IVPB Q48H [facility] Rx#:[id number] Dextrose 5% in Water 1, 800 1200 400 000 ml @ 100 mls/hr IV . [id number] [facility] with Sodium Bicarb (1 Meq/ml) 150 ml Rx#:[id number] Phytonadione 10 mg In 100 Sodium Chloride 0.9% 50 ml @ 100 mls/hr IVPB ONCE [facility] Rx#:[id number] Sodium Chloride 0.9% 1, 300 000 ml @ 100 mls/hr IV . Q10H [facility] Rx#:[id number] Sodium Chloride 0.9% 1, 999 1000 000 ml @ 999 mls/hr IV . Q1H1M [facility] Rx#:[id number] Sodium Chloride 0.9% 1, 1000 000 ml @ 999 mls/hr IV . Q1H1M [facility] Rx#:[id number] Intake, IV Titration 615.420 732.375 96.716 Amount Norepinephrine 32 mg In 197.617 Sodium Chloride 0.9% 218 ml @ 0.03 MCG/KG/MIN 1. 358 mls/hr IV .Q24H [facility] Rx#:[id number] Norepinephrine 4 mg In 503.906 254.000 Sodium Chloride 0.9% 250 ml @ 0.03 MCG/KG/MIN 10. 68 mls/hr IV .[id number] [facility] Rx#:[id number] Phytonadione 10 mg In 50 Sodium Chloride 0.9% 50 ml @ 100 mls/hr IVPB ONCE STA Rx#:[id number] Vasopressin 20 unit In 45.237 33.992 34.119 Sodium Chloride 0.9% 50 ml @ 0.03 UNITS/MIN 4.59 mls/hr IV .[id number] [facility] Rx# :[id number] propofoL 1,000 mg In 16.277 246.766 62.597 Empty Bag 1 bag @ 15 MCG/ KG/MIN 8.694 mls/hr IV . [id number] [facility] Rx#:[id number] Output: Gastric Drainage 250 Urine 765 460 215 Other: Voiding Method Indwelling Catheter Indwelling Catheter Indwelling Catheter ABP, PAP, CO, CI - Last Documented Arterial Blood Pressure 138/60 - Exam GENERAL DESCRIPTION: An elderly male intubated on the vent RESPIRATORY SYSTEM: Unlabored breathing , decreased breath sounds at bases HEART: S1 S2 regular rate and rhythm , ABDOMEN: Soft , no tenderness EXTREMITIES: Left leg wound is currently dressed no drainage on the dressing - Labs CBC & Chem 7: 01/08/24 04:45 01/08/24 04:45 Labs: Abnormal Lab Results - Last 24 Hours (Table) 01/07/24 01/07/24 01/07/24 Range/Units 08:31 08:31 11:37 WBC (3.8-10.6) k/uL RBC (4.30-5.90) m/uL Hgb (13.0-17.5) gm/dL Hct (39.0-53.0) % RDW (11.5-15.5) % Plt Count (150-450) k/uL Neutrophils # (Manual) (1.3-7.7) k/uL Lymphocytes # (Manual) (1.0-4.8) k/uL PT 21.5 H (10.0-12.5) sec INR 2.2 H (<1.2) APTT (22.0-30.0) sec Fibrinogen (200-500) mg/dL ABG pH (7.35-7.45) ABG pCO2 (35-45) mmHg ABG pO2 (83-108) mmHg ABG HCO3 (21-25) mmol/L ABG Total CO2 (19-24) mmol/L ABG O2 Saturation (94-97) % Sodium (137-145) mmol/L Carbon Dioxide (22-30) mmol/L BUN (9-20) mg/dL Creatinine (0.66-1.25) mg/dL Glucose (74-99) mg/dL Plasma Lactic Acid Sav (0.7-2.0) mmol/L Calcium (8.4-10.2) mg/dL TIBC 129 L (228-460) UG/DL % Saturation 61.24 H (15.00-50.00) Transferrin 92.4 L (204.0-354.0) mg/dL Ferritin 1408.0 H (22.0-322.0) ng/mL Total Bilirubin (0.2-1.3) mg/dL AST (17-59) U/L Total Protein (6.3-8.2) g/dL Total Protein (PEP) 4.4 L (6.2-8.2) g/dL Albumin (3.5-5.0) g/dL Vitamin B12 2637.0 H (200.0-944.0) pg/mL Urine Protein (Negative) Urine RBC (0-5) /hpf Urine WBC (0-5) /hpf Amorphous Sediment (None) /hpf Urine Bacteria (None) /hpf Hyaline Casts (0-2) /lpf Urine Mucus (None) /hpf 01/07/24 01/07/24 01/07/24 Range/Units 11:37 16:08 19:33 WBC (3.8-10.6) k/uL RBC (4.30-5.90) m/uL Hgb (13.0-17.5) gm/dL Hct (39.0-53.0) % RDW (11.5-15.5) % Plt Count (150-450) k/uL Neutrophils # (Manual) (1.3-7.7) k/uL Lymphocytes # (Manual) (1.0-4.8) k/uL PT (10.0-12.5) sec INR (<1.2) APTT (22.0-30.0) sec Fibrinogen (200-500) mg/dL ABG pH 7.32 L (7.35-7.45) ABG pCO2 32 L (35-45) mmHg ABG pO2 415 H (83-108) mmHg ABG HCO3 16 L (21-25) mmol/L ABG Total CO2 17 L (19-24) mmol/L ABG O2 Saturation 100.4 H (94-97) % Sodium (137-145) mmol/L Carbon Dioxide (22-30) mmol/L BUN (9-20) mg/dL Creatinine (0.66-1.25) mg/dL Glucose (74-99) mg/dL Plasma Lactic Acid Sav 2.8 H* 4.7 H* (0.7-2.0) mmol/L Calcium (8.4-10.2) mg/dL TIBC (228-460) UG/DL % Saturation (15.00-50.00) Transferrin (204.0-354.0) mg/dL Ferritin (22.0-322.0) ng/mL Total Bilirubin (0.2-1.3) mg/dL AST (17-59) U/L Total Protein (6.3-8.2) g/dL Total Protein (PEP) (6.2-8.2) g/dL Albumin (3.5-5.0) g/dL Vitamin B12 (200.0-944.0) pg/mL Urine Protein (Negative) Urine RBC (0-5) /hpf Urine WBC (0-5) /hpf Amorphous Sediment (None) /hpf Urine Bacteria (None) /hpf Hyaline Casts (0-2) /lpf Urine Mucus (None) /hpf 01/08/24 01/08/24 01/08/24 Range/Units 00:45 01:07 04:45 WBC (3.8-10.6) k/uL RBC (4.30-5.90) m/uL Hgb (13.0-17.5) gm/dL Hct (39.0-53.0) % RDW (11.5-15.5) % Plt Count (150-450) k/uL Neutrophils # (Manual) (1.3-7.7) k/uL Lymphocytes # (Manual) (1.0-4.8) k/uL PT 16.3 H (10.0-12.5) sec INR 1.6 H (<1.2) APTT 34.4 H (22.0-30.0) sec Fibrinogen 605 H (200-500) mg/dL ABG pH (7.35-7.45) ABG pCO2 (35-45) mmHg ABG pO2 (83-108) mmHg ABG HCO3 (21-25) mmol/L ABG Total CO2 (19-24) mmol/L ABG O2 Saturation (94-97) % Sodium (137-145) mmol/L Carbon Dioxide (22-30) mmol/L BUN (9-20) mg/dL Creatinine (0.66-1.25) mg/dL Glucose (74-99) mg/dL Plasma Lactic Acid Sav 4.1 H* (0.7-2.0) mmol/L Calcium (8.4-10.2) mg/dL TIBC (228-460) UG/DL % Saturation (15.00-50.00) Transferrin (204.0-354.0) mg/dL Ferritin (22.0-322.0) ng/mL Total Bilirubin (0.2-1.3) mg/dL AST (17-59) U/L Total Protein (6.3-8.2) g/dL Total Protein (PEP) (6.2-8.2) g/dL Albumin (3.5-5.0) g/dL Vitamin B12 (200.0-944.0) pg/mL Urine Protein Trace H (Negative) Urine RBC 6 H (0-5) /hpf Urine WBC 10 H (0-5) /hpf Amorphous Sediment Occasional H (None) /hpf Urine Bacteria Occasional H (None) /hpf Hyaline Casts 88 H (0-2) /lpf Urine Mucus Occasional H (None) /hpf 01/08/24 01/08/24 01/08/24 Range/Units 04:45 04:45 04:45 WBC 1.2 L* (3.8-10.6) k/uL RBC 2.91 L (4.30-5.90) m/uL Hgb 9.1 L (13.0-17.5) gm/dL Hct 28.8 L (39.0-53.0) % RDW 16.6 H (11.5-15.5) % Plt Count 33 L D (150-450) k/uL Neutrophils # (Manual) 0.52 L (1.3-7.7) k/uL Lymphocytes # (Manual) 0.44 L (1.0-4.8) k/uL PT (10.0-12.5) sec INR (<1.2) APTT (22.0-30.0) sec Fibrinogen (200-500) mg/dL ABG pH (7.35-7.45) ABG pCO2 (35-45) mmHg ABG pO2 (83-108) mmHg ABG HCO3 (21-25) mmol/L ABG Total CO2 (19-24) mmol/L ABG O2 Saturation (94-97) % Sodium 135 L (137-145) mmol/L Carbon Dioxide 13 L (22-30) mmol/L BUN 157 H* (9-20) mg/dL Creatinine 3.11 H (0.66-1.25) mg/dL Glucose 102 H (74-99) mg/dL Plasma Lactic Acid Sav 3.8 H* (0.7-2.0) mmol/L Calcium 7.2 L (8.4-10.2) mg/dL TIBC (228-460) UG/DL % Saturation (15.00-50.00) Transferrin (204.0-354.0) mg/dL Ferritin (22.0-322.0) ng/mL Total Bilirubin 2.7 H (0.2-1.3) mg/dL AST 80 H (17-59) U/L Total Protein 4.1 L (6.3-8.2) g/dL Total Protein (PEP) (6.2-8.2) g/dL Albumin 1.8 L (3.5-5.0) g/dL Vitamin B12 (200.0-944.0) pg/mL Urine Protein (Negative) Urine RBC (0-5) /hpf Urine WBC (0-5) /hpf Amorphous Sediment (None) /hpf Urine Bacteria (None) /hpf Hyaline Casts (0-2) /lpf Urine Mucus (None) /hpf 01/08/24 Range/Units 05:06 WBC (3.8-10.6) k/uL RBC (4.30-5.90) m/uL Hgb (13.0-17.5) gm/dL Hct (39.0-53.0) % RDW (11.5-15.5) % Plt Count (150-450) k/uL Neutrophils # (Manual) (1.3-7.7) k/uL Lymphocytes # (Manual) (1.0-4.8) k/uL PT (10.0-12.5) sec INR (<1.2) APTT (22.0-30.0) sec Fibrinogen (200-500) mg/dL ABG pH (7.35-7.45) ABG pCO2 29 L (35-45) mmHg ABG pO2 146 H (83-108) mmHg ABG HCO3 17 L (21-25) mmol/L ABG Total CO2 18 L (19-24) mmol/L ABG O2 Saturation 99.6 H (94-97) % Sodium (137-145) mmol/L Carbon Dioxide (22-30) mmol/L BUN (9-20) mg/dL Creatinine (0.66-1.25) mg/dL Glucose (74-99) mg/dL Plasma Lactic Acid Sav (0.7-2.0) mmol/L Calcium (8.4-10.2) mg/dL TIBC (228-460) UG/DL % Saturation (15.00-50.00) Transferrin (204.0-354.0) mg/dL Ferritin (22.0-322.0) ng/mL Total Bilirubin (0.2-1.3) mg/dL AST (17-59) U/L Total Protein (6.3-8.2) g/dL Total Protein (PEP) (6.2-8.2) g/dL Albumin (3.5-5.0) g/dL Vitamin B12 (200.0-944.0) pg/mL Urine Protein (Negative) Urine RBC (0-5) /hpf Urine WBC (0-5) /hpf Amorphous Sediment (None) /hpf Urine Bacteria (None) /hpf Hyaline Casts (0-2) /lpf Urine Mucus (None) /hpf Microbiology - Last 24 Hours (Table) 01/07/24 09:05 Gram Stain - Preliminary Leg - Left Wound Culture - Preliminary Group D Enterococcus Gram Neg Bacilli Assessment and Plan (1) Sepsis Current Visit: Yes Status: Acute Code(s): A41.9 - SEPSIS, UNSPECIFIED ORGANISM SNOMED Code(s): 94217632 (2) Leg wound, left Current Visit: Yes Status: Acute Code(s): S81.802A - UNSPECIFIED OPEN WOUND, LEFT LOWER LEG, INITIAL ENCOUNTER SNOMED Code(s): 61844031550306493 Plan: 1patient with sepsis in this patient who did have fever leukopenia hypotension requiring admission to the ICU and this patient was in the hospital with escalation pain to the left shoulder area and also have a wound to the left lower extremity likely differential of as currently no evidence of pneumonia on the chest x-ray abdominal soft on clinical examination 2-patient with renal insufficiency high risk of nephrotoxicity 3--local wound care to the left leg wound with Santyl followed by moist dressing change daily 4local culture from the left leg is growing group D Enterococcus and gram- negative blood culture currently pending we will give the patient cefepime and daptomycin while waiting for the culture to finalize Family the bedside questions answered Dictation was produced using [employer] software. please excuse any grammatical, word or spelling errors. Time with Patient: Greater than 30
[2024-01-08 13:17] LABS: Reticulocyte % 0.7 % (0.5-2.0)
[2024-01-08 14:44] LABS: Anion Gap 14 mmol/L; Calcium 7.2 mg/dL (8.4-10.2); Carbon Dioxide 17 mmol/L (22-30); Chloride 106 mmol/L (98-107); Glucose 103 mg/dL (74-99); Potassium 3.7 mmol/L (3.5-5.1); Sodium 137 mmol/L (137-145)
[2024-01-08] MEDS ORDERED: Potassium Replacement Protocol 1 EACH MISC MISCELLANE PRN (15:02)
[2024-01-08 15:03] LABS: African American GFR (CKD) 25 (>60 ml/min/1.73 sqM); Non-African American GFR(CKD) 22 (>60 ml/min/1.73 sqM)
[2024-01-08 15:07] LABS: Blood Urea Nitrogen 161 mg/dL (9-20)
--- NOTE | 2024-01-08 15:40 | P.PN ---
Subjective Progress Note Date: 01/08/24 January 06, 2024 Patient mental status close and and the patient is also receiving Dilaudid may have contributed to his altered mental status his blood pressure dropped as well and patient was presumed to have sepsis and septic shock was transferred to ICU he is on 2 pressors at this time patient does not have any fever but does have severe neutropenia may be related to methotrexate although patient white count was normal yesterday which probably because of his left shoulder tear. Patient is moaning unable to give me any history patient does have wounds but does not appear to have any cellulitis there is no foul-smelling discharge there is some redness which is chronic and chronic venous stasis dermatosis patient was started on vancomycin and cefepime, canine service teacher was consulted. January 07, 2024 Patient is 73-year-old male came in for left shoulder pain found to have rotator cuff. The left shoulder. Patient also found to have elevated INR of around 6.5 patient takes Coumadin for atrial fibrillation. Patient is also found to have acute renal failure with creatinine of around 3.6 patient was hypotensive patient is on Lasix, metolazone, lisinopril at home. Patient does have history of rheumatoid arthritis with rheumatoid deformities patient is on colchicine, methotrexate as an outpatient. Patient is also taking Farxiga at home. Patient does have a history of atrial fibrillation on atenolol patient is hypotensive cannot use atenolol patient heart rate started going up now is around 120s at this time. 01/08/2024 Patient is seen and evaluated in follow-up today currently remains in the ICU with multiple medical consultations following. Patient currently continues on mechanical ventilation with an FiO2 of 35 %, PEEP of 5. Patient continues on propofol undergoing weaning and sedation holidays to assess mentation. Wound care and infectious disease also following and patient is maintained on antibiotics in the form of cefepime and daptomycin. Preliminary wound culture showing group D Enterococcus with gram-negative bacilli of the left lower extremity wound as well as blood culture showing a molecular ID which is currently pending. Follow-up repeat blood cultures ordered and pending at this time. Patient also undergoing concerns of DIC workup with hematology following. White count is 1.2 today which is improved from 0.6 yesterday. Hemoglobin is stable at 9.1, platelets are 33, INR status post vitamin K improved and currently 1.6, D-dimer was elevated at 6.16. Sodium is 137 with a potassium of 3.7, BUN is 161 and creatinine is minimally improved at 2.82. Patient does have indwelling Villanueva catheter and has noted 400 output throughout the day. Lactic acid remains elevated although improved at 2.8 calcium is low at 7.2. Total bilirubin has also increased at 2.7 AST is 80 which is improved and ALT is 31, LDH is 274. Urinalysis was negative. Patient continues to be hypotensive requiring vasopressin as well as Levophed and per nursing staff, currently weaning. Patient also continues on sodium bicarb drip as well as Solu-Cortef. Overall prognosis is guarded. Patient is full code. REVIEW OF SYSTEMS: Unable to obtain as patient is currently on sedation and mechanical ventilation Active Medications Hydrocodone Bitart/Acetaminophen (Hydrocodone/Apap 7.5-325mg 1 Each Tab) 1 each PO Q6HR PRN PRN Reason: Pain Last Admin: 01/06/24 15:35 Dose: 1 each Albuterol/Ipratropium (Ipratropium-Albuterol 3 Ml Neb) 3 ml INHALATION RT-Q2H PRN PRN Reason: Shortness Of Breath Or Wheezing Albuterol/Ipratropium (Ipratropium-Albuterol 3 Ml Neb) 3 ml INHALATION RT-Q4H [facility] Last Admin: 01/08/24 11:59 Dose: 3 ml Chlorhexidine Gluconate (Chlorhexidine Gluconate 15 Ml Cup) 15 ml MUCOUS MEM BID [facility] Last Admin: 01/08/24 08:02 Dose: 15 ml Collagenase (Collagenase 250 Unit/Gm Ointment 30 Gm Tube) 1 applic TOPICAL DAILY [facility]; Protocol Last Admin: 01/08/24 12:04 Dose: 1 applic Hydrocortisone Sodium Succinate (Hydrocortisone Succinate 100 Mg/2 Ml Vial) 100 mg IV Q8HR [facility] Last Admin: 01/08/24 08:02 Dose: 100 mg Hydromorphone HCl (Hydromorphone 0.5 Mg/0.5 Ml Syringe) 0.5 mg IVP Q4HR PRN PRN Reason: Pain Last Admin: 01/07/24 13:35 Dose: 0.5 mg Vasopressin 20 unit/ Sodium (Chloride) 51 mls @ 4.59 mls/hr IV .[id number] [facility]; Protocol Last Admin: 01/08/24 09:59 Dose: 0.03 units/min, 4.59 mls/hr Cefepime HCl 1 gm/ Sodium (Chloride) 50 mls @ 12.5 mls/hr IVPB Q12HR [facility] Last Admin: 01/08/24 08:42 Dose: 12.5 mls/hr Sodium Bicarbonate 150 ml/ (Dextrose/Water) 1,150 mls @ 100 mls/hr IV .[id number] [facility] Last Admin: 01/08/24 10:01 Dose: 100 mls/hr Daptomycin 500 mg/ Sodium (Chloride) 50 mls @ 100 mls/hr IVPB Q48H [facility]; Protocol Last Admin: 01/07/24 16:27 Dose: 100 mls/hr Propofol 1,000 mg/ IV Solution 100 mls @ 8.694 mls/hr IV .[id number] [facility]; Protocol Last Admin: 01/08/24 10:00 Dose: 30 mcg/kg/min, 17.388 mls/hr Norepinephrine Bitartrate 32 (mg/ Sodium Chloride) 250 mls @ 1.358 mls/hr IV .Q 24H [facility]; Protocol Last Titration: 01/08/24 06:54 Dose: 0.37 mcg/kg/min, 16.754 mls/hr Insulin Aspart (Insulin Aspart (Novolog) 100 Unit/Ml Vial) 0 unit SQ AC-TID [facility]; Protocol Last Admin: 01/08/24 12:05 Dose: Not Given Leucovorin Calcium (Leucovorin 50 Mg Vial) 20 mg IV Q6H [facility] Last Admin: 01/08/24 10:01 Dose: 20 mg Metoprolol Tartrate (Metoprolol Tartrate 25 Mg Tab) 25 mg PO TID [facility] Midodrine (Midodrine 5 Mg Tab) 5 mg PO TID PRN PRN Reason: Blood Pressure Miscellaneous Information (Potassium Replacement Protocol 1 Each Misc) 1 each MISCELLANE DAILY PRN; Protocol PRN Reason: Per Protocol Naloxone HCl (Naloxone 0.4 Mg/Ml 1 Ml Vial) 0.2 mg IV Q2M PRN PRN Reason: Opioid Reversal Pantoprazole Sodium (Pantoprazole 40 Mg/10 Ml Vial) 40 mg IVP BID [facility] Last Admin: 01/08/24 10:01 Dose: 40 mg Petrolatum (Zinc Oxide Paste (Z-Guard) 1 Applic) 1 applic TOPICAL DAILY [facility]; Pr otocol Last Admin: 01/08/24 12:04 Dose: 1 applic Potassium Bicarbonate (Potassium Bicarbonate/Cit Ac 20 Meq Tablet.Eff) 20 meq NG-TUBE Q1HR [facility]; Protocol Stop: 01/08/24 16:01 PHYSICAL EXAMINATION: GENERAL: This is a 73-year-old male who is currently maintained on mechanical ventilation with an FiO2 of 35% and PEEP is 5, well-developed, elderly appearing, ill-appearing, obese HEENT: Pupils are round and equally reacting to light. EOMI. No scleral icterus. No conjunctival pallor. Normocephalic, atraumatic. No pharyngeal erythema. No thyromegaly. CARDIOVASCULAR: S1 and S2 muffled and irregular, tachycardic irregularly irregular rhythm PULMONARY: Diminished breath sounds bilaterally with no wheezing or crackles noted ABDOMEN: Soft, nontender, nondistended, normoactive bowel sounds. No palpable organomegaly. EXTREMITIES: No cyanosis, clubbing, or pedal edema. Extensive wounds noted to bilateral lower extremities with a chronic appearing discoloration, open wound noted on the right with some bleeding noted NEUROLOGICAL: Unable to assess as patient is on mechanical ventilation and sedated SKIN: Ulcers in the lower extremity chronic venous stasis, multiple bruises and ecchymosis noted on bilateral upper extremities Assessment: -Sepsis with septic shock, present on admission, most likely secondary to left lower extremity wounds. Bacteremia with gram-negative bacilli and Enterococcus D noted, unknown shock etiology and septic shock cannot be ruled out -Severe neutropenia secondary to methotrexate which is being held -Acute hypoxic respiratory failure requiring mechanical ventilation, currently FiO2 is 35% and PEEP of 5 -Acute renal failure: Nonoliguric, with acute tubular necrosis from hypotension. Nephrology is following the patient renal ultrasound did not show any obstruction -Chronic kidney disease stage IV baseline creatinine around 1.5-1.8 -Supratherapeutic INR, status post vitamin K, improving hold off on Coumadin target INR 2-3 patient is on Coumadin for atrial fibrillation. -Atrial fibrillation, paroxysmal with rapid ventricular rate presently rate controlled -Severe thrombocytopenia, likely secondary to sepsis with septic shock -Left rotator cuff tear: Orthopedic surgery evaluated the patient, Tylenol for pain and low-dose Dilaudid -Hypertension, currently hypotensive and on pressor support -Type 2 diabetes mellitus, [id number], patient to continue on insulin hold off further medications Farxiga will be held because of renal failure -Rheumatoid arthritis for now we have to hold colchicine and methotrexate because of renal failure -Hyperkalemia: Secondary to REX inhibitor, acute renal failure -Hypothyroidism for which patient is on methimazole, TSH level is 0.989 -Hyponatremia secondary to renal failure IV fluids as mentioned above -GI prophylaxis -DVT prophylaxis: Patient's INR is supratherapeutic will not need any pharmacological anticoagulation at this time -Full code Plan: Patient is continued in the ICU with multiple medical consultations following maintained on pressor support and per nursing staff is weaning continues on vasopressin and Levophed Patient also continues on antibiotics in the form of daptomycin and cefepime with infectious disease following with preliminary blood cultures showing a mole cular ID and wound cultures preliminary showing gram-negative bacilli and Enterobacter Wound care consulted for further management of the lower extremity wounds Sepsis, present on admission most likely secondary to left lower extremity wounds that are quite extensive Patient undergoing sedation holidays to assess mentation and underwent CT of the brain yesterday showing mild atrophy with chronic appearing periventricular white matter ischemic changes with no evidence of acute intracranial hemorrhage or infarction noted Cardiology following making adjustments to medications and EF noted to be 50% with moderate right atrial enlargement, severe left atrial enlargement, mild to moderate mitral regurgitation and mild to moderate aortic regurgitation with tricuspid regurgitation as well. Nephrology following and patient will continue on sodium bicarb Hematology following as well as vascular surgery and wound care. Undergoing DIC workup Will follow-up on repeat labs. Tube feedings being initiated and will monitor tolerance Due to multiple complex medical issues, overall prognosis is critical and guarded at this time CODE STATUS addressed and patient remains full code The impression and plan of care has been dictated by Lesly Slade, Nurse Practitioner as directed. Dr. Mindi MD I have performed a history and examination and MDM of this patient, discussed the same with the dictator, and agree with the dictator's assessment and plan as written ,documented as a scribe. Based on total visit time, I have performed more than 50% of the visit. I would review that with no Objective - Vital Signs Vital signs: Vital Signs Temp 98.0 F 01/08/24 08:00 Pulse 100 01/08/24 08:30 Resp 20 01/08/24 08:30 BP 59/21 01/07/24 19:00 Pulse Ox 100 01/08/24 08:30 FiO2 50 01/08/24 08:00 Intake & Output 01/07/24 01/08/24 01/08/24 18:59 06:59 18:59 Intake Total 2997.420 3218.375 246 Output Total 765 710 95 Balance 2232.420 2508.375 151 Weight 96.6 kg 102.6 kg Intake: IV 2382 2486 246 0.9 Pressure Bag 33 36 6 0.9 at KVO 200 40 Cefepime 1 gm In Sodium 50 Chloride 0.9% 50 ml @ 12. 5 mls/hr IVPB Q12HR [facility] Rx#:[id number] Cefepime 2 gm In Sodium 100 Chloride 0.9% 100 ml @ 25 mls/hr IVPB Q8HR [facility] Rx# :[id number] DAPTOmycin 500 mg In 50 Sodium Chloride 0.9% 50 ml @ 100 mls/hr IVPB Q48H [facility] Rx#:[id number] Dextrose 5% in Water 1, 800 1200 200 000 ml @ 100 mls/hr IV . [id number] [facility] with Sodium Bicarb (1 Meq/ml) 150 ml Rx#:[id number] Phytonadione 10 mg In 100 Sodium Chloride 0.9% 50 ml @ 100 mls/hr IVPB ONCE STA Rx#:[id number] Sodium Chloride 0.9% 1, 300 000 ml @ 100 mls/hr IV . Q10H [facility] Rx#:[id number] Sodium Chloride 0.9% 1, 999 000 ml @ 999 mls/hr IV . Q1H1M [facility] Rx#:[id number] Sodium Chloride 0.9% 1, 1000 000 ml @ 999 mls/hr IV . Q1H1M [facility] Rx#:[id number] Intake, IV Titration 615.420 732.375 Amount Norepinephrine 32 mg In 197.617 Sodium Chloride 0.9% 218 ml @ 0.03 MCG/KG/MIN 1. 358 mls/hr IV .Q24H [facility] Rx#:[id number] Norepinephrine 4 mg In 503.906 254.000 Sodium Chloride 0.9% 250 ml @ 0.03 MCG/KG/MIN 10. 68 mls/hr IV .[id number] [facility] Rx#:[id number] Phytonadione 10 mg In 50 Sodium Chloride 0.9% 50 ml @ 100 mls/hr IVPB ONCE STA Rx#:[id number] Vasopressin 20 unit In 45.237 33.992 Sodium Chloride 0.9% 50 ml @ 0.03 UNITS/MIN 4.59 mls/hr IV .[id number] [facility] Rx# :[id number] propofoL 1,000 mg In 16.277 246.766 Empty Bag 1 bag @ 15 MCG/ KG/MIN 8.694 mls/hr IV . [id number] [facility] Rx#:[id number] Output: Gastric Drainage 250 Urine 765 460 95 Other: Voiding Method Indwelling Catheter Indwelling Catheter Indwelling Catheter ABP, PAP, CO, CI - Last Documented Arterial Blood Pressure 114/51 - Labs CBC & Chem 7: 01/08/24 04:45 01/08/24 13:45 Labs: Abnormal Lab Results - Last 24 Hours (Table) 01/07/24 01/07/24 01/07/24 Range/Units 08:31 08:31 11:37 WBC (3.8-10.6) k/uL RBC (4.30-5.90) m/uL Hgb (13.0-17.5) gm/dL Hct (39.0-53.0) % RDW (11.5-15.5) % Plt Count (150-450) k/uL Neutrophils # (Manual) (1.3-7.7) k/uL Lymphocytes # (Manual) (1.0-4.8) k/uL PT 21.5 H (10.0-12.5) sec INR 2.2 H (<1.2) APTT (22.0-30.0) sec Fibrinogen (200-500) mg/dL ABG pH (7.35-7.45) ABG pCO2 (35-45) mmHg ABG pO2 (83-108) mmHg ABG HCO3 (21-25) mmol/L ABG Total CO2 (19-24) mmol/L ABG O2 Saturation (94-97) % Sodium (137-145) mmol/L Carbon Dioxide (22-30) mmol/L BUN (9-20) mg/dL Creatinine (0.66-1.25) mg/dL Glucose (74-99) mg/dL Plasma Lactic Acid Sav (0.7-2.0) mmol/L Calcium (8.4-10.2) mg/dL TIBC 129 L (228-460) UG/DL % Saturation 61.24 H (15.00-50.00) Transferrin 92.4 L (204.0-354.0) mg/dL Ferritin 1408.0 H (22.0-322.0) ng/mL Total Bilirubin (0.2-1.3) mg/dL AST (17-59) U/L Total Protein (6.3-8.2) g/dL Total Protein (PEP) 4.4 L (6.2-8.2) g/dL Albumin (3.5-5.0) g/dL Vitamin B12 2637.0 H (200.0-944.0) pg/mL Urine Protein (Negative) Urine RBC (0-5) /hpf Urine WBC (0-5) /hpf Amorphous Sediment (None) /hpf Urine Bacteria (None) /hpf Hyaline Casts (0-2) /lpf Urine Mucus (None) /hpf 01/07/24 01/07/24 01/07/24 Range/Units 11:37 16:08 19:33 WBC (3.8-10.6) k/uL RBC (4.30-5.90) m/uL Hgb (13.0-17.5) gm/dL Hct (39.0-53.0) % RDW (11.5-15.5) % Plt Count (150-450) k/uL Neutrophils # (Manual) (1.3-7.7) k/uL Lymphocytes # (Manual) (1.0-4.8) k/uL PT (10.0-12.5) sec INR (<1.2) APTT (22.0-30.0) sec Fibrinogen (200-500) mg/dL ABG pH 7.32 L (7.35-7.45) ABG pCO2 32 L (35-45) mmHg ABG pO2 415 H (83-108) mmHg ABG HCO3 16 L (21-25) mmol/L ABG Total CO2 17 L (19-24) mmol/L ABG O2 Saturation 100.4 H (94-97) % Sodium (137-145) mmol/L Carbon Dioxide (22-30) mmol/L BUN (9-20) mg/dL Creatinine (0.66-1.25) mg/dL Glucose (74-99) mg/dL Plasma Lactic Acid Sav 2.8 H* 4.7 H* (0.7-2.0) mmol/L Calcium (8.4-10.2) mg/dL TIBC (228-460) UG/DL % Saturation (15.00-50.00) Transferrin (204.0-354.0) mg/dL Ferritin (22.0-322.0) ng/mL Total Bilirubin (0.2-1.3) mg/dL AST (17-59) U/L Total Protein (6.3-8.2) g/dL Total Protein (PEP) (6.2-8.2) g/dL Albumin (3.5-5.0) g/dL Vitamin B12 (200.0-944.0) pg/mL Urine Protein (Negative) Urine RBC (0-5) /hpf Urine WBC (0-5) /hpf Amorphous Sediment (None) /hpf Urine Bacteria (None) /hpf Hyaline Casts (0-2) /lpf Urine Mucus (None) /hpf 01/08/24 01/08/24 01/08/24 Range/Units 00:45 01:07 04:45 WBC (3.8-10.6) k/uL RBC (4.30-5.90) m/uL Hgb (13.0-17.5) gm/dL Hct (39.0-53.0) % RDW (11.5-15.5) % Plt Count (150-450) k/uL Neutrophils # (Manual) (1.3-7.7) k/uL Lymphocytes # (Manual) (1.0-4.8) k/uL PT 16.3 H (10.0-12.5) sec INR 1.6 H (<1.2) APTT 34.4 H (22.0-30.0) sec Fibrinogen 605 H (200-500) mg/dL ABG pH (7.35-7.45) ABG pCO2 (35-45) mmHg ABG pO2 (83-108) mmHg ABG HCO3 (21-25) mmol/L ABG Total CO2 (19-24) mmol/L ABG O2 Saturation (94-97) % Sodium (137-145) mmol/L Carbon Dioxide (22-30) mmol/L BUN (9-20) mg/dL Creatinine (0.66-1.25) mg/dL Glucose (74-99) mg/dL Plasma Lactic Acid Sav 4.1 H* (0.7-2.0) mmol/L Calcium (8.4-10.2) mg/dL TIBC (228-460) UG/DL % Saturation (15.00-50.00) Transferrin (204.0-354.0) mg/dL Ferritin (22.0-322.0) ng/mL Total Bilirubin (0.2-1.3) mg/dL AST (17-59) U/L Total Protein (6.3-8.2) g/dL Total Protein (PEP) (6.2-8.2) g/dL Albumin (3.5-5.0) g/dL Vitamin B12 (200.0-944.0) pg/mL Urine Protein Trace H (Negative) Urine RBC 6 H (0-5) /hpf Urine WBC 10 H (0-5) /hpf Amorphous Sediment Occasional H (None) /hpf Urine Bacteria Occasional H (None) /hpf Hyaline Casts 88 H (0-2) /lpf Urine Mucus Occasional H (None) /hpf 01/08/24 01/08/24 01/08/24 Range/Units 04:45 04:45 04:45 WBC 1.2 L* (3.8-10.6) k/uL RBC 2.91 L (4.30-5.90) m/uL Hgb 9.1 L (13.0-17.5) gm/dL Hct 28.8 L (39.0-53.0) % RDW 16.6 H (11.5-15.5) % Plt Count 33 L D (150-450) k/uL Neutrophils # (Manual) 0.52 L (1.3-7.7) k/uL Lymphocytes # (Manual) 0.44 L (1.0-4.8) k/uL PT (10.0-12.5) sec INR (<1.2) APTT (22.0-30.0) sec Fibrinogen (200-500) mg/dL ABG pH (7.35-7.45) ABG pCO2 (35-45) mmHg ABG pO2 (83-108) mmHg ABG HCO3 (21-25) mmol/L ABG Total CO2 (19-24) mmol/L ABG O2 Saturation (94-97) % Sodium 135 L (137-145) mmol/L Carbon Dioxide 13 L (22-30) mmol/L BUN 157 H* (9-20) mg/dL Creatinine 3.11 H (0.66-1.25) mg/dL Glucose 102 H (74-99) mg/dL Plasma Lactic Acid Sav 3.8 H* (0.7-2.0) mmol/L Calcium 7.2 L (8.4-10.2) mg/dL TIBC (228-460) UG/DL % Saturation (15.00-50.00) Transferrin (204.0-354.0) mg/dL Ferritin (22.0-322.0) ng/mL Total Bilirubin 2.7 H (0.2-1.3) mg/dL AST 80 H (17-59) U/L Total Protein 4.1 L (6.3-8.2) g/dL Total Protein (PEP) (6.2-8.2) g/dL Albumin 1.8 L (3.5-5.0) g/dL Vitamin B12 (200.0-944.0) pg/mL Urine Protein (Negative) Urine RBC (0-5) /hpf Urine WBC (0-5) /hpf Amorphous Sediment (None) /hpf Urine Bacteria (None) /hpf Hyaline Casts (0-2) /lpf Urine Mucus (None) /hpf 01/08/24 Range/Units 05:06 WBC (3.8-10.6) k/uL RBC (4.30-5.90) m/uL Hgb (13.0-17.5) gm/dL Hct (39.0-53.0) % RDW (11.5-15.5) % Plt Count (150-450) k/uL Neutrophils # (Manual) (1.3-7.7) k/uL Lymphocytes # (Manual) (1.0-4.8) k/uL PT (10.0-12.5) sec INR (<1.2) APTT (22.0-30.0) sec Fibrinogen (200-500) mg/dL ABG pH (7.35-7.45) ABG pCO2 29 L (35-45) mmHg ABG pO2 146 H (83-108) mmHg ABG HCO3 17 L (21-25) mmol/L ABG Total CO2 18 L (19-24) mmol/L ABG O2 Saturation 99.6 H (94-97) % Sodium (137-145) mmol/L Carbon Dioxide (22-30) mmol/L BUN (9-20) mg/dL Creatinine (0.66-1.25) mg/dL Glucose (74-99) mg/dL Plasma Lactic Acid Sav (0.7-2.0) mmol/L Calcium (8.4-10.2) mg/dL TIBC (228-460) UG/DL % Saturation (15.00-50.00) Transferrin (204.0-354.0) mg/dL Ferritin (22.0-322.0) ng/mL Total Bilirubin (0.2-1.3) mg/dL AST (17-59) U/L Total Protein (6.3-8.2) g/dL Total Protein (PEP) (6.2-8.2) g/dL Albumin (3.5-5.0) g/dL Vitamin B12 (200.0-944.0) pg/mL Urine Protein (Negative) Urine RBC (0-5) /hpf Urine WBC (0-5) /hpf Amorphous Sediment (None) /hpf Urine Bacteria (None) /hpf Hyaline Casts (0-2) /lpf Urine Mucus (None) /hpf Microbiology - Last 24 Hours (Table) 01/07/24 09:05 Gram Stain - Preliminary Leg - Left
[2024-01-08] MEDS: POTASSIUM BICARBONATE/CIT AC 20 MEQ TABLET.EFF NG-TUBE SCH (16:31)
[2024-01-08] MEDS: METOPROLOL TARTRATE 25 MG TAB PO SCH (16:31)
[2024-01-08 16:46] LABS: Glucose,Whole Blood 107 mg/dL (70-110)
[2024-01-08 17:40] LABS: Glucose,Whole Blood 112 mg/dL (70-110)
[2024-01-08 18:24] LABS: Gamma Globulin 0.82 g/dL (0.70-1.50)
--- NOTE | 2024-01-08 23:52 | P.PN ---
Subjective Progress Note Date: 01/08/24 Patient seen in ICU at today's visit. Patient remains intubated and sedated. WBC 1.2, hemoglobin 9.1, platelets 33,000. Objective - Vital Signs Vital signs: Vital Signs Temp 98.0 F 01/08/24 12:00 Pulse 103 H 01/08/24 14:00 Resp 29 H 01/08/24 14:00 BP 59/21 01/07/24 19:00 Pulse Ox 99 01/08/24 14:00 FiO2 35 01/08/24 12:00 Intake & Output 01/07/24 01/08/24 01/08/24 18:59 06:59 18:59 Intake Total 2997.420 3218.375 2057.716 Output Total 765 710 400 Balance 2232.420 2508.375 1657.716 Weight 96.6 kg 102.6 kg 102.6 kg Intake: IV 2382 2486 1961 0.9 Pressure Bag 33 36 21 0.9 at KVO 200 140 Cefepime 1 gm In Sodium 50 100 Chloride 0.9% 50 ml @ 12. 5 mls/hr IVPB Q12HR [facility] Rx#:[id number] Cefepime 2 gm In Sodium 100 Chloride 0.9% 100 ml @ 25 mls/hr IVPB Q8HR [facility] Rx# :[id number] DAPTOmycin 500 mg In 50 Sodium Chloride 0.9% 50 ml @ 100 mls/hr IVPB Q48H [facility] Rx#:[id number] Dextrose 5% in Water 1, 800 1200 700 000 ml @ 100 mls/hr IV . [id number] [facility] with Sodium Bicarb (1 Meq/ml) 150 ml Rx#:[id number] Phytonadione 10 mg In 100 Sodium Chloride 0.9% 50 ml @ 100 mls/hr IV[facility] Rx#:[id number] Sodium Chloride 0.9% 1, 300 000 ml @ 100 mls/hr IV . Q10H [facility] Rx#:[id number] Sodium Chloride 0.9% 1, 999 1000 000 ml @ 999 mls/hr IV . Q1H1M [facility] Rx#:[id number] Sodium Chloride 0.9% 1, 1000 000 ml @ 999 mls/hr IV . Q1H1M [facility] Rx#:[id number] Intake, IV Titration 615.420 732.375 96.716 Amount Norepinephrine 32 mg In 197.617 Sodium Chloride 0.9% 218 ml @ 0.03 MCG/KG/MIN 1. 358 mls/hr IV .Q24H [facility] Rx#:[id number] Norepinephrine 4 mg In 503.906 254.000 Sodium Chloride 0.9% 250 ml @ 0.03 MCG/KG/MIN 10. 68 mls/hr IV .[id number] [facility] Rx#:[id number] Phytonadione 10 mg In 50 Sodium Chloride 0.9% 50 ml @ 100 mls/hr IVPB [facility] Rx#:[id number] Vasopressin 20 unit In 45.237 33.992 34.119 Sodium Chloride 0.9% 50 ml @ 0.03 UNITS/MIN 4.59 mls/hr IV .Q11H7M [facility] Rx# :[id number] propofoL 1,000 mg In 16.277 246.766 62.597 Empty Bag 1 bag @ 15 MCG/ KG/MIN 8.694 mls/hr IV . [id number] [facility] Rx#:[id number] Output: Gastric Drainage 250 Urine 765 460 400 Other: Voiding Method Indwelling Catheter Indwelling Catheter Indwelling Catheter ABP, PAP, CO, CI - Last Documented Arterial Blood Pressure 123/54 - Constitutional General appearance: Present: no acute distress - Respiratory Details: ventilated breath sounds - Integumentary Integumentary Comment(s): extensive bruising to BUE and BLE. Hematoma noted to left medial thigh - Labs CBC & Chem 7: 01/08/24 04:45 01/08/24 13:45 Labs: Abnormal Lab Results - Last 24 Hours (Table) 01/07/24 01/07/24 01/07/24 Range/Units 08:31 08:31 16:08 WBC (3.8-10.6) k/uL RBC (4.30-5.90) m/uL Hgb (13.0-17.5) gm/dL Hct (39.0-53.0) % RDW (11.5-15.5) % Plt Count (150-450) k/uL Neutrophils # (Manual) (1.3-7.7) k/uL Lymphocytes # (Manual) (1.0-4.8) k/uL PT (10.0-12.5) sec INR (<1.2) APTT (22.0-30.0) sec Fibrinogen (200-500) mg/dL ABG pH 7.32 L (7.35-7.45) ABG pCO2 32 L (35-45) mmHg ABG pO2 415 H (83-108) mmHg ABG HCO3 16 L (21-25) mmol/L ABG Total CO2 17 L (19-24) mmol/L ABG O2 Saturation 100.4 H (94-97) % Sodium (137-145) mmol/L Carbon Dioxide (22-30) mmol/L BUN (9-20) mg/dL Creatinine (0.66-1.25) mg/dL Glucose (74-99) mg/dL Plasma Lactic Acid Sav (0.7-2.0) mmol/L Calcium (8.4-10.2) mg/dL TIBC 129 L (228-460) UG/DL % Saturation 61.24 H (15.00-50.00) Transferrin 92.4 L (204.0-354.0) mg/dL Ferritin 1408.0 H (22.0-322.0) ng/mL Total Bilirubin (0.2-1.3) mg/dL AST (17-59) U/L Lactate Dehydrogenase (120-246) U/L Total Protein (6.3-8.2) g/dL Total Protein (PEP) 4.4 L (6.2-8.2) g/dL Albumin (3.5-5.0) g/dL Vitamin B12 2637.0 H (200.0-944.0) pg/mL Urine Protein (Negative) Urine RBC (0-5) /hpf Urine WBC (0-5) /hpf Amorphous Sediment (None) /hpf Urine Bacteria (None) /hpf Hyaline Casts (0-2) /lpf Urine Mucus (None) /hpf 01/07/24 01/08/24 01/08/24 Range/Units 19:33 00:45 01:07 WBC (3.8-10.6) k/uL RBC (4.30-5.90) m/uL Hgb (13.0-17.5) gm/dL Hct (39.0-53.0) % RDW (11.5-15.5) % Plt Count (150-450) k/uL Neutrophils # (Manual) (1.3-7.7) k/uL Lymphocytes # (Manual) (1.0-4.8) k/uL PT (10.0-12.5) sec INR (<1.2) APTT (22.0-30.0) sec Fibrinogen (200-500) mg/dL ABG pH (7.35-7.45) ABG pCO2 (35-45) mmHg ABG pO2 (83-108) mmHg ABG HCO3 (21-25) mmol/L ABG Total CO2 (19-24) mmol/L ABG O2 Saturation (94-97) % Sodium (137-145) mmol/L Carbon Dioxide (22-30) mmol/L BUN (9-20) mg/dL Creatinine (0.66-1.25) mg/dL Glucose (74-99) mg/dL Plasma Lactic Acid Sav 4.7 H* 4.1 H* (0.7-2.0) mmol/L Calcium (8.4-10.2) mg/dL TIBC (228-460) UG/DL % Saturation (15.00-50.00) Transferrin (204.0-354.0) mg/dL Ferritin (22.0-322.0) ng/mL Total Bilirubin (0.2-1.3) mg/dL AST (17-59) U/L Lactate Dehydrogenase (120-246) U/L Total Protein (6.3-8.2) g/dL Total Protein (PEP) (6.2-8.2) g/dL Albumin (3.5-5.0) g/dL Vitamin B12 (200.0-944.0) pg/mL Urine Protein Trace H (Negative) Urine RBC 6 H (0-5) /hpf Urine WBC 10 H (0-5) /hpf Amorphous Sediment Occasional H (None) /hpf Urine Bacteria Occasional H (None) /hpf Hyaline Casts 88 H (0-2) /lpf Urine Mucus Occasional H (None) /hpf 01/08/24 01/08/24 01/08/24 Range/Units 04:45 04:45 04:45 WBC 1.2 L* (3.8-10.6) k/uL RBC 2.91 L (4.30-5.90) m/uL Hgb 9.1 L (13.0-17.5) gm/dL Hct 28.8 L (39.0-53.0) % RDW 16.6 H (11.5-15.5) % Plt Count 33 L D (150-450) k/uL Neutrophils # (Manual) 0.52 L (1.3-7.7) k/uL Lymphocytes # (Manual) 0.44 L (1.0-4.8) k/uL PT 16.3 H (10.0-12.5) sec INR 1.6 H (<1.2) APTT 34.4 H (22.0-30.0) sec Fibrinogen 605 H (200-500) mg/dL ABG pH (7.35-7.45) ABG pCO2 (35-45) mmHg ABG pO2 (83-108) mmHg ABG HCO3 (21-25) mmol/L ABG Total CO2 (19-24) mmol/L ABG O2 Saturation (94-97) % Sodium 135 L (137-145) mmol/L Carbon Dioxide 13 L (22-30) mmol/L BUN 157 H* (9-20) mg/dL Creatinine 3.11 H (0.66-1.25) mg/dL Glucose 102 H (74-99) mg/dL Plasma Lactic Acid Sav (0.7-2.0) mmol/L Calcium 7.2 L (8.4-10.2) mg/dL TIBC (228-460) UG/DL % Saturation (15.00-50.00) Transferrin (204.0-354.0) mg/dL Ferritin (22.0-322.0) ng/mL Total Bilirubin 2.7 H (0.2-1.3) mg/dL AST 80 H (17-59) U/L Lactate Dehydrogenase (120-246) U/L Total Protein 4.1 L (6.3-8.2) g/dL Total Protein (PEP) (6.2-8.2) g/dL Albumin 1.8 L (3.5-5.0) g/dL Vitamin B12 (200.0-944.0) pg/mL Urine Protein (Negative) Urine RBC (0-5) /hpf Urine WBC (0-5) /hpf Amorphous Sediment (None) /hpf Urine Bacteria (None) /hpf Hyaline Casts (0-2) /lpf Urine Mucus (None) /hpf 01/08/24 01/08/24 01/08/24 Range/Units 04:45 05:06 12:00 WBC (3.8-10.6) k/uL RBC (4.30-5.90) m/uL Hgb (13.0-17.5) gm/dL Hct (39.0-53.0) % RDW (11.5-15.5) % Plt Count (150-450) k/uL Neutrophils # (Manual) (1.3-7.7) k/uL Lymphocytes # (Manual) (1.0-4.8) k/uL PT (10.0-12.5) sec INR (<1.2) APTT (22.0-30.0) sec Fibrinogen (200-500) mg/dL ABG pH (7.35-7.45) ABG pCO2 29 L (35-45) mmHg ABG pO2 146 H (83-108) mmHg ABG HCO3 17 L (21-25) mmol/L ABG Total CO2 18 L (19-24) mmol/L ABG O2 Saturation 99.6 H (94-97) % Sodium (137-145) mmol/L Carbon Dioxide (22-30) mmol/L BUN (9-20) mg/dL Creatinine (0.66-1.25) mg/dL Glucose (74-99) mg/dL Plasma Lactic Acid Sav 3.8 H* (0.7-2.0) mmol/L Calcium (8.4-10.2) mg/dL TIBC (228-460) UG/DL % Saturation (15.00-50.00) Transferrin (204.0-354.0) mg/dL Ferritin (22.0-322.0) ng/mL Total Bilirubin (0.2-1.3) mg/dL AST (17-59) U/L Lactate Dehydrogenase 274 H (120-246) U/L Total Protein (6.3-8.2) g/dL Total Protein (PEP) (6.2-8.2) g/dL Albumin (3.5-5.0) g/dL Vitamin B12 (200.0-944.0) pg/mL Urine Protein (Negative) Urine RBC (0-5) /hpf Urine WBC (0-5) /hpf Amorphous Sediment (None) /hpf Urine Bacteria (None) /hpf Hyaline Casts (0-2) /lpf Urine Mucus (None) /hpf 01/08/24 01/08/24 Range/Units 13:45 13:45 WBC (3.8-10.6) k/uL RBC (4.30-5.90) m/uL Hgb (13.0-17.5) gm/dL Hct (39.0-53.0) % RDW (11.5-15.5) % Plt Count (150-450) k/uL Neutrophils # (Manual) (1.3-7.7) k/uL Lymphocytes # (Manual) (1.0-4.8) k/uL PT (10.0-12.5) sec INR (<1.2) APTT (22.0-30.0) sec Fibrinogen (200-500) mg/dL ABG pH (7.35-7.45) ABG pCO2 (35-45) mmHg ABG pO2 (83-108) mmHg ABG HCO3 (21-25) mmol/L ABG Total CO2 (19-24) mmol/L ABG O2 Saturation (94-97) % Sodium (137-145) mmol/L Carbon Dioxide 17 L (22-30) mmol/L BUN 161 H* (9-20) mg/dL Creatinine 2.82 H (0.66-1.25) mg/dL Glucose 103 H (74-99) mg/dL Plasma Lactic Acid Sav 2.8 H* (0.7-2.0) mmol/L Calcium 7.2 L (8.4-10.2) mg/dL TIBC (228-460) UG/DL % Saturation (15.00-50.00) Transferrin (204.0-354.0) mg/dL Ferritin (22.0-322.0) ng/mL Total Bilirubin (0.2-1.3) mg/dL AST (17-59) U/L Lactate Dehydrogenase (120-246) U/L Total Protein (6.3-8.2) g/dL Total Protein (PEP) (6.2-8.2) g/dL Albumin (3.5-5.0) g/dL Vitamin B12 (200.0-944.0) pg/mL Urine Protein (Negative) Urine RBC (0-5) /hpf Urine WBC (0-5) /hpf Amorphous Sediment (None) /hpf Urine Bacteria (None) /hpf Hyaline Casts (0-2) /lpf Urine Mucus (None) /hpf Microbiology - Last 24 Hours (Table) 01/07/24 19:33 Blood Culture Gram Stain - Preliminary Blood Blood Culture - Preliminary Molecular ID 01/07/24 09:05 Gram Stain - Preliminary Leg - Left Wound Culture - Preliminary Group D Enterococcus Gram Neg Bacilli Assessment and Plan (1) FRED (acute kidney injury) Current Visit: Yes Status: Acute Priority: High Code(s): N17.9 - ACUTE KIDNEY FAILURE, UNSPECIFIED SNOMED Code(s): 20551301 (2) Coagulopathy Current Visit: Yes Status: Acute Priority: High Code(s): D68.9 - COAGULATION DEFECT, UNSPECIFIED SNOMED Code(s): 19497041 (3) Leg wound, left Current Visit: Yes Status: Acute Priority: High Code(s): S81.802A - UNSPECIFIED OPEN WOUND, LEFT LOWER LEG, INITIAL ENCOUNTER SNOMED Code(s): 56917210780042175 (4) Methotrexate adverse reaction Current Visit: Yes Status: Acute Priority: High Code(s): T45.1X5A - ADVERSE EFFECT OF ANTINEOPLASTIC AND IMMUNOSUP DRUGS, INIT SNOMED Code(s): 892989201 (5) Pancytopenia Current Visit: Yes Status: Acute Priority: High Code(s): D61.818 - OTHER PANCYTOPENIA SNOMED Code(s): 146026405 (6) Sepsis Current Visit: Yes Status: Acute Priority: High Code(s): A41.9 - SEPSIS, UNSPECIFIED ORGANISM SNOMED Code(s): 07114204 Plan: Coagulopathy -Patient on Coumadin for atrial fibrillation. On admission INR 9.1 -Patient has received 2 doses of IV vitamin K, INR 1.6 on recheck. -INR daily for now. INR may rebound as patient is not consuming oral intake at this time and is acutely ill Concerns for DIC -DIC negative. Fibrinogen elevated. INR is lowering with administration of vit K. Plt 33,000 -CBC, Coags and fibrinogen daily for now as pt condition remains critical Pancytopenia -After chart review, suspect methotrexate toxicity secondary to acute on chronic renal failure -Rescue leucovorin ordered -Methotrexate levels have been ordered prior to administration of leucovorin and for level to be drawn tomorrow after several doses of leucovorin. Unfortunately, this lab can take several days to return. Will base leucovorin administration on response i.e. improvement in patient's pancytopenia -Pancytopenia work up ordered. No nutritional deficiencies noted. Remaining workup pending -CBC daily -Transfuse for hemoglobin less than 7. -Transfuse for platelets less than 10,000 or if patient is symptomatic -No G-CSF at this time as methotrexate levels may still be elevated and would potentially destroy new white blood cells sent into the periphery. Doctor attests: I performed a history and physical examination of this patient, developed impression and plan of care. Discussed with dictator. I agree with dictators note, documented as a scribe.
[2024-01-09] LABS: Glucose,Whole Blood 127 mg/dL (70-110)
[2024-01-09 04:44] LABS: Anisocytosis Slight; HCT 23.7 % (39.0-53.0); MCH 31.8 pg (25.0-35.0); MCHC 33.6 g/dL (31.0-37.0); MCV 94.8 fL (80.0-100.0); Mean Platelet Volume 9.8; RDW 16.9 % (11.5-15.5)
[2024-01-09 04:49] LABS: Platelet Count 12 k/uL (150-450); WBC 0.4 k/uL (3.8-10.6)
[2024-01-09 04:53] LABS: ABG HCO3 25 mmol/L (21-25); ABG Oxygen Saturation 98.7 % (94-97); ABG PCO2 31 mmHg (35-45); ABG PH 7.52 (7.35-7.45); ABG PO2 102 mmHg (83-108); ABG TCO2 26 mmol/L (19-24)
[2024-01-09 04:56] LABS: Allen Test Performed? no
[2024-01-09 05:02] LABS: ALT 28 U/L (4-49); AST 68 U/L (17-59); Albumin 1.7 g/dL (3.5-5.0); Alkaline Phosphatase 44 U/L (38-126); Anion Gap 15 mmol/L; Calcium 7.9 mg/dL (8.4-10.2); Carbon Dioxide 22 mmol/L (22-30); Chloride 103 mmol/L (98-107); Glucose 135 mg/dL (74-99); Potassium 3.6 mmol/L (3.5-5.1); Sodium 140 mmol/L (137-145); Total Bilirubin 3.9 mg/dL (0.2-1.3)
[2024-01-09 05:08] LABS: African American GFR (CKD) 26 (>60 ml/min/1.73 sqM); Non-African American GFR(CKD) 22 (>60 ml/min/1.73 sqM)
[2024-01-09 05:11] LABS: Crenated RBC Present; Tear Drop Cells Present
[2024-01-09 05:12] LABS: Blood Urea Nitrogen 160 mg/dL (9-20); INR 1.9 (<1.2); Partial Thromboplastin Time 38.1 sec (22.0-30.0); Prothrombin Time 19.1 sec (10.0-12.5)
[2024-01-09] MEDS: POTASSIUM BICARBONATE/CIT AC 20 MEQ TABLET.EFF PO ONE (06:01)
[2024-01-09 06:09] LABS: Glucose,Whole Blood 150 mg/dL (70-110)
--- NOTE | 2024-01-09 08:24 | P.PN ---
Subjective Patient is seen in follow-up for acute kidney injury on chronic kidney disease. Creatinine trending down. Nonoliguric. BUN stable. Intubated. Receiving tube feeds. Levophed dose being decreased. Still on vasopressin as well. Vital signs are stable. On vasopressor support. General: Resting in bed. Awake on vent. HEENT: Intubated. LUNGS: Scattered rhonchi. HEART: Rate and Rhythm are regular. ABDOMEN: No distention. Soft. EXTREMITITES: Left lower extremity wrapped. No drainage. Wounds noted. Trace edema. Objective - Vital Signs Vital signs: Vital Signs Temp 97.4 F L 01/09/24 04:00 Pulse 110 H 01/09/24 08:09 Resp 22 01/09/24 07:00 BP 59/21 01/07/24 19:00 Pulse Ox 100 01/09/24 07:00 FiO2 35 01/09/24 07:34 Intake & Output 01/08/24 01/09/24 01/09/24 18:59 06:59 18:59 Intake Total 3126.459 2023.535 178 Output Total 720 1025 100 Balance 2406.459 998.535 78 Weight 102.6 kg 105.1 kg Intake: IV 2774 1628 148 0.9 Pressure Bag 39 33 3 0.9 at KVO 260 220 20 Cefepime 1 gm In Sodium 100 Chloride 0.9% 50 ml @ 12. 5 mls/hr IVPB Q12HR [facility] Rx#:[id number] Dextrose 5% in Water 1, 1375 1375 125 000 ml @ 125 mls/hr IV . Q9H12M [facility] with Sodium Bicarb (1 Meq/ml) 150 ml Rx#:[id number] Sodium Chloride 0.9% 1, 1000 000 ml @ 999 mls/hr IV . Q1H1M [facility] Rx#:[id number] Intake, IV Titration 292.459 95.535 Amount Norepinephrine 32 mg In 195.743 44.535 Sodium Chloride 0.9% 218 ml @ 0.03 MCG/KG/MIN 1. 358 mls/hr IV .Q24H [facility] Rx#:[id number] Vasopressin 20 unit In 34.119 51 Sodium Chloride 0.9% 50 ml @ 0.03 UNITS/MIN 4.59 mls/hr IV .Q11H7M [facility] Rx# :[id number] propofoL 1,000 mg In 62.597 Empty Bag 1 bag @ 15 MCG/ KG/MIN 8.694 mls/hr IV . [id number] [facility] Rx#:[id number] Tube Feeding 60 210 30 Other 90 Output: Urine 720 1025 100 Other: Voiding Method Indwelling Catheter Indwelling Catheter ABP, PAP, CO, CI - Last Documented Arterial Blood Pressure 121/54 - Labs CBC & Chem 7: 01/09/24 04:12 01/09/24 04:12 Labs: Abnormal Lab Results - Last 24 Hours (Table) 01/07/24 01/07/24 01/08/24 Range/Units 08:31 08:31 04:45 WBC (3.8-10.6) k/uL RBC (4.30-5.90) m/uL Hgb (13.0-17.5) gm/dL Hct (39.0-53.0) % RDW (11.5-15.5) % Plt Count (150-450) k/uL Neutrophils # (Manual) 0.52 L (1.3-7.7) k/uL Lymphocytes # (Manual) 0.44 L (1.0-4.8) k/uL PT (10.0-12.5) sec INR (<1.2) APTT (22.0-30.0) sec Fibrinogen (200-500) mg/dL ABG pH (7.35-7.45) ABG pCO2 (35-45) mmHg ABG Total CO2 (19-24) mmol/L ABG O2 Saturation (94-97) % Carbon Dioxide (22-30) mmol/L BUN (9-20) mg/dL Creatinine (0.66-1.25) mg/dL Glucose (74-99) mg/dL POC Glucose (mg/dL) (70-110) mg/dL Plasma Lactic Acid Sav (0.7-2.0) mmol/L Calcium (8.4-10.2) mg/dL Total Bilirubin (0.2-1.3) mg/dL AST (17-59) U/L Lactate Dehydrogenase (120-246) U/L Total Protein (6.3-8.2) g/dL Albumin (3.5-5.0) g/dL Albumin (PEP) 1.80 L (3.80-4.90) g/dL Qqyxp-7-Paosgdoeg 0.61 H (0.10-0.40) g/dL Beta Globulins 0.45 L (0.60-1.30) g/dL Methylmalonic Acid 1.18 H (<0.40) umol/L 01/08/24 01/08/24 01/08/24 Range/Units 12:00 13:45 13:45 WBC (3.8-10.6) k/uL RBC (4.30-5.90) m/uL Hgb (13.0-17.5) gm/dL Hct (39.0-53.0) % RDW (11.5-15.5) % Plt Count (150-450) k/uL Neutrophils # (Manual) (1.3-7.7) k/uL Lymphocytes # (Manual) (1.0-4.8) k/uL PT (10.0-12.5) sec INR (<1.2) APTT (22.0-30.0) sec Fibrinogen (200-500) mg/dL ABG pH (7.35-7.45) ABG pCO2 (35-45) mmHg ABG Total CO2 (19-24) mmol/L ABG O2 Saturation (94-97) % Carbon Dioxide 17 L (22-30) mmol/L BUN 161 H* (9-20) mg/dL Creatinine 2.82 H (0.66-1.25) mg/dL Glucose 103 H (74-99) mg/dL POC Glucose (mg/dL) (70-110) mg/dL Plasma Lactic Acid Sav 2.8 H* (0.7-2.0) mmol/L Calcium 7.2 L (8.4-10.2) mg/dL Total Bilirubin (0.2-1.3) mg/dL AST (17-59) U/L Lactate Dehydrogenase 274 H (120-246) U/L Total Protein (6.3-8.2) g/dL Albumin (3.5-5.0) g/dL Albumin (PEP) (3.80-4.90) g/dL Ksywa-9-Ubnvhtlmk (0.10-0.40) g/dL Beta Globulins (0.60-1.30) g/dL Methylmalonic Acid (<0.40) umol/L 01/08/24 01/08/24 01/09/24 Range/Units 17:39 23:59 04:12 WBC (3.8-10.6) k/uL RBC (4.30-5.90) m/uL Hgb (13.0-17.5) gm/dL Hct (39.0-53.0) % RDW (11.5-15.5) % Plt Count (150-450) k/uL Neutrophils # (Manual) (1.3-7.7) k/uL Lymphocytes # (Manual) (1.0-4.8) k/uL PT 19.1 H (10.0-12.5) sec INR 1.9 H (<1.2) APTT 38.1 H (22.0-30.0) sec Fibrinogen 575 H (200-500) mg/dL ABG pH (7.35-7.45) ABG pCO2 (35-45) mmHg ABG Total CO2 (19-24) mmol/L ABG O2 Saturation (94-97) % Carbon Dioxide (22-30) mmol/L BUN (9-20) mg/dL Creatinine (0.66-1.25) mg/dL Glucose (74-99) mg/dL POC Glucose (mg/dL) 112 H 127 H (70-110) mg/dL Plasma Lactic Acid Sav (0.7-2.0) mmol/L Calcium (8.4-10.2) mg/dL Total Bilirubin (0.2-1.3) mg/dL AST (17-59) U/L Lactate Dehydrogenase (120-246) U/L Total Protein (6.3-8.2) g/dL Albumin (3.5-5.0) g/dL Albumin (PEP) (3.80-4.90) g/dL Gwrgu-0-Ypvfwztmw (0.10-0.40) g/dL Beta Globulins (0.60-1.30) g/dL Methylmalonic Acid (<0.40) umol/L 01/09/24 01/09/24 01/09/24 Range/Units 04:12 04:12 04:52 WBC 0.4 L* (3.8-10.6) k/uL RBC 2.50 L (4.30-5.90) m/uL Hgb 8.0 L (13.0-17.5) gm/dL Hct 23.7 L (39.0-53.0) % RDW 16.9 H (11.5-15.5) % Plt Count 12 L* D (150-450) k/uL Neutrophils # (Manual) (1.3-7.7) k/uL Lymphocytes # (Manual) (1.0-4.8) k/uL PT (10.0-12.5) sec INR (<1.2) APTT (22.0-30.0) sec Fibrinogen (200-500) mg/dL ABG pH 7.52 H (7.35-7.45) ABG pCO2 31 L (35-45) mmHg ABG Total CO2 26 H (19-24) mmol/L ABG O2 Saturation 98.7 H (94-97) % Carbon Dioxide (22-30) mmol/L BUN 160 H* (9-20) mg/dL Creatinine 2.73 H (0.66-1.25) mg/dL Glucose 135 H (74-99) mg/dL POC Glucose (mg/dL) (70-110) mg/dL Plasma Lactic Acid Sav (0.7-2.0) mmol/L Calcium 7.9 L (8.4-10.2) mg/dL Total Bilirubin 3.9 H (0.2-1.3) mg/dL AST 68 H (17-59) U/L Lactate Dehydrogenase (120-246) U/L Total Protein 4.0 L (6.3-8.2) g/dL Albumin 1.7 L (3.5-5.0) g/dL Albumin (PEP) (3.80-4.90) g/dL Qawvu-5-Buvoumbwc (0.10-0.40) g/dL Beta Globulins (0.60-1.30) g/dL Methylmalonic Acid (<0.40) umol/L 01/09/24 Range/Units 06:08 WBC (3.8-10.6) k/uL RBC (4.30-5.90) m/uL Hgb (13.0-17.5) gm/dL Hct (39.0-53.0) % RDW (11.5-15.5) % Plt Count (150-450) k/uL Neutrophils # (Manual) (1.3-7.7) k/uL Lymphocytes # (Manual) (1.0-4.8) k/uL PT (10.0-12.5) sec INR (<1.2) APTT (22.0-30.0) sec Fibrinogen (200-500) mg/dL ABG pH (7.35-7.45) ABG pCO2 (35-45) mmHg ABG Total CO2 (19-24) mmol/L ABG O2 Saturation (94-97) % Carbon Dioxide (22-30) mmol/L BUN (9-20) mg/dL Creatinine (0.66-1.25) mg/dL Glucose (74-99) mg/dL POC Glucose (mg/dL) 150 H (70-110) mg/dL Plasma Lactic Acid Sav (0.7-2.0) mmol/L Calcium (8.4-10.2) mg/dL Total Bilirubin (0.2-1.3) mg/dL AST (17-59) U/L Lactate Dehydrogenase (120-246) U/L Total Protein (6.3-8.2) g/dL Albumin (3.5-5.0) g/dL Albumin (PEP) (3.80-4.90) g/dL Ealas-4-Blborjjfd (0.10-0.40) g/dL Beta Globulins (0.60-1.30) g/dL Methylmalonic Acid (<0.40) umol/L Microbiology - Last 24 Hours (Table) 01/07/24 19:33 Blood Culture Gram Stain - Preliminary Blood Blood Culture - Preliminary Molecular ID 01/07/24 09:05 Gram Stain - Preliminary Leg - Left Wound Culture - Preliminary Group D Enterococcus Gram Neg Bacilli Assessment and Plan Plan: Assessment: 1. Acute kidney injury secondary to ATN secondary to septic shock. Creatinine 3.9 on admission and is improved to 2.73 today. Nonoliguric. No hydronephrosis noted on kidney ultrasound also left kidney was not visualized. Disproportionately elevated BUN partially due to steroids. Also had a small dark bowel movement last night. Hemoglobin 8.0 today. Questionable GI bleed. 2. Chronic kidney disease stage IIIb with baseline creatinine near 2 secondary to cardiorenal syndrome. 3. Septic shock secondary to lower extremity wounds. Wound culture positive for group D Enterococcus. Blood cultures positive for gram-positive cocci. On antibiotics. ID following. 4. Chronic diastolic CHF with mild to moderate mitral and aortic regurgitation. 5. Pancytopenia. Concern for DIC as well as methotrexate toxicity. Hematology oncology following. 6. Rheumatoid arthritis maintained on methotrexate outpatient. 7. Acute hypoxic respiratory failure. Currently intubated. On 35% FiO2. 8. Metabolic acidosis secondary to acute kidney injury maintained on bicarb drip. Improved. Blood gas this morning suggestive of respiratory alkalosis. 9. Hypokalemia from intracellular shifting from IV bicarb. Plan: Stop bicarb drip. Start normal saline at 75 cc an hour. Maintain tube feeds. Repeat hemoglobin this evening. Wean vasopressors. Continue to monitor renal function and urine output. Continue to assess daily for need for renal replacement therapy. No urgency at this time.
--- NOTE | 2024-01-09 08:25 | XR ---
EXAMINATION TYPE: XR chest 1V portable DATE OF EXAM: 01/09/2024 COMPARISON: 01/08/2024 INDICATION: Tube placement TECHNIQUE: Single frontal view of the chest is obtained. FINDINGS: The heart size is normal. The pulmonary vasculature is normal. Improving right lower lobe infiltrate is present. Endotracheal tube tip is approximately 4 to 5 cm above the hayder. Nasogastric tube tip is within the left upper quadrant of the abdomen. IMPRESSION: 1. Right lower lobe infiltrate. 2. Lines and catheters discussed above
[2024-01-09] MEDS: SODIUM CHLORIDE 0.9% 1,000 ML IV SCH (08:47)
--- NOTE | 2024-01-09 10:11 | P.PN ---
Subjective Progress Note Date: 01/09/24 Principal diagnosis: Sepsis septic shock and acute hypoxic respiratory failure This is a 73-year-old white male with history of chronic atrial fibrillation, hypertension, rheumatoid arthritis, patient is normally maintained on Coumadin for his atrial fibrillation, he is also maintained on methotrexate for rheumatoid arthritis. For the last few days, the patient has been complaining of left shoulder pain. He saw his primary care physician/Dr. Lopez, and he was directed to go to the ER. Patient was evaluated in the ER on 01/05/2024, and after reviewing the ER note, and the admitting note by the admitting physician, patient was admitted with possible rotator cuff tear of the left shoulder, however on his initial evaluation, the patient was found to have significant ab normal labs. Patient was clearly found to have acute on chronic renal failure felt to be acute tubular necrosis related to hypotension as the patient was noted to be hypotensive initially in the ER. Patient was also found to have supratherapeutic INR level. And this was felt to be related to Coumadin. In addition to this the patient is known to have history of diabetes, he is also known to have history of hyperkalemia and hyperthyroidism, maintained on methimazole. Patient was admitted to [address] and seen by the hospitalist, he was also seen by the multiple sclerosis nurse, and the main concern was mostly related to his acute kidney injury and elevated INR. However at 330 this morning, the rapid response team attended to the patient were in he was noted to have low blood pressure, he was also noted to have INR of 6.4, worsening creatinine of 2.96, and the patient was mostly hypotensive with blood pressure as low as 50/39. Patient was given 1.5 L of fluid bolus, blood pressure came up slightly, and I was notified about this patient at that time. I recommended immediate transfer to the ICU. In the ICU, patient required pressors in the form of norepinephrine he is presently on 0.23 mcg/kg/min he is also on vasopressin at 0.03 units/h. Bailey on IV fluid at 100 cc/h in the form of 0.9 normal saline. Labs in the ICU showed significant worsening compared to previous labs on admission including a WBC count of 0.6, hemoglobin is 9.4, platelets are 100,000's, INR was still elevated, and his D-dimer was 6.16. Renal profile has become worse with a BUN of 154 creatinine 3.05, slightly abnormal liver enzymes. Uric acid was 10.8 on admission. Patient had a CT of the brain earlier this morning which showed no evidence of bleed. I saw the patient in the ICU this morning, he seems to be quite ill and I have reviewed the chart, discussed and updated the family on his condition. In the meantime I have recommended different consultations including infectious disease consult for significant wound noted in the left calf region with purulent drainage from a large deep ulcer in the left calf area. I have also recommended broad-spectrum antibiotics to start empirically. Recommended h ematology consultation. Looking at the significant abnormalities and specially his elevated INR, I recommended vitamin K, I also recommended Kcentra to be given repeat INR was 2.2 few hours later considering the overall presentation, I am quite concerned about the possibility of sepsis/septic shock and the most likely source for his sepsis would likely be the left leg wound which seems to be quite deep, and there is a significant purulent drainage from that left leg. Surgical consultation was initiated to address this large wound in the left calf region. Patient was seen by hematology, and felt that this could be methotrexate toxicity. Although this is in the differential, I am more conc erned about patient having sepsis/septic shock, of course the differential diagnosis will include methotrexate toxicity or methimazole toxicity. But again clinically this is felt to be less likely based on the fact that the patient presented with normal labs except for abnormal renal profile and abnormal INR on admission. His CBC was otherwise unremarkable. And looking back at his labs from October he had relatively normal CBC and slightly abnormal renal profile with GFR in the 40s. Today on 01/08/2024, remains in the ICU, intubated and mechanically ventilated, on propofol and on pressors. His assist-control rate is 20 tidal volume 500 FiO2 40% and PEEP of 5 ABG showed a pO2 of 146 pCO2 29 pH of 7.37 hence FiO2 was cut down to 35%. Patient is on propofol at 30 mcg/kg/min vasopressin at 0.03 units, norepinephrine at 0.38 mcg/kg/min. Patient is still receiving bicarb drip as recommended by nephrology. Patient is receiving Solu-Cortef, he is also receiving cefepime and daptomycin. Urine output has been in the range of 50 to 60/h. His renal functioning is a bit worse, patient has nonoliguric renal failure. We believe the patient developed acute tubular necrosis from sepsis and hypotension. Patient received few fluid boluses last night and he will receive more this morning. Again his urine output is picking up with fluid boluses. Labs landry the patient is showing slight improvement in his CBC,WBC count is up to 1.2 hemoglobin is 9.1. Platelets are low at 33,000. His fibr inogen today is 605, INR is 1.6. Sodium and potassium are normal bicarb is 13 anion gap is 16 with a BUN of 157 creatinine 3.11, lactic acid today is 3.8. Albumin is also low at 1.8. Globin is 2.7 chest x-ray is showing mostly right lower lobe atelectasis, possible pneumonia Reevaluated today on 01/09/2024, remains in the ICU, intubated and mechanically ventilated. Patient is on assist-control rate of 20 tidal volume 500 FiO2 35% and PEEP of 5 ABG showed a pO2 of 102 pCO2 31 pH of 7.52, no changes were made on the ventilator settings. However his sodium bicarb drip has been discontinued. Blood cultures came back positive for Staph aureus, does not seem to be MRSA. His wound cultures are also positive for Klebsiella and group D Enterococcus. Patient is on cefepime and daptomycin. Hemodynamically landry the patient is still requiring vasopressin at 0.03 and norepinephrine at 0.06 mc g/kg/min. Patient is still receiving IV fluid at 75 cc/h and is also on Solu- Cortef which I will cut down to 50 instead of 100 mg every 8 hours. Chest x-ray showed right lower lobe atelectasis, possible infiltrate. WBC count is 0.4 hemoglobin is 8 platelets are 12,000 has the patient received clearance of platelets today. He does have significant drop in his hemoglobin since admission down to 8, may require blood transfusion if it goes down to 7. INR today is 1.95 fibrinogen is 575. Renal profile is slightly better with creatinine down to 2.73 however BUN is 160. Over the last 24 hours, we cut down significantly on sedation, and the patient today seems to be awake, but generally weak, follows very simple instructions. Objective - Vital Signs Vital signs: Vital Signs Temp 97.4 F L 01/09/24 04:00 Pulse 110 H 01/09/24 08:09 Resp 22 01/09/24 07:00 BP 59/21 01/07/24 19:00 Pulse Ox 100 01/09/24 07:00 FiO2 35 01/09/24 07:34 Intake & Output 01/08/24 01/09/24 01/09/24 18:59 06:59 18:59 Intake Total 3135.153 2023.535 220.658 Output Total 720 1025 100 Balance 2415.153 998.535 120.658 Weight 102.6 kg 105.1 kg Intake: IV 2774 1628 148 0.9 Pressure Bag 39 33 3 0.9 at KVO 260 220 20 Cefepime 1 gm In Sodium 100 Chloride 0.9% 50 ml @ 12. 5 mls/hr IVPB Q12HR [facility] Rx#:[id number] Dextrose 5% in Water 1, 1375 1375 125 000 ml @ 125 mls/hr IV . Q9H12M [facility] with Sodium Bicarb (1 Meq/ml) 150 ml Rx#:[id number] Sodium Chloride 0.9% 1, 1000 000 ml @ 999 mls/hr IV . Q1H1M [facility] Rx#:[id number] Intake, IV Titration 301.153 95.535 42.658 Amount Norepinephrine 32 mg In 195.743 44.535 Sodium Chloride 0.9% 218 ml @ 0.03 MCG/KG/MIN 1. 358 mls/hr IV .Q24H [facility] Rx#:[id number] Vasopressin 20 unit In 34.119 51 40.774 Sodium Chloride 0.9% 50 ml @ 0.03 UNITS/MIN 4.59 mls/hr IV .Q11H7M [facility] Rx# :[id number] propofoL 1,000 mg In 71.291 1.884 Empty Bag 1 bag @ 15 MCG/ KG/MIN 8.694 mls/hr IV . [id number] [facility] Rx#:[id number] Tube Feeding 60 210 30 Other 90 Output: Urine 720 1025 100 Other: Voiding Method Indwelling Catheter Indwelling Catheter ABP, PAP, CO, CI - Last Documented Arterial Blood Pressure 121/54 - Exam GENERAL: Revealed a 73-year-old white male, intubated, mechanically ventilated, opens eyes, follows simple instructions on low-dose of sedation/propofol. And: Atraumatic, normocephalic. Endotracheal tube and orogastric tube are intact. HEENT: Pupils are round and equally reacting to light. EOMI. No scleral icterus. No conjunctival pallor. Normocephalic, atraumatic. No pharyngeal erythema. No thyromegaly. CARDIOVASCULAR: Normal S1-S2, no S3 gallop, no murmur. PULMONARY: Diminished breath sounds at the bases, rhonchi no wheezes. ABDOMEN: Obese, soft, slightly tender to palpation, no rebound, no guarding.. MUSCULOSKELETAL: Generalized weakness. No deformities. EXTREMITIES: multiple areas of ecchymosis noted in the lower extremities bilaterally. Ulcer remains in mid aspect of left lower extremity, with significant drainage of purulent material., There is also chronic venous stasis changes in both lower extremities. Significant areas of erythema and cellulitis noted in the medial aspect of both legs, NEUROLOGICAL: Patient opens eyes, follows very simple instructions but generally weak SKIN: Numerous areas of bruising and ecchymosis all over involving upper and lower extremities also involving the chest and abdomen.. Significant areas of erythema also noted in the medial aspect of both thighs - Labs CBC & Chem 7: 01/09/24 04:12 01/09/24 04:12 Labs: Abnormal Lab Results - Last 24 Hours (Table) 01/07/24 01/07/24 01/08/24 Range/Units 08:31 08:31 12:00 WBC (3.8-10.6) k/uL RBC (4.30-5.90) m/uL Hgb (13.0-17.5) gm/dL Hct (39.0-53.0) % RDW (11.5-15.5) % Plt Count (150-450) k/uL PT (10.0-12.5) sec INR (<1.2) APTT (22.0-30.0) sec Fibrinogen (200-500) mg/dL ABG pH (7.35-7.45) ABG pCO2 (35-45) mmHg ABG Total CO2 (19-24) mmol/L ABG O2 Saturation (94-97) % Carbon Dioxide (22-30) mmol/L BUN (9-20) mg/dL Creatinine (0.66-1.25) mg/dL Glucose (74-99) mg/dL POC Glucose (mg/dL) (70-110) mg/dL Plasma Lactic Acid Sav (0.7-2.0) mmol/L Calcium (8.4-10.2) mg/dL Total Bilirubin (0.2-1.3) mg/dL AST (17-59) U/L Lactate Dehydrogenase 274 H (120-246) U/L Total Protein (6.3-8.2) g/dL Albumin (3.5-5.0) g/dL Albumin (PEP) 1.80 L (3.80-4.90) g/dL [id number]-6-[id number] 0.61 H (0.10-0.40) g/dL Beta Globulins 0.45 L (0.60-1.30) g/dL Methylmalonic Acid 1.18 H (<0.40) umol/L 01/08/24 01/08/24 01/08/24 Range/Units 13:45 13:45 17:39 WBC (3.8-10.6) k/uL RBC (4.30-5.90) m/uL Hgb (13.0-17.5) gm/dL Hct (39.0-53.0) % RDW (11.5-15.5) % Plt Count (150-450) k/uL PT (10.0-12.5) sec INR (<1.2) APTT (22.0-30.0) sec Fibrinogen (200-500) mg/dL ABG pH (7.35-7.45) ABG pCO2 (35-45) mmHg ABG Total CO2 (19-24) mmol/L ABG O2 Saturation (94-97) % Carbon Dioxide 17 L (22-30) mmol/L BUN 161 H* (9-20) mg/dL Creatinine 2.82 H (0.66-1.25) mg/dL Glucose 103 H (74-99) mg/dL POC Glucose (mg/dL) 112 H (70-110) mg/dL Plasma Lactic Acid Sav 2.8 H* (0.7-2.0) mmol/L Calcium 7.2 L (8.4-10.2) mg/dL Total Bilirubin (0.2-1.3) mg/dL AST (17-59) U/L Lactate Dehydrogenase (120-246) U/L Total Protein (6.3-8.2) g/dL Albumin (3.5-5.0) g/dL Albumin (PEP) (3.80-4.90) g/dL Vgiuj-6-Ucnmruqgi (0.10-0.40) g/dL Beta Globulins (0.60-1.30) g/dL Methylmalonic Acid (<0.40) umol/L 01/08/24 01/09/24 01/09/24 Range/Units 23:59 04:12 04:12 WBC 0.4 L* (3.8-10.6) k/uL RBC 2.50 L (4.30-5.90) m/uL Hgb 8.0 L (13.0-17.5) gm/dL Hct 23.7 L (39.0-53.0) % RDW 16.9 H (11.5-15.5) % Plt Count 12 L* D (150-450) k/uL PT 19.1 H (10.0-12.5) sec INR 1.9 H (<1.2) APTT 38.1 H (22.0-30.0) sec Fibrinogen 575 H (200-500) mg/dL ABG pH (7.35-7.45) ABG pCO2 (35-45) mmHg ABG Total CO2 (19-24) mmol/L ABG O2 Saturation (94-97) % Carbon Dioxide (22-30) mmol/L BUN (9-20) mg/dL Creatinine (0.66-1.25) mg/dL Glucose (74-99) mg/dL POC Glucose (mg/dL) 127 H (70-110) mg/dL Plasma Lactic Acid Sav (0.7-2.0) mmol/L Calcium (8.4-10.2) mg/dL Total Bilirubin (0.2-1.3) mg/dL AST (17-59) U/L Lactate Dehydrogenase (120-246) U/L Total Protein (6.3-8.2) g/dL Albumin (3.5-5.0) g/dL Albumin (PEP) (3.80-4.90) g/dL Vtydg-1-Yhhrvaqps (0.10-0.40) g/dL Beta Globulins (0.60-1.30) g/dL Methylmalonic Acid (<0.40) umol/L 01/09/24 01/09/24 01/09/24 Range/Units 04:12 04:52 06:08 WBC (3.8-10.6) k/uL RBC (4.30-5.90) m/uL Hgb (13.0-17.5) gm/dL Hct (39.0-53.0) % RDW (11.5-15.5) % Plt Count (150-450) k/uL PT (10.0-12.5) sec INR (<1.2) APTT (22.0-30.0) sec Fibrinogen (200-500) mg/dL ABG pH 7.52 H (7.35-7.45) ABG pCO2 31 L (35-45) mmHg ABG Total CO2 26 H (19-24) mmol/L ABG O2 Saturation 98.7 H (94-97) % Carbon Dioxide (22-30) mmol/L BUN 160 H* (9-20) mg/dL Creatinine 2.73 H (0.66-1.25) mg/dL Glucose 135 H (74-99) mg/dL POC Glucose (mg/dL) 150 H (70-110) mg/dL Plasma Lactic Acid Sav (0.7-2.0) mmol/L Calcium 7.9 L (8.4-10.2) mg/dL Total Bilirubin 3.9 H (0.2-1.3) mg/dL AST 68 H (17-59) U/L Lactate Dehydrogenase (120-246) U/L Total Protein 4.0 L (6.3-8.2) g/dL Albumin 1.7 L (3.5-5.0) g/dL Albumin (PEP) (3.80-4.90) g/dL Hkvfb-4-Nqafxwqng (0.10-0.40) g/dL Beta Globulins (0.60-1.30) g/dL Methylmalonic Acid (<0.40) umol/L Microbiology - Last 24 Hours (Table) 01/07/24 19:33 Blood Culture Gram Stain - Preliminary Blood Blood Culture - Preliminary Presumptive Staph aureus Molecular ID 01/07/24 19:55 Urine Culture - Final Urine,Catheterized 01/07/24 09:05 Gram Stain - Preliminary Leg - Left Wound Culture - Preliminary Group D Enterococcus Gram Neg Bacilli Assessment and Plan Assessment: Impression: Sepsis/septic shock, secondary to Staph aureus bacteremia Pancytopenia most likely secondary to sepsis strongly doubt methotrexate toxicity Elevated INR secondary to his supratherapeutic Coumadin Profound thrombocytopenia most likely secondary to sepsis and septic shock. Left lower extremity cellulitis and large infected ulcer noted in the calf region. Severe pain/left shoulder secondary to rotator cuff tear. Chronic atrial fibrillation History of rheumatoid arthritis history of chronic kidney disease stage IIIb History of type 2 diabetes Acute on chronic kidney injury, most likely secondary to acute tubular necrosis, secondary to sepsis and septic shock and hypotension, suspect some GI blood loss with significant elevated ratio BUN/creatinine Profound hypotension secondary to sepsis/septic shock requiring pressors including norepinephrine and vasopressin, we have been able to cut down on the norepinephrine but vasopressin remains the same History of hyperthyroidism, maintained on methimazole. Recommendation: Continue ventilatory support Continue hemodynamic support/vasopressin and norepinephrine are being titrated accordingly Continue broad-spectrum antibiotics, blood cultures and wound culture been noted today Continue to monitor coagulation profile, and CBC as well as platelets, patient is being followed by hematology remains on leucovorin Start nutritional support/enteral feeding GI prophylaxis Keep methotrexate and methimazole on hold for now. Sedation interruption and assessment of mental status on a daily basis Transfused with platelets considering the patient has very low platelet count, and I suspect some on going GI blood losses drop of hemoglobin down to 8 Patient remains critically ill Critical care time is over 35-minute Time with Patient: Greater than 30
--- NOTE | 2024-01-09 11:46 | PN ---
PROGRESS NOTE SUBJECTIVE: This is a 73-year-old gentleman, who was admitted to the hospital with complex and multiple medical problems including coagulopathy, atrial fibrillation, rheumatoid arthritis, hypertension, and renal failure. He developed respiratory failure and had to be intubated and currently on a vent. His white cell count is severely diminished at 0.4, platelet count had dropped to 12, INR is 1.9, BUN is elevated at 160 with a creatinine of 2.7. Heart rate is around 90 to 100 beats per minute. The patient is currently on metoprolol 25 t.i.d. for heart rate control. Blood cultures have come back positive and the left lower extremity wound cultures are also positive. PHYSICAL EXAMINATION: VITAL SIGNS: Heart rate is 90 beats per minute, blood pressure is 114/50, and respiratory rate is 20. CHEST: Reveals good air entry bilaterally. HEART: Reveals first and second heart sounds. Irregular rhythm. Systolic murmur at the apex. ABDOMEN: Soft. EXTREMITIES: Reveals chronic stasis changes. Left leg wound that is currently under dressing. LABORATORY DATA: Labs show a white cell count 0.4, hemoglobin is 8, and platelet count is 12. Potassium is 3.6, BUN is 160, and creatinine is 2.7. ASSESSMENT: 1. Permanent atrial fibrillation, elevated with poorly controlled heart rate. 2. Acute renal failure. 3. Septic shock. 4. Pancytopenia. PLAN: I will continue the patient on metoprolol for heart rate control. MMCONNIE / DARRICK: [id number] /
[2024-01-09 12:03] LABS: Glucose,Whole Blood 118 mg/dL (70-110)
[2024-01-09 12:16] LABS: Anisocytosis Slight; HCT 25.7 % (39.0-53.0); HGB 8.4 gm/dL (13.0-17.5); MCH 31.7 pg (25.0-35.0); MCHC 32.8 g/dL (31.0-37.0); MCV 96.7 fL (80.0-100.0); Macrocytosis Slight; Mean Platelet Volume 8.3; RBC 2.66 m/uL (4.30-5.90); RDW 16.7 % (11.5-15.5)
[2024-01-09 12:24] LABS: Platelet Count 15 k/uL (150-450); WBC 0.5 k/uL (3.8-10.6)
[2024-01-09] MEDS: PHYTONADIONE 5 MG in SODIUM CHLORIDE 0.9% 50 ML IVPB STA (13:20)
--- NOTE | 2024-01-09 14:37 | P.PN ---
Subjective Progress Note Date: 01/09/24 Principal diagnosis: Reason for follow-up is sepsis and left lower extremity wound/cellulitis Patient is 73-year-old male with a past medical history significant for diabetes mellitus hypertension heart failure atrial fibrillation gout patient presenting to the hospital for evaluation of left shoulder pain subsequently developing a fever hypertension requiring admission to ICU concerning for left lower extremity wound with infection. On today's evaluation that is 01/09/2024, patient has been afebrile, patient is on the ventilator FiO2 is currently down to 35%, no significant purulent secretion through the ET diarrhea or any other changes reported by the nursing staff did require slightly more pressor after his admission was increased this morning. Patient white count 0.5 creatinine 2.73 blood culture with Staph aureus left leg culture with group D Enterococcus and gram-negative bacilli Objective - Vital Signs Vital signs: Vital Signs Temp 98.6 F 01/09/24 12:00 Pulse 109 H 01/09/24 12:19 Resp 22 01/09/24 12:00 BP 59/21 01/07/24 19:00 Pulse Ox 100 01/09/24 12:00 FiO2 35 01/09/24 12:00 Intake & Output 01/08/24 01/09/24 01/09/24 18:59 06:59 18:59 Intake Total 3135.153 2023.535 960.658 Output Total 720 1025 625 Balance 2415.153 998.535 335.658 Weight 102.6 kg 105.1 kg Intake: IV 2774 1628 738 0.9 Pressure Bag 39 33 18 0.9 at KVO 260 220 120 Cefepime 1 gm In Sodium 100 50 Chloride 0.9% 50 ml @ 12. 5 mls/hr IVPB Q12HR JESSA Rx#:[id number] Dextrose 5% in Water 1, 1375 1375 250 000 ml @ 125 mls/hr IV . Q9H12M JESSA with Sodium Bicarb (1 Meq/ml) 150 ml Rx#:[id number] Sodium Chloride 0.9% 1, 300 000 ml @ 75 mls/hr IV . [id number] JESSA Rx#:[id number] Sodium Chloride 0.9% 1, 1000 000 ml @ 999 mls/hr IV . Q1H1M ONE Rx#:[id number] Intake, IV Titration 301.153 95.535 42.658 Amount Norepinephrine 32 mg In 195.743 44.535 Sodium Chloride 0.9% 218 ml @ 0.03 MCG/KG/MIN 1. 358 mls/hr IV .Q24H JESSA Rx#:[id number] Vasopressin 20 unit In 34.119 51 40.774 Sodium Chloride 0.9% 50 ml @ 0.03 UNITS/MIN 4.59 mls/hr IV .Q11H7M JESSA Rx# :[id number] propofoL 1,000 mg In 71.291 1.884 Empty Bag 1 bag @ 15 MCG/ KG/MIN 8.694 mls/hr IV . [id number] JESSA Rx#:[id number] Tube Feeding 60 210 180 Other 90 Output: Urine 720 1025 625 Other: Voiding Method Indwelling Catheter Indwelling Catheter Indwelling Catheter ABP, PAP, CO, CI - Last Documented Arterial Blood Pressure 128/58 - Exam GENERAL DESCRIPTION: An elderly male intubated on the vent RESPIRATORY SYSTEM: Unlabored breathing , decreased breath sounds at bases HEART: S1 S2 regular rate and rhythm , ABDOMEN: Soft , no tenderness EXTREMITIES: Left leg wound is currently dressed no drainage on the dressing - Labs CBC & Chem 7: 01/09/24 12:10 01/09/24 04:12 Labs: Abnormal Lab Results - Last 24 Hours (Table) 01/07/24 01/07/24 01/08/24 Range/Units 08:31 08:31 12:00 WBC (3.8-10.6) k/uL RBC (4.30-5.90) m/uL Hgb (13.0-17.5) gm/dL Hct (39.0-53.0) % RDW (11.5-15.5) % Plt Count (150-450) k/uL PT (10.0-12.5) sec INR (<1.2) APTT (22.0-30.0) sec Fibrinogen (200-500) mg/dL ABG pH (7.35-7.45) ABG pCO2 (35-45) mmHg ABG Total CO2 (19-24) mmol/L ABG O2 Saturation (94-97) % Carbon Dioxide (22-30) mmol/L BUN (9-20) mg/dL Creatinine (0.66-1.25) mg/dL Glucose (74-99) mg/dL POC Glucose (mg/dL) (70-110) mg/dL Plasma Lactic Acid Sav (0.7-2.0) mmol/L Calcium (8.4-10.2) mg/dL Total Bilirubin (0.2-1.3) mg/dL AST (17-59) U/L Lactate Dehydrogenase 274 H (120-246) U/L Total Protein (6.3-8.2) g/dL Albumin (3.5-5.0) g/dL Albumin (PEP) 1.80 L (3.80-4.90) g/dL Pztmb-6-Yfhvjasmu 0.61 H (0.10-0.40) g/dL Beta Globulins 0.45 L (0.60-1.30) g/dL Methylmalonic Acid 1.18 H (<0.40) umol/L 01/08/24 01/08/24 01/08/24 Range/Units 13:45 13:45 17:39 WBC (3.8-10.6) k/uL RBC (4.30-5.90) m/uL Hgb (13.0-17.5) gm/dL Hct (39.0-53.0) % RDW (11.5-15.5) % Plt Count (150-450) k/uL PT (10.0-12.5) sec INR (<1.2) APTT (22.0-30.0) sec Fibrinogen (200-500) mg/dL ABG pH (7.35-7.45) ABG pCO2 (35-45) mmHg ABG Total CO2 (19-24) mmol/L ABG O2 Saturation (94-97) % Carbon Dioxide 17 L (22-30) mmol/L BUN 161 H* (9-20) mg/dL Creatinine 2.82 H (0.66-1.25) mg/dL Glucose 103 H (74-99) mg/dL POC Glucose (mg/dL) 112 H (70-110) mg/dL Plasma Lactic Acid Sav 2.8 H* (0.7-2.0) mmol/L Calcium 7.2 L (8.4-10.2) mg/dL Total Bilirubin (0.2-1.3) mg/dL AST (17-59) U/L Lactate Dehydrogenase (120-246) U/L Total Protein (6.3-8.2) g/dL Albumin (3.5-5.0) g/dL Albumin (PEP) (3.80-4.90) g/dL Frzpi-6-Rcntrfbrt (0.10-0.40) g/dL Beta Globulins (0.60-1.30) g/dL Methylmalonic Acid (<0.40) umol/L 01/08/24 01/09/24 01/09/24 Range/Units 23:59 04:12 04:12 WBC 0.4 L* (3.8-10.6) k/uL RBC 2.50 L (4.30-5.90) m/uL Hgb 8.0 L (13.0-17.5) gm/dL Hct 23.7 L (39.0-53.0) % RDW 16.9 H (11.5-15.5) % Plt Count 12 L* D (150-450) k/uL PT 19.1 H (10.0-12.5) sec INR 1.9 H (<1.2) APTT 38.1 H (22.0-30.0) sec Fibrinogen 575 H (200-500) mg/dL ABG pH (7.35-7.45) ABG pCO2 (35-45) mmHg ABG Total CO2 (19-24) mmol/L ABG O2 Saturation (94-97) % Carbon Dioxide (22-30) mmol/L BUN (9-20) mg/dL Creatinine (0.66-1.25) mg/dL Glucose (74-99) mg/dL POC Glucose (mg/dL) 127 H (70-110) mg/dL Plasma Lactic Acid Sav (0.7-2.0) mmol/L Calcium (8.4-10.2) mg/dL Total Bilirubin (0.2-1.3) mg/dL AST (17-59) U/L Lactate Dehydrogenase (120-246) U/L Total Protein (6.3-8.2) g/dL Albumin (3.5-5.0) g/dL Albumin (PEP) (3.80-4.90) g/dL Veoqt-9-Mbqqztozu (0.10-0.40) g/dL Beta Globulins (0.60-1.30) g/dL Methylmalonic Acid (<0.40) umol/L 01/09/24 01/09/24 01/09/24 Range/Units 04:12 04:52 06:08 WBC (3.8-10.6) k/uL RBC (4.30-5.90) m/uL Hgb (13.0-17.5) gm/dL Hct (39.0-53.0) % RDW (11.5-15.5) % Plt Count (150-450) k/uL PT (10.0-12.5) sec INR (<1.2) APTT (22.0-30.0) sec Fibrinogen (200-500) mg/dL ABG pH 7.52 H (7.35-7.45) ABG pCO2 31 L (35-45) mmHg ABG Total CO2 26 H (19-24) mmol/L ABG O2 Saturation 98.7 H (94-97) % Carbon Dioxide (22-30) mmol/L BUN 160 H* (9-20) mg/dL Creatinine 2.73 H (0.66-1.25) mg/dL Glucose 135 H (74-99) mg/dL POC Glucose (mg/dL) 150 H (70-110) mg/dL Plasma Lactic Acid Sav (0.7-2.0) mmol/L Calcium 7.9 L (8.4-10.2) mg/dL Total Bilirubin 3.9 H (0.2-1.3) mg/dL AST 68 H (17-59) U/L Lactate Dehydrogenase (120-246) U/L Total Protein 4.0 L (6.3-8.2) g/dL Albumin 1.7 L (3.5-5.0) g/dL Albumin (PEP) (3.80-4.90) g/dL Zvhjo-8-Jofrsgnom (0.10-0.40) g/dL Beta Globulins (0.60-1.30) g/dL Methylmalonic Acid (<0.40) umol/L 01/09/24 01/09/24 Range/Units 12:00 12:10 WBC 0.5 L* (3.8-10.6) k/uL RBC 2.66 L (4.30-5.90) m/uL Hgb 8.4 L (13.0-17.5) gm/dL Hct 25.7 L (39.0-53.0) % RDW 16.7 H (11.5-15.5) % Plt Count 15 L* (150-450) k/uL PT (10.0-12.5) sec INR (<1.2) APTT (22.0-30.0) sec Fibrinogen (200-500) mg/dL ABG pH (7.35-7.45) ABG pCO2 (35-45) mmHg ABG Total CO2 (19-24) mmol/L ABG O2 Saturation (94-97) % Carbon Dioxide (22-30) mmol/L BUN (9-20) mg/dL Creatinine (0.66-1.25) mg/dL Glucose (74-99) mg/dL POC Glucose (mg/dL) 118 H (70-110) mg/dL Plasma Lactic Acid Sav (0.7-2.0) mmol/L Calcium (8.4-10.2) mg/dL Total Bilirubin (0.2-1.3) mg/dL AST (17-59) U/L Lactate Dehydrogenase (120-246) U/L Total Protein (6.3-8.2) g/dL Albumin (3.5-5.0) g/dL Albumin (PEP) (3.80-4.90) g/dL Itldd-9-Inhpdrlsz (0.10-0.40) g/dL Beta Globulins (0.60-1.30) g/dL Methylmalonic Acid (<0.40) umol/L Microbiology - Last 24 Hours (Table) 01/07/24 19:33 Blood Culture Gram Stain - Preliminary Blood Blood Culture - Preliminary Presumptive Staph aureus Molecular ID 01/07/24 19:55 Urine Culture - Final Urine,Catheterized 01/07/24 09:05 Gram Stain - Preliminary Leg - Left Wound Culture - Preliminary Group D Enterococcus Gram Neg Bacilli Assessment and Plan (1) Sepsis Current Visit: Yes Status: Acute Priority: High Code(s): A41.9 - SEPSIS, UNSPECIFIED ORGANISM SNOMED Code(s): 83935943 (2) Leg wound, left Current Visit: Yes Status: Acute Priority: High Code(s): S81.802A - UNSPECIFIED OPEN WOUND, LEFT LOWER LEG, INITIAL ENCOUNTER SNOMED Code(s): 99632610741129196 (3) Bacteremia Current Visit: Yes Status: Acute Code(s): R78.81 - BACTEREMIA SNOMED Code(s): 8665805 Plan: 1patient with sepsis in this patient who did have fever leukopenia hypotension requiring admission to the ICU and this patient was in the hospital with escalation pain to the left shoulder area and also have a wound to the left lower extremity likely differential of as currently no evidence of pneumonia on the chest x-ray abdominal soft on clinical examination 2-patient with staph auris bacteremia source possibly skin soft tissue, blood culture will be repeated to document clearance of bacteremia 3--local wound care to the left leg wound with Santyl followed by moist dressing change daily 4local culture from the left leg is growing group D Enterococcus and gram-n egative with sensitivities pending 5- patient to continue with cefepime and daptomycin while waiting for the condition to stabilize Family the bedside questions answered Dictation was produced using [employer] dictation software. please excuse any grammatical, word or spelling errors.
--- NOTE | 2024-01-09 15:01 | P.PN ---
Subjective Progress Note Date: 01/09/24 January 06, 2024 Patient mental status close and and the patient is also receiving Dilaudid may have contributed to his altered mental status his blood pressure dropped as well and patient was presumed to have sepsis and septic shock was transferred to ICU he is on 2 pressors at this time patient does not have any fever but does have severe neutropenia may be related to methotrexate although patient white count was normal yesterday which probably because of his left shoulder tear. 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 January 07, 2024 Patient is 73-year-old male came in for left shoulder pain found to have rotator cuff. The left shoulder. Patient also found to have elevated INR of around 6.5 patient takes Coumadin for atrial fibrillation. Patient is also found to have acute renal failure with creatinine of around 3.6 patient was hypotensive patient is on Lasix, metolazone, lisinopril at home. Patient does have history of rheumatoid arthritis with rheumatoid deformities patient is on colchicine, methotrexate as an outpatient. Patient is also taking Farxiga at home. Patient does have a history of atrial fibrillation on atenolol patient is hypotensive cannot use atenolol patient heart rate started going up now is around 120s at this time. 01/08/2024 Patient is seen and evaluated in follow-up today currently remains in the ICU with multiple medical consultations following. Patient currently continues on mechanical ventilation with an FiO2 of 35 %, PEEP of 5. Patient continues on propofol undergoing weaning and sedation holidays to assess mentation. Wound care and infectious disease also following and patient is maintained on antibiotics in the form of cefepime and daptomycin. Preliminary wound culture showing group D Enterococcus with gram-negative bacilli of the left lower extremity wound as well as blood culture showing a molecular ID which is currently pending. Follow-up repeat blood cultures ordered and pending at this time. Patient also undergoing concerns of DIC workup with hematology following. White count is 1.2 today which is improved from 0.6 yesterday. Hemoglobin is stable at 9.1, platelets are 33, INR status post vitamin K improved and currently 1.6, D-dimer was elevated at 6.16. Sodium is 137 with a potassium of 3.7, BUN is 161 and creatinine is minimally improved at 2.82. Patient does have indwelling Villanueva catheter and has noted 400 output throughout the day. Lactic acid remains elevated although improved at 2.8 calcium is low at 7.2. Total bilirubin has also increased at 2.7 AST is 80 which is improved and ALT is 31, LDH is 274. Urinalysis was negative. Patient continues to be hypotensive requiring vasopressin as well as Levophed and per nursing staff, currently we aning. Patient also continues on sodium bicarb drip as well as Solu-Cortef. Overall prognosis is guarded. Patient is full code. Patient is evaluated today in follow-up in the intensive care unit. Patient caryl on the mechanical ventilator currently intubated and sedated. Patient is on an FiO2 of 35% with a PEEP of 5. Patient remains on propofol for sedation. Additionally patient is continued on Levophed and vasopressin with increased dose of the Levophed today. Patient's blood pressure did drop with the addition of propofol back on for sedation. Patient is remaining on IV Solu-Cortef dose decreased today. Additionally patient is on IV daptomycin and IV cefepime. Patient was found to be back was found to be bacteremic with Staph aureus suspect patient was in septic shock from his wounds on his lower extremities. Although his wound cultures are showing group D Enterococcus and gram-negative bacilli. His urine culture is normal. He [facility] ID is following this patient closely. Blood cultures were repeated today. Patient has concerns for DIC and hematology is following. His white blood cell count is 0.4 today, hemoglobin 8.0, platelet count of 12, PT of 19.1, INR 1.9, PTT 38.1, fibrinogen level is 575. Additionally patient is a BUN of 160 creatinine of 2.73. Patient had a chest x-ray today showing right lower lobe infiltrate. REVIEW OF SYSTEMS: Unable to obtain as patient is currently on sedation and mechanical ventilation PHYSICAL EXAMINATION: GENERAL: This is a 73-year-old male who is currently maintained on mechanical ventilation with an FiO2 of 35% and PEEP is 5, well-developed, elderly appearing, ill-appearing, obese HEENT: Pupils are round and equally reacting to light. EOMI. No scleral icterus. No conjunctival pallor. Normocephalic, atraumatic. No pharyngeal erythema. No thyromegaly. CARDIOVASCULAR: S1 and S2 muffled and irregular, tachycardic irregularly irregular rhythm PULMONARY: Diminished breath sounds bilaterally with no wheezing or crackles noted ABDOMEN: Soft, nontender, nondistended, normoactive bowel sounds. No palpable organomegaly. EXTREMITIES: No cyanosis, clubbing, or pedal edema. Extensive wounds noted to bilateral lower extremities with a chronic appearing discoloration, open wound noted on the right with some bleeding noted NEUROLOGICAL: Unable to assess as patient is on mechanical ventilation and sedated SKIN: Ulcers in the lower extremity chronic venous stasis, multiple bruises and ecchymosis noted on bilateral upper extremities Assessment: -Sepsis with septic shock, present on admission, most likely secondary to left lower extremity wounds. Bacteremia with gram-negative bacilli and Enterococcus D noted, unknown shock etiology and septic shock cannot be ruled out -Gram positive staph aureus bacteremia with ID following closely. -Severe neutropenia secondary to methotrexate which is being held -Acute hypoxic respiratory failure requiring mechanical ventilation, currently FiO2 is 35% and PEEP of 5 -Acute renal failure: Nonoliguric, with acute tubular necrosis from hypotension. Nephrology is following the patient renal ultrasound did not show any obstruction -Chronic kidney disease stage IV baseline creatinine around 1.5-1.8 -Supratherapeutic INR, status post vitamin K, improving hold off on Coumadin target INR 2-3 patient is on Coumadin for atrial fibrillation. -Atrial fibrillation, paroxysmal with rapid ventricular rate presently rate controlled -Severe thrombocytopenia, likely secondary to sepsis with septic shock -Left rotator cuff tear: Orthopedic surgery evaluated the patient, Tylenol for pain and low-dose Dilaudid -Hypertension, currently hypotensive and on pressor support -Type 2 diabetes mellitus, [id number], patient to continue on insulin hold off further medications Farxiga will be held because of renal failure -Rheumatoid arthritis for now we have to hold colchicine and methotrexate because of renal failure -Hyperkalemia: Secondary to REX inhibitor, acute renal failure -Hypothyroidism for which patient is on methimazole, TSH level is 0.989 -Hyponatremia secondary to renal failure IV fluids as mentioned above -GI prophylaxis -DVT prophylaxis: Patient's INR is supratherapeutic will not need any pharmacological anticoagulation at this time -Full code Plan: Patient is continued in the ICU with multiple medical consultations following maintained on pressor support continues on vasopressin and Levophed; dose of levophed was increased today. Patient also continues on antibiotics in the form of daptomycin and cefepime with infectious disease following with preliminary blood cultures showing a molecular ID and wound cultures preliminary showing gram-negative bacilli and Enterobacter Blood culture positive and has been repeated. ID on and following cultures for antibiotic management Wound care consulted for further management of the lower extremity wounds continue with santyl and dressing changes as recommended. Sepsis, present on admission most likely secondary to left lower extremity wounds that are quite extensive Patient undergoing sedation holidays to assess mentation and underwent CT of the brain yesterday showing mild atrophy with chronic appearing periventricular white matter ischemic changes with no evidence of acute intracranial hemorrhage or infarction noted. Propofol continues today. Cardiology following making adjustments to medications and EF noted to be 50% with moderate right atrial enlargement, severe left atrial enlargement, mild to moderate mitral regurgitation and mild to moderate aortic regurgitation with tricuspid regurgitation as well. Nephrology following and patient will continue on sodium bicarb Hematology following as well as vascular surgery and wound care. Undergoing DIC workup Patient to receive a unit of platelets today. Will follow-up on repeat labs. Tube feedings being initiated and will monitor tolerance Due to multiple complex medical issues, overall prognosis is critical and guarded at this time CODE STATUS addressed and patient remains full code The impression and plan of care has been dictated by Alize Masters, Nurse Practitioner as directed. Dr. Mindi MD I have performed a history and physical examination and medical decision making of this patient, discussed the same with the dictator, and agree with the dictators assessment and plan as written, documented as a scribe. Based on total visit time, I have performed more than 50% of this visit. Objective - Vital Signs Vital signs: Vital Signs Temp 97.4 F L 01/09/24 04:00 Pulse 110 H 01/09/24 08:09 Resp 22 01/09/24 07:00 BP 59/21 01/07/24 19:00 Pulse Ox 100 01/09/24 07:00 FiO2 35 01/09/24 07:34 Intake & Output 01/08/24 01/09/24 01/09/24 18:59 06:59 18:59 Intake Total 3135.153 2023.535 178 Output Total 720 1025 100 Balance 2415.153 998.535 78 Weight 102.6 kg 105.1 kg Intake: IV 2774 1628 148 0.9 Pressure Bag 39 33 3 0.9 at KVO 260 220 20 Cefepime 1 gm In Sodium 100 Chloride 0.9% 50 ml @ 12. 5 mls/hr IVPB Q12HR [facility] Rx#:[id number] Dextrose 5% in Water 1, 1375 1375 125 000 ml @ 125 mls/hr IV . Q9H12M [facility] with Sodium Bicarb (1 Meq/ml) 150 ml Rx#:[id number] Sodium Chloride 0.9% 1, 1000 000 ml @ 999 mls/hr IV . Q1H1M [facility] Rx#:[id number] Intake, IV Titration 301.153 95.535 0 Amount Norepinephrine 32 mg In 195.743 44.535 Sodium Chloride 0.9% 218 ml @ 0.03 MCG/KG/MIN 1. 358 mls/hr IV .Q24H [facility] Rx#:[id number] Vasopressin 20 unit In 34.119 51 Sodium Chloride 0.9% 50 ml @ 0.03 UNITS/MIN 4.59 mls/hr IV .Q11H7M [facility] Rx# :[id number] propofoL 1,000 mg In 71.291 0 Empty Bag 1 bag @ 15 MCG/ KG/MIN 8.694 mls/hr IV . [id number] [facility] Rx#:[id number] Tube Feeding 60 210 30 Other 90 Output: Urine 720 1025 100 Other: Voiding Method Indwelling Catheter Indwelling Catheter ABP, PAP, CO, CI - Last Documented Arterial Blood Pressure 121/54 - Labs CBC & Chem 7: 01/09/24 12:10 01/09/24 04:12 Labs: Abnormal Lab Results - Last 24 Hours (Table) 01/07/24 01/07/24 01/08/24 Range/Units 08:31 08:31 04:45 WBC (3.8-10.6) k/uL RBC (4.30-5.90) m/uL Hgb (13.0-17.5) gm/dL Hct (39.0-53.0) % RDW (11.5-15.5) % Plt Count (150-450) k/uL Neutrophils # (Manual) 0.52 L (1.3-7.7) k/uL Lymphocytes # (Manual) 0.44 L (1.0-4.8) k/uL PT (10.0-12.5) sec INR (<1.2) APTT (22.0-30.0) sec Fibrinogen (200-500) mg/dL ABG pH (7.35-7.45) ABG pCO2 (35-45) mmHg ABG Total CO2 (19-24) mmol/L ABG O2 Saturation (94-97) % Carbon Dioxide (22-30) mmol/L BUN (9-20) mg/dL Creatinine (0.66-1.25) mg/dL Glucose (74-99) mg/dL POC Glucose (mg/dL) (70-110) mg/dL Plasma Lactic Acid Sav (0.7-2.0) mmol/L Calcium (8.4-10.2) mg/dL Total Bilirubin (0.2-1.3) mg/dL AST (17-59) U/L Lactate Dehydrogenase (120-246) U/L Total Protein (6.3-8.2) g/dL Albumin (3.5-5.0) g/dL Albumin (PEP) 1.80 L (3.80-4.90) g/dL Ynwis-2-Asgpwnlff 0.61 H (0.10-0.40) g/dL Beta Globulins 0.45 L (0.60-1.30) g/dL Methylmalonic Acid 1.18 H (<0.40) umol/L 01/08/24 01/08/24 01/08/24 Range/Units 12:00 13:45 13:45 WBC (3.8-10.6) k/uL RBC (4.30-5.90) m/uL Hgb (13.0-17.5) gm/dL Hct (39.0-53.0) % RDW (11.5-15.5) % Plt Count (150-450) k/uL Neutrophils # (Manual) (1.3-7.7) k/uL Lymphocytes # (Manual) (1.0-4.8) k/uL PT (10.0-12.5) sec INR (<1.2) APTT (22.0-30.0) sec Fibrinogen (200-500) mg/dL ABG pH (7.35-7.45) ABG pCO2 (35-45) mmHg ABG Total CO2 (19-24) mmol/L ABG O2 Saturation (94-97) % Carbon Dioxide 17 L (22-30) mmol/L BUN 161 H* (9-20) mg/dL Creatinine 2.82 H (0.66-1.25) mg/dL Glucose 103 H (74-99) mg/dL POC Glucose (mg/dL) (70-110) mg/dL Plasma Lactic Acid Sav 2.8 H* (0.7-2.0) mmol/L Calcium 7.2 L (8.4-10.2) mg/dL Total Bilirubin (0.2-1.3) mg/dL AST (17-59) U/L Lactate Dehydrogenase 274 H (120-246) U/L Total Protein (6.3-8.2) g/dL Albumin (3.5-5.0) g/dL Albumin (PEP) (3.80-4.90) g/dL Emuwh-0-Qcfhmeyde (0.10-0.40) g/dL Beta Globulins (0.60-1.30) g/dL Methylmalonic Acid (<0.40) umol/L 01/08/24 01/08/24 01/09/24 Range/Units 17:39 23:59 04:12 WBC (3.8-10.6) k/uL RBC (4.30-5.90) m/uL Hgb (13.0-17.5) gm/dL Hct (39.0-53.0) % RDW (11.5-15.5) % Plt Count (150-450) k/uL Neutrophils # (Manual) (1.3-7.7) k/uL Lymphocytes # (Manual) (1.0-4.8) k/uL PT 19.1 H (10.0-12.5) sec INR 1.9 H (<1.2) APTT 38.1 H (22.0-30.0) sec Fibrinogen 575 H (200-500) mg/dL ABG pH (7.35-7.45) ABG pCO2 (35-45) mmHg ABG Total CO2 (19-24) mmol/L ABG O2 Saturation (94-97) % Carbon Dioxide (22-30) mmol/L BUN (9-20) mg/dL Creatinine (0.66-1.25) mg/dL Glucose (74-99) mg/dL POC Glucose (mg/dL) 112 H 127 H (70-110) mg/dL Plasma Lactic Acid Sav (0.7-2.0) mmol/L Calcium (8.4-10.2) mg/dL Total Bilirubin (0.2-1.3) mg/dL AST (17-59) U/L Lactate Dehydrogenase (120-246) U/L Total Protein (6.3-8.2) g/dL Albumin (3.5-5.0) g/dL Albumin (PEP) (3.80-4.90) g/dL Eqeqc-5-Kndtlttzl (0.10-0.40) g/dL Beta Globulins (0.60-1.30) g/dL Methylmalonic Acid (<0.40) umol/L 01/09/24 01/09/24 01/09/24 Range/Units 04:12 04:12 04:52 WBC 0.4 L* (3.8-10.6) k/uL RBC 2.50 L (4.30-5.90) m/uL Hgb 8.0 L (13.0-17.5) gm/dL Hct 23.7 L (39.0-53.0) % RDW 16.9 H (11.5-15.5) % Plt Count 12 L* D (150-450) k/uL Neutrophils # (Manual) (1.3-7.7) k/uL Lymphocytes # (Manual) (1.0-4.8) k/uL PT (10.0-12.5) sec INR (<1.2) APTT (22.0-30.0) sec Fibrinogen (200-500) mg/dL ABG pH 7.52 H (7.35-7.45) ABG pCO2 31 L (35-45) mmHg ABG Total CO2 26 H (19-24) mmol/L ABG O2 Saturation 98.7 H (94-97) % Carbon Dioxide (22-30) mmol/L BUN 160 H* (9-20) mg/dL Creatinine 2.73 H (0.66-1.25) mg/dL Glucose 135 H (74-99) mg/dL POC Glucose (mg/dL) (70-110) mg/dL Plasma Lactic Acid Sav (0.7-2.0) mmol/L Calcium 7.9 L (8.4-10.2) mg/dL Total Bilirubin 3.9 H (0.2-1.3) mg/dL AST 68 H (17-59) U/L Lactate Dehydrogenase (120-246) U/L Total Protein 4.0 L (6.3-8.2) g/dL Albumin 1.7 L (3.5-5.0) g/dL Albumin (PEP) (3.80-4.90) g/dL Itday-7-Ekisdydip (0.10-0.40) g/dL Beta Globulins (0.60-1.30) g/dL Methylmalonic Acid (<0.40) umol/L 01/09/24 Range/Units 06:08 WBC (3.8-10.6) k/uL RBC (4.30-5.90) m/uL Hgb (13.0-17.5) gm/dL Hct (39.0-53.0) % RDW (11.5-15.5) % Plt Count (150-450) k/uL Neutrophils # (Manual) (1.3-7.7) k/uL Lymphocytes # (Manual) (1.0-4.8) k/uL PT (10.0-12.5) sec INR (<1.2) APTT (22.0-30.0) sec Fibrinogen (200-500) mg/dL ABG pH (7.35-7.45) ABG pCO2 (35-45) mmHg ABG Total CO2 (19-24) mmol/L ABG O2 Saturation (94-97) % Carbon Dioxide (22-30) mmol/L BUN (9-20) mg/dL Creatinine (0.66-1.25) mg/dL Glucose (74-99) mg/dL POC Glucose (mg/dL) 150 H (70-110) mg/dL Plasma Lactic Acid Sav (0.7-2.0) mmol/L Calcium (8.4-10.2) mg/dL Total Bilirubin (0.2-1.3) mg/dL AST (17-59) U/L Lactate Dehydrogenase (120-246) U/L Total Protein (6.3-8.2) g/dL Albumin (3.5-5.0) g/dL Albumin (PEP) (3.80-4.90) g/dL Uvxty-4-Gjnloqgmn (0.10-0.40) g/dL Beta Globulins (0.60-1.30) g/dL Methylmalonic Acid (<0.40) umol/L Microbiology - Last 24 Hours (Table) 01/07/24 19:33 Blood Culture Gram Stain - Preliminary Blood Blood Culture - Preliminary Molecular ID 01/07/24 09:05 Gram Stain - Preliminary Leg - Left Wound Culture - Preliminary Group D Enterococcus Gram Neg Bacilli Assessment and Plan Time with Patient: Greater than 30
[2024-01-09 15:37] LABS: Crenated RBC Present; Ovalocytes Present; Poikilocytosis (M) Present
[2024-01-09] MEDS: HYDROCORTISONE SUCCINATE 100 MG/2 ML VIAL IV SCH (15:57)
[2024-01-09] MEDS: LEUCOVORIN IV SCH (21:28)
--- NOTE | 2024-01-09 22:07 | P.PN ---
Subjective Progress Note Date: 01/09/24 Patient seen in ICU at today's visit. Patient remains intubated and sedated. Blood culture positive for Staph aureus, left leg culture with group D Enterococcus and E. coli. WBC 0.5, hemoglobin 8.4, platelets 15,000. 2 doses platelets ordered. INR increased today to 1.9, no reported episodes of acute bleeding, he does have extensive bruising to BUE and BLE and hematoma to left thigh. Additional dose Vitamin K ordered. DIC labs negative Objective - Vital Signs Vital signs: Vital Signs Temp 98.6 F 01/09/24 12:00 Pulse 109 H 01/09/24 12:19 Resp 22 01/09/24 12:00 BP 59/21 01/07/24 19:00 Pulse Ox 100 01/09/24 12:00 FiO2 35 01/09/24 12:00 Intake & Output 01/08/24 01/09/24 01/09/24 18:59 06:59 18:59 Intake Total 3135.153 2023.535 960.658 Output Total 720 1025 625 Balance 2415.153 998.535 335.658 Weight 102.6 kg 105.1 kg Intake: IV 2774 1628 738 0.9 Pressure Bag 39 33 18 0.9 at KVO 260 220 120 Cefepime 1 gm In Sodium 100 50 Chloride 0.9% 50 ml @ 12. 5 mls/hr IVPB Q12HR [facility] Rx#:[id number] Dextrose 5% in Water 1, 1375 1375 250 000 ml @ 125 mls/hr IV . Q9H12M [facility] with Sodium Bicarb (1 Meq/ml) 150 ml Rx#:[id number] Sodium Chloride 0.9% 1, 300 000 ml @ 75 mls/hr IV . [id number] [facility] Rx#:[id number] Sodium Chloride 0.9% 1, 1000 000 ml @ 999 mls/hr IV . Q1H1M [facility] Rx#:[id number] Intake, IV Titration 301.153 95.535 42.658 Amount Norepinephrine 32 mg In 195.743 44.535 Sodium Chloride 0.9% 218 ml @ 0.03 MCG/KG/MIN 1. 358 mls/hr IV .Q24H [facility] Rx#:[id number] Vasopressin 20 unit In 34.119 51 40.774 Sodium Chloride 0.9% 50 ml @ 0.03 UNITS/MIN 4.59 mls/hr IV .Q11H7M [facility] Rx# :[id number] propofoL 1,000 mg In 71.291 1.884 Empty Bag 1 bag @ 15 MCG/ KG/MIN 8.694 mls/hr IV . [id number] [facility] Rx#:[id number] Tube Feeding 60 210 180 Other 90 Output: Urine 720 1025 625 Other: Voiding Method Indwelling Catheter Indwelling Catheter Indwelling Catheter ABP, PAP, CO, CI - Last Documented Arterial Blood Pressure 128/58 - Constitutional General appearance: Present: no acute distress - Respiratory Details: ventilated breath sounds - Cardiovascular Details: skin warm and dry - Integumentary Integumentary: Absent: cyanotic, jaundiced - Neurologic Neurologic Comment(s): sedated - Labs CBC & Chem 7: 01/09/24 12:10 01/09/24 04:12 Labs: Abnormal Lab Results - Last 24 Hours (Table) 01/07/24 01/07/24 01/08/24 Range/Units 08:31 08:31 12:00 WBC (3.8-10.6) k/uL RBC (4.30-5.90) m/uL Hgb (13.0-17.5) gm/dL Hct (39.0-53.0) % RDW (11.5-15.5) % Plt Count (150-450) k/uL PT (10.0-12.5) sec INR (<1.2) APTT (22.0-30.0) sec Fibrinogen (200-500) mg/dL ABG pH (7.35-7.45) ABG pCO2 (35-45) mmHg ABG Total CO2 (19-24) mmol/L ABG O2 Saturation (94-97) % Carbon Dioxide (22-30) mmol/L BUN (9-20) mg/dL Creatinine (0.66-1.25) mg/dL Glucose (74-99) mg/dL POC Glucose (mg/dL) (70-110) mg/dL Plasma Lactic Acid Sav (0.7-2.0) mmol/L Calcium (8.4-10.2) mg/dL Total Bilirubin (0.2-1.3) mg/dL AST (17-59) U/L Lactate Dehydrogenase 274 H (120-246) U/L Total Protein (6.3-8.2) g/dL Albumin (3.5-5.0) g/dL Albumin (PEP) 1.80 L (3.80-4.90) g/dL Hnnnx-6-Vqsjpfocy 0.61 H (0.10-0.40) g/dL Beta Globulins 0.45 L (0.60-1.30) g/dL Methylmalonic Acid 1.18 H (<0.40) umol/L 01/08/24 01/08/24 01/08/24 Range/Units 13:45 13:45 17:39 WBC (3.8-10.6) k/uL RBC (4.30-5.90) m/uL Hgb (13.0-17.5) gm/dL Hct (39.0-53.0) % RDW (11.5-15.5) % Plt Count (150-450) k/uL PT (10.0-12.5) sec INR (<1.2) APTT (22.0-30.0) sec Fibrinogen (200-500) mg/dL ABG pH (7.35-7.45) ABG pCO2 (35-45) mmHg ABG Total CO2 (19-24) mmol/L ABG O2 Saturation (94-97) % Carbon Dioxide 17 L (22-30) mmol/L BUN 161 H* (9-20) mg/dL Creatinine 2.82 H (0.66-1.25) mg/dL Glucose 103 H (74-99) mg/dL POC Glucose (mg/dL) 112 H (70-110) mg/dL Plasma Lactic Acid Sav 2.8 H* (0.7-2.0) mmol/L Calcium 7.2 L (8.4-10.2) mg/dL Total Bilirubin (0.2-1.3) mg/dL AST (17-59) U/L Lactate Dehydrogenase (120-246) U/L Total Protein (6.3-8.2) g/dL Albumin (3.5-5.0) g/dL Albumin (PEP) (3.80-4.90) g/dL Wwsto-6-Cgytnsnrb (0.10-0.40) g/dL Beta Globulins (0.60-1.30) g/dL Methylmalonic Acid (<0.40) umol/L 01/08/24 01/09/24 01/09/24 Range/Units 23:59 04:12 04:12 WBC 0.4 L* (3.8-10.6) k/uL RBC 2.50 L (4.30-5.90) m/uL Hgb 8.0 L (13.0-17.5) gm/dL Hct 23.7 L (39.0-53.0) % RDW 16.9 H (11.5-15.5) % Plt Count 12 L* D (150-450) k/uL PT 19.1 H (10.0-12.5) sec INR 1.9 H (<1.2) APTT 38.1 H (22.0-30.0) sec Fibrinogen 575 H (200-500) mg/dL ABG pH (7.35-7.45) ABG pCO2 (35-45) mmHg ABG Total CO2 (19-24) mmol/L ABG O2 Saturation (94-97) % Carbon Dioxide (22-30) mmol/L BUN (9-20) mg/dL Creatinine (0.66-1.25) mg/dL Glucose (74-99) mg/dL POC Glucose (mg/dL) 127 H (70-110) mg/dL Plasma Lactic Acid Sav (0.7-2.0) mmol/L Calcium (8.4-10.2) mg/dL Total Bilirubin (0.2-1.3) mg/dL AST (17-59) U/L Lactate Dehydrogenase (120-246) U/L Total Protein (6.3-8.2) g/dL Albumin (3.5-5.0) g/dL Albumin (PEP) (3.80-4.90) g/dL Lypbl-4-Oojalbrrd (0.10-0.40) g/dL Beta Globulins (0.60-1.30) g/dL Methylmalonic Acid (<0.40) umol/L 01/09/24 01/09/24 01/09/24 Range/Units 04:12 04:52 06:08 WBC (3.8-10.6) k/uL RBC (4.30-5.90) m/uL Hgb (13.0-17.5) gm/dL Hct (39.0-53.0) % RDW (11.5-15.5) % Plt Count (150-450) k/uL PT (10.0-12.5) sec INR (<1.2) APTT (22.0-30.0) sec Fibrinogen (200-500) mg/dL ABG pH 7.52 H (7.35-7.45) ABG pCO2 31 L (35-45) mmHg ABG Total CO2 26 H (19-24) mmol/L ABG O2 Saturation 98.7 H (94-97) % Carbon Dioxide (22-30) mmol/L BUN 160 H* (9-20) mg/dL Creatinine 2.73 H (0.66-1.25) mg/dL Glucose 135 H (74-99) mg/dL POC Glucose (mg/dL) 150 H (70-110) mg/dL Plasma Lactic Acid Sav (0.7-2.0) mmol/L Calcium 7.9 L (8.4-10.2) mg/dL Total Bilirubin 3.9 H (0.2-1.3) mg/dL AST 68 H (17-59) U/L Lactate Dehydrogenase (120-246) U/L Total Protein 4.0 L (6.3-8.2) g/dL Albumin 1.7 L (3.5-5.0) g/dL Albumin (PEP) (3.80-4.90) g/dL Hqiaq-5-Hwueajbuz (0.10-0.40) g/dL Beta Globulins (0.60-1.30) g/dL Methylmalonic Acid (<0.40) umol/L 01/09/24 01/09/24 Range/Units 12:00 12:10 WBC 0.5 L* (3.8-10.6) k/uL RBC 2.66 L (4.30-5.90) m/uL Hgb 8.4 L (13.0-17.5) gm/dL Hct 25.7 L (39.0-53.0) % RDW 16.7 H (11.5-15.5) % Plt Count 15 L* (150-450) k/uL PT (10.0-12.5) sec INR (<1.2) APTT (22.0-30.0) sec Fibrinogen (200-500) mg/dL ABG pH (7.35-7.45) ABG pCO2 (35-45) mmHg ABG Total CO2 (19-24) mmol/L ABG O2 Saturation (94-97) % Carbon Dioxide (22-30) mmol/L BUN (9-20) mg/dL Creatinine (0.66-1.25) mg/dL Glucose (74-99) mg/dL POC Glucose (mg/dL) 118 H (70-110) mg/dL Plasma Lactic Acid Sav (0.7-2.0) mmol/L Calcium (8.4-10.2) mg/dL Total Bilirubin (0.2-1.3) mg/dL AST (17-59) U/L Lactate Dehydrogenase (120-246) U/L Total Protein (6.3-8.2) g/dL Albumin (3.5-5.0) g/dL Albumin (PEP) (3.80-4.90) g/dL Atffb-3-Yciyxytyf (0.10-0.40) g/dL Beta Globulins (0.60-1.30) g/dL Methylmalonic Acid (<0.40) umol/L Microbiology - Last 24 Hours (Table) 01/07/24 19:33 Blood Culture Gram Stain - Preliminary Blood Blood Culture - Preliminary Presumptive Staph aureus Molecular ID 01/07/24 19:55 Urine Culture - Final Urine,Catheterized 01/07/24 09:05 Gram Stain - Preliminary Leg - Left Wound Culture - Preliminary Group D Enterococcus Gram Neg Bacilli Assessment and Plan (1) FRED (acute kidney injury) Current Visit: Yes Status: Acute Priority: High Code(s): N17.9 - ACUTE KIDNEY FAILURE, UNSPECIFIED SNOMED Code(s): 81631276 (2) Coagulopathy Current Visit: Yes Status: Acute Priority: High Code(s): D68.9 - COAGULATION DEFECT, UNSPECIFIED SNOMED Code(s): 12597133 (3) Leg wound, left Current Visit: Yes Status: Acute Priority: High Code(s): S81.802A - UNSPECIFIED OPEN WOUND, LEFT LOWER LEG, INITIAL ENCOUNTER SNOMED Code(s): 39458706631350660 (4) Methotrexate adverse reaction Current Visit: Yes Status: Acute Priority: High Code(s): T45.1X5A - ADVERSE EFFECT OF ANTINEOPLASTIC AND IMMUNOSUP DRUGS, INIT SNOMED Code(s): 059971522 (5) Pancytopenia Current Visit: Yes Status: Acute Priority: High Code(s): D61.818 - OTHER PANCYTOPENIA SNOMED Code(s): 685068264 (6) Sepsis Current Visit: Yes Status: Acute Priority: High Code(s): A41.9 - SEPSIS, UNSPECIFIED ORGANISM SNOMED Code(s): 66936218 Plan: Coagulopathy -Patient on Coumadin for atrial fibrillation. On admission INR 9.1 -Patient has received 2 doses of IV vitamin K, INR 1.6 on recheck. -INR today 1.9, plts 15,000. Additional dose Vitamin K ordered and 2 doses platelets ordered -INR daily for now. INR may rebound as patient is not consuming oral intake at this time and is acutely ill Concerns for DIC -DIC negative. Fibrinogen elevated. Plt 15,000 -CBC, Coags and fibrinogen daily for now as pt condition remains critical Pancytopenia -After chart review, suspect methotrexate toxicity secondary to acute on chronic renal failure -Rescue leucovorin ordered q6hrs -Methotrexate levels have been ordered prior to administration of leucovorin and will plan for repeat levels after several doses of leucovorin -Methotrexate from 01/06, 0.12. Decreased frequency of Leucovorin to BID -Pancytopenia work up ordered. No nutritional deficiencies noted. SPEP and immunofixation reporting difficult to exclude artifact from paraprotein, likely from inflammatory/infectious state -Hemolysis workup negative -Pancytopenia appears to be r/t sepsis/wound infection, possibly superimposed by methotrexate toxicity -CBC daily -Transfuse for hemoglobin less than 7 -Transfuse for platelets less than 20,000 or if patient is symptomatic -No G-CSF at this time. IgG ordered
[2024-01-09 23:30] LABS: Glucose,Whole Blood 135 mg/dL (70-110)
[2024-01-10 05:07] LABS: ABG Base Excess 1.7 mmol/L; ABG HCO3 25 mmol/L (21-25); ABG Oxygen Saturation 99.3 % (94-97); ABG PCO2 31 mmHg (35-45); ABG PH 7.51 (7.35-7.45); ABG PO2 120 mmHg (83-108); ABG TCO2 26 mmol/L (19-24)
[2024-01-10 05:11] LABS: Allen Test Performed? no
[2024-01-10 05:15] LABS: Glucose,Whole Blood 158 mg/dL (70-110)
[2024-01-10 05:48] LABS: Anisocytosis Slight; HCT 25.3 % (39.0-53.0); HGB 8.2 gm/dL (13.0-17.5); MCH 31.3 pg (25.0-35.0); MCHC 32.6 g/dL (31.0-37.0); MCV 96.2 fL (80.0-100.0); Mean Platelet Volume 9.6; RBC 2.63 m/uL (4.30-5.90); RDW 16.7 % (11.5-15.5)
[2024-01-10 05:49] LABS: Platelet Count 12 k/uL (150-450); WBC 0.3 k/uL (3.8-10.6)
[2024-01-10 06:10] LABS: ALT 35 U/L (4-49); AST 66 U/L (17-59); African American GFR (CKD) 32 (>60 ml/min/1.73 sqM); Albumin 1.8 g/dL (3.5-5.0); Alkaline Phosphatase 69 U/L (38-126); Anion Gap 12 mmol/L; Calcium 7.4 mg/dL (8.4-10.2); Carbon Dioxide 23 mmol/L (22-30); Chloride 107 mmol/L (98-107); Glucose 139 mg/dL (74-99); Magnesium 2.3 mg/dL (1.6-2.3); Non-African American GFR(CKD) 28 (>60 ml/min/1.73 sqM); Potassium 2.9 mmol/L (3.5-5.1); Sodium 142 mmol/L (137-145); Total Protein 4.3 g/dL (6.3-8.2)
[2024-01-10 06:27] LABS: Blood Urea Nitrogen 168 mg/dL (9-20)
[2024-01-10 06:58] LABS: Anisocytosis (M) Present; Crenated RBC Present
[2024-01-10] MEDS: POTASSIUM BICARBONATE/CIT AC 20 MEQ TABLET.EFF PO SCH (07:52)
--- NOTE | 2024-01-10 07:58 | XR ---
EXAMINATION TYPE: XR chest 1V portable DATE OF EXAM: 01/10/2024 COMPARISON: 01/09/2024 HISTORY: SOB, Follow Up FINDINGS: Indwelling tubes and catheters are unchanged. No change in bibasilar opacities. Stable appearance of the cardio-mediastinal structures at this time. IMPRESSION: 1. Stable portable chest. Clinical correlation and follow up until resolution is recommended.
[2024-01-10] MEDS: POTASSIUM CHLORIDE 20 MEQ in WATER FOR INJECTION 1 100ML.BAG IVPB SCH (08:54)
[2024-01-10] MEDS: FILGRASTIM-SNDZ 480 MCG/0.8 ML SYRINGE SQ SCH (09:31)
--- NOTE | 2024-01-10 10:38 | P.PN ---
Subjective Patient is seen in follow-up for acute kidney injury on chronic kidney disease. Creatinine trending down. Nonoliguric. Intubated. Receiving tube feeds. Remains on Levophed and vasopressin. Vital signs are stable. On vasopressor support. General: Resting in bed. HEENT: Intubated. LUNGS: Scattered rhonchi. HEART: Rate and Rhythm are regular. ABDOMEN: No distention. Soft. EXTREMITITES: Left lower extremity wrapped. No drainage. Wounds noted. Trace edema. Objective - Vital Signs Vital signs: Vital Signs Temp 98.5 F 01/10/24 08:00 Pulse 114 H 01/10/24 09:15 Resp 17 01/10/24 09:15 BP 133/59 01/10/24 07:44 Pulse Ox 98 01/10/24 09:15 FiO2 35 01/10/24 08:00 Intake & Output 01/09/24 01/10/24 01/10/24 18:59 06:59 18:59 Intake Total 5971.072 9076.711 497 Output Total 1210 1220 375 Balance 713.545 997.711 122 Weight 105.7 kg Intake: IV 1426 1176 274 0.9 Pressure Bag 36 36 9 0.9 at KVO 240 240 40 Cefepime 1 gm In Sodium 50 Chloride 0.9% 50 ml @ 12. 5 mls/hr IVPB Q12HR [facility] Rx#:[id number] DAPTOmycin 500 mg In 50 Sodium Chloride 0.9% 50 ml @ 100 mls/hr IVPB Q48H [facility] Rx#:[id number] Dextrose 5% in Water 1, 250 000 ml @ 125 mls/hr IV . Q9H12M [facility] with Sodium Bicarb (1 Meq/ml) 150 ml Rx#:[id number] Phytonadione 5 mg In 50 Sodium Chloride 0.9% 50 ml @ 100 mls/hr IVPB [facility] Rx#:[id number] Sodium Chloride 0.9% 1, 750 900 225 000 ml @ 75 mls/hr IV . [id number] [facility] Rx#:[id number] Intake, IV Titration 137.545 226.711 100 Amount Norepinephrine 32 mg In 0 109.830 Sodium Chloride 0.9% 218 ml @ 0.03 MCG/KG/MIN 1. 358 mls/hr IV .Q24H [facility] Rx#:[id number] Potassium Chloride 20 meq 100 In Water For Injection 1 100ml.bag @ 50 mls/hr IVPB Q2H [facility] Rx#: [id number] Vasopressin 20 unit In 81.855 51 Sodium Chloride 0.9% 50 ml @ 0.03 UNITS/MIN 4.59 mls/hr IV .Q11H7M [facility] Rx# :[id number] propofoL 1,000 mg In 55.690 65.881 Empty Bag 1 bag @ 15 MCG/ KG/MIN 8.694 mls/hr IV . [id number] [facility] Rx#:[id number] Tube Feeding 360 481 123 Blood Product 334 0 Platelet Pheresis Pas 334 Psoralen Unit [id number] Platelet Pheresis Pas 0 Psoralen Unit [id number] Output: Urine 1210 1220 375 Other: Voiding Method Indwelling Catheter Indwelling Catheter Indwelling Catheter # Bowel Movements 1 ABP, PAP, CO, CI - Last Documented Arterial Blood Pressure 124/59 - Labs CBC & Chem 7: 01/10/24 05:15 01/10/24 06:00 Labs: Abnormal Lab Results - Last 24 Hours (Table) 01/09/24 01/09/24 01/09/24 Range/Units 12:00 12:10 23:29 WBC 0.5 L* (3.8-10.6) k/uL RBC 2.66 L (4.30-5.90) m/uL Hgb 8.4 L (13.0-17.5) gm/dL Hct 25.7 L (39.0-53.0) % RDW 16.7 H (11.5-15.5) % Plt Count 15 L* (150-450) k/uL ABG pH (7.35-7.45) ABG pCO2 (35-45) mmHg ABG pO2 (83-108) mmHg ABG Total CO2 (19-24) mmol/L ABG O2 Saturation (94-97) % Potassium (3.5-5.1) mmol/L BUN (9-20) mg/dL Creatinine (0.66-1.25) mg/dL Glucose (74-99) mg/dL POC Glucose (mg/dL) 118 H 135 H (70-110) mg/dL Calcium (8.4-10.2) mg/dL Total Bilirubin (0.2-1.3) mg/dL AST (17-59) U/L Total Protein (6.3-8.2) g/dL Albumin (3.5-5.0) g/dL 01/10/24 01/10/24 01/10/24 Range/Units 05:05 05:13 05:15 WBC 0.3 L* (3.8-10.6) k/uL RBC 2.63 L (4.30-5.90) m/uL Hgb 8.2 L (13.0-17.5) gm/dL Hct 25.3 L (39.0-53.0) % RDW 16.7 H (11.5-15.5) % Plt Count 12 L* (150-450) k/uL ABG pH 7.51 H (7.35-7.45) ABG pCO2 31 L (35-45) mmHg ABG pO2 120 H (83-108) mmHg ABG Total CO2 26 H (19-24) mmol/L ABG O2 Saturation 99.3 H (94-97) % Potassium (3.5-5.1) mmol/L BUN (9-20) mg/dL Creatinine (0.66-1.25) mg/dL Glucose (74-99) mg/dL POC Glucose (mg/dL) 158 H (70-110) mg/dL Calcium (8.4-10.2) mg/dL Total Bilirubin (0.2-1.3) mg/dL AST (17-59) U/L Total Protein (6.3-8.2) g/dL Albumin (3.5-5.0) g/dL 01/10/24 Range/Units 06:00 WBC (3.8-10.6) k/uL RBC (4.30-5.90) m/uL Hgb (13.0-17.5) gm/dL Hct (39.0-53.0) % RDW (11.5-15.5) % Plt Count (150-450) k/uL ABG pH (7.35-7.45) ABG pCO2 (35-45) mmHg ABG pO2 (83-108) mmHg ABG Total CO2 (19-24) mmol/L ABG O2 Saturation (94-97) % Potassium 2.9 L (3.5-5.1) mmol/L BUN 168 H* (9-20) mg/dL Creatinine 2.29 H (0.66-1.25) mg/dL Glucose 139 H (74-99) mg/dL POC Glucose (mg/dL) (70-110) mg/dL Calcium 7.4 L (8.4-10.2) mg/dL Total Bilirubin 5.0 H (0.2-1.3) mg/dL AST 66 H (17-59) U/L Total Protein 4.3 L (6.3-8.2) g/dL Albumin 1.8 L (3.5-5.0) g/dL Microbiology - Last 24 Hours (Table) 01/07/24 19:33 Blood Culture Gram Stain - Preliminary Blood Blood Culture - Preliminary Presumptive Staph aureus Molecular ID 01/07/24 09:05 Gram Stain - Preliminary Leg - Left Wound Culture - Preliminary Group D Enterococcus Escherichia coli Presumptive Staph aureus 01/07/24 09:05 Anaerobic Culture - Preliminary Leg - Left 01/07/24 19:55 Urine Culture - Final Urine,Catheterized Assessment and Plan Plan: Assessment: 1. Acute kidney injury secondary to ATN secondary to septic shock. Creatinine 3.9 on admission and is improved to 2.29 today. Nonoliguric. No hydronephrosis noted on kidney ultrasound also left kidney was not visualized. Disproportionately elevated BUN partially due to steroids. Questionable GI bleed. Hemoglobin fairly stable. 2. Chronic kidney disease stage IIIb with baseline creatinine near 2 secondary to cardiorenal syndrome. 3. Septic shock secondary to lower extremity wounds. Wound culture positive for group D Enterococcus. Blood cultures positive for gram-positive cocci. On antibiotics. ID following. 4. Chronic diastolic CHF with mild to moderate mitral and aortic regurgitation. 5. Pancytopenia. Concern for DIC as well as methotrexate toxicity. Hematology oncology following. 6. Rheumatoid arthritis maintained on methotrexate outpatient. 7. Acute hypoxic respiratory failure. Currently intubated. On 35% FiO2. 8. Metabolic acidosis secondary to acute kidney injury maintained on bicarb drip. Improved. Blood gas this morning suggestive of respiratory alkalosis. 9. Hypokalemia from intracellular shifting from IV bicarb and low intake. Plan: Maintain IV fluids. Maintain tube feeds. Potassium being replaced. Wean vasopressors. Continue to monitor renal function and urine output. Continue to assess daily for need for renal replacement therapy. No urgency at this time. Patient also hemodynamically quite unstable on vasopressor support.
--- NOTE | 2024-01-10 10:58 | P.PN ---
Subjective Progress Note Date: 01/10/24 Principal diagnosis: Sepsis septic shock and acute hypoxic respiratory failure This is a 73-year-old white male with history of chronic atrial fibrillation, hypertension, rheumatoid arthritis, patient is normally maintained on Coumadin for his atrial fibrillation, he is also maintained on methotrexate for rheumatoid arthritis. For the last few days, the patient has been complaining of left shoulder pain. He saw his primary care physician/Dr. Lopez, and he was directed to go to the ER. Patient was evaluated in the ER on 01/05/2024, and after reviewing the ER note, and the admitting note by the admitting physician, patient was admitted with possible rotator cuff tear of the left shoulder, however on his initial evaluation, the patient was found to have significant ab normal labs. Patient was clearly found to have acute on chronic renal failure felt to be acute tubular necrosis related to hypotension as the patient was noted to be hypotensive initially in the ER. Patient was also found to have supratherapeutic INR level. And this was felt to be related to Coumadin. In addition to this the patient is known to have history of diabetes, he is also known to have history of hyperkalemia and hyperthyroidism, maintained on methimazole. Patient was admitted to [facility] [address] and seen by the hospitalist, he was also seen by the big data developer, and the main concern was mostly related to his acute kidney injury and elevated INR. However at 330 this morning, the rapid response team attended to the patient were in he was noted to have low blood pressure, he was also noted to have INR of 6.4, worsening creatinine of 2.96, and the patient was mostly hypotensive with blood pressure as low as 50/39. Patient was given 1.5 L of fluid bolus, blood pressure came up slightly, and I was notified about this patient at that time. I recommended immediate transfer to the ICU. In the ICU, patient required pressors in the form of norepinephrine he is presently on 0.23 mcg/kg/min he is also on vasopressin at 0.03 units/h. Bailey on IV fluid at 100 cc/h in the form of 0.9 normal saline. Labs in the ICU showed significant worsening compared to previous labs on admission including a WBC count of 0.6, hemoglobin is 9.4, platelets are 100,000's, INR was still elevated, and his D-dimer was 6.16. Renal profile has become worse with a BUN of 154 creatinine 3.05, slightly abnormal liver enzymes. Uric acid was 10.8 on admission. Patient had a CT of the brain earlier this morning which showed no evidence of bleed. I saw the patient in the ICU this morning, he seems to be quite ill and I have reviewed the chart, discussed and updated the family on his condition. In the meantime I have recommended different consultations including infectious disease consult for significant wound noted in the left calf region with purulent drainage from a large deep ulcer in the left calf area. I have also recommended broad-spectrum antibiotics to start empirically. Recommended h ematology consultation. Looking at the significant abnormalities and specially his elevated INR, I recommended vitamin K, I also recommended Kcentra to be given repeat INR was 2.2 few hours later considering the overall presentation, I am quite concerned about the possibility of sepsis/septic shock and the most likely source for his sepsis would likely be the left leg wound which seems to be quite deep, and there is a significant purulent drainage from that left leg. Surgical consultation was initiated to address this large wound in the left calf region. Patient was seen by hematology, and felt that this could be methotrexate toxicity. Although this is in the differential, I am more conc erned about patient having sepsis/septic shock, of course the differential diagnosis will include methotrexate toxicity or methimazole toxicity. But again clinically this is felt to be less likely based on the fact that the patient presented with normal labs except for abnormal renal profile and abnormal INR on admission. His CBC was otherwise unremarkable. And looking back at his labs from October he had relatively normal CBC and slightly abnormal renal profile with GFR in the 40s. Today on 01/08/2024, remains in the ICU, intubated and mechanically ventilated, on propofol and on pressors. His assist-control rate is 20 tidal volume 500 FiO2 40% and PEEP of 5 ABG showed a pO2 of 146 pCO2 29 pH of 7.37 hence FiO2 was cut down to 35%. Patient is on propofol at 30 mcg/kg/min vasopressin at 0.03 units, norepinephrine at 0.38 mcg/kg/min. Patient is still receiving bicarb drip as recommended by nephrology. Patient is receiving Solu-Cortef, he is also receiving cefepime and daptomycin. Urine output has been in the range of 50 to 60/h. His renal functioning is a bit worse, patient has nonoliguric renal failure. We believe the patient developed acute tubular necrosis from sepsis and hypotension. Patient received few fluid boluses last night and he will receive more this morning. Again his urine output is picking up with fluid boluses. Labs landry the patient is showing slight improvement in his CBC,WBC count is up to 1.2 hemoglobin is 9.1. Platelets are low at 33,000. His fibr inogen today is 605, INR is 1.6. Sodium and potassium are normal bicarb is 13 anion gap is 16 with a BUN of 157 creatinine 3.11, lactic acid today is 3.8. Albumin is also low at 1.8. Globin is 2.7 chest x-ray is showing mostly right lower lobe atelectasis, possible pneumonia Reevaluated today on 01/09/2024, remains in the ICU, intubated and mechanically ventilated. Patient is on assist-control rate of 20 tidal volume 500 FiO2 35% and PEEP of 5 ABG showed a pO2 of 102 pCO2 31 pH of 7.52, no changes were made on the ventilator settings. However his sodium bicarb drip has been discontinued. Blood cultures came back positive for Staph aureus, does not seem to be MRSA. His wound cultures are also positive for Klebsiella and group D Enterococcus. Patient is on cefepime and daptomycin. Hemodynamically landry the patient is still requiring vasopressin at 0.03 and norepinephrine at 0.06 mc g/kg/min. Patient is still receiving IV fluid at 75 cc/h and is also on Solu- Cortef which I will cut down to 50 instead of 100 mg every 8 hours. Chest x-ray showed right lower lobe atelectasis, possible infiltrate. WBC count is 0.4 hemoglobin is 8 platelets are 12,000 has the patient received clearance of platelets today. He does have significant drop in his hemoglobin since admission down to 8, may require blood transfusion if it goes down to 7. INR today is 1.95 fibrinogen is 575. Renal profile is slightly better with creatinine down to 2.73 however BUN is 160. Over the last 24 hours, we cut down significantly on sedation, and the patient today seems to be awake, but generally weak, follows very simple instructions. Patient was evaluated today on , remains in the ICU, intubated and mechanically ventilated. Patient is on assist-control rate of 20 and I cut it down to 18 tidal volume 500 FiO2 35% and PEEP of 5. ABG showed a pO2 of 120 pCO2 31 pH of 7.51 and sed rate was decreased from 20-18. Patient continues to have pancytopenia with WBC count of 0.3 hemoglobin 8.2 platelets are 12,000 patient received a unit of platelets yesterday, and he will be receiving another unit today. Patient is on norepinephrine at 0.16 mcg/kg/min, propofol at 10 mcg/kg/min, vasopressin at 0.03 units/min. Patient is receiving IV fluid 0.9 normal saline at 75 cc/h, vital HP at 41 cc/h/goal. Remains on Solu-Cortef at 50 mg IV push every 8 hours. He is also on cefepime and daptomycin. Cultures of the wound from the left leg grew E. coli, Staph aureus, and group D Enterococcus. Blood cultures are positive for Staph aureus, does not seem to be MRSA at this point. His labs were reviewed, WBC count is 0.3 hemoglobin 8.2 platelets are 12,000, electrolytes showed low potassium of 2.9, being corrected as per protocol. BUN is 168 creatinine 2.29 chest x-ray continues to show no evidence of active disease, minimal atelectasis only. The plan today is to hold sedation again and assess mental status off propofol. Otherwise will continue the same present supportive care measures. Objective - Vital Signs Vital signs: Vital Signs Temp 98.5 F 01/10/24 08:00 Pulse 114 H 01/10/24 09:15 Resp 17 01/10/24 09:15 BP 133/59 01/10/24 07:44 Pulse Ox 98 01/10/24 09:15 FiO2 35 01/10/24 08:00 Intake & Output 01/09/24 01/10/24 01/10/24 18:59 06:59 18:59 Intake Total 0367.171 6848.711 755 Output Total 1210 1220 575 Balance 713.545 997.711 180 Weight 105.7 kg Intake: IV 1426 1176 450 0.9 Pressure Bag 36 36 15 0.9 at KVO 240 240 60 Cefepime 1 gm In Sodium 50 Chloride 0.9% 50 ml @ 12. 5 mls/hr IVPB Q12HR [facility] Rx#:[id number] DAPTOmycin 500 mg In 50 Sodium Chloride 0.9% 50 ml @ 100 mls/hr IVPB Q48H [facility] Rx#:[id number] Dextrose 5% in Water 1, 250 000 ml @ 125 mls/hr IV . Q9H12M [facility] with Sodium Bicarb (1 Meq/ml) 150 ml Rx#:[id number] Phytonadione 5 mg In 50 Sodium Chloride 0.9% 50 ml @ 100 mls/hr IVPB ONCE [facility] Rx#:[id number] Sodium Chloride 0.9% 1, 750 900 375 000 ml @ 75 mls/hr IV . [id number] [facility] Rx#:[id number] Intake, IV Titration 137.545 226.711 100 Amount Norepinephrine 32 mg In 0 109.830 Sodium Chloride 0.9% 218 ml @ 0.03 MCG/KG/MIN 1. 358 mls/hr IV .Q24H [facility] Rx#:[id number] Potassium Chloride 20 meq 100 In Water For Injection 1 100ml.bag @ 50 mls/hr IVPB Q2H [facility] Rx#: [id number] Vasopressin 20 unit In 81.855 51 Sodium Chloride 0.9% 50 ml @ 0.03 UNITS/MIN 4.59 mls/hr IV .Q11H7M [facility] Rx# :[id number] propofoL 1,000 mg In 55.690 65.881 Empty Bag 1 bag @ 15 MCG/ KG/MIN 8.694 mls/hr IV . [id number] [facility] Rx#:[id number] Tube Feeding 360 481 205 Blood Product 334 0 Platelet Pheresis Pas 334 Psoralen Unit [id number] Platelet Pheresis Pas 0 Psoralen Unit [id number] Output: Urine 1210 1220 575 Other: Voiding Method Indwelling Catheter Indwelling Catheter Indwelling Catheter # Bowel Movements 1 ABP, PAP, CO, CI - Last Documented Arterial Blood Pressure 124/59 - Exam GENERAL: Revealed a 73-year-old white male, intubated, mechanically ventilated, sedated. On low-dose of propofol And: Atraumatic, normocephalic. Endotracheal tube and orogastric tube are intact. HEENT: Pupils are round and equally reacting to light. EOMI. No scleral icterus. No conjunctival pallor. Normocephalic, atraumatic. No pharyngeal erythema. No thyromegaly. CARDIOVASCULAR: Normal S1-S2, no S3 gallop, no murmur. PULMONARY: Diminished breath sounds at the bases, rhonchi no wheezes. ABDOMEN: Obese, soft, slightly tender to palpation, no rebound, no guarding.. MUSCULOSKELETAL: Generalized weakness. No deformities. EXTREMITIES: multiple areas of ecchymosis noted in the lower extremities bilaterally. Ulcer remains in mid aspect of left lower extremity, with significant drainage of purulent material., There is also chronic venous stasis changes in both lower extremities. Significant areas of erythema and cellulitis noted in the medial aspect of both legs, NEUROLOGICAL: Could not assess today, patient is sedated SKIN: Numerous areas of bruising and ecchymosis all over involving upper and lower extremities also involving the chest and abdomen.. Significant areas of erythema also noted in the medial aspect of both thighs - Labs CBC & Chem 7: 01/10/24 05:15 01/10/24 06:00 Labs: Abnormal Lab Results - Last 24 Hours (Table) 01/09/24 01/09/24 01/09/24 Range/Units 12:00 12:10 23:29 WBC 0.5 L* (3.8-10.6) k/uL RBC 2.66 L (4.30-5.90) m/uL Hgb 8.4 L (13.0-17.5) gm/dL Hct 25.7 L (39.0-53.0) % RDW 16.7 H (11.5-15.5) % Plt Count 15 L* (150-450) k/uL ABG pH (7.35-7.45) ABG pCO2 (35-45) mmHg ABG pO2 (83-108) mmHg ABG Total CO2 (19-24) mmol/L ABG O2 Saturation (94-97) % Potassium (3.5-5.1) mmol/L BUN (9-20) mg/dL Creatinine (0.66-1.25) mg/dL Glucose (74-99) mg/dL POC Glucose (mg/dL) 118 H 135 H (70-110) mg/dL Calcium (8.4-10.2) mg/dL Total Bilirubin (0.2-1.3) mg/dL AST (17-59) U/L Total Protein (6.3-8.2) g/dL Albumin (3.5-5.0) g/dL 01/10/24 01/10/24 01/10/24 Range/Units 05:05 05:13 05:15 WBC 0.3 L* (3.8-10.6) k/uL RBC 2.63 L (4.30-5.90) m/uL Hgb 8.2 L (13.0-17.5) gm/dL Hct 25.3 L (39.0-53.0) % RDW 16.7 H (11.5-15.5) % Plt Count 12 L* (150-450) k/uL ABG pH 7.51 H (7.35-7.45) ABG pCO2 31 L (35-45) mmHg ABG pO2 120 H (83-108) mmHg ABG Total CO2 26 H (19-24) mmol/L ABG O2 Saturation 99.3 H (94-97) % Potassium (3.5-5.1) mmol/L BUN (9-20) mg/dL Creatinine (0.66-1.25) mg/dL Glucose (74-99) mg/dL POC Glucose (mg/dL) 158 H (70-110) mg/dL Calcium (8.4-10.2) mg/dL Total Bilirubin (0.2-1.3) mg/dL AST (17-59) U/L Total Protein (6.3-8.2) g/dL Albumin (3.5-5.0) g/dL 01/10/24 Range/Units 06:00 WBC (3.8-10.6) k/uL RBC (4.30-5.90) m/uL Hgb (13.0-17.5) gm/dL Hct (39.0-53.0) % RDW (11.5-15.5) % Plt Count (150-450) k/uL ABG pH (7.35-7.45) ABG pCO2 (35-45) mmHg ABG pO2 (83-108) mmHg ABG Total CO2 (19-24) mmol/L ABG O2 Saturation (94-97) % Potassium 2.9 L (3.5-5.1) mmol/L BUN 168 H* (9-20) mg/dL Creatinine 2.29 H (0.66-1.25) mg/dL Glucose 139 H (74-99) mg/dL POC Glucose (mg/dL) (70-110) mg/dL Calcium 7.4 L (8.4-10.2) mg/dL Total Bilirubin 5.0 H (0.2-1.3) mg/dL AST 66 H (17-59) U/L Total Protein 4.3 L (6.3-8.2) g/dL Albumin 1.8 L (3.5-5.0) g/dL Microbiology - Last 24 Hours (Table) 01/07/24 19:33 Blood Culture Gram Stain - Preliminary Blood Blood Culture - Preliminary Presumptive Staph aureus Molecular ID 01/07/24 09:05 Gram Stain - Preliminary Leg - Left Wound Culture - Preliminary Group D Enterococcus Escherichia coli Presumptive Staph aureus 01/07/24 09:05 Anaerobic Culture - Preliminary Leg - Left 01/07/24 19:55 Urine Culture - Final Urine,Catheterized Assessment and Plan Assessment: Impression: Sepsis/septic shock, secondary to Staph aureus bacteremia Pancytopenia most likely secondary to sepsis doubt methotrexate toxicity, patient remains on leucovorin Elevated INR secondary to his supratherapeutic Coumadin Profound thrombocytopenia most likely secondary to sepsis and septic shock. Left lower extremity cellulitis and large infected ulcer noted in the calf region. Severe pain/left shoulder secondary to rotator cuff tear. Chronic atrial fibrillation History of rheumatoid arthritis history of chronic kidney disease stage IIIb History of type 2 diabetes Acute on chronic kidney injury, most likely secondary to acute tubular necrosis, secondary to sepsis and septic shock and hypotension, suspect some GI blood loss with significant elevated ratio BUN/creatinine Profound hypotension secondary to sepsis/septic shock requiring pressors including norepinephrine and vasopressin History of hyperthyroidism, maintained on methimazole. Recommendation: Continue ventilatory support Continue hemodynamic support/vasopressin and norepinephrine are being titrated accordingly, will titrate norepinephrine today and keep vasopressin at the same dose Continue broad-spectrum antibiotics, blood cultures and wound culture been noted today, patient remains on daptomycin and cefepime. Continue to monitor coagulation profile, and CBC as well as platelets, patient is being followed by hematology remains on leucovorin Start nutritional support/enteral feeding GI prophylaxis Continue to hold methotrexate and methimazole Sedation interruption and assessment of mental status on a daily basis Transfused with platelets Patient remains critically ill was updated on his condition and prognosis, this was discussed with the yesterday and today. Critical care time is over 35-minute Time with Patient: Greater than 30
[2024-01-10 11:16] LABS: Anisocytosis Slight; HCT 23.3 % (39.0-53.0); HGB 7.5 gm/dL (13.0-17.5); MCH 31.3 pg (25.0-35.0); MCHC 32.4 g/dL (31.0-37.0); MCV 96.6 fL (80.0-100.0); Macrocytosis Slight; Mean Platelet Volume 8.9; RBC 2.41 m/uL (4.30-5.90); RDW 16.6 % (11.5-15.5)
[2024-01-10 11:19] LABS: Platelet Count 15 k/uL (150-450); WBC 0.3 k/uL (3.8-10.6)
[2024-01-10 11:29] LABS: INR 1.4 (<1.2); Partial Thromboplastin Time 36.4 sec (22.0-30.0); Prothrombin Time 14.2 sec (10.0-12.5)
[2024-01-10 11:52] LABS: African American GFR (CKD) 37 (>60 ml/min/1.73 sqM); Anion Gap 11 mmol/L; Calcium 7.8 mg/dL (8.4-10.2); Carbon Dioxide 24 mmol/L (22-30); Chloride 109 mmol/L (98-107); Glucose 138 mg/dL (74-99); Non-African American GFR(CKD) 32 (>60 ml/min/1.73 sqM); Potassium 3.6 mmol/L (3.5-5.1); Sodium 144 mmol/L (137-145)
[2024-01-10 12:00] LABS: Blood Urea Nitrogen 171 mg/dL (9-20)
[2024-01-10 12:19] LABS: Glucose,Whole Blood 146 mg/dL (70-110)
[2024-01-10] MEDS: POTASSIUM CHLORIDE 20 MEQ in WATER FOR INJECTION 1 100ML.BAG IVPB STA (12:19)
--- NOTE | 2024-01-10 12:19 | P.PN ---
Subjective Progress Note Date: 01/10/24 Principal diagnosis: Reason for follow-up is sepsis and left lower extremity wound/cellulitis Patient is 73-year-old male with a past medical history significant for diabetes mellitus hypertension heart failure atrial fibrillation gout patient presenting to the hospital for evaluation of left shoulder pain subsequently developing a fever hypertension requiring admission to ICU concerning for left lower extremity wound with infection. On today's evaluation that is 01/10/2024, Patient continues to be afebrile, the patient remains to be intubated on the vent FiO2 is currently at 35% no significant purulent secretion through the ET patient is requiring less pressor support, sedation has been put on hold however the patient not waking up as reported by the nursing staff. Patient white count is 0.3 creatinine is 2.04, leg culture has been finalized with Enterococcus faecalis E. coli and MSSA blood culture with MSSA Objective - Vital Signs Vital signs: Vital Signs Temp 98.5 F 01/10/24 08:00 Pulse 108 H 01/10/24 11:10 Resp 17 01/10/24 09:15 BP 133/59 01/10/24 07:44 Pulse Ox 98 01/10/24 09:15 FiO2 35 01/10/24 10:56 Intake & Output 01/09/24 01/10/24 01/10/24 18:59 06:59 18:59 Intake Total 5088.063 3672.711 755 Output Total 1210 1220 575 Balance 713.545 997.711 180 Weight 105.7 kg Intake: IV 1426 1176 450 0.9 Pressure Bag 36 36 15 0.9 at KVO 240 240 60 Cefepime 1 gm In Sodium 50 Chloride 0.9% 50 ml @ 12. 5 mls/hr IVPB Q12HR [facility] Rx#:[id number] DAPTOmycin 500 mg In 50 Sodium Chloride 0.9% 50 ml @ 100 mls/hr IVPB Q48H [facility] Rx#:[id number] Dextrose 5% in Water 1, 250 000 ml @ 125 mls/hr IV . Q9H12M [facility] with Sodium Bicarb (1 Meq/ml) 150 ml Rx#:[id number] Phytonadione 5 mg In 50 Sodium Chloride 0.9% 50 ml @ 100 mls/hr IVPB ONCE [facility] Rx#:[id number] Sodium Chloride 0.9% 1, 750 900 375 000 ml @ 75 mls/hr IV . [id number] [facility] Rx#:[id number] Intake, IV Titration 137.545 226.711 100 Amount Norepinephrine 32 mg In 0 109.830 Sodium Chloride 0.9% 218 ml @ 0.03 MCG/KG/MIN 1. 358 mls/hr IV .Q24H [facility] Rx#:[id number] Potassium Chloride 20 meq 100 In Water For Injection 1 100ml.bag @ 50 mls/hr IVPB Q2H [facility] Rx#: [id number] Vasopressin 20 unit In 81.855 51 Sodium Chloride 0.9% 50 ml @ 0.03 UNITS/MIN 4.59 mls/hr IV .Q11H7M [facility] Rx# :[id number] propofoL 1,000 mg In 55.690 65.881 Empty Bag 1 bag @ 15 MCG/ KG/MIN 8.694 mls/hr IV . [id number] [facility] Rx#:[id number] Tube Feeding 360 481 205 Blood Product 334 0 Platelet Pheresis Pas 334 Psoralen Unit [id number] Platelet Pheresis Pas 0 Psoralen Unit [id number] Output: Urine 1210 1220 575 Other: Voiding Method Indwelling Catheter Indwelling Catheter Indwelling Catheter # Bowel Movements 1 ABP, PAP, CO, CI - Last Documented Arterial Blood Pressure 124/59 - Exam GENERAL DESCRIPTION: An elderly male intubated on the vent RESPIRATORY SYSTEM: Unlabored breathing , decreased breath sounds at bases HEART: S1 S2 regular rate and rhythm , ABDOMEN: Soft , no tenderness EXTREMITIES: Left leg wound is currently dressed no drainage on the dressing - Labs CBC & Chem 7: 01/10/24 11:00 01/10/24 11:00 Labs: Abnormal Lab Results - Last 24 Hours (Table) 01/09/24 01/09/24 01/09/24 Range/Units 12:00 12:10 23:29 WBC 0.5 L* (3.8-10.6) k/uL RBC 2.66 L (4.30-5.90) m/uL Hgb 8.4 L (13.0-17.5) gm/dL Hct 25.7 L (39.0-53.0) % RDW 16.7 H (11.5-15.5) % Plt Count 15 L* (150-450) k/uL ABG pH (7.35-7.45) ABG pCO2 (35-45) mmHg ABG pO2 (83-108) mmHg ABG Total CO2 (19-24) mmol/L ABG O2 Saturation (94-97) % Potassium (3.5-5.1) mmol/L BUN (9-20) mg/dL Creatinine (0.66-1.25) mg/dL Glucose (74-99) mg/dL POC Glucose (mg/dL) 118 H 135 H (70-110) mg/dL Calcium (8.4-10.2) mg/dL Total Bilirubin (0.2-1.3) mg/dL AST (17-59) U/L Total Protein (6.3-8.2) g/dL Albumin (3.5-5.0) g/dL 01/10/24 01/10/24 01/10/24 Range/Units 05:05 05:13 05:15 WBC 0.3 L* (3.8-10.6) k/uL RBC 2.63 L (4.30-5.90) m/uL Hgb 8.2 L (13.0-17.5) gm/dL Hct 25.3 L (39.0-53.0) % RDW 16.7 H (11.5-15.5) % Plt Count 12 L* (150-450) k/uL ABG pH 7.51 H (7.35-7.45) ABG pCO2 31 L (35-45) mmHg ABG pO2 120 H (83-108) mmHg ABG Total CO2 26 H (19-24) mmol/L ABG O2 Saturation 99.3 H (94-97) % Potassium (3.5-5.1) mmol/L BUN (9-20) mg/dL Creatinine (0.66-1.25) mg/dL Glucose (74-99) mg/dL POC Glucose (mg/dL) 158 H (70-110) mg/dL Calcium (8.4-10.2) mg/dL Total Bilirubin (0.2-1.3) mg/dL AST (17-59) U/L Total Protein (6.3-8.2) g/dL Albumin (3.5-5.0) g/dL 01/10/24 Range/Units 06:00 WBC (3.8-10.6) k/uL RBC (4.30-5.90) m/uL Hgb (13.0-17.5) gm/dL Hct (39.0-53.0) % RDW (11.5-15.5) % Plt Count (150-450) k/uL ABG pH (7.35-7.45) ABG pCO2 (35-45) mmHg ABG pO2 (83-108) mmHg ABG Total CO2 (19-24) mmol/L ABG O2 Saturation (94-97) % Potassium 2.9 L (3.5-5.1) mmol/L BUN 168 H* (9-20) mg/dL Creatinine 2.29 H (0.66-1.25) mg/dL Glucose 139 H (74-99) mg/dL POC Glucose (mg/dL) (70-110) mg/dL Calcium 7.4 L (8.4-10.2) mg/dL Total Bilirubin 5.0 H (0.2-1.3) mg/dL AST 66 H (17-59) U/L Total Protein 4.3 L (6.3-8.2) g/dL Albumin 1.8 L (3.5-5.0) g/dL Microbiology - Last 24 Hours (Table) 01/07/24 19:33 Blood Culture Gram Stain - Preliminary Blood Blood Culture - Preliminary Presumptive Staph aureus Molecular ID 01/07/24 09:05 Gram Stain - Preliminary Leg - Left Wound Culture - Preliminary Group D Enterococcus Escherichia coli Presumptive Staph aureus 01/07/24 09:05 Anaerobic Culture - Preliminary Leg - Left 01/07/24 19:55 Urine Culture - Final Urine,Catheterized Assessment and Plan (1) Sepsis Current Visit: Yes Status: Acute Priority: High Code(s): A41.9 - SEPSIS, UNSPECIFIED ORGANISM SNOMED Code(s): 11350753 (2) Leg wound, left Current Visit: Yes Status: Acute Priority: High Code(s): S81.802A - UNSPECIFIED OPEN WOUND, LEFT LOWER LEG, INITIAL ENCOUNTER SNOMED Code(s): 54939135006902585 (3) Bacteremia Current Visit: Yes Status: Acute Code(s): R78.81 - BACTEREMIA SNOMED Code(s): 5922022 Plan: 1patient with sepsis in this patient who did have fever leukopenia hypotension requiring admission to the ICU and this patient was in the hospital with escalation pain to the left shoulder area and also have a wound to the left lower extremity likely differential of as currently no evidence of pneumonia on the chest x-ray abdominal soft on clinical examination 2-patient with MSSA bacteremia source possibly skin soft tissue, blood culture has been repeated to document clearance of bacteremia 3--local wound care to the left leg wound with Santyl followed by moist dressing change daily 4local culture from the left leg is growing group D Enterococcus E. coli and MSSA 5- patient to continue with daptomycin for MSSA bacteremia we will switch cefepime to Unasyn to cover for Enterococcus and E. coli at the bedside questions were answered Dictation was produced using [employer] dictation software. please excuse any grammatical, word or spelling errors. Time with Patient: Less than 30
[2024-01-10] MEDS: AMPICILLIN-SULBACTAM 3 GM in SODIUM CHLORIDE 0.9% 100 ML IVPB SCH (12:49)
[2024-01-10] MEDS: METOPROLOL TARTRATE 50 MG TAB PO STA (12:49)
--- NOTE | 2024-01-10 15:42 | P.PN ---
Subjective Progress Note Date: 01/10/24 January 06, 2024 Patient mental status close and and the patient is also receiving Dilaudid may have contributed to his altered mental status his blood pressure dropped as well and patient was presumed to have sepsis and septic shock was transferred to ICU he is on 2 pressors at this time patient does not have any fever but does have severe neutropenia may be related to methotrexate although patient white count was normal yesterday which probably because of his left shoulder tear. Patient is moaning unable to give me any history patient does have wounds but does not appear to have any cellulitis there is no foul-smelling discharge there is some redness which is chronic and chronic venous stasis dermatosis patient was started on vancomycin and cefepime, environmental health manager was consulted. January 07, 2024 Patient is 73-year-old male came in for left shoulder pain found to have rotator cuff. The left shoulder. Patient also found to have elevated INR of around 6.5 patient takes Coumadin for atrial fibrillation. Patient is also found to have acute renal failure with creatinine of around 3.6 patient was hypotensive patient is on Lasix, metolazone, lisinopril at home. Patient does have history of rheumatoid arthritis with rheumatoid deformities patient is on colchicine, methotrexate as an outpatient. Patient is also taking Farxiga at home. Patient does have a history of atrial fibrillation on atenolol patient is hypotensive cannot use atenolol patient heart rate started going up now is around 120s at this time. 01/08/2024 Patient is seen and evaluated in follow-up today currently remains in the ICU with multiple medical consultations following. Patient currently continues on mechanical ventilation with an FiO2 of 35 %, PEEP of 5. Patient continues on propofol undergoing weaning and sedation holidays to assess mentation. Wound care and infectious disease also following and patient is maintained on antibiotics in the form of cefepime and daptomycin. Preliminary wound culture showing group D Enterococcus with gram-negative bacilli of the left lower extremity wound as well as blood culture showing a molecular ID which is currently pending. Follow-up repeat blood cultures ordered and pending at this time. Patient also undergoing concerns of DIC workup with hematology following. White count is 1.2 today which is improved from 0.6 yesterday. Hemoglobin is stable at 9.1, platelets are 33, INR status post vitamin K improved and currently 1.6, D-dimer was elevated at 6.16. Sodium is 137 with a potassium of 3.7, BUN is 161 and creatinine is minimally improved at 2.82. Patient does have indwelling Villanueva catheter and has noted 400 output throughout the day. Lactic acid remains elevated although improved at 2.8 calcium is low at 7.2. Total bilirubin has also increased at 2.7 AST is 80 which is improved and ALT is 31, LDH is 274. Urinalysis was negative. Patient continues to be hypotensive requiring vasopressin as well as Levophed and per nursing staff, currently we aning. Patient also continues on sodium bicarb drip as well as Solu-Cortef. Overall prognosis is guarded. Patient is full code. Patient is evaluated today in follow-up in the intensive care unit. Patient caryl on the mechanical ventilator currently intubated and sedated. Patient is on an FiO2 of 35% with a PEEP of 5. Patient remains on propofol for sedation. Additionally patient is continued on Levophed and vasopressin with increased dose of the Levophed today. Patient's blood pressure did drop with the addition of propofol back on for sedation. Patient is remaining on IV Solu-Cortef dose decreased today. Additionally patient is on IV daptomycin and IV cefepime. Patient was found to be back was found to be bacteremic with Staph aureus suspect patient was in septic shock from his wounds on his lower extremities. Although his wound cultures are showing group D Enterococcus and gram-negative bacilli. His urine culture is normal. [facility] ID is following this patient closely. Blood cultures were repeated today. Patient has concerns for DIC and hematology is following. His white blood cell count is 0.4 today, hemoglobin 8.0, platelet count of 12, PT of 19.1, INR 1.9, PTT 38.1, fibrinogen level is 575. Additionally patient is a BUN of 160 creatinine of 2.73. Patient had a chest x-ray today showing right lower lobe infiltrate. 01/10/2024 Patient is evaluated today in the intensive care unit in follow-up. Patient remains on mechanical ventilator intubated and sedated. Patient is currently on FiO2 of 35% with a PEEP of 5. Patient has been continued on propofol for sedation. Patient does continue on multiple blood pressure support medications including Levophed and vasopressin. Patient remains on IV Solu-Cortef. Blood culture positive for Staph aureus which is now growing in the wound culture as well. Patient remains on daptomycin and cefepime. Patient will receive a second unit of platelets today. Blood work today reveals white blood cell count of 0.3, hemoglobin 7.5, platelet count of 15, PT of 14.2, INR 1.4, fibrinogen 492, sodium 144, potassium 3.6, BUN of 171, creatinine 2.04, calcium level of 7.8. Chest x-ray today reveals a stable bibasilar opacities. DVT patient Included with brian romeroxio. REVIEW OF SYSTEMS: Unable to obtain as patient is currently on sedation and mechanical ventilation PHYSICAL EXAMINATION: GENERAL: This is a 73-year-old male who is currently maintained on mechanical ventilation with an FiO2 of 35% and PEEP is 5, well-developed, elderly appearing, ill-appearing, obese HEENT: Pupils are round and equally reacting to light. EOMI. No scleral icterus. No conjunctival pallor. Normocephalic, atraumatic. No pharyngeal erythema. No thyromegaly. CARDIOVASCULAR: S1 and S2 muffled and irregular, tachycardic irregularly irregular rhythm PULMONARY: Diminished breath sounds bilaterally with no wheezing or crackles noted ABDOMEN: Soft, nontender, nondistended, normoactive bowel sounds. No palpable organomegaly. EXTREMITIES: No cyanosis, clubbing, or pedal edema. Extensive wounds noted to bilateral lower extremities with a chronic appearing discoloration, open wound noted on the right with some bleeding noted NEUROLOGICAL: Unable to assess as patient is on mechanical ventilation and sedated SKIN: Ulcers in the lower extremity chronic venous stasis, multiple bruises and ecchymosis noted on bilateral upper extremities Assessment: -Sepsis with septic shock, present on admission, most likely secondary to left lower extremity wounds. -Gram positive staph aureus bacteremia with ID following closely, wound culture showing gram negative bacilli, enterococcus and staph aureus -Severe neutropenia secondary to methotrexate which is being held -Acute hypoxic respiratory failure requiring mechanical ventilation, currently FiO2 is 35% and PEEP of 5 -Acute renal failure: Nonoliguric, with acute tubular necrosis from hypotension. Nephrology is following the patient renal ultrasound did not show any obstruction -Chronic kidney disease stage IV baseline creatinine around 1.5-1.8 -Supratherapeutic INR, status post vitamin K, improving hold off on Coumadin target INR 2-3 patient is on Coumadin for atrial fibrillation. -Atrial fibrillation, paroxysmal with rapid ventricular rate presently rate controlled -Severe thrombocytopenia, likely secondary to sepsis with septic shock -Left rotator cuff tear: Orthopedic surgery evaluated the patient, Tylenol for pain and low-dose Dilaudid -Hypertension, currently hypotensive and on pressor support -Type 2 diabetes mellitus, [id number], patient to continue on insulin hold off further medications Farxiga will be held because of renal failure -Rheumatoid arthritis for now we have to hold colchicine and methotrexate because of renal failure -Hyperkalemia: Secondary to REX inhibitor, acute renal failure -Hypothyroidism for which patient is on methimazole, TSH level is 0.989 -Hyponatremia secondary to renal failure IV fluids as mentioned above -GI prophylaxis -DVT prophylaxis: Patient's INR is supratherapeutic will not need any pharmacological anticoagulation at this time -Full code Plan: Patient is continued in the ICU with multiple medical consultations following maintained on pressor support continues on vasopressin and Levophed Patient also continues on antibiotics in the form of daptomycin and cefepime with infectious disease following with preliminary blood cultures showing a molecular ID and wound cultures preliminary showing gram-negative bacilli and Enterobacter Blood culture positive and has been repeated. ID on and following cultures for antibiotic management Wound care consulted for further management of the lower extremity wounds continue with santyl and dressing changes as recommended. Sepsis, present on admission most likely secondary to left lower extremity wounds that are quite extensive Patient undergoing sedation holidays to assess mentation and underwent CT of the brain yesterday showing mild atrophy with chronic appearing periventricular white matter ischemic changes with no evidence of acute intracranial hemorrhage or infarction noted. Propofol continues today. Cardiology following making adjustments to medications and EF noted to be 50% with moderate right atrial enlargement, severe left atrial enlargement, mild to moderate mitral regurgitation and mild to moderate aortic regurgitation with tricuspid regurgitation as well. Nephrology following and patient will continue on sodium bicarb Hematology following as well as vascular surgery and wound care. Undergoing DIC workup Will follow-up on repeat labs. Tube feedings being initiated and will monitor tolerance Will add sliding scale insulin Zarxio added and will monitor labs. Patient to receive a second unit of platelets today. Due to multiple complex medical issues, overall prognosis is critical and guarded at this time CODE STATUS addressed and patient remains full code The impression and plan of care has been dictated by Alize Masters, Nurse Practitioner as directed. Dr. Mindi MD I have performed a history and physical examination and medical decision making of this patient, discussed the same with the dictator, and agree with the dictators assessment and plan as written, documented as a scribe. Based on total visit time, I have performed more than 50% of this visit. Objective - Vital Signs Vital signs: Vital Signs Temp 99 F 01/10/24 07:44 Pulse 112 H 01/10/24 07:53 Resp 17 01/10/24 07:00 BP 133/59 01/10/24 07:44 Pulse Ox 99 01/10/24 07:00 FiO2 35 01/10/24 07:41 Intake & Output 01/09/24 01/10/24 01/10/24 18:59 06:59 18:59 Intake Total 5951.572 2985.711 139 Output Total 1210 1220 125 Balance 713.545 997.711 14 Weight 105.7 kg Intake: IV 1426 1176 98 0.9 Pressure Bag 36 36 3 0.9 at KVO 240 240 20 Cefepime 1 gm In Sodium 50 Chloride 0.9% 50 ml @ 12. 5 mls/hr IVPB Q12HR [facility] Rx#:[id number] DAPTOmycin 500 mg In 50 Sodium Chloride 0.9% 50 ml @ 100 mls/hr IVPB Q48H [facility] Rx#:[id number] Dextrose 5% in Water 1, 250 000 ml @ 125 mls/hr IV . Q9H12M [facility] with Sodium Bicarb (1 Meq/ml) 150 ml Rx#:[id number] Phytonadione 5 mg In 50 Sodium Chloride 0.9% 50 ml @ 100 mls/hr IVPB ONCE [facility] Rx#:[id number] Sodium Chloride 0.9% 1, 750 900 75 000 ml @ 75 mls/hr IV . [id number] [facility] Rx#:[id number] Intake, IV Titration 137.545 226.711 Amount Norepinephrine 32 mg In 0 109.830 Sodium Chloride 0.9% 218 ml @ 0.03 MCG/KG/MIN 1. 358 mls/hr IV .Q24H [facility] Rx#:[id number] Vasopressin 20 unit In 81.855 51 Sodium Chloride 0.9% 50 ml @ 0.03 UNITS/MIN 4.59 mls/hr IV .Q11H7M [facility] Rx# :[id number] propofoL 1,000 mg In 55.690 65.881 Empty Bag 1 bag @ 15 MCG/ KG/MIN 8.694 mls/hr IV . [id number] [facility] Rx#:[id number] Tube Feeding 360 481 41 Blood Product 334 0 Platelet Pheresis Pas 334 Psoralen Unit [id number] Platelet Pheresis Pas 0 Psoralen Unit [id number] Output: Urine 1210 1220 125 Other: Voiding Method Indwelling Catheter Indwelling Catheter # Bowel Movements 1 ABP, PAP, CO, CI - Last Documented Arterial Blood Pressure 132/63 - Labs CBC & Chem 7: 01/10/24 11:00 01/10/24 11:00 Labs: Abnormal Lab Results - Last 24 Hours (Table) 01/09/24 01/09/24 01/09/24 Range/Units 12:00 12:10 23:29 WBC 0.5 L* (3.8-10.6) k/uL RBC 2.66 L (4.30-5.90) m/uL Hgb 8.4 L (13.0-17.5) gm/dL Hct 25.7 L (39.0-53.0) % RDW 16.7 H (11.5-15.5) % Plt Count 15 L* (150-450) k/uL ABG pH (7.35-7.45) ABG pCO2 (35-45) mmHg ABG pO2 (83-108) mmHg ABG Total CO2 (19-24) mmol/L ABG O2 Saturation (94-97) % Potassium (3.5-5.1) mmol/L BUN (9-20) mg/dL Creatinine (0.66-1.25) mg/dL Glucose (74-99) mg/dL POC Glucose (mg/dL) 118 H 135 H (70-110) mg/dL Calcium (8.4-10.2) mg/dL Total Bilirubin (0.2-1.3) mg/dL AST (17-59) U/L Total Protein (6.3-8.2) g/dL Albumin (3.5-5.0) g/dL 01/10/24 01/10/24 01/10/24 Range/Units 05:05 05:13 05:15 WBC 0.3 L* (3.8-10.6) k/uL RBC 2.63 L (4.30-5.90) m/uL Hgb 8.2 L (13.0-17.5) gm/dL Hct 25.3 L (39.0-53.0) % RDW 16.7 H (11.5-15.5) % Plt Count 12 L* (150-450) k/uL ABG pH 7.51 H (7.35-7.45) ABG pCO2 31 L (35-45) mmHg ABG pO2 120 H (83-108) mmHg ABG Total CO2 26 H (19-24) mmol/L ABG O2 Saturation 99.3 H (94-97) % Potassium (3.5-5.1) mmol/L BUN (9-20) mg/dL Creatinine (0.66-1.25) mg/dL Glucose (74-99) mg/dL POC Glucose (mg/dL) 158 H (70-110) mg/dL Calcium (8.4-10.2) mg/dL Total Bilirubin (0.2-1.3) mg/dL AST (17-59) U/L Total Protein (6.3-8.2) g/dL Albumin (3.5-5.0) g/dL 01/10/24 Range/Units 06:00 WBC (3.8-10.6) k/uL RBC (4.30-5.90) m/uL Hgb (13.0-17.5) gm/dL Hct (39.0-53.0) % RDW (11.5-15.5) % Plt Count (150-450) k/uL ABG pH (7.35-7.45) ABG pCO2 (35-45) mmHg ABG pO2 (83-108) mmHg ABG Total CO2 (19-24) mmol/L ABG O2 Saturation (94-97) % Potassium 2.9 L (3.5-5.1) mmol/L BUN 168 H* (9-20) mg/dL Creatinine 2.29 H (0.66-1.25) mg/dL Glucose 139 H (74-99) mg/dL POC Glucose (mg/dL) (70-110) mg/dL Calcium 7.4 L (8.4-10.2) mg/dL Total Bilirubin 5.0 H (0.2-1.3) mg/dL AST 66 H (17-59) U/L Total Protein 4.3 L (6.3-8.2) g/dL Albumin 1.8 L (3.5-5.0) g/dL Microbiology - Last 24 Hours (Table) 01/07/24 19:33 Blood Culture Gram Stain - Preliminary Blood Blood Culture - Preliminary Presumptive Staph aureus Molecular ID 01/07/24 09:05 Gram Stain - Preliminary Leg - Left Wound Culture - Preliminary Group D Enterococcus Escherichia coli Presumptive Staph aureus 01/07/24 09:05 Anaerobic Culture - Preliminary Leg - Left 01/07/24 19:55 Urine Culture - Final Urine,Catheterized Assessment and Plan Time with Patient: Less than 30
[2024-01-10 17:26] LABS: Glucose,Whole Blood 111 mg/dL (70-110)
[2024-01-10] MEDS: INSULIN ASPART (NovoLOG) 100 UNIT/ML VIAL SQ SCH (17:55)
[2024-01-10] MEDS: DILTIAZEM 125 MG in SODIUM CHLORIDE 0.9% 100 ML IV SCH (18:38)
[2024-01-10] MEDS: DILTIAZEM DRIP BOLUS FROM BAG 1 MG SOLN IV ONE (18:39)
[2024-01-10] MEDS: METOPROLOL TARTRATE 50 MG TAB PO SCH (20:18)
[2024-01-10] MEDS: HYDROCORTISONE SUCCINATE 100 MG/2 ML VIAL IV SCH (20:18)
--- NOTE | 2024-01-10 23:10 | PN ---
PROGRESS NOTE SUBJECTIVE: Hardik is an is 73-year-old gentleman with complex and multiple medical problems, is admitted to hospital with sepsis wound involving lower extremity, permanent atrial fibrillation, acute renal failure and Staph aureus septicemia with hypotension and developed worsening respiratory distress and had to be intubated and is on the ventilator. The patient has pancytopenia including profound leukopenia and thrombocytopenia. Cardiology is involved in his care because of his history of atrial fibrillation. On his initial presentation, the patient had coagulopathy with elevated INR and received both vitamin K and FFP. I am following the patient primarily for his atrial fibrillation. At the time of my evaluation today, the patient is intubated on vent and while he is responding to his name, he is not following commands fully. His renal failure is not improving. His BUN remains elevated while the creatinine is improving and he is still making urine. His heart rate is poorly controlled. He is currently on 25 mg of metoprolol 3 times a day and I will increase it to 650 mg b.i.d. for better control. His blood pressures are better and his need for pressors is improving. OBJECTIVE: VITAL SIGNS: On exam, heart rate is varying between 101 to 120, blood pressure is 124/59, respiratory rate is 18. The patient is intubated on vent with an FiO2 of 35%. O2 saturation is 98%. CHEST: Does not reveal any crackles or rhonchi. HEART: Reveals first and second heart sounds, irregular rhythm and a systolic murmur at the apex. ABDOMEN: Soft. EXTREMITIES: Reveal bilateral chronic stasis changes. Areas of ecchymoses over both upper and lower extremities with lower extremity ulcers and erythema. LABORATORY DATA: Labs this morning show that the white cell count is 0.3, platelet count is 15, hemoglobin is 7.5. INR is 1.4. Potassium is 3.6, BUN is 170, creatinine is 2. ASSESSMENT: 1. Permanent atrial fibrillation with poorly controlled ventricular rate. 2. Staph aureus septicemia with septic shock. 3. Acute renal failure. 4. Pancytopenia. PLAN: From cardiac standpoint, I will try to better control the heart rate with increasing the dose of metoprolol. His chest x-ray does not reveal any evidence of pulmonary edema. He is not a candidate for anticoagulation given the profound thrombocytopenia. MMODL / IJN: [id number] /
[2024-01-10 23:18] LABS: Glucose,Whole Blood 107 mg/dL (70-110)
[2024-01-11 04:58] LABS: Anisocytosis Slight; HCT 24.9 % (39.0-53.0); MCV 97.1 fL (80.0-100.0); Macrocytosis Slight; RBC 2.57 m/uL (4.30-5.90); RDW 16.8 % (11.5-15.5)
[2024-01-11 05:02] LABS: African American GFR (CKD) 38 (>60 ml/min/1.73 sqM); Anion Gap 12 mmol/L; Calcium 8.1 mg/dL (8.4-10.2); Carbon Dioxide 23 mmol/L (22-30); Chloride 112 mmol/L (98-107); Glucose 108 mg/dL (74-99); Non-African American GFR(CKD) 33 (>60 ml/min/1.73 sqM); Potassium 3.9 mmol/L (3.5-5.1); Sodium 147 mmol/L (137-145)
[2024-01-11 05:20] LABS: Blood Urea Nitrogen 176 mg/dL (9-20)
[2024-01-11 05:22] LABS: INR 1.5 (<1.2); Partial Thromboplastin Time 36.2 sec (22.0-30.0); Prothrombin Time 15.8 sec (10.0-12.5)
[2024-01-11 05:47] LABS: WBC 0.5 k/uL (3.8-10.6)
[2024-01-11 06:10] LABS: ABG Base Excess 3.1 mmol/L; ABG HCO3 25 mmol/L (21-25); ABG Oxygen Saturation 99.4 % (94-97); ABG PCO2 29 mmHg (35-45); ABG PH 7.55 (7.35-7.45); ABG PO2 118 mmHg (83-108); ABG TCO2 26 mmol/L (19-24); Allen Test Performed? Yes
[2024-01-11 06:10] LABS: Glucose,Whole Blood 112 mg/dL (70-110)
[2024-01-11 06:22] LABS: Crenated RBC Present; Ovalocytes Present
[2024-01-11] MEDS ORDERED: DILTIAZEM 125 MG in SODIUM CHLORIDE 0.9% 100 ML IV SCH (06:23)
--- NOTE | 2024-01-11 07:25 | XR ---
EXAMINATION TYPE: XR chest 1V portable DATE OF EXAM: 01/11/2024 COMPARISON: 01/10/2024 INDICATION: Respiratory failure TECHNIQUE: Single frontal view of the chest is obtained. FINDINGS: The heart size is normal. The pulmonary vasculature is normal. Left lower lobe infiltrate is present. Findings are worsening from comparison. Correlate for pneumoni a. Follow-up is recommended. Endotracheal tube is 5.4 cm above the hayder. Nasogastric tube tip is in the left upper quadrant of t he abdomen. IMPRESSION: 1. Worsening left lower lobe infiltrate. Correlate for pneumonia. 2. Lines and catheters discussed above.
--- NOTE | 2024-01-11 09:09 | P.PN ---
Subjective Progress Note Date: 01/11/24 The patient is a 73-year-old male who was admitted to the hospital with sepsis. Cardiology has been consulted for atrial fibrillation. Patient was started on oral beta-blockers, but continues to have elevations in heart rate. Patient is currently intubated and sedated on ventilator. He has severe pancytopenia and therefore is not a candidate for anticoagulation. GENERAL: Well-appearing, well-nourished and in no acute distress. Sedated on ventilator NECK: Supple without JVD or thyromegaly. LUNGS: Breath sounds coarse to auscultation bilaterally. Respiration equal and unlabored. No wheezes, rales or rhonchi. HEART: Irregular rate and rhythm. Soft systolic murmur. S1 and S2 heard. EXTREMITIES: Normal range of motion. Hyperpigmentation noted bilaterally. TELEMETRY: Persistent atrial fibrillation with heart rates in the 1 teens to 120s LABS: WBC 0.5, hemoglobin 8.0, hematocrit 24.9, platelets 7, sodium 147, potassium 3.9, BUN 176, creatinine 1.98 IMPRESSION: Persistent atrial fibrillation, poorly controlled rates Staff aureus septicemia with septic shock Acute renal failure Pancytopenia PLAN: Increase metoprolol to 50 mg 3 times a day Continue supportive treatment Further recommendations to be based on clinical course I am dictating on behalf of Dr Sae De's history/physical and assessment/plan. Objective - Vital Signs Vital signs: Vital Signs Temp 99.0 F 01/11/24 04:00 Pulse 122 H 01/11/24 07:42 Resp 22 01/11/24 07:00 BP 133/59 01/10/24 07:44 Pulse Ox 98 01/11/24 07:00 FiO2 35 01/11/24 07:25 Intake & Output 01/10/24 01/11/24 01/11/24 18:59 06:59 18:59 Intake Total 2193.481 1604.942 129 Output Total 1460 1110 75 Balance 733.481 494.942 54 Intake: IV 1066 1056 88 0.9 Pressure Bag 36 36 3 0.9 at KVO 130 120 10 Sodium Chloride 0.9% 1, 900 900 75 000 ml @ 75 mls/hr IV . [id number] [facility] Rx#:[id number] Intake, IV Titration 293.481 56.942 Amount Ampicillin-Sulbactam 3 gm 50 In Sodium Chloride 0.9% 100 ml @ 200 mls/hr IVPB Q12HR [facility] Rx#:[id number] Norepinephrine 32 mg In 80.373 56.942 Sodium Chloride 0.9% 218 ml @ 0.03 MCG/KG/MIN 1. 358 mls/hr IV .Q24H [facility] Rx#:[id number] Potassium Chloride 20 meq 100 In Water For Injection 1 100ml.bag @ 50 mls/hr IVPB Q2H [facility] Rx#: [id number] Vasopressin 20 unit In 45.671 Sodium Chloride 0.9% 50 ml @ 0.03 UNITS/MIN 4.59 mls/hr IV .Q11H7M [facility] Rx# :[id number] propofoL 1,000 mg In 17.437 Empty Bag 1 bag @ 15 MCG/ KG/MIN 8.694 mls/hr IV . [id number] [facility] Rx#:[id number] Tube Feeding 492 492 41 Blood Product 342 Platelet Pheresis Pas 342 Psoralen Unit [id number] Output: Urine 1460 1110 75 Other: Voiding Method Indwelling Catheter Indwelling Catheter # Bowel Movements 1 ABP, PAP, CO, CI - Last Documented Arterial Blood Pressure 124/53 - Labs CBC & Chem 7: 01/11/24 03:51 01/11/24 03:51 Labs: Abnormal Lab Results - Last 24 Hours (Table) 01/10/24 01/10/24 01/10/24 Range/Units 11:00 11:00 11:00 WBC 0.3 L* (3.8-10.6) k/uL RBC 2.41 L (4.30-5.90) m/uL Hgb 7.5 L (13.0-17.5) gm/dL Hct 23.3 L (39.0-53.0) % RDW 16.6 H (11.5-15.5) % Plt Count 15 L* (150-450) k/uL PT 14.2 H (10.0-12.5) sec INR 1.4 H (<1.2) APTT 36.4 H (22.0-30.0) sec Sodium (137-145) mmol/L Chloride 109 H (98-107) mmol/L BUN 171 H* (9-20) mg/dL Creatinine 2.04 H (0.66-1.25) mg/dL Glucose 138 H (74-99) mg/dL POC Glucose (mg/dL) (70-110) mg/dL Calcium 7.8 L (8.4-10.2) mg/dL 01/10/24 01/10/24 01/11/24 Range/Units 12:17 17:25 03:51 WBC 0.5 L* (3.8-10.6) k/uL RBC 2.57 L (4.30-5.90) m/uL Hgb 8.0 L (13.0-17.5) gm/dL Hct 24.9 L (39.0-53.0) % RDW 16.8 H (11.5-15.5) % Plt Count 7 L* D (150-450) k/uL PT (10.0-12.5) sec INR (<1.2) APTT (22.0-30.0) sec Sodium (137-145) mmol/L Chloride (98-107) mmol/L BUN (9-20) mg/dL Creatinine (0.66-1.25) mg/dL Glucose (74-99) mg/dL POC Glucose (mg/dL) 146 H 111 H (70-110) mg/dL Calcium (8.4-10.2) mg/dL 01/11/24 01/11/24 01/11/24 Range/Units 03:51 03:51 06:08 WBC (3.8-10.6) k/uL RBC (4.30-5.90) m/uL Hgb (13.0-17.5) gm/dL Hct (39.0-53.0) % RDW (11.5-15.5) % Plt Count (150-450) k/uL PT 15.8 H (10.0-12.5) sec INR 1.5 H (<1.2) APTT 36.2 H (22.0-30.0) sec Sodium 147 H (137-145) mmol/L Chloride 112 H (98-107) mmol/L BUN 176 H* (9-20) mg/dL Creatinine 1.98 H (0.66-1.25) mg/dL Glucose 108 H (74-99) mg/dL POC Glucose (mg/dL) 112 H (70-110) mg/dL Calcium 8.1 L (8.4-10.2) mg/dL Microbiology - Last 24 Hours (Table) 01/07/24 19:33 Blood Culture Gram Stain - Final Blood Blood Culture - Final Staphylococcus aureus Molecular ID 01/07/24 09:05 Gram Stain - Final Leg - Left Wound Culture - Final Enterococcus faecalis Escherichia coli Staphylococcus aureus
[2024-01-11] MEDS: POTASSIUM CHLORIDE 10 MEQ in WATER FOR INJECTION 1 100ML.BAG IVPB SCH (09:57)
--- NOTE | 2024-01-11 11:11 | P.GSCN ---
History of Present Illness Consult date: 01/11/24 Reason for Consult: Hemodialysis catheter Requesting physician: Carlo Bustamante History of present illness: This is a 73-year-old male who had presented to the emergency department with complaints of left arm pain after working out. He has a past medical history of atrial fibrillation on Coumadin, rheumatoid arthritis, diabetes mellitus and hypertension. On initial evaluation patient had significantly abnormal labs and was hypotensive. He was admitted to the ICU. Patient also was noted to have lower extremity wounds which vascular surgery had evaluated and recommended wound care with no indication for any vascular surgical intervention. Patient was subsequently intubated and currently is now intubated and sedated. He is on multiple medications with multiple consultants. He has acute kidney injury and is being followed by nephrology, vascular surgery was consulted for hemodialysis catheter. Unfortunately patient has been severely thrombocytopenic and platelets are currently at 7000. Today's labs WBC 0.5 hemoglobin 8.0 platelet count 7000 INR 1.5 sodium 147 potassium 3.9 BUN 176 creatinine 1.98 Review of Systems ROS unobtainable: due to endotracheal tube Past Medical History Past Medical History: Atrial Fibrillation, Heart Failure, Diabetes Mellitus, Hypertension Additional Past Medical History / Comment(s): Gout History of Any Multi-Drug Resistant Organisms: None Reported Past Surgical History: Orthopedic Surgery Additional Past Surgical History / Comment(s): cardiac ablation, pain pump in lower back (hockey puck size) Past Psychological History: No Psychological Hx Reported Smoking Status: Former smoker Past Alcohol Use History: None Reported Past Drug Use History: None Reported Medications and Allergies Home Medications Medication Instructions Recorded Confirmed Type Ascorbic Acid/Multivit-Min 1,000 mg PO DAILY 01/05/24 01/05/24 History [Emergen-C 1,000 mg Packet] Cholecalciferol [Vitamin D3 (25 50 mcg PO DAILY 01/05/24 01/05/24 History Mcg = 1000 Iu)] Colchicine 0.6 mg PO DAILY 01/05/24 01/05/24 History Cyanocobalamin (Vitamin B-12) 1,000 mcg PO DAILY 01/05/24 01/05/24 History [Vitamin B-12] Empagliflozin [Jardiance] 10 mg PO DAILY 01/05/24 01/05/24 History Folic Acid 1 mg PO DAILY 01/05/24 01/05/24 History Furosemide [Lasix] 40 mg PO BID 01/05/24 01/05/24 History Glucosa Yeh 2Kcl/Chondroitin Yeh 1 cap PO BID 01/05/24 01/05/24 History [Glucosamine-Chondroitin Cap] L.acidoph,Paracasei, B.lactis 1 cap PO DAILY 01/05/24 01/05/24 History [Probiotic] Magnesium Oxide [Mag-Ox] 400 mg PO DAILY 01/05/24 01/05/24 History Potassium Chloride ER [K-Dur 10] 20 meq PO BID 01/05/24 01/05/24 History Super Beets 1 scoop PO DAILY 01/05/24 01/05/24 History Tart Bourne 2 tab PO DAILY 01/05/24 01/05/24 History Warfarin [Coumadin] 2.5 mg PO [id number] 01/05/24 01/05/24 History Warfarin [Coumadin] 5 mg PO YEH 01/05/24 01/05/24 History allopurinoL [Zyloprim] 300 mg PO W/SUPPER 01/05/24 01/05/24 History atenoloL [Tenormin] 50 mg PO DAILY 01/05/24 01/05/24 History calcitrioL [Rocaltrol] 0.25 mcg PO MOFR 01/05/24 01/05/24 History lisinopriL [Zestril] 5 mg PO PC-LUNCH 01/05/24 01/05/24 History metHOTREXate sodium [Methotrexate] 17.5 mg PO SA 01/05/24 01/05/24 History metOLazone [Zaroxolyn] 2.5 mg PO MOWEFR 01/05/24 01/05/24 History methIMAzole [Tapazole] 2.5 mg PO Q2D 01/05/24 01/05/24 History Allergies Allergy/AdvReac Type Severity Reaction Status Date / Time No Known Allergies Allergy Verified 01/05/24 20:31 Surgical - Exam Vital Signs Temp Pulse Resp BP Pulse Ox 97.3 F L 70 18 95/51 100 01/05/24 15:59 01/05/24 15:59 01/05/24 15:59 01/05/24 15:59 01/05/24 15:59 General appearance: The patient is intubated and sedated. HET: Head is normocephalic and atraumatic. Neck: Supple. Heart: Regular. Lungs: Equal expansion, normal respiratory effort. Abdomen: Soft, nontender, nondistended. Extremities: Normal skin color and turgor. Dressing clean dry and intact. Neurological: Intubated and sedated. Results - Labs 01/11/24 03:51 01/11/24 03:51 Abnormal Lab Results - Last 24 Hours (Table) 01/10/24 01/10/24 01/10/24 Range/Units 11:00 11:00 11:00 WBC 0.3 L* (3.8-10.6) k/uL RBC 2.41 L (4.30-5.90) m/uL Hgb 7.5 L (13.0-17.5) gm/dL Hct 23.3 L (39.0-53.0) % RDW 16.6 H (11.5-15.5) % Plt Count 15 L* (150-450) k/uL PT 14.2 H (10.0-12.5) sec INR 1.4 H (<1.2) APTT 36.4 H (22.0-30.0) sec Sodium (137-145) mmol/L Chloride 109 H (98-107) mmol/L BUN 171 H* (9-20) mg/dL Creatinine 2.04 H (0.66-1.25) mg/dL Glucose 138 H (74-99) mg/dL POC Glucose (mg/dL) (70-110) mg/dL Calcium 7.8 L (8.4-10.2) mg/dL 01/10/24 01/10/24 01/11/24 Range/Units 12:17 17:25 03:51 WBC 0.5 L* (3.8-10.6) k/uL RBC 2.57 L (4.30-5.90) m/uL Hgb 8.0 L (13.0-17.5) gm/dL Hct 24.9 L (39.0-53.0) % RDW 16.8 H (11.5-15.5) % Plt Count 7 L* D (150-450) k/uL PT (10.0-12.5) sec INR (<1.2) APTT (22.0-30.0) sec Sodium (137-145) mmol/L Chloride (98-107) mmol/L BUN (9-20) mg/dL Creatinine (0.66-1.25) mg/dL Glucose (74-99) mg/dL POC Glucose (mg/dL) 146 H 111 H (70-110) mg/dL Calcium (8.4-10.2) mg/dL 01/11/24 01/11/24 01/11/24 Range/Units 03:51 03:51 06:08 WBC (3.8-10.6) k/uL RBC (4.30-5.90) m/uL Hgb (13.0-17.5) gm/dL Hct (39.0-53.0) % RDW (11.5-15.5) % Plt Count (150-450) k/uL PT 15.8 H (10.0-12.5) sec INR 1.5 H (<1.2) APTT 36.2 H (22.0-30.0) sec Sodium 147 H (137-145) mmol/L Chloride 112 H (98-107) mmol/L BUN 176 H* (9-20) mg/dL Creatinine 1.98 H (0.66-1.25) mg/dL Glucose 108 H (74-99) mg/dL POC Glucose (mg/dL) 112 H (70-110) mg/dL Calcium 8.1 L (8.4-10.2) mg/dL Microbiology - Last 24 Hours (Table) 01/07/24 19:33 Blood Culture Gram Stain - Final Blood Blood Culture - Final Staphylococcus aureus Molecular ID 01/07/24 09:05 Gram Stain - Final Leg - Left Wound Culture - Final Enterococcus faecalis Escherichia coli Staphylococcus aureus Diabetes panel 01/10/24 01/11/24 Range/Units 11:00 03:51 Sodium 144 147 H (137-145) mmol/L Potassium 3.6 3.9 (3.5-5.1) mmol/L Chloride 109 H 112 H (98-107) mmol/L Carbon Dioxide 24 23 (22-30) mmol/L BUN 171 H* 176 H* (9-20) mg/dL Creatinine 2.04 H 1.98 H (0.66-1.25) mg/dL Glucose 138 H 108 H (74-99) mg/dL Calcium 7.8 L 8.1 L (8.4-10.2) mg/dL Calcium panel 01/10/24 01/11/24 Range/Units 11:00 03:51 Calcium 7.8 L 8.1 L (8.4-10.2) mg/dL Pituitary panel 01/10/24 01/11/24 Range/Units 11:00 03:51 Sodium 144 147 H (137-145) mmol/L Potassium 3.6 3.9 (3.5-5.1) mmol/L Chloride 109 H 112 H (98-107) mmol/L Carbon Dioxide 24 23 (22-30) mmol/L BUN 171 H* 176 H* (9-20) mg/dL Creatinine 2.04 H 1.98 H (0.66-1.25) mg/dL Glucose 138 H 108 H (74-99) mg/dL Calcium 7.8 L 8.1 L (8.4-10.2) mg/dL Adrenal panel 01/10/24 01/11/24 Range/Units 11:00 03:51 Sodium 144 147 H (137-145) mmol/L Potassium 3.6 3.9 (3.5-5.1) mmol/L Chloride 109 H 112 H (98-107) mmol/L Carbon Dioxide 24 23 (22-30) mmol/L BUN 171 H* 176 H* (9-20) mg/dL Creatinine 2.04 H 1.98 H (0.66-1.25) mg/dL Glucose 138 H 108 H (74-99) mg/dL Calcium 7.8 L 8.1 L (8.4-10.2) mg/dL Assessment and Plan Assessment: 1. Sepsis/septic shock 2. Acute on chronic kidney injury 3. Pancytopenia, with profound thrombocytopenia 4. History of atrial fibrillation who was on Coumadin with supratherapeutic INR 5. Left lower extremity wound status post injury and hematoma evacuation Plan: Patient was seen and examined. Patient with profound thrombocytopenia with platelet count of 7000. Patient not stable at this time to undergo dialysis cat heter placement. We will certainly continue to follow. Continue with recommendations from hematology. Continue with recommendations from multiple consultants. The impression and plan of care has been dictated as directed. I performed a history and examination of this patient, discussed the same with the dictator. I agree with the dictator's note ,documented as a scribe. Any additional findings or plans will be noted.
--- NOTE | 2024-01-11 11:11 | P.PN ---
Subjective Patient is seen in follow-up for acute kidney injury on chronic kidney disease. Creatinine trending down. Nonoliguric. Intubated. Receiving tube feeds. Remains on Levophed. Vasopressin discontinued. Vital signs are stable. On vasopressor support. General: Resting in bed. HEENT: Intubated. LUNGS: Scattered rhonchi. HEART: Rate and Rhythm are regular. ABDOMEN: No distention. Soft. EXTREMITITES: Left lower extremity wrapped. No drainage. Wounds noted. Trace edema. Objective - Vital Signs Vital signs: Vital Signs Temp 99.0 F 01/11/24 04:00 Pulse 122 H 01/11/24 07:42 Resp 22 01/11/24 07:00 BP 107/45 01/10/24 09:15 Pulse Ox 98 01/11/24 07:00 FiO2 35 01/11/24 07:25 Intake & Output 01/10/24 01/11/24 01/11/24 18:59 06:59 18:59 Intake Total 2193.481 1604.942 129 Output Total 1460 1110 75 Balance 733.481 494.942 54 Intake: IV 1066 1056 88 0.9 Pressure Bag 36 36 3 0.9 at KVO 130 120 10 Sodium Chloride 0.9% 1, 900 900 75 000 ml @ 75 mls/hr IV . [id number] [facility] Rx#:[id number] Intake, IV Titration 293.481 56.942 Amount Ampicillin-Sulbactam 3 gm 50 In Sodium Chloride 0.9% 100 ml @ 200 mls/hr IVPB Q12HR [facility] Rx#:[id number] Norepinephrine 32 mg In 80.373 56.942 Sodium Chloride 0.9% 218 ml @ 0.03 MCG/KG/MIN 1. 358 mls/hr IV .Q24H [facility] Rx#:[id number] Potassium Chloride 20 meq 100 In Water For Injection 1 100ml.bag @ 50 mls/hr IVPB Q2H [facility] Rx#: [id number] Vasopressin 20 unit In 45.671 Sodium Chloride 0.9% 50 ml @ 0.03 UNITS/MIN 4.59 mls/hr IV .Q11H7M [facility] Rx# :[id number] propofoL 1,000 mg In 17.437 Empty Bag 1 bag @ 15 MCG/ KG/MIN 8.694 mls/hr IV . [id number] [facility] Rx#:[id number] Tube Feeding 492 492 41 Blood Product 342 0 Unit 0 Platelet Pheresis Pas 342 Psoralen Unit [id number] Output: Urine 1460 1110 75 Other: Voiding Method Indwelling Catheter Indwelling Catheter # Bowel Movements 1 ABP, PAP, CO, CI - Last Documented Arterial Blood Pressure 124/53 - Labs CBC & Chem 7: 01/11/24 03:51 01/11/24 03:51 Labs: Abnormal Lab Results - Last 24 Hours (Table) 01/10/24 01/10/24 01/10/24 Range/Units 11:00 11:00 11:00 WBC 0.3 L* (3.8-10.6) k/uL RBC 2.41 L (4.30-5.90) m/uL Hgb 7.5 L (13.0-17.5) gm/dL Hct 23.3 L (39.0-53.0) % RDW 16.6 H (11.5-15.5) % Plt Count 15 L* (150-450) k/uL PT 14.2 H (10.0-12.5) sec INR 1.4 H (<1.2) APTT 36.4 H (22.0-30.0) sec Sodium (137-145) mmol/L Chloride 109 H (98-107) mmol/L BUN 171 H* (9-20) mg/dL Creatinine 2.04 H (0.66-1.25) mg/dL Glucose 138 H (74-99) mg/dL POC Glucose (mg/dL) (70-110) mg/dL Calcium 7.8 L (8.4-10.2) mg/dL 01/10/24 01/10/24 01/11/24 Range/Units 12:17 17:25 03:51 WBC 0.5 L* (3.8-10.6) k/uL RBC 2.57 L (4.30-5.90) m/uL Hgb 8.0 L (13.0-17.5) gm/dL Hct 24.9 L (39.0-53.0) % RDW 16.8 H (11.5-15.5) % Plt Count 7 L* D (150-450) k/uL PT (10.0-12.5) sec INR (<1.2) APTT (22.0-30.0) sec Sodium (137-145) mmol/L Chloride (98-107) mmol/L BUN (9-20) mg/dL Creatinine (0.66-1.25) mg/dL Glucose (74-99) mg/dL POC Glucose (mg/dL) 146 H 111 H (70-110) mg/dL Calcium (8.4-10.2) mg/dL 01/11/24 01/11/24 01/11/24 Range/Units 03:51 03:51 06:08 WBC (3.8-10.6) k/uL RBC (4.30-5.90) m/uL Hgb (13.0-17.5) gm/dL Hct (39.0-53.0) % RDW (11.5-15.5) % Plt Count (150-450) k/uL PT 15.8 H (10.0-12.5) sec INR 1.5 H (<1.2) APTT 36.2 H (22.0-30.0) sec Sodium 147 H (137-145) mmol/L Chloride 112 H (98-107) mmol/L BUN 176 H* (9-20) mg/dL Creatinine 1.98 H (0.66-1.25) mg/dL Glucose 108 H (74-99) mg/dL POC Glucose (mg/dL) 112 H (70-110) mg/dL Calcium 8.1 L (8.4-10.2) mg/dL Microbiology - Last 24 Hours (Table) 01/07/24 19:33 Blood Culture Gram Stain - Final Blood Blood Culture - Final Staphylococcus aureus Molecular ID 01/07/24 09:05 Gram Stain - Final Leg - Left Wound Culture - Final Enterococcus faecalis Escherichia coli Staphylococcus aureus Assessment and Plan Plan: Assessment: 1. Acute kidney injury secondary to ATN secondary to septic shock. Creatinine 3.9 on admission and is improved to 1.98 today. Nonoliguric. No hydronephrosis noted on kidney ultrasound also left kidney was not visualized. Disproportionately elevated BUN partially due to steroids. Questionable GI bleed. Hemoglobin fairly stable. 2. Chronic kidney disease stage IIIb with baseline creatinine near 2 secondary to cardiorenal syndrome. 3. Septic shock secondary to lower extremity wounds. Wound culture positive for group D Enterococcus. Blood cultures positive for gram-positive cocci. On antibiotics. ID following. 4. Chronic diastolic CHF with mild to moderate mitral and aortic regurgitation. 5. Pancytopenia. Concern for DIC as well as methotrexate toxicity. Hematology oncology following. 6. Rheumatoid arthritis maintained on methotrexate outpatient. 7. Acute hypoxic respiratory failure. Currently intubated. On 35% FiO2. 8. Metabolic acidosis secondary to acute kidney injury maintained on bicarb drip. Improved. Blood gas this morning suggestive of respiratory alkalosis. 9. Hypokalemia from intracellular shifting from IV bicarb and low intake. Rep laced. Better. 10. Hypernatremia from free water diuresis and lack of oral water intake. 11. A-fib with RVR maintained on Cardizem drip.. Plan: Change IV fluids to D5W at 60 cc an hour. Maintain tube feeds. Potassium being replaced. Wean vasopressors. Continue to monitor renal function and urine output. Due to high BUN and concern for uremia, plan is to attempt renal replacement therapy to see if it helps with his mentation. However patient's platelet count is significantly low and dialysis catheter cannot be placed at this time. Wean steroids as able. CT head pending.
--- NOTE | 2024-01-11 11:36 | CT ---
EXAMINATION TYPE: CT brain wo con CT DLP: 1272 mGycm, Automated exposure control for dose reduction was used. DATE OF EXAM: 01/11/2024 11:32 AM COMPARISON: Prior CT Brain from 01/07/2024. CLINICAL INDICATION:Male, 73 years old with history of Unresponsive, AMS TECHNIQUE: Brain: Multiple axial CT images of the brain were obtained without IV contrast. . Coronal and sagitta l reformats reviewed. FINDINGS: Brain: Extra-axial spaces: No abnormal extra-axial fluid collections. Ventricular system: Within normal limits Cerebral parenchyma: Cerebral atrophy. No acute intraparenchymal hemorrhage or mass effect. The webber -white junction is well differentiated. Scattered hypoattenuating areas are seen within the periventr icular white matter. Cerebellum: Unremarkable. Mass effect: No evidence of midline shift. Intracranial vasculature: unremarkable Soft tissues: Normal. Calvarium/osseous structures: No depressed skull fracture. Paranasal sinuses and mastoid air cells: Mild scattered paranasal sinus disease. Visualized orbits: Orbital contents are intact. IMPRESSION: 1. No acute intracranial process. No significant change from prior exam. 2. Nonspecific white matter changes, likely secondary to chronic small vessel ischemic disease.
--- NOTE | 2024-01-11 11:46 | P.PN ---
Subjective Progress Note Date: 01/11/24 Principal diagnosis: Progress note 01/11/2024 Patient was evaluated today and still remains in the ICU, intubated and mechanically ventilated. ABG showed a pO2 of 118 and pCO2 of 29 with pH 7.55. Patient continues to have pancytopenia with WBC count of 0.5, hemoglobin 8, platelet count 7000. He has received 3 units of platelets. Patient is on norepinephrine 0.03 mcg/kg/min, diltiazem 7.5 mg/h, propofol 15 mcg/kg/min, and vasopressin 0.03 units/min. Patient is receiving IV fluids 0.9 normal saline at 75 cc/h. He is also on cefepime and daptomycin for septic shock. BUN is 176, creatinine is 1.98 and sodium is 147. Chest X-ray shows worsening left lower lobe infiltrate. Plan today is to get a CT brain without contrast to rule out hemorrhage due to low platelet count. Does not respond to voice but responds to pain. Continue the same supportive measures. Objective - Vital Signs Vital signs: Vital Signs Temp 99.0 F 01/11/24 04:00 Pulse 122 H 01/11/24 07:42 Resp 22 01/11/24 07:00 BP 107/45 01/10/24 09:15 Pulse Ox 98 01/11/24 07:00 FiO2 35 01/11/24 07:25 Intake & Output 01/10/24 01/11/24 01/11/24 18:59 06:59 18:59 Intake Total 2193.481 1604.942 129 Output Total 1460 1110 75 Balance 733.481 494.942 54 Intake: IV 1066 1056 88 0.9 Pressure Bag 36 36 3 0.9 at KVO 130 120 10 Sodium Chloride 0.9% 1, 900 900 75 000 ml @ 75 mls/hr IV . [id number] [facility] Rx#:[id number] Intake, IV Titration 293.481 56.942 Amount Ampicillin-Sulbactam 3 gm 50 In Sodium Chloride 0.9% 100 ml @ 200 mls/hr IVPB Q12HR [facility] Rx#:[id number] Norepinephrine 32 mg In 80.373 56.942 Sodium Chloride 0.9% 218 ml @ 0.03 MCG/KG/MIN 1. 358 mls/hr IV .Q24H [facility] Rx#:[id number] Potassium Chloride 20 meq 100 In Water For Injection 1 100ml.bag @ 50 mls/hr IVPB Q2H [facility] Rx#: [id number] Vasopressin 20 unit In 45.671 Sodium Chloride 0.9% 50 ml @ 0.03 UNITS/MIN 4.59 mls/hr IV .Q11H7M [facility] Rx# :[id number] propofoL 1,000 mg In 17.437 Empty Bag 1 bag @ 15 MCG/ KG/MIN 8.694 mls/hr IV . [id number] [facility] Rx#:[id number] Tube Feeding 492 492 41 Blood Product 342 0 Unit 0 Platelet Pheresis Pas 342 Psoralen Unit [id number] Output: Urine 1460 1110 75 Other: Voiding Method Indwelling Catheter Indwelling Catheter # Bowel Movements 1 ABP, PAP, CO, CI - Last Documented Arterial Blood Pressure 124/53 - Exam General: Reviewed 73-year-old white male intubated, mechanically ventilated, sedated, on propofol atraumatic normocephalic. Endotracheal tube and orogastric tube intact. HEENT: Pupils are round and equally reacting to light. No scleral icterus. No conjunctival pallor. Normocephalic, atraumatic. No pharyngeal erythema. No thyromegaly Cardio vascular: Normal S1-S2, no S3 gallop, no murmur. Pulmonary: Diminished breath sounds at the bases, rhonchi no wheezes Abdomen: Obese, soft, no rebound, no guarding Musculoskeletal: No deformities Extremities: Multiple areas of ecchymosis noted in the lower extremities. Ulcer remains in the mid aspect of the left lower extremity, with significant drainage of purulent material. There is also chronic venous stasis. Neurological: Could not assess as patient is sedated. - Labs CBC & Chem 7: 01/11/24 03:51 01/11/24 03:51 Labs: Abnormal Lab Results - Last 24 Hours (Table) 01/10/24 01/10/24 01/10/24 Range/Units 11:00 11:00 11:00 WBC 0.3 L* (3.8-10.6) k/uL RBC 2.41 L (4.30-5.90) m/uL Hgb 7.5 L (13.0-17.5) gm/dL Hct 23.3 L (39.0-53.0) % RDW 16.6 H (11.5-15.5) % Plt Count 15 L* (150-450) k/uL PT 14.2 H (10.0-12.5) sec INR 1.4 H (<1.2) APTT 36.4 H (22.0-30.0) sec Sodium (137-145) mmol/L Chloride 109 H (98-107) mmol/L BUN 171 H* (9-20) mg/dL Creatinine 2.04 H (0.66-1.25) mg/dL Glucose 138 H (74-99) mg/dL POC Glucose (mg/dL) (70-110) mg/dL Calcium 7.8 L (8.4-10.2) mg/dL 01/10/24 01/10/24 01/11/24 Range/Units 12:17 17:25 03:51 WBC 0.5 L* (3.8-10.6) k/uL RBC 2.57 L (4.30-5.90) m/uL Hgb 8.0 L (13.0-17.5) gm/dL Hct 24.9 L (39.0-53.0) % RDW 16.8 H (11.5-15.5) % Plt Count 7 L* D (150-450) k/uL PT (10.0-12.5) sec INR (<1.2) APTT (22.0-30.0) sec Sodium (137-145) mmol/L Chloride (98-107) mmol/L BUN (9-20) mg/dL Creatinine (0.66-1.25) mg/dL Glucose (74-99) mg/dL POC Glucose (mg/dL) 146 H 111 H (70-110) mg/dL Calcium (8.4-10.2) mg/dL 01/11/24 01/11/24 01/11/24 Range/Units 03:51 03:51 06:08 WBC (3.8-10.6) k/uL RBC (4.30-5.90) m/uL Hgb (13.0-17.5) gm/dL Hct (39.0-53.0) % RDW (11.5-15.5) % Plt Count (150-450) k/uL PT 15.8 H (10.0-12.5) sec INR 1.5 H (<1.2) APTT 36.2 H (22.0-30.0) sec Sodium 147 H (137-145) mmol/L Chloride 112 H (98-107) mmol/L BUN 176 H* (9-20) mg/dL Creatinine 1.98 H (0.66-1.25) mg/dL Glucose 108 H (74-99) mg/dL POC Glucose (mg/dL) 112 H (70-110) mg/dL Calcium 8.1 L (8.4-10.2) mg/dL Microbiology - Last 24 Hours (Table) 01/07/24 19:33 Blood Culture Gram Stain - Final Blood Blood Culture - Final Staphylococcus aureus Molecular ID 01/07/24 09:05 Gram Stain - Final Leg - Left Wound Culture - Final Enterococcus faecalis Escherichia coli Staphylococcus aureus Assessment and Plan Assessment: Impression: Sepsis or septic shock, secondary to Staph aureus bacteremia. Pancytopenia most likely secondary to sepsis, doubt methotrexate toxicity, patient remains on leucovorin Elevated INR secondary to his supratherapeutic Coumadin Profound thrombocytopenia most likely secondary to sepsis and septic shock Left lower extremity cellulitis and large infected ulcer noted in the calf region Severe pain for left shoulder secondary to rotator cuff tear Chronic atrial fibrillation History of rheumatoid arthritis History of chronic kidney disease stage IIIb History of type 2 diabetes Acute on chronic kidney injury, most likely secondary to acute tubular necrosis, secondary to sepsis and septic shock and hypotension, suspect some GI blood loss with significant elevated ratio BUN/creatinine Hypotension secondary to sepsis or septic shock requiring pressors including norepinephrine and vasopressin History of hypothyroidism, maintained on methimazole Plan: Recommendation: CT brain without contrast to rule out hemorrhage due to low platelet count. Continue ventilatory support Continue hemodynamic support/ vasopressin and norepinephrine Continue broad-spectrum antibiotics, blood culture and wound culture noted Enterococcus faecalis, E. coli, Staph aureus. Patient remains on daptomycin and cefepime Patient remains on leucovorin Continue to hold methotrexate and methimazole Transfused with platelets Patient remains critically ill. Time with Patient: Greater than 30 (Critical care time is 35 minutes.)
--- NOTE | 2024-01-11 11:48 | P.CONS ---
History of Present Illness - Reason for Consult Consult date: 01/11/24 GI bleed Requesting physician: Alize Masters - Chief Complaint Shoulder pain - History of Present Illness This is a 73-year-old male who had presented to the emergency department with complaints of left arm pain after working out. He has a past medical history of atrial fibrillation on Coumadin, rheumatoid arthritis, diabetes mellitus and hypertension. On initial evaluation patient had significantly abnormal labs and was hypotensive. HPI obtained from chart and nursing as patient is currently intubated and sedated. He was admitted to the ICU. Patient was subsequently intubated and currently is now intubated and sedated. He is on multiple medications with multiple consultants. He has acute kidney injury and is being followed by nephrology, vascular surgery was consulted for hemodialysis catheter. Apparently patient had a black bowel movement through the night, with anemia. So gastroenterology was consulted for possible GI bleed. Unfortunately patient has been severely thrombocytopenic and platelets are currently at 7000. Hematology is following patient. DIC workup was completed which was reported as negative. He has received 3 doses of vitamin K and 2 doses of platelets. Also suspecting methotrexate toxicity 6 according to hematology Today's labs WBC 0.5 hemoglobin 8.0 platelet count 7000 INR 1.5 sodium 147 potassium 3.9 BUN 176 creatinine 1.98 Review of Systems ROS unobtainable: due to endotracheal tube Past Medical History Past Medical History: Atrial Fibrillation, Heart Failure, Diabetes Mellitus, Hypertension Additional Past Medical History / Comment(s): Gout History of Any Multi-Drug Resistant Organisms: None Reported Past Surgical History: Orthopedic Surgery Additional Past Surgical History / Comment(s): cardiac ablation, pain pump in lo [facility] back (hockey puck size) Past Psychological History: No Psychological Hx Reported Smoking Status: Former smoker Past Alcohol Use History: None Reported Past Drug Use History: None Reported Medications and Allergies Home Medications Medication Instructions Recorded Confirmed Type Ascorbic Acid/Multivit-Min 1,000 mg PO DAILY 01/05/24 01/05/24 History [Emergen-C 1,000 mg Packet] Cholecalciferol [Vitamin D3 (25 50 mcg PO DAILY 01/05/24 01/05/24 History Mcg = 1000 Iu)] Colchicine 0.6 mg PO DAILY 01/05/24 01/05/24 History Cyanocobalamin (Vitamin B-12) 1,000 mcg PO DAILY 01/05/24 01/05/24 History [Vitamin B-12] Empagliflozin [Jardiance] 10 mg PO DAILY 01/05/24 01/05/24 History Folic Acid 1 mg PO DAILY 01/05/24 01/05/24 History Furosemide [Lasix] 40 mg PO BID 01/05/24 01/05/24 History Glucosa Rondon 2Kcl/Chondroitin Rondon 1 cap PO BID 01/05/24 01/05/24 History [Glucosamine-Chondroitin Cap] L.acidoph,Paracasei, B.lactis 1 cap PO DAILY 01/05/24 01/05/24 History [Probiotic] Magnesium Oxide [Mag-Ox] 400 mg PO DAILY 01/05/24 01/05/24 History Potassium Chloride ER [K-Dur 10] 20 meq PO BID 01/05/24 01/05/24 History Super Beets 1 scoop PO DAILY 01/05/24 01/05/24 History Tart Bourne 2 tab PO DAILY 01/05/24 01/05/24 History Warfarin [Coumadin] 2.5 mg PO [id number] 01/05/24 01/05/24 History Warfarin [Coumadin] 5 mg PO RONDON 01/05/24 01/05/24 History allopurinoL [Zyloprim] 300 mg PO W/SUPPER 01/05/24 01/05/24 History atenoloL [Tenormin] 50 mg PO DAILY 01/05/24 01/05/24 History calcitrioL [Rocaltrol] 0.25 mcg PO MOFR 01/05/24 01/05/24 History lisinopriL [Zestril] 5 mg PO PC-LUNCH 01/05/24 01/05/24 History metHOTREXate sodium [Methotrexate] 17.5 mg PO SA 01/05/24 01/05/24 History metOLazone [Zaroxolyn] 2.5 mg PO MOWEFR 01/05/24 01/05/24 History methIMAzole [Tapazole] 2.5 mg PO Q2D 01/05/24 01/05/24 History Allergies Allergy/AdvReac Type Severity Reaction Status Date / Time No Known Allergies Allergy Verified 01/05/24 20:31 Physical Exam Vitals: Vital Signs Temp Pulse Resp Pulse Ox FiO2 01/11/24 07:42 122 H 07/15/24 07:28 120 H 01/11/24 07:25 35 01/11/24 07:00 107 H 22 98 01/11/24 06:00 135 H 25 H 100 01/11/24 05:00 120 H 19 100 01/11/24 04:29 117 H 01/11/24 04:13 112 H 35 01/11/24 04:00 99.0 F 140 H 20 99 01/11/24 03:00 118 H 22 99 01/11/24 02:00 113 H 22 99 01/11/24 01:02 117 H 01/11/24 01:00 126 H 28 H 98 01/11/24 00:52 124 H 01/11/24 00:47 35 01/11/24 00:00 121 H 23 99 01/10/24 23:38 122 H 25 H 99 01/10/24 23:30 112 H 23 99 01/10/24 23:15 120 H 22 100 01/10/24 23:00 112 H 22 99 01/10/24 22:45 117 H 20 99 01/10/24 22:30 108 H 21 99 01/10/24 22:15 105 H 24 99 01/10/24 22:00 115 H 20 99 01/10/24 21:45 124 H 21 98 01/10/24 21:30 125 H 27 H 98 01/10/24 21:15 120 H 21 98 01/10/24 21:00 117 H 21 99 01/10/24 20:45 118 H 22 99 01/10/24 20:30 130 H 29 H 98 01/10/24 20:15 152 H 31 H 98 01/10/24 20:00 98.5 F 121 H 24 100 01/10/24 19:52 134 H 01/10/24 19:45 124 H 25 H 95 01/10/24 19:41 137 H 01/10/24 19:39 35 01/10/24 19:30 141 H 31 H 99 01/10/24 19:15 129 H 24 100 01/10/24 19:00 144 H 26 H 99 01/10/24 18:45 152 H 25 H 99 01/10/24 18:30 142 H 20 99 01/10/24 18:15 135 H 19 99 01/10/24 18:00 140 H 22 98 01/10/24 17:45 140 H 22 97 01/10/24 17:30 130 H 21 98 01/10/24 17:15 109 H 21 98 01/10/24 17:00 131 H 21 100 01/10/24 16:45 113 H 18 100 01/10/24 16:30 112 H 14 99 01/10/24 16:15 126 H 20 100 01/10/24 16:00 98.2 F 112 H 17 100 35 01/10/24 15:45 118 H 17 99 01/10/24 15:35 115 H 01/10/24 15:31 35 01/10/24 15:30 118 H 18 99 01/10/24 15:15 112 H 17 99 01/10/24 15:00 109 H 18 99 01/10/24 14:45 124 H 20 100 01/10/24 14:30 120 H 17 99 01/10/24 14:15 123 H 16 100 01/10/24 14:00 133 H 19 100 01/10/24 13:45 121 H 18 99 01/10/24 13:30 130 H 19 98 01/10/24 13:15 117 H 12 99 01/10/24 13:00 125 H 21 99 01/10/24 12:45 118 H 20 100 01/10/24 12:30 129 H 20 100 01/10/24 12:15 122 H 18 98 01/10/24 12:00 98.8 F 114 H 16 99 35 01/10/24 11:45 126 H 16 98 01/10/24 11:30 130 H 19 99 01/10/24 11:15 114 H 14 99 01/10/24 11:10 108 H 01/10/24 11:00 108 H 15 98 01/10/24 10:58 109 H 01/10/24 10:56 35 01/10/24 10:45 121 H 15 100 01/10/24 10:30 106 H 17 99 01/10/24 10:15 120 H 16 98 01/10/24 10:00 107 H 21 96 01/10/24 09:45 126 H 16 97 01/10/24 09:30 109 H 14 97 01/10/24 09:15 114 H 17 98 01/10/24 09:00 120 H 18 99 Intake and Output 01/10/24 01/11/24 01/11/24 22:59 06:59 14:59 Intake Total 8382.618 1003.564 129 Output Total 830 705 75 Balance 348.422 363.564 54 Intake: IV 704 704 88 0.9 Pressure Bag 24 24 3 0.9 at KVO 80 80 10 Sodium Chloride 0.9% 1, 600 600 75 000 ml @ 75 mls/hr IV . [id number] JESSA Rx#:[id number] Intake, IV Titration 146.422 36.564 Amount Norepinephrine 32 mg In 100.751 36.564 Sodium Chloride 0.9% 218 ml @ 0.03 MCG/KG/MIN 1. 358 mls/hr IV .Q24H JESAS Rx#:[id number] Vasopressin 20 unit In 45.671 Sodium Chloride 0.9% 50 ml @ 0.03 UNITS/MIN 4.59 mls/hr IV .Q11H7M JESSA Rx# :[id number] Tube Feeding 328 328 41 Output: Urine 830 705 75 Other: Voiding Method Indwelling Catheter Indwelling Catheter # Bowel Movements 1 ABP, PAP, CO, CI - Last 8 Hours Arterial Blood Pressure 124/53 Arterial Blood Pressure 133/59 Arterial Blood Pressure 112/47 Arterial Blood Pressure 72/31 Arterial Blood Pressure 108/48 Arterial Blood Pressure 100/46 Arterial Blood Pressure 144/57 General appearance: The patient is sedated and intubated HET: Head is normocephalic and atraumatic. Conjunctiva pink. Sclera anicteric. Neck: Supple without lymphadenopathy. Trachea midline. Heart: Regular. Lungs: Equal expansion, normal respiratory effort. Abdomen: Soft, nondistended. Skin: No rashes. No jaundice. Extremities: Extremities with ecchymosis. Swelling. Neurological: Sedated and intubated.. Results CBC & Chem 7: 01/11/24 03:51 01/11/24 03:51 Labs: Abnormal Lab Results - Last 24 Hours (Table) 01/10/24 01/10/24 01/10/24 Range/Units 11:00 11:00 11:00 WBC 0.3 L* (3.8-10.6) k/uL RBC 2.41 L (4.30-5.90) m/uL Hgb 7.5 L (13.0-17.5) gm/dL Hct 23.3 L (39.0-53.0) % RDW 16.6 H (11.5-15.5) % Plt Count 15 L* (150-450) k/uL PT 14.2 H (10.0-12.5) sec INR 1.4 H (<1.2) APTT 36.4 H (22.0-30.0) sec Sodium (137-145) mmol/L Chloride 109 H (98-107) mmol/L BUN 171 H* (9-20) mg/dL Creatinine 2.04 H (0.66-1.25) mg/dL Glucose 138 H (74-99) mg/dL POC Glucose (mg/dL) (70-110) mg/dL Calcium 7.8 L (8.4-10.2) mg/dL 01/10/24 01/10/24 01/11/24 Range/Units 12:17 17:25 03:51 WBC 0.5 L* (3.8-10.6) k/uL RBC 2.57 L (4.30-5.90) m/uL Hgb 8.0 L (13.0-17.5) gm/dL Hct 24.9 L (39.0-53.0) % RDW 16.8 H (11.5-15.5) % Plt Count 7 L* D (150-450) k/uL PT (10.0-12.5) sec INR (<1.2) APTT (22.0-30.0) sec Sodium (137-145) mmol/L Chloride (98-107) mmol/L BUN (9-20) mg/dL Creatinine (0.66-1.25) mg/dL Glucose (74-99) mg/dL POC Glucose (mg/dL) 146 H 111 H (70-110) mg/dL Calcium (8.4-10.2) mg/dL 01/11/24 01/11/24 01/11/24 Range/Units 03:51 03:51 06:08 WBC (3.8-10.6) k/uL RBC (4.30-5.90) m/uL Hgb (13.0-17.5) gm/dL Hct (39.0-53.0) % RDW (11.5-15.5) % Plt Count (150-450) k/uL PT 15.8 H (10.0-12.5) sec INR 1.5 H (<1.2) APTT 36.2 H (22.0-30.0) sec Sodium 147 H (137-145) mmol/L Chloride 112 H (98-107) mmol/L BUN 176 H* (9-20) mg/dL Creatinine 1.98 H (0.66-1.25) mg/dL Glucose 108 H (74-99) mg/dL POC Glucose (mg/dL) 112 H (70-110) mg/dL Calcium 8.1 L (8.4-10.2) mg/dL Microbiology - Last 24 Hours (Table) 01/07/24 19:33 Blood Culture Gram Stain - Final Blood Blood Culture - Final Staphylococcus aureus Molecular ID 01/07/24 09:05 Gram Stain - Final Leg - Left Wound Culture - Final Enterococcus faecalis Escherichia coli Staphylococcus aureus Assessment and Plan (1) Anemia Narrative/Plan: 73-year-old male with multiple comorbidities came in with coagulopathy, bacteremia and sepsis. Patient is quite ill in the ICU with multiple consultants. History of atrial fibrillation on Coumadin came in with coagulopathy with supratherapeutic INR. Patient with pancytopenia and profound thrombocytopenia likely secondary to sepsis and septic shock. DIC workup negative from hematology. Patient has received multiple doses of vitamin K as well as third dose of platelets. Reported black gel like stool from nursing rule out GI bleed. Patient is not stable at this time platelet count 7000. Possible GI bleed secondary to coagulopathy possible AVM, gastritis, esophagitis peptic ulcer disease or other etiology. No plans at this time for endoscopic evaluation. Continue to monitor CBC and treat coagulopathy and thrombocytopenia per hematology. Current Visit: Yes Status: Acute Code(s): D64.9 - ANEMIA, UNSPECIFIED SNOMED Code(s): 397772447 (2) FRED (acute kidney injury) Current Visit: Yes Status: Acute Priority: High Code(s): N17.9 - ACUTE KIDNEY FAILURE, UNSPECIFIED SNOMED Code(s): 03926451 (3) Coagulopathy Current Visit: Yes Status: Acute Priority: High Code(s): D68.9 - COAGULATION DEFECT, UNSPECIFIED SNOMED Code(s): 32950185 (4) Pancytopenia Current Visit: Yes Status: Acute Priority: High Code(s): D61.818 - OTHER PANCYTOPENIA SNOMED Code(s): 059814228 (5) Sepsis Current Visit: Yes Status: Acute Priority: High Code(s): A41.9 - SEPSIS, UNSPECIFIED ORGANISM SNOMED Code(s): 60793324 (6) Type 2 diabetes mellitus with other skin ulcer Current Visit: Yes Status: Acute Code(s): E11.622 - TYPE 2 DIABETES MELLITUS WITH OTHER SKIN ULCER; L98.499 - NON-PRESSURE CHRONIC ULCER OF SKIN OF SITES W UNSP SEVERITY SNOMED Code(s): 524340186941361 Plan: 1. Continue symptomatic and supportive care 2. Protonix 40 mg daily for GI prophylaxis 3. Hold anticoagulation 4. Daily CBC, transfuse for hemoglobin less than 7 5. Continue with recommendations from hematology 6. Monitor for GI bleed 7. No plans for endoscopic evaluation at this time Thank you for this consultation, we will continue to follow. Dr. Veronique Ramsey I agree with the dictator's note, documented as a scribe by Lauren Arita.
[2024-01-11 12:36] LABS: Glucose,Whole Blood 112 mg/dL (70-110)
[2024-01-11] MEDS: METOPROLOL TARTRATE 50 MG TAB PO SCH (12:39)
[2024-01-11] MEDS: DEXTROSE 5% IN WATER 1,000 ML IV SCH (12:40)
[2024-01-11] MEDS: DAPTOmycin 500 MG in SODIUM CHLORIDE 0.9% 50 ML IVPB SCH (13:46)
--- NOTE | 2024-01-11 14:52 | P.PN ---
Subjective Progress Note Date: 01/11/24 January 06, 2024 Patient mental status close and and the patient is also receiving Dilaudid may have contributed to his altered mental status his blood pressure dropped as well and patient was presumed to have sepsis and septic shock was transferred to ICU he is on 2 pressors at this time patient does not have any fever but does have severe neutropenia may be related to methotrexate although patient white count was normal yesterday which probably because of his left shoulder tear. Patient is moaning unable to give me any history patient does have wounds but does not appear to have any cellulitis there is no foul-smelling discharge there is some redness which is chronic and chronic venous stasis dermatosis patient was started on vancomycin and cefepime, stone paver was consulted. January 07, 2024 Patient is 73-year-old male came in for left shoulder pain found to have rotator cuff. The left shoulder. Patient also found to have elevated INR of around 6.5 patient takes Coumadin for atrial fibrillation. Patient is also found to have acute renal failure with creatinine of around 3.6 patient was hypotensive patient is on Lasix, metolazone, lisinopril at home. Patient does have history of rheumatoid arthritis with rheumatoid deformities patient is on colchicine, methotrexate as an outpatient. Patient is also taking Farxiga at home. Patient does have a history of atrial fibrillation on atenolol patient is hypotensive cannot use atenolol patient heart rate started going up now is around 120s at this time. 01/08/2024 Patient is seen and evaluated in follow-up today currently remains in the ICU with multiple medical consultations following. Patient currently continues on mechanical ventilation with an FiO2 of 35 %, PEEP of 5. Patient continues on propofol undergoing weaning and sedation holidays to assess mentation. Wound care and infectious disease also following and patient is maintained on antibiotics in the form of cefepime and daptomycin. Preliminary wound culture showing group D Enterococcus with gram-negative bacilli of the left lower extremity wound as well as blood culture showing a molecular ID which is currently pending. Follow-up repeat blood cultures ordered and pending at this time. Patient also undergoing concerns of DIC workup with hematology following. White count is 1.2 today which is improved from 0.6 yesterday. Hemoglobin is stable at 9.1, platelets are 33, INR status post vitamin K improved and currently 1.6, D-dimer was elevated at 6.16. Sodium is 137 with a potassium of 3.7, BUN is 161 and creatinine is minimally improved at 2.82. Patient does have indwelling Villanueva catheter and has noted 400 output throughout the day. Lactic acid remains elevated although improved at 2.8 calcium is low at 7.2. Total bilirubin has also increased at 2.7 AST is 80 which is improved and ALT is 31, LDH is 274. Urinalysis was negative. Patient continues to be hypotensive requiring vasopressin as well as Levophed and per nursing staff, currently we aning. Patient also continues on sodium bicarb drip as well as Solu-Cortef. Overall prognosis is guarded. Patient is full code. Patient is evaluated today in follow-up in the intensive care unit. Patient caryl on the mechanical ventilator currently intubated and sedated. Patient is on an FiO2 of 35% with a PEEP of 5. Patient remains on propofol for sedation. Additionally patient is continued on Levophed and vasopressin with increased dose of the Levophed today. Patient's blood pressure did drop with the addition of propofol back on for sedation. Patient is remaining on IV Solu-Cortef dose decreased today. Additionally patient is on IV daptomycin and IV cefepime. Patient was found to be back was found to be bacteremic with Staph aureus suspect patient was in septic shock from his wounds on his lower extremities. Although his wound cultures are showing group D Enterococcus and gram-negative bacilli. His urine culture is normal. He has [facility] ID is following this patient closely. Blood cultures were repeated today. Patient has concerns for DIC and hematology is following. His white blood cell count is 0.4 today, hemoglobin 8.0, platelet count of 12, PT of 19.1, INR 1.9, PTT 38.1, fibrinogen level is 575. Additionally patient is a BUN of 160 creatinine of 2.73. Patient had a chest x-ray today showing right lower lobe infiltrate. 01/10/2024 Patient is evaluated today in the intensive care unit in follow-up. Patient remains on mechanical ventilator intubated and sedated. Patient is currently on FiO2 of 35% with a PEEP of 5. Patient has been continued on propofol for sedation. Patient does continue on multiple blood pressure support medications including Levophed and vasopressin. Patient remains on IV Solu-Cortef. Blood culture positive for Staph aureus which is now growing in the wound culture as well. Patient remains on daptomycin and cefepime. Patient will receive a second unit of platelets today. Blood work today reveals white blood cell count of 0.3, hemoglobin 7.5, platelet count of 15, PT of 14.2, INR 1.4, fibrinogen 492, sodium 144, potassium 3.6, BUN of 171, creatinine 2.04, calcium level of 7.8. Chest x-ray today reveals a stable bibasilar opacities. 01/11/2024 Patient evaluated in follow-up today in the intensive care unit. Patient remains intubated and sedated currently on the mechanical ventilator with an FiO2 of 45% PEEP of 5. Patient has been off propofol and currently not followin g commands at this time not tracking with eyes. Patient will be going for a brain CT today. Patient continues on IV Unasyn and IV daptomycin. Staph bacteremia additionally has enterococcus and E. coli in the wound. Went to atrial fibrillation with rapid ventricular rate overnight he continues on IV Cardizem as well as IV Solu-Medrol. Patient was noted to have a large black foul-smelling bowel movement overnight. GI services has been consulted for evaluation and pending further recommendations. Repeat blood work today reveals a white blood cell count of 0.5, hemoglobin of 8.0, platelet count of 7, sodium of 147, BUN of 176, creatinine of 1.98. X-ray reveals worsening left lower lobe infiltrate correlate for pneumonia. REVIEW OF SYSTEMS: Unable to obtain as patient is currently on sedation and mechanical ventilation PHYSICAL EXAMINATION: GENERAL: This is a 73-year-old male who is currently maintained on mechanical ventilation with an FiO2 of 35% and PEEP is 5, well-developed, elderly appearing, ill-appearing, obese HEENT: Pupils are round and equally reacting to light. EOMI. No scleral icterus. No conjunctival pallor. Normocephalic, atraumatic. No pharyngeal erythema. No thyromegaly. CARDIOVASCULAR: S1 and S2 muffled and irregular, tachycardic irregularly irregular rhythm PULMONARY: Diminished breath sounds bilaterally with no wheezing or crackles noted ABDOMEN: Soft, nontender, nondistended, normoactive bowel sounds. No palpable organomegaly. EXTREMITIES: No cyanosis, clubbing, or pedal edema. Extensive wounds noted to bilateral lower extremities with a chronic appearing discoloration, open wound noted on the right with some bleeding noted NEUROLOGICAL: Unable to assess as patient is on mechanical ventilation and sedated SKIN: Ulcers in the lower extremity chronic venous stasis, multiple bruises and ecchymosis noted on bilateral upper extremities Assessment: -Concern for acute upper GI bleed with large black tarry bowel movement -Sepsis with septic shock, present on admission, most likely secondary to left lower extremity wounds. -Gram positive staph aureus bacteremia with ID following closely, wound culture showing gram negative bacilli, enterococcus and staph aureus -Severe neutropenia secondary to methotrexate which is being held -Acute hypoxic respiratory failure requiring mechanical ventilation, currently FiO2 is 35% and PEEP of 5 -Acute renal failure: Nonoliguric, with acute tubular necrosis from hypotension. Nephrology is following the patient renal ultrasound did not show any obstruction -Chronic kidney disease stage IV baseline creatinine around 1.5-1.8 -Supratherapeutic INR, status post vitamin K, improving hold off on Coumadin target INR 2-3 patient is on Coumadin for atrial fibrillation. -Atrial fibrillation, paroxysmal with rapid ventricular rate presently rate controlled -Severe thrombocytopenia, likely secondary to sepsis with septic shock -Left rotator cuff tear: Orthopedic surgery evaluated the patient, Tylenol for pain and low-dose Dilaudid -Hypertension, currently hypotensive and on pressor support -Type 2 diabetes mellitus, [id number], patient to continue on insulin hold off further medications Farxiga will be held because of renal failure -Rheumatoid arthritis for now we have to hold colchicine and methotrexate because of renal failure -Hyperkalemia: Secondary to REX inhibitor, acute renal failure -Hypothyroidism for which patient is on methimazole, TSH level is 0.989 -Hyponatremia secondary to renal failure IV fluids as mentioned above -GI prophylaxis -DVT prophylaxis: Patient's INR is supratherapeutic will not need any pharmacological anticoagulation at this time -Full code Plan: Patient is continued in the ICU with multiple medical consultations following maintained on pressor support continues on vasopressin and Levophed Patient also continues on antibiotics in the form of daptomycin and cefepime with infectious disease following with preliminary blood cultures showing a molecular ID and wound cultures preliminary showing gram-negative bacilli and Enterobacter Blood culture positive and has been repeated. ID on and following cultures for antibiotic management Wound care consulted for further management of the lower extremity wounds continue with santyl and dressing changes as recommended. Sepsis, present on admission most likely secondary to left lower extremity wounds that are quite extensive Patient undergoing sedation holidays to assess mentation and underwent CT of the brain yesterday showing mild atrophy with chronic appearing periventricular white matter ischemic changes with no evidence of acute intracranial hemorrhage or infarction noted. Propofol continues today. patient remains essentially unresponsive not following the commands during sedation holiday will be going for a repeat brain CT today For GI bleeding and GI services has been consulted for further recommendations. Patient will receive a unit of platelets today Cardiology following making adjustments to medications and EF noted to be 50% with moderate right atrial enlargement, severe left atrial enlargement, mild to moderate mitral regurgitation and mild to moderate aortic regurgitation with tricuspid regurgitation as well. Nephrology following and patient will continue on sodium bicarb Hematology following as well as vascular surgery and wound care. Undergoing DIC workup Will follow-up on repeat labs. Tube feedings being initiated and will monitor tolerance Will add sliding scale insulin Zarxio added and will monitor labs. Due to multiple complex medical issues, overall prognosis is critical and guarded at this time CODE STATUS addressed and patient remains full code The impression and plan of care has been dictated by Alize Masters, Nurse Practitioner as directed. Dr. Mindi MD I have performed a history and physical examination and medical decision making of this patient, discussed the same with the dictator, and agree with the dictators assessment and plan as written, documented as a scribe. Based on total visit time, I have performed more than 50% of this visit. Objective - Vital Signs Vital signs: Vital Signs Temp 99.0 F 01/11/24 04:00 Pulse 122 H 01/11/24 07:42 Resp 22 01/11/24 07:00 BP 133/59 01/10/24 07:44 Pulse Ox 98 01/11/24 07:00 FiO2 35 01/11/24 07:25 Intake & Output 01/10/24 01/11/24 01/11/24 18:59 06:59 18:59 Intake Total 2193.481 1604.942 129 Output Total 1460 1110 75 Balance 733.481 494.942 54 Intake: IV 1066 1056 88 0.9 Pressure Bag 36 36 3 0.9 at KVO 130 120 10 Sodium Chloride 0.9% 1, 900 900 75 000 ml @ 75 mls/hr IV . [id number] [facility] Rx#:[id number] Intake, IV Titration 293.481 56.942 Amount Ampicillin-Sulbactam 3 gm 50 In Sodium Chloride 0.9% 100 ml @ 200 mls/hr IVPB Q12HR [facility] Rx#:[id number] Norepinephrine 32 mg In 80.373 56.942 Sodium Chloride 0.9% 218 ml @ 0.03 MCG/KG/MIN 1. 358 mls/hr IV .Q24H [facility] Rx#:[id number] Potassium Chloride 20 meq 100 In Water For Injection 1 100ml.bag @ 50 mls/hr IVPB Q2H [facility] Rx#: [id number] Vasopressin 20 unit In 45.671 Sodium Chloride 0.9% 50 ml @ 0.03 UNITS/MIN 4.59 mls/hr IV .[id number] [facility] Rx# :[id number] propofoL 1,000 mg In 17.437 Empty Bag 1 bag @ 15 MCG/ KG/MIN 8.694 mls/hr IV . [id number] [facility] Rx#:[id number] Tube Feeding 492 492 41 Blood Product 342 Platelet Pheresis Pas 342 Psoralen Unit [id number] Output: Urine 1460 1110 75 Other: Voiding Method Indwelling Catheter Indwelling Catheter # Bowel Movements 1 ABP, PAP, CO, CI - Last Documented Arterial Blood Pressure 124/53 - Labs CBC & Chem 7: 01/11/24 03:51 01/11/24 03:51 Labs: Abnormal Lab Results - Last 24 Hours (Table) 01/10/24 01/10/24 01/10/24 Range/Units 11:00 11:00 11:00 WBC 0.3 L* (3.8-10.6) k/uL RBC 2.41 L (4.30-5.90) m/uL Hgb 7.5 L (13.0-17.5) gm/dL Hct 23.3 L (39.0-53.0) % RDW 16.6 H (11.5-15.5) % Plt Count 15 L* (150-450) k/uL PT 14.2 H (10.0-12.5) sec INR 1.4 H (<1.2) APTT 36.4 H (22.0-30.0) sec Sodium (137-145) mmol/L Chloride 109 H (98-107) mmol/L BUN 171 H* (9-20) mg/dL Creatinine 2.04 H (0.66-1.25) mg/dL Glucose 138 H (74-99) mg/dL POC Glucose (mg/dL) (70-110) mg/dL Calcium 7.8 L (8.4-10.2) mg/dL 01/10/24 01/10/24 01/11/24 Range/Units 12:17 17:25 03:51 WBC 0.5 L* (3.8-10.6) k/uL RBC 2.57 L (4.30-5.90) m/uL Hgb 8.0 L (13.0-17.5) gm/dL Hct 24.9 L (39.0-53.0) % RDW 16.8 H (11.5-15.5) % Plt Count 7 L* D (150-450) k/uL PT (10.0-12.5) sec INR (<1.2) APTT (22.0-30.0) sec Sodium (137-145) mmol/L Chloride (98-107) mmol/L BUN (9-20) mg/dL Creatinine (0.66-1.25) mg/dL Glucose (74-99) mg/dL POC Glucose (mg/dL) 146 H 111 H (70-110) mg/dL Calcium (8.4-10.2) mg/dL 01/11/24 01/11/24 01/11/24 Range/Units 03:51 03:51 06:08 WBC (3.8-10.6) k/uL RBC (4.30-5.90) m/uL Hgb (13.0-17.5) gm/dL Hct (39.0-53.0) % RDW (11.5-15.5) % Plt Count (150-450) k/uL PT 15.8 H (10.0-12.5) sec INR 1.5 H (<1.2) APTT 36.2 H (22.0-30.0) sec Sodium 147 H (137-145) mmol/L Chloride 112 H (98-107) mmol/L BUN 176 H* (9-20) mg/dL Creatinine 1.98 H (0.66-1.25) mg/dL Glucose 108 H (74-99) mg/dL POC Glucose (mg/dL) 112 H (70-110) mg/dL Calcium 8.1 L (8.4-10.2) mg/dL Microbiology - Last 24 Hours (Table) 01/07/24 19:33 Blood Culture Gram Stain - Final Blood Blood Culture - Final Staphylococcus aureus Molecular ID 01/07/24 09:05 Gram Stain - Final Leg - Left Wound Culture - Final Enterococcus faecalis Escherichia coli Staphylococcus aureus Assessment and Plan Time with Patient: Less than 30
--- NOTE | 2024-01-11 17:18 | P.PN ---
Subjective Progress Note Date: 01/11/24 Principal diagnosis: Reason for follow-up is sepsis and left lower extremity wound/cellulitis Patient is 73-year-old male with a past medical history significant for diabetes mellitus hypertension heart failure atrial fibrillation gout patient presenting to the hospital for evaluation of left shoulder pain subsequently developing a fever hypertension requiring admission to ICU concerning for left lower extremity wound with infection. On today's evaluation that is 01/11/2024,the patient continues to be afebrile patient is hemodynamically stable requiring less pressor support, the patient is currently on the vent FiO2 stable at 35% and no significant purulent secretions through the ET or any other changes reported by the nursing staff. Patient white count 0.5, creatinine is 1.9. Blood culture repeat currently pending Objective - Vital Signs Vital signs: Vital Signs Temp 98.9 F 01/11/24 11:00 Pulse 125 H 01/11/24 12:26 Resp 28 H 01/11/24 11:00 BP 142/62 01/11/24 11:00 Pulse Ox 99 01/11/24 11:00 FiO2 35 01/11/24 12:08 Intake & Output 01/10/24 01/11/24 01/11/24 18:59 06:59 18:59 Intake Total 2193.481 1604.942 385 Output Total 1460 1110 75 Balance 733.481 494.942 310 Intake: IV 1066 1056 88 0.9 Pressure Bag 36 36 3 0.9 at KVO 130 120 10 Sodium Chloride 0.9% 1, 900 900 75 000 ml @ 75 mls/hr IV . [id number] [facility] Rx#:[id number] Intake, IV Titration 293.481 56.942 Amount Ampicillin-Sulbactam 3 gm 50 In Sodium Chloride 0.9% 100 ml @ 200 mls/hr IVPB Q12HR [facility] Rx#:[id number] Norepinephrine 32 mg In 80.373 56.942 Sodium Chloride 0.9% 218 ml @ 0.03 MCG/KG/MIN 1. 358 mls/hr IV .Q24H [facility] Rx#:[id number] Potassium Chloride 20 meq 100 In Water For Injection 1 100ml.bag @ 50 mls/hr IVPB Q2H [facility] Rx#: [id number] Vasopressin 20 unit In 45.671 Sodium Chloride 0.9% 50 ml @ 0.03 UNITS/MIN 4.59 mls/hr IV .Q11H7M [facility] Rx# :[id number] propofoL 1,000 mg In 17.437 Empty Bag 1 bag @ 15 MCG/ KG/MIN 8.694 mls/hr IV . [id number] [facility] Rx#:[id number] Tube Feeding 492 492 41 Blood Product 342 256 Platelet Pheresis Pas 256 Psoralen Unit [id number] Platelet Pheresis Pas 342 Psoralen Unit [id number] Output: Urine 1460 1110 75 Other: Voiding Method Indwelling Catheter Indwelling Catheter # Bowel Movements 1 ABP, PAP, CO, CI - Last Documented Arterial Blood Pressure 124/53 - Exam GENERAL DESCRIPTION: An elderly male intubated on the vent RESPIRATORY SYSTEM: Unlabored breathing , decreased breath sounds at bases HEART: S1 S2 regular rate and rhythm , ABDOMEN: Soft , no tenderness EXTREMITIES: Left leg wound is currently dressed no drainage on the dressing - Labs CBC & Chem 7: 01/11/24 03:51 01/11/24 03:51 Labs: Abnormal Lab Results - Last 24 Hours (Table) 01/10/24 01/11/24 01/11/24 Range/Units 17:25 03:51 03:51 WBC 0.5 L* (3.8-10.6) k/uL RBC 2.57 L (4.30-5.90) m/uL Hgb 8.0 L (13.0-17.5) gm/dL Hct 24.9 L (39.0-53.0) % RDW 16.8 H (11.5-15.5) % Plt Count 7 L* D (150-450) k/uL PT 15.8 H (10.0-12.5) sec INR 1.5 H (<1.2) APTT 36.2 H (22.0-30.0) sec Sodium (137-145) mmol/L Chloride (98-107) mmol/L BUN (9-20) mg/dL Creatinine (0.66-1.25) mg/dL Glucose (74-99) mg/dL POC Glucose (mg/dL) 111 H (70-110) mg/dL Calcium (8.4-10.2) mg/dL 01/11/24 01/11/24 01/11/24 Range/Units 03:51 06:08 12:34 WBC (3.8-10.6) k/uL RBC (4.30-5.90) m/uL Hgb (13.0-17.5) gm/dL Hct (39.0-53.0) % RDW (11.5-15.5) % Plt Count (150-450) k/uL PT (10.0-12.5) sec INR (<1.2) APTT (22.0-30.0) sec Sodium 147 H (137-145) mmol/L Chloride 112 H (98-107) mmol/L BUN 176 H* (9-20) mg/dL Creatinine 1.98 H (0.66-1.25) mg/dL Glucose 108 H (74-99) mg/dL POC Glucose (mg/dL) 112 H 112 H (70-110) mg/dL Calcium 8.1 L (8.4-10.2) mg/dL Microbiology - Last 24 Hours (Table) 01/07/24 09:05 Anaerobic Culture - Final Leg - Left 01/07/24 19:33 Blood Culture Gram Stain - Final Blood Blood Culture - Final Staphylococcus aureus Molecular ID 01/07/24 09:05 Gram Stain - Final Leg - Left Wound Culture - Final Enterococcus faecalis Escherichia coli Staphylococcus aureus Assessment and Plan (1) Sepsis Current Visit: Yes Status: Acute Priority: High Code(s): A41.9 - SEPSIS, UNSPECIFIED ORGANISM SNOMED Code(s): 70673654 (2) Leg wound, left Current Visit: Yes Status: Acute Priority: High Code(s): S81.802A - UNSPECIFIED OPEN WOUND, LEFT LOWER LEG, INITIAL ENCOUNTER SNOMED Code(s): 39279051803453364 (3) Bacteremia Current Visit: Yes Status: Acute Code(s): R78.81 - BACTEREMIA SNOMED Code(s): 0234867 Plan: 1patient with sepsis in this patient who did have fever leukopenia hypotension requiring admission to the ICU and this patient was in the hospital with escalation pain to the left shoulder area and also have a wound to the left lower extremity likely differential of as currently no evidence of pneumonia on the chest x-ray abdominal soft on clinical examination 2-patient with MSSA bacteremia source possibly skin soft tissue, blood culture has been repeated to document clearance of bacteremia 3--local wound care to the left leg wound with Santyl followed by moist dressing change daily wound care is following the patient 4local culture from the left leg is growing group D Enterococcus E. coli and MSSA 5- patient to continue with daptomycin for MSSA bacteremia along with Unasyn to cover for Enterococcus and E. coli and monitor clinical course closely at the bedside questions were answered Dictation was produced using [employer] dictation software. please excuse any grammatical, word or spelling errors. Time with Patient: Less than 30
[2024-01-11 17:29] LABS: Anisocytosis Slight; HCT 24.2 % (39.0-53.0); HGB 7.8 gm/dL (13.0-17.5); MCH 31.6 pg (25.0-35.0); MCHC 32.2 g/dL (31.0-37.0); MCV 97.9 fL (80.0-100.0); Macrocytosis Slight; Mean Platelet Volume 10.5; RBC 2.47 m/uL (4.30-5.90); RDW 16.6 % (11.5-15.5)
[2024-01-11 17:45] LABS: Glucose,Whole Blood 100 mg/dL (70-110)
[2024-01-11 17:54] LABS: WBC 0.3 k/uL (3.8-10.6)
[2024-01-11 18:02] LABS: Platelet Count 11 k/uL (150-450)
--- NOTE | 2024-01-11 19:57 | P.PN ---
Subjective Progress Note Date: 01/11/24 Principal diagnosis: Coagulopathy, pancytopenia Pt is sedated and intubated Objective - Vital Signs Vital signs: Vital Signs Temp 98.9 F 01/11/24 12:00 Pulse 120 H 01/11/24 16:15 Resp 26 H 01/11/24 16:15 BP 142/62 01/11/24 11:00 Pulse Ox 100 01/11/24 16:15 FiO2 35 01/11/24 16:00 Intake & Output 01/10/24 01/11/24 01/11/24 18:59 06:59 18:59 Intake Total 2193.481 3746.204 3861 Output Total 1460 1110 425 Balance 733.481 494.942 881 Weight 105.7 kg Intake: IV 1066 1056 479 0.9 Pressure Bag 36 36 24 0.9 at KVO 130 120 80 Sodium Chloride 0.9% 1, 900 900 375 000 ml @ 75 mls/hr IV . [id number] [facility] Rx#:[id number] Intake, IV Titration 293.481 56.942 530 Amount Ampicillin-Sulbactam 3 gm 50 100 In Sodium Chloride 0.9% 100 ml @ 200 mls/hr IVPB Q12HR [facility] Rx#:[id number] DAPTOmycin 500 mg In 50 Sodium Chloride 0.9% 50 ml @ 100 mls/hr IVPB Q24H [facility] Rx#:[id number] Dextrose 5% in Water 1, 180 000 ml @ 60 mls/hr IV . [id number] [facility] Rx#:[id number] Norepinephrine 32 mg In 80.373 56.942 Sodium Chloride 0.9% 218 ml @ 0.03 MCG/KG/MIN 1. 358 mls/hr IV .Q24H [facility] Rx#:[id number] Potassium Chloride 10 meq 200 In Water For Injection 1 100ml.bag @ 100 mls/hr IVPB Q1H [facility] Rx#: [id number] Potassium Chloride 20 meq 100 In Water For Injection 1 100ml.bag @ 50 mls/hr IVPB Q2H [facility] Rx#: [id number] Vasopressin 20 unit In 45.671 Sodium Chloride 0.9% 50 ml @ 0.03 UNITS/MIN 4.59 mls/hr IV .Q11H7M [facility] Rx# :[id number] propofoL 1,000 mg In 17.437 Empty Bag 1 bag @ 15 MCG/ KG/MIN 8.694 mls/hr IV . [id number] [facility] Rx#:[id number] Tube Feeding 492 492 41 Blood Product 342 256 Platelet Pheresis Pas 256 Psoralen Unit [id number] Platelet Pheresis Pas 342 Psoralen Unit [id number] Output: Urine 1460 1110 425 Other: Voiding Method Indwelling Catheter Indwelling Catheter Indwelling Catheter # Bowel Movements 1 1 ABP, PAP, CO, CI - Last Documented Arterial Blood Pressure 131/54 - Exam Anasarca, bruising of the extremities, skin tears of the extremities, tachycardia, tachypnea, LLE wound bandaged - Constitutional General appearance: Present: mild distress, obese - Labs CBC & Chem 7: 01/11/24 17:20 01/11/24 17:20 Labs: Abnormal Lab Results - Last 24 Hours (Table) 01/10/24 01/11/24 01/11/24 Range/Units 17:25 03:51 03:51 WBC 0.5 L* (3.8-10.6) k/uL RBC 2.57 L (4.30-5.90) m/uL Hgb 8.0 L (13.0-17.5) gm/dL Hct 24.9 L (39.0-53.0) % RDW 16.8 H (11.5-15.5) % Plt Count 7 L* D (150-450) k/uL PT 15.8 H (10.0-12.5) sec INR 1.5 H (<1.2) APTT 36.2 H (22.0-30.0) sec Sodium (137-145) mmol/L Chloride (98-107) mmol/L BUN (9-20) mg/dL Creatinine (0.66-1.25) mg/dL Glucose (74-99) mg/dL POC Glucose (mg/dL) 111 H (70-110) mg/dL Calcium (8.4-10.2) mg/dL 01/11/24 01/11/24 01/11/24 Range/Units 03:51 06:08 12:34 WBC (3.8-10.6) k/uL RBC (4.30-5.90) m/uL Hgb (13.0-17.5) gm/dL Hct (39.0-53.0) % RDW (11.5-15.5) % Plt Count (150-450) k/uL PT (10.0-12.5) sec INR (<1.2) APTT (22.0-30.0) sec Sodium 147 H (137-145) mmol/L Chloride 112 H (98-107) mmol/L BUN 176 H* (9-20) mg/dL Creatinine 1.98 H (0.66-1.25) mg/dL Glucose 108 H (74-99) mg/dL POC Glucose (mg/dL) 112 H 112 H (70-110) mg/dL Calcium 8.1 L (8.4-10.2) mg/dL Microbiology - Last 24 Hours (Table) 01/10/24 14:00 Gram Stain - Preliminary Sputum 01/07/24 09:05 Anaerobic Culture - Final Leg - Left Assessment and Plan (1) Coagulopathy Current Visit: Yes Status: Acute Priority: High Code(s): D68.9 - COAG ULATION DEFECT, UNSPECIFIED SNOMED Code(s): 02540381 (2) Methotrexate adverse reaction Current Visit: Yes Status: Suspected Priority: High Code(s): T45.1X5A - ADVERSE EFFECT OF ANTINEOPLASTIC AND IMMUNOSUP DRUGS, INIT SNOMED Code(s): 200876307 (3) Pancytopenia Current Visit: Yes Status: Acute Priority: High Code(s): D61.818 - OTHER PANCYTOPENIA SNOMED Code(s): 283011670 Plan: Coagulopathy -Patient on Coumadin for atrial fibrillation. On admission INR 9.1 -Patient has received 3 doses of IV vitamin K, INR 1.5 today. Plan to keep INR 1 .5 or less at this time -INR daily for now. INR may rebound as patient is not consuming oral intake at this time and is acutely ill Concerns for DIC -Fibrinogen ordered daily. 472 today. INR able to be brought down with vit K. Plt low, pt received 1 unit SDP today. Plt recheck 11,000. Will order another unit SDP as pt is acutely ill -CBC, Coags and fibrinogen labs ordered daily for now as pt condition remains critical Pancytopenia -After chart review, suspect methotrexate toxicity secondary to acute on chronic renal failure. Pt had elevated therapeutic values considering his last dose of mtx would have been at least 4 days prior -Rescue leucovorin given, he cont on BID dosing at this time. -Mtx level ordered for tomorrow -Pancytopenia work up so far has not revealed a paraprotenemia-small artifact on immunofixation can be seen with acute illness and inflammation. MMA elevated with elevated B12. -CBC daily. -Transfuse for hemoglobin less than 7. -Transfuse for platelets less than 10,000 or if patient is symptomatic, which he is and acute illness so, aim for plt closer 20,000 -G-CSF has been started. No significant change in WBC at this time.
[2024-01-11] MEDS: POTASSIUM CHLORIDE 20 MEQ in WATER FOR INJECTION 1 100ML.BAG IVPB STA (20:58)
[2024-01-11] MEDS: SODIUM CHLORIDE 0.9% 500 ML 500 ML IV ONE (23:19)
[2024-01-12 00:01] LABS: Glucose,Whole Blood 113 mg/dL (70-110)
[2024-01-12 02:36] LABS: Anisocytosis Slight; HCT 22.6 % (39.0-53.0); Hypochromasia Slight; MCH 30.7 pg (25.0-35.0); MCHC 31.2 g/dL (31.0-37.0); MCV 98.6 fL (80.0-100.0); Macrocytosis Slight; Mean Platelet Volume 9.2; RBC 2.29 m/uL (4.30-5.90); RDW 16.7 % (11.5-15.5)
[2024-01-12 02:44] LABS: WBC 0.3 k/uL (3.8-10.6)
[2024-01-12 02:45] LABS: Platelet Count 13 k/uL (150-450)
[2024-01-12 05:05] LABS: INR 2.2 (<1.2)
[2024-01-12 05:51] LABS: ALT 31 U/L (4-49); AST 44 U/L (17-59); African American GFR (CKD) 31 (>60 ml/min/1.73 sqM); Albumin 1.8 g/dL (3.5-5.0); Alkaline Phosphatase 63 U/L (38-126); Anion Gap 17 mmol/L; Calcium 7.8 mg/dL (8.4-10.2); Carbon Dioxide 18 mmol/L (22-30); Chloride 112 mmol/L (98-107); Glucose 125 mg/dL (74-99); Non-African American GFR(CKD) 27 (>60 ml/min/1.73 sqM); Potassium 4.5 mmol/L (3.5-5.1); Sodium 147 mmol/L (137-145); Total Bilirubin 6.8 mg/dL (0.2-1.3); Total Protein 4.4 g/dL (6.3-8.2)
[2024-01-12 06:00] LABS: Blood Urea Nitrogen 191 mg/dL (9-20)
[2024-01-12 06:00] LABS: Glucose,Whole Blood 138 mg/dL (70-110)
[2024-01-12 06:15] LABS: ABG Base Excess -2.6 mmol/L; ABG HCO3 20 mmol/L (21-25); ABG Oxygen Saturation 99.5 % (94-97); ABG PCO2 25 mmHg (35-45); ABG PH 7.51 (7.35-7.45); ABG PO2 127 mmHg (83-108); ABG TCO2 21 mmol/L (19-24); Allen Test Performed? Yes
[2024-01-12 06:17] LABS: Anisocytosis Slight; HCT 23.4 % (39.0-53.0); HGB 7.3 gm/dL (13.0-17.5); Hypochromasia Slight; MCH 30.8 pg (25.0-35.0); MCHC 31.1 g/dL (31.0-37.0); Macrocytosis Slight; Mean Platelet Volume 9.7; RBC 2.36 m/uL (4.30-5.90); RDW 16.6 % (11.5-15.5)
[2024-01-12 06:21] LABS: Platelet Count 13 k/uL (150-450)
[2024-01-12 08:35] LABS: WBC 0.3 k/uL (3.8-10.6)
--- NOTE | 2024-01-12 09:15 | P.PN ---
Subjective Progress Note Date: 01/12/24 The patient is a 73-year-old male who was admitted to the hospital with sepsis. Cardiology has been consulted for atrial fibrillation. Patient is currently intubated and sedated on ventilator. He has severe pancytopenia and therefore is not a candidate for anticoagulation. Patient continues to be on vasopressor support as well as IV Cardizem and oral beta-blockers. GENERAL: Ill-appearing, mal-nourished and in no acute distress. Sedated on ventilator NECK: Supple without JVD or thyromegaly. LUNGS: Breath sounds coarse to auscultation bilaterally. Respiration equal and unlabored. HEART: Irregular rate and rhythm. Soft systolic murmur. S1 and S2 heard. EXTREMITIES: Normal range of motion. Hyperpigmentation noted bilaterally. +2 lower extremity edema. Left leg dressing TELEMETRY: Persistent atrial fibrillation with heart rates in the 90s to low 100s LABS: WBC 0.3, hemoglobin 7.3, hematocrit 23.4, platelet 13, sodium 147, potassium 4.5, BUN 191, creatinine 2.34, AST 44, ALT 31 IMPRESSION: Persistent atrial fibrillation, poorly controlled rates Staff aureus septicemia with septic shock Acute renal failure Pancytopenia PLAN: Continue supportive treatment Wean from vasopressors as tolerated Poor prognosis with multiple comorbid conditions Further recommendations to be based on clinical course I am dictating on behalf of Dr Sae De's history/physical and assessment/plan. Objective - Vital Signs Vital signs: Vital Signs Temp 98.1 F 01/12/24 08:00 Pulse 99 01/12/24 08:00 Resp 29 H 01/12/24 08:00 BP 124/48 01/11/24 22:48 Pulse Ox 100 01/12/24 08:00 FiO2 35 01/12/24 07:28 Intake & Output 01/11/24 01/12/24 01/12/24 18:59 06:59 18:59 Intake Total 1678 2516.728 206 Output Total 595 290 30 Balance 1083 2226.728 176 Weight 105.5 kg 107 kg Intake: IV 551 1113 206 0.9 Pressure Bag 39 33 6 0.9 at KVO 130 220 40 Ampicillin-Sulbactam 3 gm 100 In Sodium Chloride 0.9% 100 ml @ 200 mls/hr IVPB Q12HR [facility] Rx#:[id number] Dextrose 5% in Water 1, 660 160 000 ml @ 100 mls/hr IV . Q10H [facility] Rx#:[id number] Potassium Chloride 20 meq 100 In Water For Injection 1 100ml.bag @ 50 mls/hr IVPB ONCE [facility] Rx#: [id number] Sodium Chloride 0.9% 1, 382 000 ml @ 75 mls/hr IV . [id number] [facility] Rx#:[id number] Intake, IV Titration 830 514.728 Amount Ampicillin-Sulbactam 3 gm 100 In Sodium Chloride 0.9% 100 ml @ 200 mls/hr IVPB Q12HR [facility] Rx#:[id number] DAPTOmycin 500 mg In 50 Sodium Chloride 0.9% 50 ml @ 100 mls/hr IVPB Q24H [facility] Rx#:[id number] Dextrose 5% in Water 1, 480 360 000 ml @ 100 mls/hr IV . Q10H [facility] Rx#:[id number] Diltiazem 125 mg In 125 Sodium Chloride 0.9% 100 ml @ 7.5 MG/HR 7.5 mls/hr IV .[id number] [facility] Rx#: [id number] Norepinephrine 32 mg In 29.728 Sodium Chloride 0.9% 218 ml @ 0.03 MCG/KG/MIN 1. 358 mls/hr IV .Q24H [facility] Rx#:[id number] Potassium Chloride 10 meq 200 In Water For Injection 1 100ml.bag @ 100 mls/hr IVPB Q1H [facility] Rx#: [id number] Vasopressin 20 unit In 0 Sodium Chloride 0.9% 50 ml @ 0.03 UNITS/MIN 4.59 mls/hr IV .Q11H7M [facility] Rx# :[id number] Tube Feeding 41 630 0 Blood Product 256 259 Platelet Pheresis Pas 256 Psoralen Unit [id number] Platelet Pheresis Pas 259 Psoralen Unit [id number] Output: Urine 595 290 30 Other: Voiding Method Indwelling Catheter Indwelling Catheter # Bowel Movements 1 0 ABP, PAP, CO, CI - Last Documented Arterial Blood Pressure 140/50 - Labs CBC & Chem 7: 01/12/24 05:50 01/12/24 04:37 Labs: Abnormal Lab Results - Last 24 Hours (Table) 01/11/24 01/11/24 01/11/24 Range/Units 06:02 12:34 17:20 WBC 0.3 L* (3.8-10.6) k/uL RBC 2.47 L (4.30-5.90) m/uL Hgb 7.8 L (13.0-17.5) gm/dL Hct 24.2 L (39.0-53.0) % RDW 16.6 H (11.5-15.5) % Plt Count 11 L* D (150-450) k/uL PT (10.0-12.5) sec INR (<1.2) ABG pH 7.55 H (7.35-7.45) ABG pCO2 29 L (35-45) mmHg ABG pO2 118 H (83-108) mmHg ABG HCO3 (21-25) mmol/L ABG Total CO2 26 H (19-24) mmol/L ABG O2 Saturation 99.4 H (94-97) % Sodium (137-145) mmol/L Chloride (98-107) mmol/L Carbon Dioxide (22-30) mmol/L BUN (9-20) mg/dL Creatinine (0.66-1.25) mg/dL Glucose (74-99) mg/dL POC Glucose (mg/dL) 112 H (70-110) mg/dL Calcium (8.4-10.2) mg/dL Total Bilirubin (0.2-1.3) mg/dL Total Protein (6.3-8.2) g/dL Albumin (3.5-5.0) g/dL 01/12/24 01/12/24 01/12/24 Range/Units 00:00 02:10 04:37 WBC 0.3 L* (3.8-10.6) k/uL RBC 2.29 L (4.30-5.90) m/uL Hgb 7.0 L (13.0-17.5) gm/dL Hct 22.6 L (39.0-53.0) % RDW 16.7 H (11.5-15.5) % Plt Count 13 L* (150-450) k/uL PT (10.0-12.5) sec INR (<1.2) ABG pH (7.35-7.45) ABG pCO2 (35-45) mmHg ABG pO2 (83-108) mmHg ABG HCO3 (21-25) mmol/L ABG Total CO2 (19-24) mmol/L ABG O2 Saturation (94-97) % Sodium 147 H (137-145) mmol/L Chloride 112 H (98-107) mmol/L Carbon Dioxide 18 L (22-30) mmol/L BUN 191 H* (9-20) mg/dL Creatinine 2.34 H (0.66-1.25) mg/dL Glucose 125 H (74-99) mg/dL POC Glucose (mg/dL) 113 H (70-110) mg/dL Calcium 7.8 L (8.4-10.2) mg/dL Total Bilirubin 6.8 H (0.2-1.3) mg/dL Total Protein 4.4 L (6.3-8.2) g/dL Albumin 1.8 L (3.5-5.0) g/dL 01/12/24 01/12/24 01/12/24 Range/Units 04:37 05:50 05:58 WBC 0.3 L* (3.8-10.6) k/uL RBC 2.36 L (4.30-5.90) m/uL Hgb 7.3 L (13.0-17.5) gm/dL Hct 23.4 L (39.0-53.0) % RDW 16.6 H (11.5-15.5) % Plt Count 13 L* (150-450) k/uL PT 22.0 H (10.0-12.5) sec INR 2.2 H (<1.2) ABG pH (7.35-7.45) ABG pCO2 (35-45) mmHg ABG pO2 (83-108) mmHg ABG HCO3 (21-25) mmol/L ABG Total CO2 (19-24) mmol/L ABG O2 Saturation (94-97) % Sodium (137-145) mmol/L Chloride (98-107) mmol/L Carbon Dioxide (22-30) mmol/L BUN (9-20) mg/dL Creatinine (0.66-1.25) mg/dL Glucose (74-99) mg/dL POC Glucose (mg/dL) 138 H (70-110) mg/dL Calcium (8.4-10.2) mg/dL Total Bilirubin (0.2-1.3) mg/dL Total Protein (6.3-8.2) g/dL Albumin (3.5-5.0) g/dL 01/12/24 Range/Units 06:10 WBC (3.8-10.6) k/uL RBC (4.30-5.90) m/uL Hgb (13.0-17.5) gm/dL Hct (39.0-53.0) % RDW (11.5-15.5) % Plt Count (150-450) k/uL PT (10.0-12.5) sec INR (<1.2) ABG pH 7.51 H (7.35-7.45) ABG pCO2 25 L (35-45) mmHg ABG pO2 127 H (83-108) mmHg ABG HCO3 20 L (21-25) mmol/L ABG Total CO2 (19-24) mmol/L ABG O2 Saturation 99.5 H (94-97) % Sodium (137-145) mmol/L Chloride (98-107) mmol/L Carbon Dioxide (22-30) mmol/L BUN (9-20) mg/dL Creatinine (0.66-1.25) mg/dL Glucose (74-99) mg/dL POC Glucose (mg/dL) (70-110) mg/dL Calcium (8.4-10.2) mg/dL Total Bilirubin (0.2-1.3) mg/dL Total Protein (6.3-8.2) g/dL Albumin (3.5-5.0) g/dL Microbiology - Last 24 Hours (Table) 01/10/24 11:00 Blood Culture Gram Stain - Preliminary Blood Blood Culture - Preliminary 01/10/24 14:00 Gram Stain - Preliminary Sputum 01/07/24 09:05 Anaerobic Culture - Final Leg - Left
[2024-01-12 09:26] LABS: ABG Base Excess -2.5 mmol/L; ABG HCO3 20 mmol/L (21-25); ABG Oxygen Saturation 99.1 % (94-97); ABG PCO2 25 mmHg (35-45); ABG PH 7.52 (7.35-7.45); ABG PO2 111 mmHg (83-108); ABG TCO2 21 mmol/L (19-24)
--- NOTE | 2024-01-12 09:32 | XR ---
EXAMINATION TYPE: XR chest 1V portable DATE OF EXAM: 01/12/2024 COMPARISON: 01/11/2024 INDICATION: Respiratory failure difficulty breathing TECHNIQUE: Single frontal view of the chest is obtained. FINDINGS: The heart size is normal. The pulmonary vasculature is normal. The lungs are clear. Endotracheal tube tip is 6.2 cm above hayder. Nasogastric tube tips in the left upper quadrant of the abdomen. IMPRESSION: 1. Near complete resolution left lower lobe atelectasis 2. Lines and catheters discussed above
[2024-01-12 09:35] LABS: Allen Test Performed? no
[2024-01-12] MEDS: FUROSEMIDE 10 MG/ML 4 ML VIAL IV STA (09:43)
--- NOTE | 2024-01-12 10:51 | P.PN ---
Subjective Progress Note Date: 01/12/24 Principal diagnosis: Acute kidney injury Patient seen and examined today as a follow-up he remains in the ICU intubated and sedated. WBC 0.3 hemoglobin 7.3 platelet count 13,000 INR 2.2 sodium 147 potassium 4.5 BUN 191 creatinine 2.3. He has received 4 units of platelets. Remains on IV antibiotics, Cardizem drip, Levophed, vasopressin and propofol. Objective - Vital Signs Vital signs: Vital Signs Temp 99.3 F 01/12/24 04:00 Pulse 92 01/12/24 07:00 Resp 26 H 01/12/24 07:00 BP 124/48 01/11/24 22:48 Pulse Ox 100 01/12/24 07:00 FiO2 35 01/12/24 04:00 Intake & Output 01/11/24 01/12/24 01/12/24 18:59 06:59 18:59 Intake Total 1678 2516.728 83 Output Total 595 290 20 Balance 1083 2226.728 63 Weight 105.5 kg 107 kg Intake: IV 551 1113 83 0.9 Pressure Bag 39 33 3 0.9 at KVO 130 220 20 Ampicillin-Sulbactam 3 gm 100 In Sodium Chloride 0.9% 100 ml @ 200 mls/hr IVPB Q12HR [facility] Rx#:[id number] Dextrose 5% in Water 1, 660 60 000 ml @ 100 mls/hr IV . Q10H [facility] Rx#:[id number] Potassium Chloride 20 meq 100 In Water For Injection 1 100ml.bag @ 50 mls/hr IVPB ONCE STA Rx#: [id number] Sodium Chloride 0.9% 1, 382 000 ml @ 75 mls/hr IV . [id number] [facility] Rx#:[id number] Intake, IV Titration 830 514.728 Amount Ampicillin-Sulbactam 3 gm 100 In Sodium Chloride 0.9% 100 ml @ 200 mls/hr IVPB Q12HR [facility] Rx#:[id number] DAPTOmycin 500 mg In 50 Sodium Chloride 0.9% 50 ml @ 100 mls/hr IVPB Q24H [facility] Rx#:[id number] Dextrose 5% in Water 1, 480 360 000 ml @ 100 mls/hr IV . Q10H [facility] Rx#:[id number] Diltiazem 125 mg In 125 Sodium Chloride 0.9% 100 ml @ 7.5 MG/HR 7.5 mls/hr IV .[id number] [facility] Rx#: [id number] Norepinephrine 32 mg In 29.728 Sodium Chloride 0.9% 218 ml @ 0.03 MCG/KG/MIN 1. 358 mls/hr IV .Q24H [facility] Rx#:[id number] Potassium Chloride 10 meq 200 In Water For Injection 1 100ml.bag @ 100 mls/hr IVPB Q1H [facility] Rx#: [id number] Vasopressin 20 unit In 0 Sodium Chloride 0.9% 50 ml @ 0.03 UNITS/MIN 4.59 mls/hr IV .[id number] [facility] Rx# :[id number] Tube Feeding 41 630 0 Blood Product 256 259 Platelet Pheresis Pas 256 Psoralen Unit [id number] Platelet Pheresis Pas 259 Psoralen Unit [id number] Output: Urine 595 290 20 Other: Voiding Method Indwelling Catheter Indwelling Catheter # Bowel Movements 1 0 ABP, PAP, CO, CI - Last Documented Arterial Blood Pressure 128/45 - Exam General appearance: The patient is sedated and intubated. HET: Head is normocephalic and atraumatic. Mouth with old dried blood noted around lips, oral sores. Neck: Supple. Heart: Regular. Lungs: Equal expansion. Abdomen: Soft, nontender, nondistended. Positive bowel sounds. Scrotal swelling. Extremities: Bilateral upper and lower extremity edema. Bilateral upper and lower extremity ecchymosis. Left lower extremity with dressing clean dry and intact. Skin tear medial aspect of left thigh. Neurological: Sedated and intubated. - Labs CBC & Chem 7: 01/12/24 05:50 01/12/24 04:37 Labs: Abnormal Lab Results - Last 24 Hours (Table) 01/11/24 01/11/24 01/11/24 Range/Units 06:02 12:34 17:20 WBC 0.3 L* (3.8-10.6) k/uL RBC 2.47 L (4.30-5.90) m/uL Hgb 7.8 L (13.0-17.5) gm/dL Hct 24.2 L (39.0-53.0) % RDW 16.6 H (11.5-15.5) % Plt Count 11 L* D (150-450) k/uL PT (10.0-12.5) sec INR (<1.2) ABG pH 7.55 H (7.35-7.45) ABG pCO2 29 L (35-45) mmHg ABG pO2 118 H (83-108) mmHg ABG HCO3 (21-25) mmol/L ABG Total CO2 26 H (19-24) mmol/L ABG O2 Saturation 99.4 H (94-97) % Sodium (137-145) mmol/L Chloride (98-107) mmol/L Carbon Dioxide (22-30) mmol/L BUN (9-20) mg/dL Creatinine (0.66-1.25) mg/dL Glucose (74-99) mg/dL POC Glucose (mg/dL) 112 H (70-110) mg/dL Calcium (8.4-10.2) mg/dL Total Bilirubin (0.2-1.3) mg/dL Total Protein (6.3-8.2) g/dL Albumin (3.5-5.0) g/dL 01/12/24 01/12/24 01/12/24 Range/Units 00:00 02:10 04:37 WBC 0.3 L* (3.8-10.6) k/uL RBC 2.29 L (4.30-5.90) m/uL Hgb 7.0 L (13.0-17.5) gm/dL Hct 22.6 L (39.0-53.0) % RDW 16.7 H (11.5-15.5) % Plt Count 13 L* (150-450) k/uL PT (10.0-12.5) sec INR (<1.2) ABG pH (7.35-7.45) ABG pCO2 (35-45) mmHg ABG pO2 (83-108) mmHg ABG HCO3 (21-25) mmol/L ABG Total CO2 (19-24) mmol/L ABG O2 Saturation (94-97) % Sodium 147 H (137-145) mmol/L Chloride 112 H (98-107) mmol/L Carbon Dioxide 18 L (22-30) mmol/L BUN 191 H* (9-20) mg/dL Creatinine 2.34 H (0.66-1.25) mg/dL Glucose 125 H (74-99) mg/dL POC Glucose (mg/dL) 113 H (70-110) mg/dL Calcium 7.8 L (8.4-10.2) mg/dL Total Bilirubin 6.8 H (0.2-1.3) mg/dL Total Protein 4.4 L (6.3-8.2) g/dL Albumin 1.8 L (3.5-5.0) g/dL 01/12/24 01/12/24 01/12/24 Range/Units 04:37 05:50 05:58 WBC 0.3 L* (3.8-10.6) k/uL RBC 2.36 L (4.30-5.90) m/uL Hgb 7.3 L (13.0-17.5) gm/dL Hct 23.4 L (39.0-53.0) % RDW 16.6 H (11.5-15.5) % Plt Count 13 L* (150-450) k/uL PT 22.0 H (10.0-12.5) sec INR 2.2 H (<1.2) ABG pH (7.35-7.45) ABG pCO2 (35-45) mmHg ABG pO2 (83-108) mmHg ABG HCO3 (21-25) mmol/L ABG Total CO2 (19-24) mmol/L ABG O2 Saturation (94-97) % Sodium (137-145) mmol/L Chloride (98-107) mmol/L Carbon Dioxide (22-30) mmol/L BUN (9-20) mg/dL Creatinine (0.66-1.25) mg/dL Glucose (74-99) mg/dL POC Glucose (mg/dL) 138 H (70-110) mg/dL Calcium (8.4-10.2) mg/dL Total Bilirubin (0.2-1.3) mg/dL Total Protein (6.3-8.2) g/dL Albumin (3.5-5.0) g/dL 01/12/24 Range/Units 06:10 WBC (3.8-10.6) k/uL RBC (4.30-5.90) m/uL Hgb (13.0-17.5) gm/dL Hct (39.0-53.0) % RDW (11.5-15.5) % Plt Count (150-450) k/uL PT (10.0-12.5) sec INR (<1.2) ABG pH 7.51 H (7.35-7.45) ABG pCO2 25 L (35-45) mmHg ABG pO2 127 H (83-108) mmHg ABG HCO3 20 L (21-25) mmol/L ABG Total CO2 (19-24) mmol/L ABG O2 Saturation 99.5 H (94-97) % Sodium (137-145) mmol/L Chloride (98-107) mmol/L Carbon Dioxide (22-30) mmol/L BUN (9-20) mg/dL Creatinine (0.66-1.25) mg/dL Glucose (74-99) mg/dL POC Glucose (mg/dL) (70-110) mg/dL Calcium (8.4-10.2) mg/dL Total Bilirubin (0.2-1.3) mg/dL Total Protein (6.3-8.2) g/dL Albumin (3.5-5.0) g/dL Microbiology - Last 24 Hours (Table) 01/10/24 11:00 Blood Culture Gram Stain - Preliminary Blood Blood Culture - Preliminary 01/10/24 14:00 Gram Stain - Preliminary Sputum 01/07/24 09:05 Anaerobic Culture - Final Leg - Left Assessment and Plan Assessment: 1. Sepsis/septic shock 2. Acute on chronic kidney injury 3. Pancytopenia, with profound thrombocytopenia 4. History of atrial fibrillation who was on Coumadin with supratherapeutic INR 5. Left lower extremity wound status post injury and hematoma evacuation 6. Anemia 7. Coagulopathy Plan: Patient was seen and examined. Patient with profound thrombocytopenia with platelet count slightly improved to 13,000. He is status post 4 units of platelets. Patient not stable at this time to undergo dialysis catheter placement due to profound thrombocytopenia. We will certainly continue to follow. Continue with recommendations from hematology. Continue with recommendations from multiple consultants. The impression and plan of care has been dictated as directed. I performed a history and examination of this patient, discussed the same with the dictator. I agree with the dictator's note ,documented as a scribe. Any additional findings or plans will be noted.
--- NOTE | 2024-01-12 11:01 | P.PN ---
Subjective Progress Note Date: 01/12/24 Principal diagnosis: GI bleed This is a 73-year-old male who had presented to the emergency department with complaints of left arm pain after working out. He has a past medical history of atrial fibrillation on Coumadin, rheumatoid arthritis, diabetes mellitus and hypertension. On initial evaluation patient had significantly abnormal labs and was hypotensive. HPI obtained from chart and nursing as patient is currently intubated and sedated. He was admitted to the ICU. Patient was subsequently intubated and currently is now intubated and sedated. He is on multiple med ications with multiple consultants. He has acute kidney injury and is being followed by nephrology, vascular surgery was consulted for hemodialysis catheter. Apparently patient had a black bowel movement through the night, with anemia. So gastroenterology was consulted for possible GI bleed. Unfortunately patient has been severely thrombocytopenic and platelets are currently at 7000. Hematology is following patient. DIC workup was completed which was reported as negative. He has received 3 doses of vitamin K and 2 doses of platelets. Also suspecting methotrexate toxicity according to hematology Today's labs WBC 0.5 hemoglobin 8.0 platelet count 7000 INR 1.5 sodium 147 potassium 3.9 BUN 176 creatinine 1.98 01/12/2024 Patient seen and examined today as a follow-up. is at the bedside. Patient remains in the ICU sedated and intubated. WBC 0.3 hemoglobin 7.3 hematocrit 23 platelet count 13,000 INR 2.2. Patient's bilirubin also continues to trend up, bilirubin 6.8 AST 44 ALT 31 alkaline phosphatase 63. Nursing reports he had a couple clots noted in his tube feeding residual yesterday. And had a black stool through the night. Patient does have notable dried blood around the mouth and nursing reports multiple sores in his mouth that will bleed. He is status post 5 units of platelets. Objective - Vital Signs Vital signs: Vital Signs Temp 99.3 F 01/12/24 04:00 Pulse 92 01/12/24 07:00 Resp 26 H 01/12/24 07:00 BP 124/48 01/11/24 22:48 Pulse Ox 100 01/12/24 07:00 FiO2 35 01/12/24 04:00 Intake & Output 01/11/24 01/12/24 01/12/24 18:59 06:59 18:59 Intake Total 1678 2516.728 83 Output Total 595 290 20 Balance 1083 2226.728 63 Weight 105.5 kg 107 kg Intake: IV 551 1113 83 0.9 Pressure Bag 39 33 3 0.9 at KVO 130 220 20 Ampicillin-Sulbactam 3 gm 100 In Sodium Chloride 0.9% 100 ml @ 200 mls/hr IVPB Q12HR [facility] Rx#:[id number] Dextrose 5% in Water 1, 660 60 000 ml @ 100 mls/hr IV . Q10H [facility] Rx#:[id number] Potassium Chloride 20 meq 100 In Water For Injection 1 100ml.bag @ 50 mls/hr IVPB ONCE [facility] Rx#: [id number] Sodium Chloride 0.9% 1, 382 000 ml @ 75 mls/hr IV . [id number] [facility] Rx#:[id number] Intake, IV Titration 830 514.728 Amount Ampicillin-Sulbactam 3 gm 100 In Sodium Chloride 0.9% 100 ml @ 200 mls/hr IVPB Q12HR [facility] Rx#:[id number] DAPTOmycin 500 mg In 50 Sodium Chloride 0.9% 50 ml @ 100 mls/hr IVPB Q24H [facility] Rx#:[id number] Dextrose 5% in Water 1, 480 360 000 ml @ 100 mls/hr IV . Q10H [facility] Rx#:[id number] Diltiazem 125 mg In 125 Sodium Chloride 0.9% 100 ml @ 7.5 MG/HR 7.5 mls/hr IV .[id number] [facility] Rx#: [id number] Norepinephrine 32 mg In 29.728 Sodium Chloride 0.9% 218 ml @ 0.03 MCG/KG/MIN 1. 358 mls/hr IV .Q24H [facility] Rx#:[id number] Potassium Chloride 10 meq 200 In Water For Injection 1 100ml.bag @ 100 mls/hr IVPB Q1H [facility] Rx#: [id number] Vasopressin 20 unit In 0 Sodium Chloride 0.9% 50 ml @ 0.03 UNITS/MIN 4.59 mls/hr IV .[id number] [facility] Rx# :[id number] Tube Feeding 41 630 0 Blood Product 256 259 Platelet Pheresis Pas 256 Psoralen Unit [id number] Platelet Pheresis Pas 259 Psoralen Unit [id number] Output: Urine 595 290 20 Other: Voiding Method Indwelling Catheter Indwelling Catheter # Bowel Movements 1 0 ABP, PAP, CO, CI - Last Documented Arterial Blood Pressure 128/45 - Exam General appearance: The patient is sedated and intubated. HET: Head is normocephalic and atraumatic. Mouth with old dried blood noted around lips, oral sores. Neck: Supple. Heart: Regular. Lungs: Equal expansion. Abdomen: Soft, nontender, nondistended. Positive bowel sounds. Scrotal swelling. Skin: Jaundice. Extremities: Bilateral upper and lower extremity edema. Bilateral upper and lower extremity ecchymosis. Left lower extremity with dressing clean dry and intact. Skin tear medial aspect of left thigh. Neurological: Sedated and intubated. - Labs CBC & Chem 7: 01/12/24 05:50 01/12/24 04:37 Labs: Abnormal Lab Results - Last 24 Hours (Table) 01/11/24 01/11/24 01/11/24 Range/Units 06:02 12:34 17:20 WBC 0.3 L* (3.8-10.6) k/uL RBC 2.47 L (4.30-5.90) m/uL Hgb 7.8 L (13.0-17.5) gm/dL Hct 24.2 L (39.0-53.0) % RDW 16.6 H (11.5-15.5) % Plt Count 11 L* D (150-450) k/uL PT (10.0-12.5) sec INR (<1.2) ABG pH 7.55 H (7.35-7.45) ABG pCO2 29 L (35-45) mmHg ABG pO2 118 H (83-108) mmHg ABG HCO3 (21-25) mmol/L ABG Total CO2 26 H (19-24) mmol/L ABG O2 Saturation 99.4 H (94-97) % Sodium (137-145) mmol/L Chloride (98-107) mmol/L Carbon Dioxide (22-30) mmol/L BUN (9-20) mg/dL Creatinine (0.66-1.25) mg/dL Glucose (74-99) mg/dL POC Glucose (mg/dL) 112 H (70-110) mg/dL Calcium (8.4-10.2) mg/dL Total Bilirubin (0.2-1.3) mg/dL Total Protein (6.3-8.2) g/dL Albumin (3.5-5.0) g/dL 01/12/24 01/12/24 01/12/24 Range/Units 00:00 02:10 04:37 WBC 0.3 L* (3.8-10.6) k/uL RBC 2.29 L (4.30-5.90) m/uL Hgb 7.0 L (13.0-17.5) gm/dL Hct 22.6 L (39.0-53.0) % RDW 16.7 H (11.5-15.5) % Plt Count 13 L* (150-450) k/uL PT (10.0-12.5) sec INR (<1.2) ABG pH (7.35-7.45) ABG pCO2 (35-45) mmHg ABG pO2 (83-108) mmHg ABG HCO3 (21-25) mmol/L ABG Total CO2 (19-24) mmol/L ABG O2 Saturation (94-97) % Sodium 147 H (137-145) mmol/L Chloride 112 H (98-107) mmol/L Carbon Dioxide 18 L (22-30) mmol/L BUN 191 H* (9-20) mg/dL Creatinine 2.34 H (0.66-1.25) mg/dL Glucose 125 H (74-99) mg/dL POC Glucose (mg/dL) 113 H (70-110) mg/dL Calcium 7.8 L (8.4-10.2) mg/dL Total Bilirubin 6.8 H (0.2-1.3) mg/dL Total Protein 4.4 L (6.3-8.2) g/dL Albumin 1.8 L (3.5-5.0) g/dL 01/12/24 01/12/24 01/12/24 Range/Units 04:37 05:50 05:58 WBC 0.3 L* (3.8-10.6) k/uL RBC 2.36 L (4.30-5.90) m/uL Hgb 7.3 L (13.0-17.5) gm/dL Hct 23.4 L (39.0-53.0) % RDW 16.6 H (11.5-15.5) % Plt Count 13 L* (150-450) k/uL PT 22.0 H (10.0-12.5) sec INR 2.2 H (<1.2) ABG pH (7.35-7.45) ABG pCO2 (35-45) mmHg ABG pO2 (83-108) mmHg ABG HCO3 (21-25) mmol/L ABG Total CO2 (19-24) mmol/L ABG O2 Saturation (94-97) % Sodium (137-145) mmol/L Chloride (98-107) mmol/L Carbon Dioxide (22-30) mmol/L BUN (9-20) mg/dL Creatinine (0.66-1.25) mg/dL Glucose (74-99) mg/dL POC Glucose (mg/dL) 138 H (70-110) mg/dL Calcium (8.4-10.2) mg/dL Total Bilirubin (0.2-1.3) mg/dL Total Protein (6.3-8.2) g/dL Albumin (3.5-5.0) g/dL 01/12/24 Range/Units 06:10 WBC (3.8-10.6) k/uL RBC (4.30-5.90) m/uL Hgb (13.0-17.5) gm/dL Hct (39.0-53.0) % RDW (11.5-15.5) % Plt Count (150-450) k/uL PT (10.0-12.5) sec INR (<1.2) ABG pH 7.51 H (7.35-7.45) ABG pCO2 25 L (35-45) mmHg ABG pO2 127 H (83-108) mmHg ABG HCO3 20 L (21-25) mmol/L ABG Total CO2 (19-24) mmol/L ABG O2 Saturation 99.5 H (94-97) % Sodium (137-145) mmol/L Chloride (98-107) mmol/L Carbon Dioxide (22-30) mmol/L BUN (9-20) mg/dL Creatinine (0.66-1.25) mg/dL Glucose (74-99) mg/dL POC Glucose (mg/dL) (70-110) mg/dL Calcium (8.4-10.2) mg/dL Total Bilirubin (0.2-1.3) mg/dL Total Protein (6.3-8.2) g/dL Albumin (3.5-5.0) g/dL Microbiology - Last 24 Hours (Table) 01/10/24 11:00 Blood Culture Gram Stain - Preliminary Blood Blood Culture - Preliminary 01/10/24 14:00 Gram Stain - Preliminary Sputum 01/07/24 09:05 Anaerobic Culture - Final Leg - Left Assessment and Plan (1) Anemia Narrative/Plan: 73-year-old male with multiple comorbidities came in with coagulopathy, bacteremia and sepsis. Patient is quite ill in the ICU with multiple consultants. History of atrial fibrillation on Coumadin came in with coagulopathy with supratherapeutic INR. Patient with pancytopenia and profound thrombocytopenia likely secondary to sepsis and septic shock. DIC workup negative from hematology. Patient has received multiple doses of vitamin K as well as third dose of platelets. Reported black gel like stool from nursing rule out GI bleed. Patient is not stable at this time platelet count 7000. Possible GI bleed secondary to coagulopathy possible AVM, gastritis, esophagitis peptic ulcer disease or other etiology. Patient may also be swallowing blood from multiple sores in his mouth and bleeding with oral care. No plans at this time for endoscopic evaluation. Continue to monitor CBC and treat coagulopathy and thrombocytopenia per hematology. Current Visit: Yes Status: Acute Code(s): D64.9 - ANEMIA, UNSPECIFIED SNOMED Code(s): 617779785 (2) FRED (acute kidney injury) Current Visit: Yes Status: Acute Priority: High Code(s): N17.9 - ACUTE KIDNEY FAILURE, UNSPECIFIED SNOMED Code(s): 63255622 (3) Coagulopathy Current Visit: Yes Status: Acute Priority: High Code(s): D68.9 - COAGULATION DEFECT, UNSPECIFIED SNOMED Code(s): 08029407 (4) Pancytopenia Current Visit: Yes Status: Acute Priority: High Code(s): D61.818 - OTHER PANCYTOPENIA SNOMED Code(s): 651145587 (5) Sepsis Current Visit: Yes Status: Acute Priority: High Code(s): A41.9 - SEPSIS, UNSPECIFIED ORGANISM SNOMED Code(s): 18963807 (6) Type 2 diabetes mellitus with other skin ulcer Current Visit: Yes Status: Acute Code(s): E11.622 - TYPE 2 DIABETES MELLITUS WITH OTHER SKIN ULCER; L98.499 - NON-PRESSURE CHRONIC ULCER OF SKIN OF SITES W UNSP SEVERITY SNOMED Code(s): 400024008367944 (7) Hyperbilirubinemia Narrative/Plan: Likely secondary to sepsis/septic shock Current Visit: Yes Status: Acute Code(s): E80.6 - OTHER DISORDERS OF BILIRUBIN METABOLISM SNOMED Code(s): 43501562 Plan: 1. Continue symptomatic and supportive care 2. Daily CBC transfuse for hemoglobin less than 7 3. Daily CMP 4. Fractionated bilirubin ordered 5. Continue to monitor for GI bleed 6. Continue with recommendations from hematology 7. Continue with medical therapy. No plans at this time for any endoscopic evaluation due to profound thrombocytopenia. 8. Continue with recommendations from multiple consultants Thank you for this consultation, we will continue to follow. Dr. Veronique Ramsey I agree with the dictator's note, documented as a scribe by Lauren Arita.
--- NOTE | 2024-01-12 11:44 | P.PN ---
Subjective Progress Note Date: 01/12/24 Principal diagnosis: This is a 73-year-old white male with history of chronic atrial fibrillation, hypertension, rheumatoid arthritis, patient is normally maintained on Coumadin for his atrial fibrillation, he is also maintained on methotrexate for rheumatoid arthritis. For the last few days, the patient has been complaining of left shoulder pain. He saw his primary care physician/Dr. Lopez, and he was directed to go to the ER. Patient was evaluated in the ER on 01/05/2024, and after reviewing the ER note, and the admitting note by the admitting physician, patient was admitted with possible rotator cuff tear of the left shoulder, however on his initial evaluation, the patient was found to have significant abnormal labs. Patient was clearly found to have acute on chronic renal failure felt to be acute tubular necrosis related to hypotension as the patient was noted to be hypotensive initially in the ER. Patient was also found to have supratherapeutic INR level. And this was felt to be related to Coumadin. In addition to this the patient is known to have history of diabetes, he is also known to have history of hyperkalemia and hyperthyroidism, maintained on methimazole. Patient was admitted to [address] and seen by the hospitalist, he was also seen by the utility driver, and the main concern was mostly related to his acute kidney injury and elevated INR. However at 330 this morning, the rapid response team attended to the patient were in he was noted to have low blood pressure, he was also noted to have INR of 6.4, worsening creatinine of 2.96, and the patient was mostly hypotensive with blood pressure as low as 50/39. Patient was given 1.5 L of fluid bolus, blood pressure came up slightly, and I was notified about this patient at that time. I recommended immediate transfer to the ICU. In the ICU, patient required pressors in the form of norepinephrine he is presently on 0.23 mcg/kg/min he is also on vasopressin at 0.03 units/h. Bailey on IV fluid at 100 cc/h in the form of 0.9 normal saline. Labs in the ICU showed significant worsening compared to previous labs on admission including a WBC count of 0.6, hemoglobin is 9.4, platelets are 100,000's, INR was still elevated, and his D-dimer was 6.16. Renal profile has become worse with a BUN of 154 creatinine 3.05, slightly abnormal liver enzymes. Uric acid was 10.8 on admission. Patient had a CT of the brain earlier this morning which showed no evidence of bleed. I saw the patient in the ICU this morning, he seems to be quite ill and I have reviewed the chart, discussed and updated the family on his condition. In the meantime I have recommended different consultations including infectious disease consult for significant wound noted in the left calf region with purulent drainage from a large deep ulcer in the left calf area. I have also recommended broad-spectrum antibiotics to start empirically. Recommended hematology consultation. Looking at the significant abnormalities and specially his elevated INR, I recommended vitamin K, I also recommended Kcentra to be give n repeat INR was 2.2 few hours later considering the overall presentation, I am quite concerned about the possibility of sepsis/septic shock and the most likely source for his sepsis would likely be the left leg wound which seems to be quite deep, and there is a significant purulent drainage from that left leg. Surgical consultation was initiated to address this large wound in the left calf region. Patient was seen by hematology, and felt that this could be methotrexate toxicity. Although this is in the differential, I am more concerned about patient having sepsis/septic shock, of course the differential diagnosis will include methotrexate toxicity or methimazole toxicity. But again clinically this is felt to be less likely based on the fact that the patient presented with normal labs except for abnormal renal profile and abnormal INR on admission. His CBC was otherwise unremarkable. And looking back at his labs from October he had relatively normal CBC and slightly abnormal renal profile with GFR in the 40s. Today on 01/08/2024, remains in the ICU, intubated and mechanically ventilated, on propofol and on pressors. His assist-control rate is 20 tidal volume 500 FiO2 40% and PEEP of 5 ABG showed a pO2 of 146 pCO2 29 pH of 7.37 hence FiO2 was cut down to 35%. Patient is on propofol at 30 mcg/kg/min vasopressin at 0.03 units, norepinephrine at 0.38 mcg/kg/min. Patient is still receiving bicarb drip as recommended by nephrology. Patient is receiving Solu-Cortef, he is also receiving cefepime and daptomycin. Urine output has been in the range of 50 to 60/h. His renal functioning is a bit worse, patient has nonoliguric renal failure. We believe the patient developed acute tubular necrosis from sepsis and hypotension. Patient received few fluid boluses last night and he will receive more this morning. Again his urine output is picking up with fluid boluses. Labs landry the patient is showing slight improvement in his CBC,WBC count is up to 1.2 hemoglobin is 9.1. Platelets are low at 33,000. His fibrinogen today is 605, INR is 1.6. Sodium and potassium are normal bicarb is 13 anion gap is 16 with a BUN of 157 creatinine 3.11, lactic acid today is 3.8. Albumin is also low at 1.8. Globin is 2.7 chest x-ray is showing mostly right lower lobe atelectasis, possible pneumonia Reevaluated today on 01/09/2024, remains in the ICU, intubated and mechanically ventilated. Patient is on assist-control rate of 20 tidal volume 500 FiO2 35% and PEEP of 5 ABG showed a pO2 of 102 pCO2 31 pH of 7.52, no changes were made on the ventilator settings. However his sodium bicarb drip has been discontinued. Blood cultures came back positive for Staph aureus, does not seem to be MRSA. His wound cultures are also positive for Klebsiella and group D Enterococcus. Patient is on cefepime and daptomycin. Hemodynamically landry the patient is still requiring vasopressin at 0.03 and norepinephrine at 0.06 mcg/kg/min. Patient is still receiving IV fluid at 75 cc/h and is also on Solu- Cortef which I will cut down to 50 instead of 100 mg every 8 hours. Chest x-ray showed right lower lobe atelectasis, possible infiltrate. WBC count is 0.4 hemoglobin is 8 platelets are 12,000 has the patient received clearance of platelets today. He does have significant drop in his hemoglobin since admission down to 8, may require blood transfusion if it goes down to 7. INR today is 1.95 fibrinogen is 575. Renal profile is slightly better with creatinine down to 2.73 however BUN is 160. Over the last 24 hours, we cut down significantly on sedation, and the patient today seems to be awake, but generally weak, follows very simple instructions. Patient was evaluated today on , remains in the ICU, intubated and mechanically ventilated. Patient is on assist-control rate of 20 and I cut it down to 18 tidal volume 500 FiO2 35% and PEEP of 5. ABG showed a pO2 of 120 pCO2 31 pH of 7.51 and sed rate was decreased from 20-18. Patient continues to have pancytopenia with WBC count of 0.3 hemoglobin 8.2 platelets are 12,000 patient received a unit of platelets yesterday, and he will be receiving another unit today. Patient is on norepinephrine at 0.16 mcg/kg/min, propofol at 10 mcg/kg/min, vasopressin at 0.03 units/min. Patient is receiving IV fluid 0.9 normal saline at 75 cc/h, vital HP at 41 cc/h/goal. Remains on Solu-Cortef at 50 mg IV push every 8 hours. He is also on cefepime and daptomycin. Cultures of the wound from the left leg grew E. coli, Staph aureus, and group D Enterococcus. Blood cultures are positive for Staph aureus, does not seem to be MRSA at this point. His labs were reviewed, WBC count is 0.3 hemoglobin 8.2 platelets are 12,000, electrolytes showed low potassium of 2.9, being corrected as per protocol. BUN is 168 creatinine 2.29 chest x-ray continues to show no evidence of active disease, minimal atelectasis only. The plan today is to hold sedation again and assess mental status off propofol. Otherwise will continue the same present supportive care measures. Progress note 01/11/2024 Patient was evaluated today and still remains in the ICU, intubated and mechanically ventilated. ABG showed a pO2 of 118 and pCO2 of 29 with pH 7.55. Patient continues to have pancytopenia with WBC count of 0.5, hemoglobin 8, platelet count 7000. He has received 3 units of platelets. Patient is on norepinephrine 0.03 mcg/kg/min, diltiazem 7.5 mg/h, propofol 15 mcg/kg/min, and vasopressin 0.03 units/min. Patient is receiving IV fluids 0.9 normal saline at 75 cc/h. He is also on cefepime and daptomycin for septic shock. BUN is 176, creatinine is 1.98 and sodium is 147. Chest X-ray shows worsening left lower lobe infiltrate. Plan today is to get a CT brain without contrast to rule out hemorrhage due to low platelet count. Does not respond to voice but responds to pain. Continue the same supportive measures. Progress note dated January 11 Patient was evaluated today, remains in the ICU, intubated and mechanically ventilated on pressors. Patient is on assist-control rate of 18 with tidal volume 500, FiO2 35% and PEEP of 5. ABG showed a pO2 of 127, pCO2 25 and a pH of 7.5. Hence, FiO2 was cut down to 30%. Patient continues to have pancytopenia with a WBC count of 4.3, hemoglobin 7.3 and platelets 13,000. His BUN is 191 and creatinine is 2.34. He is on norepinephrine 0.2 mcg/kg/min vasopressin 0.03 units/min and Cardizem 7.5 mg/h daptomycin 500 mg, D5W 10 mL/h. He was put on D5W KVO and Lasix [address] brain without contrast done on 01/10 was normal. He was put on a spontaneous breathing trial today but he did not respond when asked to breathe spontaneously nor was he responding to voice c ommands and his RSBI was 59 with a RR of 30. So we are continuing with mechanical ventilation. Continue the same supportive care measures. Objective - Vital Signs Vital signs: Vital Signs Temp 98.1 F 01/12/24 08:00 Pulse 98 01/12/24 10:30 Resp 30 H 01/12/24 10:30 BP 124/48 01/11/24 22:48 Pulse Ox 99 01/12/24 10:30 FiO2 35 01/12/24 09:32 Intake & Output 01/11/24 01/12/24 01/12/24 18:59 06:59 18:59 Intake Total 1678 2516.728 401.971 Output Total 595 290 70 Balance 1083 2226.728 331.971 Weight 105.5 kg 107 kg Intake: IV 551 1113 269 0.9 Pressure Bag 39 33 9 0.9 at KVO 130 220 80 Ampicillin-Sulbactam 3 gm 100 In Sodium Chloride 0.9% 100 ml @ 200 mls/hr IVPB Q12HR [facility] Rx#:[id number] Dextrose 5% in Water 1, 660 180 000 ml @ 10 mls/hr IV . Q24H [facility] Rx#:[id number] Potassium Chloride 20 meq 100 In Water For Injection 1 100ml.bag @ 50 mls/hr IVPB ONCE [facility] Rx#: [id number] Sodium Chloride 0.9% 1, 382 000 ml @ 75 mls/hr IV . [id number] [facility] Rx#:[id number] Intake, IV Titration 830 514.728 132.971 Amount Ampicillin-Sulbactam 3 gm 100 100 In Sodium Chloride 0.9% 100 ml @ 200 mls/hr IVPB Q12HR [facility] Rx#:[id number] DAPTOmycin 500 mg In 50 Sodium Chloride 0.9% 50 ml @ 100 mls/hr IVPB Q24H [facility] Rx#:[id number] Dextrose 5% in Water 1, 480 360 000 ml @ 10 mls/hr IV . Q24H [facility] Rx#:[id number] Diltiazem 125 mg In 125 Sodium Chloride 0.9% 100 ml @ 7.5 MG/HR 7.5 mls/hr IV .[id number] [facility] Rx#: [id number] Norepinephrine 32 mg In 29.728 Sodium Chloride 0.9% 218 ml @ 0.03 MCG/KG/MIN 1. 358 mls/hr IV .Q24H [facility] Rx#:[id number] Potassium Chloride 10 meq 200 In Water For Injection 1 100ml.bag @ 100 mls/hr IVPB Q1H [facility] Rx#: [id number] Vasopressin 20 unit In 0 32.971 Sodium Chloride 0.9% 50 ml @ 0.03 UNITS/MIN 4.59 mls/hr IV .[id number] [facility] Rx# :[id number] Tube Feeding 41 630 0 Blood Product 256 259 Platelet Pheresis Pas 256 Psoralen Unit [id number] Platelet Pheresis Pas 259 Psoralen Unit [id number] Output: Urine 595 290 70 Other: Voiding Method Indwelling Catheter Indwelling Catheter Indwelling Catheter # Bowel Movements 1 0 ABP, PAP, CO, CI - Last Documented Arterial Blood Pressure 144/56 - Exam General: Reviewed 73-year-old white male intubated, mechanically ventilated, atraumatic normocephalic. Endotracheal tube and orogastric tube intact. HEENT: Pupils are round and equally reacting to light. No scleral icterus. No conjunctival pallor. Normocephalic, atraumatic. No pharyngeal erythema. No thyromegaly Cardio vascular: Normal S1-S2, no S3 gallop, no murmur. Pulmonary: Diminished breath sounds at the bases, rhonchi no wheezes Abdomen: Obese, soft, no rebound, no guarding Musculoskeletal: No deformities Extremities: Multiple areas of ecchymosis noted in the lower extremities. Ulcer remains in the mid aspect of the left lower extremity, with significant drainage of purulent material. There is also chronic venous stasis. Neurological: Does not respond to voice commands. - Labs CBC & Chem 7: 01/12/24 05:50 01/12/24 04:37 Labs: Abnormal Lab Results - Last 24 Hours (Table) 01/11/24 01/11/24 01/11/24 Range/Units 06:02 12:34 17:20 WBC 0.3 L* (3.8-10.6) k/uL RBC 2.47 L (4.30-5.90) m/uL Hgb 7.8 L (13.0-17.5) gm/dL Hct 24.2 L (39.0-53.0) % RDW 16.6 H (11.5-15.5) % Plt Count 11 L* D (150-450) k/uL PT (10.0-12.5) sec INR (<1.2) ABG pH 7.55 H (7.35-7.45) ABG pCO2 29 L (35-45) mmHg ABG pO2 118 H (83-108) mmHg ABG HCO3 (21-25) mmol/L ABG Total CO2 26 H (19-24) mmol/L ABG O2 Saturation 99.4 H (94-97) % Sodium (137-145) mmol/L Chloride (98-107) mmol/L Carbon Dioxide (22-30) mmol/L BUN (9-20) mg/dL Creatinine (0.66-1.25) mg/dL Glucose (74-99) mg/dL POC Glucose (mg/dL) 112 H (70-110) mg/dL Calcium (8.4-10.2) mg/dL Total Bilirubin (0.2-1.3) mg/dL Total Protein (6.3-8.2) g/dL Albumin (3.5-5.0) g/dL 01/12/24 01/12/24 01/12/24 Range/Units 00:00 02:10 04:37 WBC 0.3 L* (3.8-10.6) k/uL RBC 2.29 L (4.30-5.90) m/uL Hgb 7.0 L (13.0-17.5) gm/dL Hct 22.6 L (39.0-53.0) % RDW 16.7 H (11.5-15.5) % Plt Count 13 L* (150-450) k/uL PT (10.0-12.5) sec INR (<1.2) ABG pH (7.35-7.45) ABG pCO2 (35-45) mmHg ABG pO2 (83-108) mmHg ABG HCO3 (21-25) mmol/L ABG Total CO2 (19-24) mmol/L ABG O2 Saturation (94-97) % Sodium 147 H (137-145) mmol/L Chloride 112 H (98-107) mmol/L Carbon Dioxide 18 L (22-30) mmol/L BUN 191 H* (9-20) mg/dL Creatinine 2.34 H (0.66-1.25) mg/dL Glucose 125 H (74-99) mg/dL POC Glucose (mg/dL) 113 H (70-110) mg/dL Calcium 7.8 L (8.4-10.2) mg/dL Total Bilirubin 6.8 H (0.2-1.3) mg/dL Total Protein 4.4 L (6.3-8.2) g/dL Albumin 1.8 L (3.5-5.0) g/dL 01/12/24 01/12/24 01/12/24 Range/Units 04:37 05:50 05:58 WBC 0.3 L* (3.8-10.6) k/uL RBC 2.36 L (4.30-5.90) m/uL Hgb 7.3 L (13.0-17.5) gm/dL Hct 23.4 L (39.0-53.0) % RDW 16.6 H (11.5-15.5) % Plt Count 13 L* (150-450) k/uL PT 22.0 H (10.0-12.5) sec INR 2.2 H (<1.2) ABG pH (7.35-7.45) ABG pCO2 (35-45) mmHg ABG pO2 (83-108) mmHg ABG HCO3 (21-25) mmol/L ABG Total CO2 (19-24) mmol/L ABG O2 Saturation (94-97) % Sodium (137-145) mmol/L Chloride (98-107) mmol/L Carbon Dioxide (22-30) mmol/L BUN (9-20) mg/dL Creatinine (0.66-1.25) mg/dL Glucose (74-99) mg/dL POC Glucose (mg/dL) 138 H (70-110) mg/dL Calcium (8.4-10.2) mg/dL Total Bilirubin (0.2-1.3) mg/dL Total Protein (6.3-8.2) g/dL Albumin (3.5-5.0) g/dL 01/12/24 01/12/24 Range/Units 06:10 09:24 WBC (3.8-10.6) k/uL RBC (4.30-5.90) m/uL Hgb (13.0-17.5) gm/dL Hct (39.0-53.0) % RDW (11.5-15.5) % Plt Count (150-450) k/uL PT (10.0-12.5) sec INR (<1.2) ABG pH 7.51 H 7.52 H (7.35-7.45) ABG pCO2 25 L 25 L (35-45) mmHg ABG pO2 127 H 111 H (83-108) mmHg ABG HCO3 20 L 20 L (21-25) mmol/L ABG Total CO2 (19-24) mmol/L ABG O2 Saturation 99.5 H 99.1 H (94-97) % Sodium (137-145) mmol/L Chloride (98-107) mmol/L Carbon Dioxide (22-30) mmol/L BUN (9-20) mg/dL Creatinine (0.66-1.25) mg/dL Glucose (74-99) mg/dL POC Glucose (mg/dL) (70-110) mg/dL Calcium (8.4-10.2) mg/dL Total Bilirubin (0.2-1.3) mg/dL Total Protein (6.3-8.2) g/dL Albumin (3.5-5.0) g/dL Microbiology - Last 24 Hours (Table) 01/10/24 14:00 Gram Stain - Preliminary Sputum Sputum Culture - Preliminary Presumptive Staph aureus Maricarmen albicans 01/10/24 11:00 Blood Culture Gram Stain - Preliminary Blood Blood Culture - Preliminary 01/07/24 09:05 Anaerobic Culture - Final Leg - Left Assessment and Plan Assessment: Impression: Sepsis or septic shock, secondary to Staph aureus bacteremia. Pancytopenia most likely secondary to sepsis Elevated INR secondary to his supratherapeutic Coumadin Thrombocytopenia most likely secondary to sepsis and septic shock Left lower extremity cellulitis and large infected ulcer noted in the calf region Chronic atrial fibrillation History of rheumatoid arthritis History of chronic kidney disease stage IIIb History of type 2 diabetes Acute on chronic kidney injury, most likely secondary to acute tubular necrosis, secondary to sepsis and septic shock and hypotension Hypotension secondary to sepsis or septic shock requiring pressors including norepinephrine and vasopressin History of hypothyroidism, maintained on methimazole Plan: Recommendation: Lasix 40mg D5W at KVO Continue ventilatory support Continue hemodynamic support/ vasopressin and norepinephrine Continue daptomycin, blood culture and wound culture noted Enterococcus faecalis, E. coli, Staph aureus. Continue to monitor coagulation profile, CBC, platelets. Nutritional support with enteral feeding GI prophylaxis Continue to hold methotrexate and methimazole Patient remains critically ill. Critical care time is over 35 minutes Time with Patient: Greater than 30
--- NOTE | 2024-01-12 11:47 | P.PN ---
Subjective Patient is seen in follow-up for acute kidney injury on chronic kidney disease. Renal function worse today. Urine output 20 to 25 cc an hour. Received IV Lasix this morning. On Levophed and vasopressin. Also on Cardizem drip. Vital signs are stable. On vasopressor support. General: Resting in bed. HEENT: Intubated. LUNGS: Scattered rhonchi. HEART: Rate and Rhythm are regular. ABDOMEN: No distention. Soft. EXTREMITITES: Left lower extremity wrapped. No drainage. Wounds noted. 1+ edema. Objective - Vital Signs Vital signs: Vital Signs Temp 98.1 F 01/12/24 11:22 Pulse 98 01/12/24 11:32 Resp 27 H 01/12/24 11:22 BP 132/51 01/12/24 11:22 Pulse Ox 99 01/12/24 10:30 FiO2 35 01/12/24 11:19 Intake & Output 01/11/24 01/12/24 01/12/24 18:59 06:59 18:59 Intake Total 1678 2516.728 401.971 Output Total 595 290 70 Balance 1083 2226.728 331.971 Weight 105.5 kg 107 kg Intake: IV 551 1113 269 0.9 Pressure Bag 39 33 9 0.9 at KVO 130 220 80 Ampicillin-Sulbactam 3 gm 100 In Sodium Chloride 0.9% 100 ml @ 200 mls/hr IVPB Q12HR [facility] Rx#:[id number] Dextrose 5% in Water 1, 660 180 000 ml @ 10 mls/hr IV . Q24H [facility] Rx#:[id number] Potassium Chloride 20 meq 100 In Water For Injection 1 100ml.bag @ 50 mls/hr IVPB ONCE [facility] Rx#: [id number] Sodium Chloride 0.9% 1, 382 000 ml @ 75 mls/hr IV . [id number] [facility] Rx#:[id number] Intake, IV Titration 830 514.728 132.971 Amount Ampicillin-Sulbactam 3 gm 100 100 In Sodium Chloride 0.9% 100 ml @ 200 mls/hr IVPB Q12HR [facility] Rx#:[id number] DAPTOmycin 500 mg In 50 Sodium Chloride 0.9% 50 ml @ 100 mls/hr IVPB Q24H [facility] Rx#:[id number] Dextrose 5% in Water 1, 480 360 000 ml @ 10 mls/hr IV . Q24H [facility] Rx#:[id number] Diltiazem 125 mg In 125 Sodium Chloride 0.9% 100 ml @ 7.5 MG/HR 7.5 mls/hr IV .[id number] [facility] Rx#: [id number] Norepinephrine 32 mg In 29.728 Sodium Chloride 0.9% 218 ml @ 0.03 MCG/KG/MIN 1. 358 mls/hr IV .Q24H [facility] Rx#:[id number] Potassium Chloride 10 meq 200 In Water For Injection 1 100ml.bag @ 100 mls/hr IVPB Q1H [facility] Rx#: [id number] Vasopressin 20 unit In 0 32.971 Sodium Chloride 0.9% 50 ml @ 0.03 UNITS/MIN 4.59 mls/hr IV .Q11H7M [facility] Rx# :[id number] Tube Feeding 41 630 0 Blood Product 256 259 0 Platelet Pheresis Pas 0 Psoralen Unit [id number] Platelet Pheresis Pas 256 Psoralen Unit [id number] Platelet Pheresis Pas 259 Psoralen Unit [id number] Output: Urine 595 290 70 Other: Voiding Method Indwelling Catheter Indwelling Catheter Indwelling Catheter # Bowel Movements 1 0 ABP, PAP, CO, CI - Last Documented Arterial Blood Pressure 144/56 - Labs CBC & Chem 7: 01/12/24 05:50 01/12/24 04:37 Labs: Abnormal Lab Results - Last 24 Hours (Table) 01/11/24 01/11/24 01/11/24 Range/Units 06:02 12:34 17:20 WBC 0.3 L* (3.8-10.6) k/uL RBC 2.47 L (4.30-5.90) m/uL Hgb 7.8 L (13.0-17.5) gm/dL Hct 24.2 L (39.0-53.0) % RDW 16.6 H (11.5-15.5) % Plt Count 11 L* D (150-450) k/uL PT (10.0-12.5) sec INR (<1.2) ABG pH 7.55 H (7.35-7.45) ABG pCO2 29 L (35-45) mmHg ABG pO2 118 H (83-108) mmHg ABG HCO3 (21-25) mmol/L ABG Total CO2 26 H (19-24) mmol/L ABG O2 Saturation 99.4 H (94-97) % Sodium (137-145) mmol/L Chloride (98-107) mmol/L Carbon Dioxide (22-30) mmol/L BUN (9-20) mg/dL Creatinine (0.66-1.25) mg/dL Glucose (74-99) mg/dL POC Glucose (mg/dL) 112 H (70-110) mg/dL Calcium (8.4-10.2) mg/dL Total Bilirubin (0.2-1.3) mg/dL Total Protein (6.3-8.2) g/dL Albumin (3.5-5.0) g/dL 01/12/24 01/12/24 01/12/24 Range/Units 00:00 02:10 04:37 WBC 0.3 L* (3.8-10.6) k/uL RBC 2.29 L (4.30-5.90) m/uL Hgb 7.0 L (13.0-17.5) gm/dL Hct 22.6 L (39.0-53.0) % RDW 16.7 H (11.5-15.5) % Plt Count 13 L* (150-450) k/uL PT (10.0-12.5) sec INR (<1.2) ABG pH (7.35-7.45) ABG pCO2 (35-45) mmHg ABG pO2 (83-108) mmHg ABG HCO3 (21-25) mmol/L ABG Total CO2 (19-24) mmol/L ABG O2 Saturation (94-97) % Sodium 147 H (137-145) mmol/L Chloride 112 H (98-107) mmol/L Carbon Dioxide 18 L (22-30) mmol/L BUN 191 H* (9-20) mg/dL Creatinine 2.34 H (0.66-1.25) mg/dL Glucose 125 H (74-99) mg/dL POC Glucose (mg/dL) 113 H (70-110) mg/dL Calcium 7.8 L (8.4-10.2) mg/dL Total Bilirubin 6.8 H (0.2-1.3) mg/dL Total Protein 4.4 L (6.3-8.2) g/dL Albumin 1.8 L (3.5-5.0) g/dL 01/12/24 01/12/24 01/12/24 Range/Units 04:37 05:50 05:58 WBC 0.3 L* (3.8-10.6) k/uL RBC 2.36 L (4.30-5.90) m/uL Hgb 7.3 L (13.0-17.5) gm/dL Hct 23.4 L (39.0-53.0) % RDW 16.6 H (11.5-15.5) % Plt Count 13 L* (150-450) k/uL PT 22.0 H (10.0-12.5) sec INR 2.2 H (<1.2) ABG pH (7.35-7.45) ABG pCO2 (35-45) mmHg ABG pO2 (83-108) mmHg ABG HCO3 (21-25) mmol/L ABG Total CO2 (19-24) mmol/L ABG O2 Saturation (94-97) % Sodium (137-145) mmol/L Chloride (98-107) mmol/L Carbon Dioxide (22-30) mmol/L BUN (9-20) mg/dL Creatinine (0.66-1.25) mg/dL Glucose (74-99) mg/dL POC Glucose (mg/dL) 138 H (70-110) mg/dL Calcium (8.4-10.2) mg/dL Total Bilirubin (0.2-1.3) mg/dL Total Protein (6.3-8.2) g/dL Albumin (3.5-5.0) g/dL 01/12/24 01/12/24 Range/Units 06:10 09:24 WBC (3.8-10.6) k/uL RBC (4.30-5.90) m/uL Hgb (13.0-17.5) gm/dL Hct (39.0-53.0) % RDW (11.5-15.5) % Plt Count (150-450) k/uL PT (10.0-12.5) sec INR (<1.2) ABG pH 7.51 H 7.52 H (7.35-7.45) ABG pCO2 25 L 25 L (35-45) mmHg ABG pO2 127 H 111 H (83-108) mmHg ABG HCO3 20 L 20 L (21-25) mmol/L ABG Total CO2 (19-24) mmol/L ABG O2 Saturation 99.5 H 99.1 H (94-97) % Sodium (137-145) mmol/L Chloride (98-107) mmol/L Carbon Dioxide (22-30) mmol/L BUN (9-20) mg/dL Creatinine (0.66-1.25) mg/dL Glucose (74-99) mg/dL POC Glucose (mg/dL) (70-110) mg/dL Calcium (8.4-10.2) mg/dL Total Bilirubin (0.2-1.3) mg/dL Total Protein (6.3-8.2) g/dL Albumin (3.5-5.0) g/dL Microbiology - Last 24 Hours (Table) 01/10/24 14:00 Gram Stain - Preliminary Sputum Sputum Culture - Preliminary Presumptive Staph aureus Maricarmen albicans 01/10/24 11:00 Blood Culture Gram Stain - Preliminary Blood Blood Culture - Preliminary 01/07/24 09:05 Anaerobic Culture - Final Leg - Left Assessment and Plan Plan: Assessment: 1. Acute kidney injury secondary to ATN secondary to septic shock. Creatinine 3.9 on admission and is 2.34 today. Urine output now about 20 cc an hour. No hydronephrosis noted on kidney ultrasound also left kidney was not visualized. Disproportionately elevated BUN partially due to steroids. Questionable GI bleed. Hemoglobin fairly stable. 2. Chronic kidney disease stage IIIb with baseline creatinine near 2 secondary to cardiorenal syndrome. 3. Septic shock secondary to lower extremity wounds. Wound culture positive for group D Enterococcus. Blood cultures positive for gram-positive cocci. On antibiotics. ID following. 4. Chronic diastolic CHF with mild to moderate mitral and aortic regurgitation. 5. Pancytopenia. Concern for DIC as well as methotrexate toxicity. Hematology oncology following. 6. Rheumatoid arthritis maintained on methotrexate outpatient. 7. Acute hypoxic respiratory failure. Currently intubated. On 35% FiO2. 8. Metabolic acidosis secondary to acute kidney injury maintained on bicarb drip. Improved. Blood gas this morning suggestive of respiratory alkalosis. 9. Hypokalemia from intracellular shifting from IV bicarb and low intake. Replaced. Better. 10. Hypernatremia from free water diuresis and lack of oral water intake. 11. A-fib with RVR maintained on Cardizem drip.. Plan: Resume D5W at rate of 70 cc an hour. Maintain tube feeds. Wean vasopressors. Continue to monitor renal function and urine output. Due to high BUN and concern for uremia, plan is to attempt renal replacement th erapy to see if it helps with his mentation. However patient's platelet count remains significantly low and dialysis catheter cannot be placed at this time. Receiving platelet transfusions again today. Wean steroids as able. No acute changes noted on brain CT. Prognosis guarded. Discussed with patient's present at bedside.
[2024-01-12 12:10] LABS: Glucose,Whole Blood 104 mg/dL (70-110)
[2024-01-12] MEDS: PHYTONADIONE 5 MG in SODIUM CHLORIDE 0.9% 50 ML IVPB STA (13:05)
[2024-01-12] MEDS: DEXTROSE 5% IN WATER 1,000 ML IV SCH (13:06)
--- NOTE | 2024-01-12 15:22 | P.PN ---
Subjective Progress Note Date: 01/12/24 Principal diagnosis: Reason for follow-up is sepsis and left lower extremity wound/cellulitis Patient is 73-year-old male with a past medical history significant for diabetes mellitus hypertension heart failure atrial fibrillation gout patient presenting to the hospital for evaluation of left shoulder pain subsequently developing a fever hypertension requiring admission to ICU concerning for left lower extremity wound with infection. On today's evaluation that is 01/12/2024,the patient remains to be afebrile, patient is on ventilator FiO2 currently stable at 35% no significant purulent secretions through the ET or any other changes reported by the nursing staff mentation remains to be an issue. Patient white count 0.3 creatinine is 2.34 sputum with Staph aureus and Maricarmen repeat blood culture with gram-negative Objective - Vital Signs Vital signs: Vital Signs Temp 98.1 F 01/12/24 11:22 Pulse 100 01/12/24 11:22 Resp 27 H 01/12/24 11:22 BP 132/51 01/12/24 11:22 Pulse Ox 99 01/12/24 10:30 FiO2 35 01/12/24 11:19 Intake & Output 01/11/24 01/12/24 01/12/24 18:59 06:59 18:59 Intake Total 1678 2516.728 401.971 Output Total 595 290 70 Balance 1083 2226.728 331.971 Weight 105.5 kg 107 kg Intake: IV 551 1113 269 0.9 Pressure Bag 39 33 9 0.9 at KVO 130 220 80 Ampicillin-Sulbactam 3 gm 100 In Sodium Chloride 0.9% 100 ml @ 200 mls/hr IVPB Q12HR [facility] Rx#:[id number] Dextrose 5% in Water 1, 660 180 000 ml @ 10 mls/hr IV . Q24H [facility] Rx#:[id number] Potassium Chloride 20 meq 100 In Water For Injection 1 100ml.bag @ 50 mls/hr IVPB ONCE STA Rx#: [id number] Sodium Chloride 0.9% 1, 382 000 ml @ 75 mls/hr IV . [id number] [facility] Rx#:[id number] Intake, IV Titration 830 514.728 132.971 Amount Ampicillin-Sulbactam 3 gm 100 100 In Sodium Chloride 0.9% 100 ml @ 200 mls/hr IVPB Q12HR [facility] Rx#:[id number] DAPTOmycin 500 mg In 50 Sodium Chloride 0.9% 50 ml @ 100 mls/hr IVPB Q24H [facility] Rx#:[id number] Dextrose 5% in Water 1, 480 360 000 ml @ 10 mls/hr IV . Q24H [facility] Rx#:[id number] Diltiazem 125 mg In 125 Sodium Chloride 0.9% 100 ml @ 7.5 MG/HR 7.5 mls/hr IV .[id number] [facility] Rx#: [id number] Norepinephrine 32 mg In 29.728 Sodium Chloride 0.9% 218 ml @ 0.03 MCG/KG/MIN 1. 358 mls/hr IV .Q24H [facility] Rx#:[id number] Potassium Chloride 10 meq 200 In Water For Injection 1 100ml.bag @ 100 mls/hr IVPB Q1H [facility] Rx#: [id number] Vasopressin 20 unit In 0 32.971 Sodium Chloride 0.9% 50 ml @ 0.03 UNITS/MIN 4.59 mls/hr IV .Q11H7M [facility] Rx# :[id number] Tube Feeding 41 630 0 Blood Product 256 259 0 Platelet Pheresis Pas 0 Psoralen Unit [id number] Platelet Pheresis Pas 256 Psoralen Unit [id number] Platelet Pheresis Pas 259 Psoralen Unit [id number] Output: Urine 595 290 70 Other: Voiding Method Indwelling Catheter Indwelling Catheter Indwelling Catheter # Bowel Movements 1 0 ABP, PAP, CO, CI - Last Documented Arterial Blood Pressure 144/56 - Exam GENERAL DESCRIPTION: An elderly male intubated on the vent RESPIRATORY SYSTEM: Unlabored breathing , decreased breath sounds at bases HEART: S1 S2 regular rate and rhythm , ABDOMEN: Soft , no tenderness EXTREMITIES: Left leg wound is currently dressed no drainage on the dressing - Labs CBC & Chem 7: 01/12/24 05:50 01/12/24 04:37 Labs: Abnormal Lab Results - Last 24 Hours (Table) 01/11/24 01/11/24 01/11/24 Range/Units 06:02 12:34 17:20 WBC 0.3 L* (3.8-10.6) k/uL RBC 2.47 L (4.30-5.90) m/uL Hgb 7.8 L (13.0-17.5) gm/dL Hct 24.2 L (39.0-53.0) % RDW 16.6 H (11.5-15.5) % Plt Count 11 L* D (150-450) k/uL PT (10.0-12.5) sec INR (<1.2) ABG pH 7.55 H (7.35-7.45) ABG pCO2 29 L (35-45) mmHg ABG pO2 118 H (83-108) mmHg ABG HCO3 (21-25) mmol/L ABG Total CO2 26 H (19-24) mmol/L ABG O2 Saturation 99.4 H (94-97) % Sodium (137-145) mmol/L Chloride (98-107) mmol/L Carbon Dioxide (22-30) mmol/L BUN (9-20) mg/dL Creatinine (0.66-1.25) mg/dL Glucose (74-99) mg/dL POC Glucose (mg/dL) 112 H (70-110) mg/dL Calcium (8.4-10.2) mg/dL Total Bilirubin (0.2-1.3) mg/dL Total Protein (6.3-8.2) g/dL Albumin (3.5-5.0) g/dL 01/12/24 01/12/24 01/12/24 Range/Units 00:00 02:10 04:37 WBC 0.3 L* (3.8-10.6) k/uL RBC 2.29 L (4.30-5.90) m/uL Hgb 7.0 L (13.0-17.5) gm/dL Hct 22.6 L (39.0-53.0) % RDW 16.7 H (11.5-15.5) % Plt Count 13 L* (150-450) k/uL PT (10.0-12.5) sec INR (<1.2) ABG pH (7.35-7.45) ABG pCO2 (35-45) mmHg ABG pO2 (83-108) mmHg ABG HCO3 (21-25) mmol/L ABG Total CO2 (19-24) mmol/L ABG O2 Saturation (94-97) % Sodium 147 H (137-145) mmol/L Chloride 112 H (98-107) mmol/L Carbon Dioxide 18 L (22-30) mmol/L BUN 191 H* (9-20) mg/dL Creatinine 2.34 H (0.66-1.25) mg/dL Glucose 125 H (74-99) mg/dL POC Glucose (mg/dL) 113 H (70-110) mg/dL Calcium 7.8 L (8.4-10.2) mg/dL Total Bilirubin 6.8 H (0.2-1.3) mg/dL Total Protein 4.4 L (6.3-8.2) g/dL Albumin 1.8 L (3.5-5.0) g/dL 01/12/24 01/12/24 01/12/24 Range/Units 04:37 05:50 05:58 WBC 0.3 L* (3.8-10.6) k/uL RBC 2.36 L (4.30-5.90) m/uL Hgb 7.3 L (13.0-17.5) gm/dL Hct 23.4 L (39.0-53.0) % RDW 16.6 H (11.5-15.5) % Plt Count 13 L* (150-450) k/uL PT 22.0 H (10.0-12.5) sec INR 2.2 H (<1.2) ABG pH (7.35-7.45) ABG pCO2 (35-45) mmHg ABG pO2 (83-108) mmHg ABG HCO3 (21-25) mmol/L ABG Total CO2 (19-24) mmol/L ABG O2 Saturation (94-97) % Sodium (137-145) mmol/L Chloride (98-107) mmol/L Carbon Dioxide (22-30) mmol/L BUN (9-20) mg/dL Creatinine (0.66-1.25) mg/dL Glucose (74-99) mg/dL POC Glucose (mg/dL) 138 H (70-110) mg/dL Calcium (8.4-10.2) mg/dL Total Bilirubin (0.2-1.3) mg/dL Total Protein (6.3-8.2) g/dL Albumin (3.5-5.0) g/dL 01/12/24 01/12/24 Range/Units 06:10 09:24 WBC (3.8-10.6) k/uL RBC (4.30-5.90) m/uL Hgb (13.0-17.5) gm/dL Hct (39.0-53.0) % RDW (11.5-15.5) % Plt Count (150-450) k/uL PT (10.0-12.5) sec INR (<1.2) ABG pH 7.51 H 7.52 H (7.35-7.45) ABG pCO2 25 L 25 L (35-45) mmHg ABG pO2 127 H 111 H (83-108) mmHg ABG HCO3 20 L 20 L (21-25) mmol/L ABG Total CO2 (19-24) mmol/L ABG O2 Saturation 99.5 H 99.1 H (94-97) % Sodium (137-145) mmol/L Chloride (98-107) mmol/L Carbon Dioxide (22-30) mmol/L BUN (9-20) mg/dL Creatinine (0.66-1.25) mg/dL Glucose (74-99) mg/dL POC Glucose (mg/dL) (70-110) mg/dL Calcium (8.4-10.2) mg/dL Total Bilirubin (0.2-1.3) mg/dL Total Protein (6.3-8.2) g/dL Albumin (3.5-5.0) g/dL Microbiology - Last 24 Hours (Table) 01/10/24 14:00 Gram Stain - Preliminary Sputum Sputum Culture - Preliminary Presumptive Staph aureus Maricarmen albicans 01/10/24 11:00 Blood Culture Gram Stain - Preliminary Blood Blood Culture - Preliminary 01/07/24 09:05 Anaerobic Culture - Final Leg - Left Assessment and Plan (1) Sepsis Current Visit: Yes Status: Acute Priority: High Code(s): A41.9 - SEPSIS, UNSPECIFIED ORGANISM SNOMED Code(s): 85277092 (2) Leg wound, left Current Visit: Yes Status: Acute Priority: High Code(s): S81.802A - UNSPECIFIED OPEN WOUND, LEFT LOWER LEG, INITIAL ENCOUNTER SNOMED Code(s): 93116832916494064 (3) Bacteremia Current Visit: Yes Status: Acute Code(s): R78.81 - BACTEREMIA SNOMED Code(s): 8686278 Plan: 1patient with sepsis in this patient who did have fever leukopenia hypotension requiring admission to the ICU and this patient was in the hospital with escalation pain to the left shoulder area and also have a wound to the left lower extremity likely differential of as currently no evidence of pneumonia on the chest x-ray abdominal soft on clinical examination 2-patient with MSSA bacteremia source possibly skin soft tissue, blood culture has been repeated which is now growing gram-negative culture with E. coli seen in the leg wound blood cultures were repeated to document clearance of bacteremia 3--local wound care to the left leg wound with Santyl followed by moist dressing change daily wound care is following the patient 4local culture from the left leg is growing group D Enterococcus E. coli and M SSA 5- patient to continue with daptomycin we will switch Unasyn to cefepime pending final ID on the gram-negative at the bedside questions were answered Dictation was produced using [email or web address] dictation software. please excuse any grammatical, word or spelling errors. Time with Patient: Less than 30
[2024-01-12 15:55] LABS: Bilirubin, Conjugated 3.2 mg/dL (0.0-0.3); Bilirubin, Delta 2.2 mg/dL (0.0-0.2); Bilirubin,Unconjugated 1.1 mg/dL (0.0-1.1); Total Bilirubin 6.5 mg/dL (0.2-1.3)
[2024-01-12 15:55] LABS: Free Kappa Lt Chain Qnt, Serum 14.47 mg/dL (0.33-1.94); Free Lambda Lt Chain Qnt, Seru 10.74 mg/dL (0.57-2.63)
--- NOTE | 2024-01-12 17:05 | P.PN ---
Subjective Progress Note Date: 01/12/24 Patient seen in ICU at today's visit. Patient remains intubated and sedated. WBC 0.3, hemoglobin 7.3, platelets 13,000. INR increased today to 2.2. Persisting bleeding noted from mouth, and RN reported midnight shift noted black stool on their shift. Additional dose of Vitamin K and platelets have been ordered. Objective - Vital Signs Vital signs: Vital Signs Temp 98.1 F 01/12/24 11:22 Pulse 98 01/12/24 11:32 Resp 27 H 01/12/24 11:22 BP 132/51 01/12/24 11:22 Pulse Ox 99 01/12/24 10:30 FiO2 35 01/12/24 11:19 Intake & Output 01/11/24 01/12/24 01/12/24 18:59 06:59 18:59 Intake Total 1678 2516.728 401.971 Output Total 595 290 70 Balance 1083 2226.728 331.971 Weight 105.5 kg 107 kg Intake: IV 551 1113 269 0.9 Pressure Bag 39 33 9 0.9 at KVO 130 220 80 Ampicillin-Sulbactam 3 gm 100 In Sodium Chloride 0.9% 100 ml @ 200 mls/hr IVPB Q12HR [facility] Rx#:[id number] Dextrose 5% in Water 1, 660 180 000 ml @ 10 mls/hr IV . Q24H [facility] Rx#:[id number] Potassium Chloride 20 meq 100 In Water For Injection 1 100ml.bag @ 50 mls/hr IVPB ONCE [facility] Rx#: [id number] Sodium Chloride 0.9% 1, 382 000 ml @ 75 mls/hr IV . [id number] [facility] Rx#:[id number] Intake, IV Titration 830 514.728 132.971 Amount Ampicillin-Sulbactam 3 gm 100 100 In Sodium Chloride 0.9% 100 ml @ 200 mls/hr IVPB Q12HR [facility] Rx#:[id number] DAPTOmycin 500 mg In 50 Sodium Chloride 0.9% 50 ml @ 100 mls/hr IVPB Q24H [facility] Rx#:[id number] Dextrose 5% in Water 1, 480 360 000 ml @ 10 mls/hr IV . Q24H [facility] Rx#:[id number] Diltiazem 125 mg In 125 Sodium Chloride 0.9% 100 ml @ 7.5 MG/HR 7.5 mls/hr IV .[id number] [facility] Rx#: [id number] Norepinephrine 32 mg In 29.728 Sodium Chloride 0.9% 218 ml @ 0.03 MCG/KG/MIN 1. 358 mls/hr IV .Q24H [facility] Rx#:[id number] Potassium Chloride 10 meq 200 In Water For Injection 1 100ml.bag @ 100 mls/hr IVPB Q1H [facility] Rx#: [id number] Vasopressin 20 unit In 0 32.971 Sodium Chloride 0.9% 50 ml @ 0.03 UNITS/MIN 4.59 mls/hr IV .Q11H7M [facility] Rx# :[id number] Tube Feeding 41 630 0 Blood Product 256 259 0 Platelet Pheresis Pas 0 Psoralen Unit [id number] Platelet Pheresis Pas 256 Psoralen Unit [id number] Platelet Pheresis Pas 259 Psoralen Unit [id number] Output: Urine 595 290 70 Other: Voiding Method Indwelling Catheter Indwelling Catheter Indwelling Catheter # Bowel Movements 1 0 ABP, PAP, CO, CI - Last Documented Arterial Blood Pressure 144/56 - Constitutional General appearance: Present: no acute distress - EENT EENT Comment(s): dried blood noted within mouth - Respiratory Details: ventilated breath sounds - Integumentary Integumentary Comment(s): extensive bruising noted to BUE and BLE - Neurologic Neurologic Comment(s): sedated - Labs CBC & Chem 7: 01/12/24 05:50 01/12/24 04:37 Labs: Abnormal Lab Results - Last 24 Hours (Table) 01/11/24 01/11/24 01/11/24 Range/Units 06:02 12:34 17:20 WBC 0.3 L* (3.8-10.6) k/uL RBC 2.47 L (4.30-5.90) m/uL Hgb 7.8 L (13.0-17.5) gm/dL Hct 24.2 L (39.0-53.0) % RDW 16.6 H (11.5-15.5) % Plt Count 11 L* D (150-450) k/uL PT (10.0-12.5) sec INR (<1.2) ABG pH 7.55 H (7.35-7.45) ABG pCO2 29 L (35-45) mmHg ABG pO2 118 H (83-108) mmHg ABG HCO3 (21-25) mmol/L ABG Total CO2 26 H (19-24) mmol/L ABG O2 Saturation 99.4 H (94-97) % Sodium (137-145) mmol/L Chloride (98-107) mmol/L Carbon Dioxide (22-30) mmol/L BUN (9-20) mg/dL Creatinine (0.66-1.25) mg/dL Glucose (74-99) mg/dL POC Glucose (mg/dL) 112 H (70-110) mg/dL Calcium (8.4-10.2) mg/dL Total Bilirubin (0.2-1.3) mg/dL Total Protein (6.3-8.2) g/dL Albumin (3.5-5.0) g/dL 01/12/24 01/12/24 01/12/24 Range/Units 00:00 02:10 04:37 WBC 0.3 L* (3.8-10.6) k/uL RBC 2.29 L (4.30-5.90) m/uL Hgb 7.0 L (13.0-17.5) gm/dL Hct 22.6 L (39.0-53.0) % RDW 16.7 H (11.5-15.5) % Plt Count 13 L* (150-450) k/uL PT (10.0-12.5) sec INR (<1.2) ABG pH (7.35-7.45) ABG pCO2 (35-45) mmHg ABG pO2 (83-108) mmHg ABG HCO3 (21-25) mmol/L ABG Total CO2 (19-24) mmol/L ABG O2 Saturation (94-97) % Sodium 147 H (137-145) mmol/L Chloride 112 H (98-107) mmol/L Carbon Dioxide 18 L (22-30) mmol/L BUN 191 H* (9-20) mg/dL Creatinine 2.34 H (0.66-1.25) mg/dL Glucose 125 H (74-99) mg/dL POC Glucose (mg/dL) 113 H (70-110) mg/dL Calcium 7.8 L (8.4-10.2) mg/dL Total Bilirubin 6.8 H (0.2-1.3) mg/dL Total Protein 4.4 L (6.3-8.2) g/dL Albumin 1.8 L (3.5-5.0) g/dL 01/12/24 01/12/24 01/12/24 Range/Units 04:37 05:50 05:58 WBC 0.3 L* (3.8-10.6) k/uL RBC 2.36 L (4.30-5.90) m/uL Hgb 7.3 L (13.0-17.5) gm/dL Hct 23.4 L (39.0-53.0) % RDW 16.6 H (11.5-15.5) % Plt Count 13 L* (150-450) k/uL PT 22.0 H (10.0-12.5) sec INR 2.2 H (<1.2) ABG pH (7.35-7.45) ABG pCO2 (35-45) mmHg ABG pO2 (83-108) mmHg ABG HCO3 (21-25) mmol/L ABG Total CO2 (19-24) mmol/L ABG O2 Saturation (94-97) % Sodium (137-145) mmol/L Chloride (98-107) mmol/L Carbon Dioxide (22-30) mmol/L BUN (9-20) mg/dL Creatinine (0.66-1.25) mg/dL Glucose (74-99) mg/dL POC Glucose (mg/dL) 138 H (70-110) mg/dL Calcium (8.4-10.2) mg/dL Total Bilirubin (0.2-1.3) mg/dL Total Protein (6.3-8.2) g/dL Albumin (3.5-5.0) g/dL 01/12/24 01/12/24 Range/Units 06:10 09:24 WBC (3.8-10.6) k/uL RBC (4.30-5.90) m/uL Hgb (13.0-17.5) gm/dL Hct (39.0-53.0) % RDW (11.5-15.5) % Plt Count (150-450) k/uL PT (10.0-12.5) sec INR (<1.2) ABG pH 7.51 H 7.52 H (7.35-7.45) ABG pCO2 25 L 25 L (35-45) mmHg ABG pO2 127 H 111 H (83-108) mmHg ABG HCO3 20 L 20 L (21-25) mmol/L ABG Total CO2 (19-24) mmol/L ABG O2 Saturation 99.5 H 99.1 H (94-97) % Sodium (137-145) mmol/L Chloride (98-107) mmol/L Carbon Dioxide (22-30) mmol/L BUN (9-20) mg/dL Creatinine (0.66-1.25) mg/dL Glucose (74-99) mg/dL POC Glucose (mg/dL) (70-110) mg/dL Calcium (8.4-10.2) mg/dL Total Bilirubin (0.2-1.3) mg/dL Total Protein (6.3-8.2) g/dL Albumin (3.5-5.0) g/dL Microbiology - Last 24 Hours (Table) 01/10/24 14:00 Gram Stain - Preliminary Sputum Sputum Culture - Preliminary Presumptive Staph aureus Maricarmen albicans 01/10/24 11:00 Blood Culture Gram Stain - Preliminary Blood Blood Culture - Preliminary 01/07/24 09:05 Anaerobic Culture - Final Leg - Left Assessment and Plan (1) FRED (acute kidney injury) Current Visit: Yes Status: Acute Priority: High Code(s): N17.9 - ACUTE KIDNEY FAILURE, UNSPECIFIED SNOMED Code(s): 76091435 (2) Coagulopathy Current Visit: Yes Status: Acute Priority: High Code(s): D68.9 - COAGULATION DEFECT, UNSPECIFIED SNOMED Code(s): 87810476 (3) Leg wound, left Current Visit: Yes Status: Acute Priority: High Code(s): S81.802A - UNSPECIFIED OPEN WOUND, LEFT LOWER LEG, INITIAL ENCOUNTER SNOMED Code(s): 23976778093262103 (4) Methotrexate adverse reaction Current Visit: Yes Status: Suspected Priority: High Code(s): T45.1X5A - ADVERSE EFFECT OF ANTINEOPLASTIC AND IMMUNOSUP DRUGS, INIT SNOMED Code(s): 367220370 (5) Pancytopenia Current Visit: Yes Status: Acute Priority: High Code(s): D61.818 - OTHER PANCYTOPENIA SNOMED Code(s): 706447336 (6) Sepsis Current Visit: Yes Status: Acute Priority: High Code(s): A41.9 - SEPSIS, UNSPECIFIED ORGANISM SNOMED Code(s): 42953081 Plan: Coagulopathy -Patient on Coumadin for atrial fibrillation. On admission INR 9.1 -Patient has received 3 doses of IV vitamin K, INR 2.2 today. Additional dose Vit K ordered. Plan to keep INR 1.5 or less at this time -INR daily. INR may rebound as patient is not consuming oral intake at this time and is acutely ill Concerns for DIC -Fibrinogen 453. Plt low, today 13,000. Additional unit SDP ordered -CBC, Coags and fibrinogen labs ordered daily for now as pt condition remains c ritical Pancytopenia -After chart review, suspect methotrexate toxicity secondary to acute on chronic renal failure. Pt had elevated therapeutic values considering his last dose of mtx would have been at least 4 days prior -Rescue leucovorin given, he cont on BID dosing at this time. -Mtx level repeated today -Pancytopenia work up so far has not revealed a paraprotenemia-small artifact on immunofixation can be seen with acute illness and inflammation. MMA elevated with elevated B12 -CBC daily -Transfuse for hemoglobin less than 7 -Due to acute and critical condition and noted bleeding, goal for plts > 20,000 -G-CSF has been started. No significant change in WBC at this time.
[2024-01-12 17:34] LABS: Glucose,Whole Blood 105 mg/dL (70-110)
[2024-01-12] MEDS: CEFEPIME 2 GM in SODIUM CHLORIDE 0.9% 100 ML IVPB SCH (20:02)
--- NOTE | 2024-01-12 20:47 | P.PN ---
Subjective Progress Note Date: 01/12/24 January 06, 2024 Patient mental status close and and the patient is also receiving Dilaudid may have contributed to his altered mental status his blood pressure dropped as well and patient was presumed to have sepsis and septic shock was transferred to ICU he is on 2 pressors at this time patient does not have any fever but does have severe neutropenia may be related to methotrexate although patient white count was normal yesterday which probably because of his left shoulder tear. Patient is moaning unable to give me any history patient does have wounds but does not appear to have any cellulitis there is no foul-smelling discharge there is some redness which is chronic and chronic venous stasis dermatosis patient was started on vancomycin and cefepime, health education specialist was consulted. January 07, 2024 Patient is 73-year-old male came in for left shoulder pain found to have rotator cuff. The left shoulder. Patient also found to have elevated INR of around 6.5 patient takes Coumadin for atrial fibrillation. Patient is also found to have acute renal failure with creatinine of around 3.6 patient was hypotensive patient is on Lasix, metolazone, lisinopril at home. Patient does have history of rheumatoid arthritis with rheumatoid deformities patient is on colchicine, methotrexate as an outpatient. Patient is also taking Farxiga at home. Patient does have a history of atrial fibrillation on atenolol patient is hypotensive cannot use atenolol patient heart rate started going up now is around 120s at this time. 01/08/2024 Patient is seen and evaluated in follow-up today currently remains in the ICU with multiple medical consultations following. Patient currently continues on mechanical ventilation with an FiO2 of 35 %, PEEP of 5. Patient continues on propofol undergoing weaning and sedation holidays to assess mentation. Wound care and infectious disease also following and patient is maintained on antibiotics in the form of cefepime and daptomycin. Preliminary wound culture showing group D Enterococcus with gram-negative bacilli of the left lower extremity wound as well as blood culture showing a molecular ID which is currently pending. Follow-up repeat blood cultures ordered and pending at this time. Patient also undergoing concerns of DIC workup with hematology following. White count is 1.2 today which is improved from 0.6 yesterday. Hemoglobin is stable at 9.1, platelets are 33, INR status post vitamin K improved and currently 1.6, D-dimer was elevated at 6.16. Sodium is 137 with a potassium of 3.7, BUN is 161 and creatinine is minimally improved at 2.82. Patient does have indwelling Villanueva catheter and has noted 400 output throughout the day. Lactic acid remains elevated although improved at 2.8 calcium is low at 7.2. Total bilirubin has also increased at 2.7 AST is 80 which is improved and ALT is 31, LDH is 274. Urinalysis was negative. Patient continues to be hypotensive requiring vasopressin as well as Levophed and per nursing staff, currently we aning. Patient also continues on sodium bicarb drip as well as Solu-Cortef. Overall prognosis is guarded. Patient is full code. Patient is evaluated today in follow-up in the intensive care unit. Patient caryl on the mechanical ventilator currently intubated and sedated. Patient is on an FiO2 of 35% with a PEEP of 5. Patient remains on propofol for sedation. Additionally patient is continued on Levophed and vasopressin with increased dose of the Levophed today. Patient's blood pressure did drop with the addition of propofol back on for sedation. Patient is remaining on IV Solu-Cortef dose decreased today. Additionally patient is on IV daptomycin and IV cefepime. Patient was found to be back was found to be bacteremic with Staph aureus suspect patient was in septic shock from his wounds on his lower extremities. Although his wound cultures are showing group D Enterococcus and gram-negative bacilli. His urine culture is normal. He has local [facility] ID is following this patient closely. Blood cultures were repeated today. Patient has concerns for DIC and hematology is following. His white blood cell count is 0.4 today, hemoglobin 8.0, platelet count of 12, PT of 19.1, INR 1.9, PTT 38.1, fibrinogen level is 575. Additionally patient is a BUN of 160 creatinine of 2.73. Patient had a chest x-ray today showing right lower lobe infiltrate. 01/10/2024 Patient is evaluated today in the intensive care unit in follow-up. Patient remains on mechanical ventilator intubated and sedated. Patient is currently on FiO2 of 35% with a PEEP of 5. Patient has been continued on propofol for sedation. Patient does continue on multiple blood pressure support medications including Levophed and vasopressin. Patient remains on IV Solu-Cortef. Blood culture positive for Staph aureus which is now growing in the wound culture as well. Patient remains on daptomycin and cefepime. Patient will receive a second unit of platelets today. Blood work today reveals white blood cell count of 0.3, hemoglobin 7.5, platelet count of 15, PT of 14.2, INR 1.4, fibrinogen 492, sodium 144, potassium 3.6, BUN of 171, creatinine 2.04, calcium level of 7.8. Chest x-ray today reveals a stable bibasilar opacities. 01/11/2024 Patient evaluated in follow-up today in the intensive care unit. Patient remains intubated and sedated currently on the mechanical ventilator with an FiO2 of 45% PEEP of 5. Patient has been off propofol and currently not followin g commands at this time not tracking with eyes. Patient will be going for a brain CT today. Patient continues on IV Unasyn and IV daptomycin. Staph bacteremia additionally has enterococcus and E. coli in the wound. Went to atrial fibrillation with rapid ventricular rate overnight he continues on IV Cardizem as well as IV Solu-Medrol. Patient was noted to have a large black foul-smelling bowel movement overnight. GI services has been consulted for evaluation and pending further recommendations. Repeat blood work today reveals a white blood cell count of 0.5, hemoglobin of 8.0, platelet count of 7, sodium of 147, BUN of 176, creatinine of 1.98. X-ray reveals worsening left lower lobe infiltrate correlate for pneumonia. 01/12/2024 Patient is evaluated in follow-up in the intensive care unit. Patient remains intubated and sedated currently on the mechanical ventilator with an FiO2 of 35% and a PEEP of 5. Patient had another large black bowel movement. Patient had a repeat blood culture that is now showing gram-negative bacilli keeping in mind that his first blood culture has shown gram-positive cocci, patient remains on IV daptomycin and IV Unasyn. His sputum culture is also coming back positive for Maricarmen and preliminary of staff aureus. Patient is being followed closely by GI services however due to his continued decreased platelet count any type of endoscopy is on hold. Labs today show a white blood cell count of 0.3, hemoglobin 7.3, platelet count of 13, sodium of 147, BUN of 191, creatinine of 2.34. Patient's PT 22, INR 2.2, fibrinogen level is 453. Patient received another dose of platelets today. He remains on IV Cardizem and today remains in atrial fibrillation with rapid ventricular rate. Chest x-ray today reveals near complete resolution of the left lower lobe atelectasis. Patient is on enteral nutrition vital high-protein with a goal rate of 60 mL/h. However patient is having continuous residuals of 4 to 500 mL and tube feedings have been on hold at this time. REVIEW OF SYSTEMS: Unable to obtain as patient is currently on sedation and mechanical ventilation PHYSICAL EXAMINATION: GENERAL: This is a 73-year-old male who is currently maintained on mechanical ventilation with an FiO2 of 35% and PEEP is 5, well-developed, elderly appearing, ill-appearing, obese HEENT: Pupils are round and equally reacting to light. EOMI. No scleral icterus. No conjunctival pallor. Normocephalic, atraumatic. No pharyngeal erythema. No thyromegaly. CARDIOVASCULAR: S1 and S2 muffled and irregular, tachycardic irregularly irregular rhythm PULMONARY: Diminished breath sounds bilaterally with no wheezing or crackles noted ABDOMEN: Soft, nontender, nondistended, normoactive bowel sounds. No palpable organomegaly. EXTREMITIES: No cyanosis, clubbing, or pedal edema. Extensive wounds noted to bilateral lower extremities with a chronic appearing discoloration, open wound noted on the right with some bleeding noted NEUROLOGICAL: Unable to assess as patient is on mechanical ventilation and sedated SKIN: Ulcers in the lower extremity chronic venous stasis, multiple bruises and ecchymosis noted on bilateral upper extremities Assessment: -Concern for acute upper GI bleed with large black tarry bowel movement -Sepsis with septic shock, present on admission, most likely secondary to left lower extremity wounds. -Gram positive staph aureus bacteremia with ID following closely, wound culture showing gram negative bacilli, enterococcus and staph aureus. Repeat blood culture now showing gram negative. -Severe neutropenia secondary to methotrexate which is being held -Acute hypoxic respiratory failure requiring mechanical ventilation, currently FiO2 is 35% and PEEP of 5 -Acute renal failure: Nonoliguric, with acute tubular necrosis from hypotension. Nephrology is following the patient renal ultrasound did not show any obstruction -Chronic kidney disease stage IV baseline creatinine around 1.5-1.8 -Supratherapeutic INR, status post vitamin K, improving hold off on Coumadin target INR 2-3 patient is on Coumadin for atrial fibrillation. -Atrial fibrillation, paroxysmal with rapid ventricular rate presently rate controlled -Severe thrombocytopenia, likely secondary to sepsis with septic shock -Left rotator cuff tear: Orthopedic surgery evaluated the patient, Tylenol for pain and low-dose Dilaudid -Hypertension, currently hypotensive and on pressor support -Type 2 diabetes mellitus, [id number], patient to continue on insulin hold off further medications Farxiga will be held because of renal failure -Rheumatoid arthritis for now we have to hold colchicine and methotrexate because of renal failure -Hyperkalemia: Secondary to REX inhibitor, acute renal failure -Hypothyroidism for which patient is on methimazole, TSH level is 0.989 -Hyponatremia secondary to renal failure IV fluids as mentioned above -GI prophylaxis -DVT prophylaxis: Patient's INR is supratherapeutic will not need any pharmacological anticoagulation at this time -Full code Plan: Patient is continued in the ICU with multiple medical consultations following maintained on pressor support continues on vasopressin and Levophed Patient also continues on antibiotics in the form of daptomycin and cefepime with infectious disease following with preliminary blood cultures showing a molecular ID and wound cultures preliminary showing gram-negative bacilli and Enterobacter Blood culture positive and has been repeated. ID on and following cultures for antibiotic management Wound care consulted for further management of the lower extremity wounds continue with santyl and dressing changes as recommended. Sepsis, present on admission most likely secondary to left lower extremity wounds that are quite extensive Patient undergoing sedation holidays to assess mentation and underwent CT of the brain yesterday showing mild atrophy with chronic appearing periventricular white matter ischemic changes with no evidence of acute intracranial hemorrhage or infarction noted. Propofol continues today. patient remains essentially unresponsive not following the commands during sedation holiday repeat brain ct again negative for acute process. For GI bleeding and GI services has been consulted for further recommendations. Patient will receive a unit of platelets today, has received 5 units of platelets so far. Remains on IV cardizem Nephrology following, Hematology following as well as vascular surgery and wound care. Undergoing DIC workup Will follow-up on repeat labs. Tube feedings are currently being held due to increased residuals Continue accuchecks ACHS and sliding scale insulin. Zarxio added and will monitor labs. Due to multiple complex medical issues, overall prognosis is critical and guarded at this time CODE STATUS addressed and patient remains full code The impression and plan of care has been dictated by Alize Masters Nurse Practitioner as directed. Dr. Mindi MD I have performed a history and physical examination and medical decision making of this patient, discussed the same with the dictator, and agree with the dictators assessment and plan as written, documented as a scribe. Based on total visit time, I have performed more than 50% of this visit. Objective - Vital Signs Vital signs: Vital Signs Temp 98.1 F 01/12/24 08:00 Pulse 99 01/12/24 08:00 Resp 29 H 01/12/24 08:00 BP 124/48 01/11/24 22:48 Pulse Ox 100 01/12/24 08:00 FiO2 35 01/12/24 09:32 Intake & Output 01/11/24 01/12/24 01/12/24 18:59 06:59 18:59 Intake Total 1678 2516.728 206 Output Total 595 290 30 Balance 1083 2226.728 176 Weight 105.5 kg 107 kg Intake: IV 551 1113 206 0.9 Pressure Bag 39 33 6 0.9 at KVO 130 220 40 Ampicillin-Sulbactam 3 gm 100 In Sodium Chloride 0.9% 100 ml @ 200 mls/hr IVPB Q12HR JESSA Rx#:[id number] Dextrose 5% in Water 1, 660 160 000 ml @ 100 mls/hr IV . Q10H JESSA Rx#:[id number] Potassium Chloride 20 meq 100 In Water For Injection 1 100ml.bag @ 50 mls/hr IVPB ONCE STA Rx#: [id number] Sodium Chloride 0.9% 1, 382 000 ml @ 75 mls/hr IV . [id number] JESSA Rx#:[id number] Intake, IV Titration 830 514.728 Amount Ampicillin-Sulbactam 3 gm 100 In Sodium Chloride 0.9% 100 ml @ 200 mls/hr IVPB Q12HR JESSA Rx#:[id number] DAPTOmycin 500 mg In 50 Sodium Chloride 0.9% 50 ml @ 100 mls/hr IVPB Q24H JESSA Rx#:[id number] Dextrose 5% in Water 1, 480 360 000 ml @ 100 mls/hr IV . Q10H JESSA Rx#:[id number] Diltiazem 125 mg In 125 Sodium Chloride 0.9% 100 ml @ 7.5 MG/HR 7.5 mls/hr IV .[id number] JESSA Rx#: [id number] Norepinephrine 32 mg In 29.728 Sodium Chloride 0.9% 218 ml @ 0.03 MCG/KG/MIN 1. 358 mls/hr IV .Q24H JESSA Rx#:[id number] Potassium Chloride 10 meq 200 In Water For Injection 1 100ml.bag @ 100 mls/hr IVPB Q1H JESSA Rx#: [id number] Vasopressin 20 unit In 0 Sodium Chloride 0.9% 50 ml @ 0.03 UNITS/MIN 4.59 mls/hr IV .[id number] JESSA Rx# :[id number] Tube Feeding 41 630 0 Blood Product 256 259 Platelet Pheresis Pas 256 Psoralen Unit [id number] Platelet Pheresis Pas 259 Psoralen Unit [id number] Output: Urine 595 290 30 Other: Voiding Method Indwelling Catheter Indwelling Catheter # Bowel Movements 1 0 ABP, PAP, CO, CI - Last Documented Arterial Blood Pressure 140/50 - Labs CBC & Chem 7: 01/12/24 05:50 01/12/24 04:37 Labs: Abnormal Lab Results - Last 24 Hours (Table) 01/11/24 01/11/24 01/11/24 Range/Units 06:02 12:34 17:20 WBC 0.3 L* (3.8-10.6) k/uL RBC 2.47 L (4.30-5.90) m/uL Hgb 7.8 L (13.0-17.5) gm/dL Hct 24.2 L (39.0-53.0) % RDW 16.6 H (11.5-15.5) % Plt Count 11 L* D (150-450) k/uL PT (10.0-12.5) sec INR (<1.2) ABG pH 7.55 H (7.35-7.45) ABG pCO2 29 L (35-45) mmHg ABG pO2 118 H (83-108) mmHg ABG HCO3 (21-25) mmol/L ABG Total CO2 26 H (19-24) mmol/L ABG O2 Saturation 99.4 H (94-97) % Sodium (137-145) mmol/L Chloride (98-107) mmol/L Carbon Dioxide (22-30) mmol/L BUN (9-20) mg/dL Creatinine (0.66-1.25) mg/dL Glucose (74-99) mg/dL POC Glucose (mg/dL) 112 H (70-110) mg/dL Calcium (8.4-10.2) mg/dL Total Bilirubin (0.2-1.3) mg/dL Total Protein (6.3-8.2) g/dL Albumin (3.5-5.0) g/dL 01/12/24 01/12/24 01/12/24 Range/Units 00:00 02:10 04:37 WBC 0.3 L* (3.8-10.6) k/uL RBC 2.29 L (4.30-5.90) m/uL Hgb 7.0 L (13.0-17.5) gm/dL Hct 22.6 L (39.0-53.0) % RDW 16.7 H (11.5-15.5) % Plt Count 13 L* (150-450) k/uL PT (10.0-12.5) sec INR (<1.2) ABG pH (7.35-7.45) ABG pCO2 (35-45) mmHg ABG pO2 (83-108) mmHg ABG HCO3 (21-25) mmol/L ABG Total CO2 (19-24) mmol/L ABG O2 Saturation (94-97) % Sodium 147 H (137-145) mmol/L Chloride 112 H (98-107) mmol/L Carbon Dioxide 18 L (22-30) mmol/L BUN 191 H* (9-20) mg/dL Creatinine 2.34 H (0.66-1.25) mg/dL Glucose 125 H (74-99) mg/dL POC Glucose (mg/dL) 113 H (70-110) mg/dL Calcium 7.8 L (8.4-10.2) mg/dL Total Bilirubin 6.8 H (0.2-1.3) mg/dL Total Protein 4.4 L (6.3-8.2) g/dL Albumin 1.8 L (3.5-5.0) g/dL 01/12/24 01/12/24 01/12/24 Range/Units 04:37 05:50 05:58 WBC 0.3 L* (3.8-10.6) k/uL RBC 2.36 L (4.30-5.90) m/uL Hgb 7.3 L (13.0-17.5) gm/dL Hct 23.4 L (39.0-53.0) % RDW 16.6 H (11.5-15.5) % Plt Count 13 L* (150-450) k/uL PT 22.0 H (10.0-12.5) sec INR 2.2 H (<1.2) ABG pH (7.35-7.45) ABG pCO2 (35-45) mmHg ABG pO2 (83-108) mmHg ABG HCO3 (21-25) mmol/L ABG Total CO2 (19-24) mmol/L ABG O2 Saturation (94-97) % Sodium (137-145) mmol/L Chloride (98-107) mmol/L Carbon Dioxide (22-30) mmol/L BUN (9-20) mg/dL Creatinine (0.66-1.25) mg/dL Glucose (74-99) mg/dL POC Glucose (mg/dL) 138 H (70-110) mg/dL Calcium (8.4-10.2) mg/dL Total Bilirubin (0.2-1.3) mg/dL Total Protein (6.3-8.2) g/dL Albumin (3.5-5.0) g/dL 01/12/24 01/12/24 Range/Units 06:10 09:24 WBC (3.8-10.6) k/uL RBC (4.30-5.90) m/uL Hgb (13.0-17.5) gm/dL Hct (39.0-53.0) % RDW (11.5-15.5) % Plt Count (150-450) k/uL PT (10.0-12.5) sec INR (<1.2) ABG pH 7.51 H 7.52 H (7.35-7.45) ABG pCO2 25 L 25 L (35-45) mmHg ABG pO2 127 H 111 H (83-108) mmHg ABG HCO3 20 L 20 L (21-25) mmol/L ABG Total CO2 (19-24) mmol/L ABG O2 Saturation 99.5 H 99.1 H (94-97) % Sodium (137-145) mmol/L Chloride (98-107) mmol/L Carbon Dioxide (22-30) mmol/L BUN (9-20) mg/dL Creatinine (0.66-1.25) mg/dL Glucose (74-99) mg/dL POC Glucose (mg/dL) (70-110) mg/dL Calcium (8.4-10.2) mg/dL Total Bilirubin (0.2-1.3) mg/dL Total Protein (6.3-8.2) g/dL Albumin (3.5-5.0) g/dL Microbiology - Last 24 Hours (Table) 01/10/24 11:00 Blood Culture Gram Stain - Preliminary Blood Blood Culture - Preliminary 01/10/24 14:00 Gram Stain - Preliminary Sputum 01/07/24 09:05 Anaerobic Culture - Final Leg - Left Assessment and Plan Time with Patient: Less than 30
[2024-01-12] MEDS: HYDROmorphone 1 MG/ML 1 ML SYRINGE IVP STA (23:03)
[2024-01-12 23:31] LABS: Glucose,Whole Blood 44 mg/dL (70-110)
[2024-01-12] MEDS: DEXTROSE 5% IN WATER 250 ML with AMIODARONE 300 MG IV ONE (23:35)
[2024-01-12] MEDS ORDERED: DEXTROSE 50% SYRINGE 50 ML IVP PRN (23:41)
[2024-01-12] MEDS: DEXTROSE 50% SYRINGE 50 ML IVP ONE (23:44)
[2024-01-12 23:49] LABS: Glucose,Whole Blood 44 mg/dL (70-110)
[2024-01-13 00:01] LABS: Glucose,Whole Blood 142 mg/dL (70-110)
--- NOTE | 2024-01-13 00:10 | XR ---
EXAMINATION TYPE: XR chest 1V portable DATE OF EXAM: 01/13/2024 CLINICAL HISTORY: Tachypnea. TECHNIQUE: Single AP portable semiupright view of the chest is obtained. COMPARISON: Chest x-ray from earlier today FINDINGS: Stable endotracheal and orogastric tubes. Persistent patchy left basilar atelectasis. Righ t lung remains clear. Cardiac left-sided stable within normal limits. Osseous structures are intact. IMPRESSION: Persistent left basilar opacity favoring atelectasis. Right lung remains clear.
[2024-01-13 00:54] LABS: ABG Base Excess -15.8 mmol/L; ABG Oxygen Saturation 97.9 % (94-97); ABG PCO2 24 mmHg (35-45); ABG PH 7.24 (7.35-7.45); ABG PO2 117 mmHg (83-108); ABG TCO2 11 mmol/L (19-24); Allen Test Performed? Yes
[2024-01-13 00:56] LABS: ABG HCO3 10 mmol/L (21-25)
[2024-01-13 01:24] LABS: Anisocytosis Slight; HCT 21.9 % (39.0-53.0); Hypochromasia Marked; MCH 31.2 pg (25.0-35.0); MCHC 29.7 g/dL (31.0-37.0); Macrocytosis Moderate; Mean Platelet Volume 14.3; RBC 2.08 m/uL (4.30-5.90)
[2024-01-13] MEDS: DEXTROSE 5% IN WATER 1,000 ML with SODIUM BICARB (1 MEQ/ML) 150 ML IV SCH (01:28)
[2024-01-13 01:44] LABS: INR 2.8 (<1.2); Prothrombin Time 27.7 sec (10.0-12.5)
[2024-01-13 01:47] LABS: AST 112 U/L (17-59); Albumin 1.8 g/dL (3.5-5.0); Alkaline Phosphatase 48 U/L (38-126); Anion Gap 26 mmol/L; Calcium 7.7 mg/dL (8.4-10.2); Chloride 109 mmol/L (98-107); Glucose 94 mg/dL (74-99); Potassium 5.6 mmol/L (3.5-5.1); Sodium 143 mmol/L (137-145); Total Bilirubin 7.7 mg/dL (0.2-1.3); Total Protein 4.2 g/dL (6.3-8.2)
[2024-01-13] MEDS: AMIODARONE 360 MG in DEXTROSE 5% IN WATER 200 ML IV ONE (01:47)
[2024-01-13 01:53] LABS: African American GFR (CKD) 22 (>60 ml/min/1.73 sqM); Non-African American GFR(CKD) 19 (>60 ml/min/1.73 sqM)
[2024-01-13 02:13] LABS: MCV 105.3 fL (80.0-100.0); Platelet Count 18 k/uL (150-450); WBC 0.4 k/uL (3.8-10.6)
[2024-01-13 02:15] LABS: HGB 6.5 gm/dL (13.0-17.5)
[2024-01-13] MEDS: PHYTONADIONE 10 MG in SODIUM CHLORIDE 0.9% 50 ML IVPB STA (03:23)
[2024-01-13 03:27] LABS: Glucose,Whole Blood 83 mg/dL (70-110)
[2024-01-13 04:20] LABS: ALT 50 U/L (4-49); Blood Urea Nitrogen 208 mg/dL (9-20); Carbon Dioxide 8 mmol/L (22-30)
[2024-01-13] MEDS: SODIUM BICARB 8.4% 50 ML SYR (1 MEQ/ML) IV STA (04:51)
[2024-01-13 05:10] LABS: Ovalocytes Present; RBC Fragments Present
[2024-01-13 05:45] LABS: Glucose,Whole Blood 87 mg/dL (70-110)
[2024-01-13 06:01] LABS: ABG Base Excess -11.8 mmol/L; ABG HCO3 13 mmol/L (21-25); ABG Oxygen Saturation 98.8 % (94-97); ABG PCO2 23 mmHg (35-45); ABG PH 7.34 (7.35-7.45); ABG PO2 116 mmHg (83-108); ABG TCO2 13 mmol/L (19-24); Allen Test Performed? Yes
[2024-01-13] MEDS ORDERED: AMIODARONE 450 MG in DEXTROSE 5% IN WATER 250 ML IV SCH (08:00)
[2024-01-13 08:20] LABS: Glucose,Whole Blood 112 mg/dL (70-110)
[2024-01-13 08:26] LABS: Anisocytosis Slight; HCT 25.2 % (39.0-53.0); HGB 7.8 gm/dL (13.0-17.5); Hypochromasia Moderate; MCH 31.2 pg (25.0-35.0); MCHC 31.1 g/dL (31.0-37.0); Macrocytosis Slight; Mean Platelet Volume 15.9; RBC 2.51 m/uL (4.30-5.90); RDW 16.8 % (11.5-15.5)
[2024-01-13 08:37] LABS: Platelet Count 18 k/uL (150-450); WBC 0.7 k/uL (3.8-10.6)
[2024-01-13 08:38] LABS: MCV 100.2 fL (80.0-100.0)
[2024-01-13 08:43] LABS: INR 2.7 (<1.2); Prothrombin Time 26.9 sec (10.0-12.5)
[2024-01-13 08:52] LABS: Poikilocytosis (M) Present
--- NOTE | 2024-01-13 09:34 | P.PN ---
Subjective Progress Note Date: 01/13/24 The patient is a 73-year-old male who was admitted to the hospital with sepsis. Cardiology has been consulted for atrial fibrillation. Patient is currently intubated and sedated on ventilator. He has severe pancytopenia and therefore is not a candidate for anticoagulation. Overnight the patient's vasopressor support increased and his IV Cardizem was discontinued. He was started on amiodarone infusion. He continues to be maxed out on vasopressors. The patient is also having high residuals from his gastric tube. GENERAL: Ill-appearing, mal-nourished and in no acute distress. Sedated on ventilator NECK: Supple without JVD or thyromegaly. LUNGS: Breath sounds coarse to auscultation bilaterally. Respiration equal and unlabored. Bilateral rhonchi HEART: Irregular rate and rhythm. Soft systolic murmur. S1 and S2 heard. EXTREMITIES: Normal range of motion. Hyperpigmentation noted bilaterally. +2 lower extremity edema. Left leg dressing. TELEMETRY: Persistent atrial fibrillation with heart rates in the 80s on 1 mg of amiodarone LABS: WBC 0.7, hemoglobin 7.8, hematocrit 25.2, platelet 18, sodium 143, potassium 5.6, BUN 208, creatinine 3.18, AST 112, ALT 50 IMPRESSION: Persistent atrial fibrillation, better controlled on IV amiodarone Staff aureus septicemia with septic shock Acute renal failure Pancytopenia PLAN: Discontinue metoprolol Continue vasopressor support as recommended by entrance guard team Continue amiodarone infusion at 1 mg for rate control Further recommendations for clinical course I am dictating on behalf of Dr Sae De's history/physical and assessment /plan. Objective - Vital Signs Vital signs: Vital Signs Temp 98.5 F 01/13/24 05:28 Pulse 76 01/13/24 07:37 Resp 31 H 01/13/24 07:00 BP 121/47 01/13/24 05:28 Pulse Ox 99 01/13/24 07:00 FiO2 30 01/13/24 07:22 Intake & Output 01/12/24 01/13/24 01/13/24 18:59 06:59 18:59 Intake Total 1863.398 8772.889 Output Total 120 30 Balance 9091.773 9329.889 Weight 108 kg Intake: IV 473 1389 0.9 Pressure Bag 33 39 0.9 at KVO 240 180 Cefepime 2 gm In Sodium 100 Chloride 0.9% 100 ml @ 25 mls/hr IVPB Q8HR [facility] Rx# :[id number] Dextrose 5% in Water 1, 200 420 000 ml @ 10 mls/hr IV . Q24H [facility] Rx#:[id number] Dextrose 5% in Water 1, 600 000 ml @ 100 mls/hr IV . [id number] [facility] with Sodium Bicarb (1 Meq/ml) 150 ml Rx#:[id number] Phytonadione 10 mg In 50 Sodium Chloride 0.9% 50 ml @ 100 mls/hr IVPB ONCE [facility] Rx#:[id number] Intake, IV Titration 722.971 533.889 Amount Ampicillin-Sulbactam 3 gm 100 In Sodium Chloride 0.9% 100 ml @ 200 mls/hr IVPB Q12HR [facility] Rx#:[id number] DAPTOmycin 500 mg In 50 Sodium Chloride 0.9% 50 ml @ 100 mls/hr IVPB Q24H [facility] Rx#:[id number] Dextrose 5% in Water 1, 490 70 000 ml @ 70 mls/hr IV . [id number] [facility] Rx#:[id number] Diltiazem 125 mg In 99.875 Sodium Chloride 0.9% 100 ml @ 7.5 MG/HR 7.5 mls/hr IV .[id number] [facility] Rx#: [id number] Norepinephrine 32 mg In 218.967 Sodium Chloride 0.9% 218 ml @ 0.03 MCG/KG/MIN 1. 358 mls/hr IV .Q24H [facility] Rx#:[id number] Phytonadione 5 mg In 50 Sodium Chloride 0.9% 50 ml @ 100 mls/hr IVPB ONCE [facility] Rx#:[id number] Vasopressin 20 unit In 32.971 90.806 Sodium Chloride 0.9% 50 ml @ 0.03 UNITS/MIN 4.59 mls/hr IV .Q11H7M [facility] Rx# :[id number] propofoL 1,000 mg In 54.241 Empty Bag 1 bag @ 15 MCG/ KG/MIN 8.694 mls/hr IV . [id number] [facility] Rx#:[id number] Tube Feeding 90 140 Blood Product 362 610 Platelet Pheresis Pas 362 Psoralen Unit [id number] Rc As-1 Unit 310 [id number] Other 60 Output: Urine 120 30 Other: Voiding Method Indwelling Catheter Indwelling Catheter # Bowel Movements 0 ABP, PAP, CO, CI - Last Documented Arterial Blood Pressure 128/47 - Labs CBC & Chem 7: 01/13/24 08:20 01/13/24 01:04 Labs: Abnormal Lab Results - Last 24 Hours (Table) 01/07/24 01/12/24 01/12/24 Range/Units 08:31 05:50 09:24 WBC (3.8-10.6) k/uL RBC (4.30-5.90) m/uL Hgb (13.0-17.5) gm/dL Hct (39.0-53.0) % MCV (80.0-100.0) fL MCHC (31.0-37.0) g/dL RDW (11.5-15.5) % Plt Count (150-450) k/uL PT (10.0-12.5) sec INR (<1.2) ABG pH 7.52 H (7.35-7.45) ABG pCO2 25 L (35-45) mmHg ABG pO2 111 H (83-108) mmHg ABG HCO3 20 L (21-25) mmol/L ABG Total CO2 (19-24) mmol/L ABG O2 Saturation 99.1 H (94-97) % Potassium (3.5-5.1) mmol/L Chloride (98-107) mmol/L Carbon Dioxide (22-30) mmol/L BUN (9-20) mg/dL Creatinine (0.66-1.25) mg/dL POC Glucose (mg/dL) (70-110) mg/dL Calcium (8.4-10.2) mg/dL Total Bilirubin 6.5 H (0.2-1.3) mg/dL Conjugated Bilirubin 3.2 H (0.0-0.3) mg/dL Delta Bilirubin 2.2 H (0.0-0.2) mg/dL AST (17-59) U/L ALT (4-49) U/L Total Protein (6.3-8.2) g/dL Albumin (3.5-5.0) g/dL Free [place] LC, Quant 14.47 H (0.33-1.94) mg/dL Free [place] LC, Quant 10.74 H (0.57-2.63) mg/dL Crossmatch 01/12/24 01/12/24 01/12/24 Range/Units 10:20 23:29 23:37 WBC (3.8-10.6) k/uL RBC (4.30-5.90) m/uL Hgb (13.0-17.5) gm/dL Hct (39.0-53.0) % MCV (80.0-100.0) fL MCHC (31.0-37.0) g/dL RDW (11.5-15.5) % Plt Count (150-450) k/uL PT (10.0-12.5) sec INR (<1.2) ABG pH (7.35-7.45) ABG pCO2 (35-45) mmHg ABG pO2 (83-108) mmHg ABG HCO3 (21-25) mmol/L ABG Total CO2 (19-24) mmol/L ABG O2 Saturation (94-97) % Potassium (3.5-5.1) mmol/L Chloride (98-107) mmol/L Carbon Dioxide (22-30) mmol/L BUN (9-20) mg/dL Creatinine (0.66-1.25) mg/dL POC Glucose (mg/dL) 44 L* 44 L* (70-110) mg/dL Calcium (8.4-10.2) mg/dL Total Bilirubin (0.2-1.3) mg/dL Conjugated Bilirubin (0.0-0.3) mg/dL Delta Bilirubin (0.0-0.2) mg/dL AST (17-59) U/L ALT (4-49) U/L Total Protein (6.3-8.2) g/dL Albumin (3.5-5.0) g/dL Free [place] LC, Quant (0.33-1.94) mg/dL Free [place] LC, Quant (0.57-2.63) mg/dL Crossmatch See Detail 01/12/24 01/13/24 01/13/24 Range/Units 23:59 00:51 01:04 WBC (3.8-10.6) k/uL RBC (4.30-5.90) m/uL Hgb (13.0-17.5) gm/dL Hct (39.0-53.0) % MCV (80.0-100.0) fL MCHC (31.0-37.0) g/dL RDW (11.5-15.5) % Plt Count (150-450) k/uL PT (10.0-12.5) sec INR (<1.2) ABG pH 7.24 L (7.35-7.45) ABG pCO2 24 L (35-45) mmHg ABG pO2 117 H (83-108) mmHg ABG HCO3 10 L* (21-25) mmol/L ABG Total CO2 11 L (19-24) mmol/L ABG O2 Saturation 97.9 H (94-97) % Potassium 5.6 H (3.5-5.1) mmol/L Chloride 109 H (98-107) mmol/L Carbon Dioxide 8 L* (22-30) mmol/L BUN 208 H* (9-20) mg/dL Creatinine 3.18 H (0.66-1.25) mg/dL POC Glucose (mg/dL) 142 H (70-110) mg/dL Calcium 7.7 L (8.4-10.2) mg/dL Total Bilirubin 7.7 H (0.2-1.3) mg/dL Conjugated Bilirubin (0.0-0.3) mg/dL Delta Bilirubin (0.0-0.2) mg/dL AST 112 H (17-59) U/L ALT 50 H (4-49) U/L Total Protein 4.2 L (6.3-8.2) g/dL Albumin 1.8 L (3.5-5.0) g/dL Free [place] LC, Quant (0.33-1.94) mg/dL Free [place] LC, Quant (0.57-2.63) mg/dL Crossmatch 01/13/24 01/13/24 01/13/24 Range/Units 01:04 01:04 05:58 WBC 0.4 L* (3.8-10.6) k/uL RBC 2.08 L (4.30-5.90) m/uL Hgb 6.5 L* (13.0-17.5) gm/dL Hct 21.9 L (39.0-53.0) % MCV 105.3 H D (80.0-100.0) fL MCHC 29.7 L (31.0-37.0) g/dL RDW 17.0 H (11.5-15.5) % Plt Count 18 L* (150-450) k/uL PT 27.7 H (10.0-12.5) sec INR 2.8 H (<1.2) ABG pH 7.34 L (7.35-7.45) ABG pCO2 23 L (35-45) mmHg ABG pO2 116 H (83-108) mmHg ABG HCO3 13 L (21-25) mmol/L ABG Total CO2 13 L (19-24) mmol/L ABG O2 Saturation 98.8 H (94-97) % Potassium (3.5-5.1) mmol/L Chloride (98-107) mmol/L Carbon Dioxide (22-30) mmol/L BUN (9-20) mg/dL Creatinine (0.66-1.25) mg/dL POC Glucose (mg/dL) (70-110) mg/dL Calcium (8.4-10.2) mg/dL Total Bilirubin (0.2-1.3) mg/dL Conjugated Bilirubin (0.0-0.3) mg/dL Delta Bilirubin (0.0-0.2) mg/dL AST (17-59) U/L ALT (4-49) U/L Total Protein (6.3-8.2) g/dL Albumin (3.5-5.0) g/dL Free [place] LC, Quant (0.33-1.94) mg/dL Free [place] LC, Quant (0.57-2.63) mg/dL Crossmatch 01/13/24 01/13/24 01/13/24 Range/Units 08:18 08:20 08:20 WBC 0.7 L* (3.8-10.6) k/uL RBC 2.51 L (4.30-5.90) m/uL Hgb 7.8 L (13.0-17.5) gm/dL Hct 25.2 L (39.0-53.0) % MCV 100.2 H D (80.0-100.0) fL MCHC (31.0-37.0) g/dL RDW 16.8 H (11.5-15.5) % Plt Count 18 L* (150-450) k/uL PT 26.9 H (10.0-12.5) sec INR 2.7 H (<1.2) ABG pH (7.35-7.45) ABG pCO2 (35-45) mmHg ABG pO2 (83-108) mmHg ABG HCO3 (21-25) mmol/L ABG Total CO2 (19-24) mmol/L ABG O2 Saturation (94-97) % Potassium (3.5-5.1) mmol/L Chloride (98-107) mmol/L Carbon Dioxide (22-30) mmol/L BUN (9-20) mg/dL Creatinine (0.66-1.25) mg/dL POC Glucose (mg/dL) 112 H (70-110) mg/dL Calcium (8.4-10.2) mg/dL Total Bilirubin (0.2-1.3) mg/dL Conjugated Bilirubin (0.0-0.3) mg/dL Delta Bilirubin (0.0-0.2) mg/dL AST (17-59) U/L ALT (4-49) U/L Total Protein (6.3-8.2) g/dL Albumin (3.5-5.0) g/dL Free [place] LC, Quant (0.33-1.94) mg/dL Free [place] LC, Quant (0.57-2.63) mg/dL Crossmatch Microbiology - Last 24 Hours (Table) 01/10/24 14:00 Gram Stain - Final Sputum Sputum Culture - Final Staphylococcus aureus Maricarmen albicans 01/11/24 16:25 Blood Culture - Preliminary Blood 01/10/24 11:00 Blood Culture Gram Stain - Preliminary Blood Blood Culture - Preliminary Molecular ID
--- NOTE | 2024-01-13 10:41 | P.PN ---
Subjective Patient is seen in follow-up for acute kidney injury on chronic kidney disease. Renal function worsening. Oliguric. On high-dose vasopressor support. On amiodarone drip. Remains pancytopenic. Vital signs are stable. On vasopressor support. General: Resting in bed. HEENT: Intubated. LUNGS: Scattered rhonchi. HEART: Rate and Rhythm are regular. ABDOMEN: No distention. Soft. EXTREMITITES: Left lower extremity wrapped. No drainage. Wounds noted. 1+ edema. Objective - Vital Signs Vital signs: Vital Signs Temp 98.5 F 01/13/24 05:28 Pulse 76 01/13/24 07:37 Resp 31 H 01/13/24 07:00 BP 121/47 01/13/24 05:28 Pulse Ox 99 01/13/24 07:00 FiO2 30 01/13/24 07:22 Intake & Output 01/12/24 01/13/24 01/13/24 18:59 06:59 18:59 Intake Total 6565.757 2973.889 Output Total 120 30 Balance 8858.510 4359.889 Weight 108 kg Intake: IV 473 1389 0.9 Pressure Bag 33 39 0.9 at KVO 240 180 Cefepime 2 gm In Sodium 100 Chloride 0.9% 100 ml @ 25 mls/hr IVPB Q8HR [facility] Rx# :[id number] Dextrose 5% in Water 1, 200 420 000 ml @ 10 mls/hr IV . Q24H [facility] Rx#:[id number] Dextrose 5% in Water 1, 600 000 ml @ 100 mls/hr IV . [id number] [facility] with Sodium Bicarb (1 Meq/ml) 150 ml Rx#:[id number] Phytonadione 10 mg In 50 Sodium Chloride 0.9% 50 ml @ 100 mls/hr IVPB ONCE STA Rx#:[id number] Intake, IV Titration 722.971 533.889 Amount Ampicillin-Sulbactam 3 gm 100 In Sodium Chloride 0.9% 100 ml @ 200 mls/hr IVPB Q12HR [facility] Rx#:[id number] DAPTOmycin 500 mg In 50 Sodium Chloride 0.9% 50 ml @ 100 mls/hr IVPB Q24H [facility] Rx#:[id number] Dextrose 5% in Water 1, 490 70 000 ml @ 70 mls/hr IV . [id number] [facility] Rx#:[id number] Diltiazem 125 mg In 99.875 Sodium Chloride 0.9% 100 ml @ 7.5 MG/HR 7.5 mls/hr IV .[id number] [facility] Rx#: [id number] Norepinephrine 32 mg In 218.967 Sodium Chloride 0.9% 218 ml @ 0.03 MCG/KG/MIN 1. 358 mls/hr IV .Q24H [facility] Rx#:[id number] Phytonadione 5 mg In 50 Sodium Chloride 0.9% 50 ml @ 100 mls/hr IVPB ONCE STA Rx#:[id number] Vasopressin 20 unit In 32.971 90.806 Sodium Chloride 0.9% 50 ml @ 0.03 UNITS/MIN 4.59 mls/hr IV .Q11H7M [facility] Rx# :[id number] propofoL 1,000 mg In 54.241 Empty Bag 1 bag @ 15 MCG/ KG/MIN 8.694 mls/hr IV . [id number] [facility] Rx#:[id number] Tube Feeding 90 140 Blood Product 362 610 Platelet Pheresis Pas 362 Psoralen Unit [id number] Rc As-1 Unit 310 [id number] Other 60 Output: Urine 120 30 Other: Voiding Method Indwelling Catheter Indwelling Catheter # Bowel Movements 0 ABP, PAP, CO, CI - Last Documented Arterial Blood Pressure 128/47 - Labs CBC & Chem 7: 01/13/24 08:20 01/13/24 01:04 Labs: Abnormal Lab Results - Last 24 Hours (Table) 01/07/24 01/12/24 01/12/24 Range/Units 08:31 05:50 10:20 WBC (3.8-10.6) k/uL RBC (4.30-5.90) m/uL Hgb (13.0-17.5) gm/dL Hct (39.0-53.0) % MCV (80.0-100.0) fL MCHC (31.0-37.0) g/dL RDW (11.5-15.5) % Plt Count (150-450) k/uL PT (10.0-12.5) sec INR (<1.2) ABG pH (7.35-7.45) ABG pCO2 (35-45) mmHg ABG pO2 (83-108) mmHg ABG HCO3 (21-25) mmol/L ABG Total CO2 (19-24) mmol/L ABG O2 Saturation (94-97) % Potassium (3.5-5.1) mmol/L Chloride (98-107) mmol/L Carbon Dioxide (22-30) mmol/L BUN (9-20) mg/dL Creatinine (0.66-1.25) mg/dL POC Glucose (mg/dL) (70-110) mg/dL Calcium (8.4-10.2) mg/dL Total Bilirubin 6.5 H (0.2-1.3) mg/dL Conjugated Bilirubin 3.2 H (0.0-0.3) mg/dL Delta Bilirubin 2.2 H (0.0-0.2) mg/dL AST (17-59) U/L ALT (4-49) U/L Total Protein (6.3-8.2) g/dL Albumin (3.5-5.0) g/dL Free [place] LC, Quant 14.47 H (0.33-1.94) mg/dL Free [place] LC, Quant 10.74 H (0.57-2.63) mg/dL Crossmatch See Detail 01/12/24 01/12/24 01/12/24 Range/Units 23:29 23:37 23:59 WBC (3.8-10.6) k/uL RBC (4.30-5.90) m/uL Hgb (13.0-17.5) gm/dL Hct (39.0-53.0) % MCV (80.0-100.0) fL MCHC (31.0-37.0) g/dL RDW (11.5-15.5) % Plt Count (150-450) k/uL PT (10.0-12.5) sec INR (<1.2) ABG pH (7.35-7.45) ABG pCO2 (35-45) mmHg ABG pO2 (83-108) mmHg ABG HCO3 (21-25) mmol/L ABG Total CO2 (19-24) mmol/L ABG O2 Saturation (94-97) % Potassium (3.5-5.1) mmol/L Chloride (98-107) mmol/L Carbon Dioxide (22-30) mmol/L BUN (9-20) mg/dL Creatinine (0.66-1.25) mg/dL POC Glucose (mg/dL) 44 L* 44 L* 142 H (70-110) mg/dL Calcium (8.4-10.2) mg/dL Total Bilirubin (0.2-1.3) mg/dL Conjugated Bilirubin (0.0-0.3) mg/dL Delta Bilirubin (0.0-0.2) mg/dL AST (17-59) U/L ALT (4-49) U/L Total Protein (6.3-8.2) g/dL Albumin (3.5-5.0) g/dL Free [place] LC, Quant (0.33-1.94) mg/dL Free [place] LC, Quant (0.57-2.63) mg/dL Crossmatch 01/13/24 01/13/24 01/13/24 Range/Units 00:51 01:04 01:04 WBC 0.4 L* (3.8-10.6) k/uL RBC 2.08 L (4.30-5.90) m/uL Hgb 6.5 L* (13.0-17.5) gm/dL Hct 21.9 L (39.0-53.0) % MCV 105.3 H D (80.0-100.0) fL MCHC 29.7 L (31.0-37.0) g/dL RDW 17.0 H (11.5-15.5) % Plt Count 18 L* (150-450) k/uL PT (10.0-12.5) sec INR (<1.2) ABG pH 7.24 L (7.35-7.45) ABG pCO2 24 L (35-45) mmHg ABG pO2 117 H (83-108) mmHg ABG HCO3 10 L* (21-25) mmol/L ABG Total CO2 11 L (19-24) mmol/L ABG O2 Saturation 97.9 H (94-97) % Potassium 5.6 H (3.5-5.1) mmol/L Chloride 109 H (98-107) mmol/L Carbon Dioxide 8 L* (22-30) mmol/L BUN 208 H* (9-20) mg/dL Creatinine 3.18 H (0.66-1.25) mg/dL POC Glucose (mg/dL) (70-110) mg/dL Calcium 7.7 L (8.4-10.2) mg/dL Total Bilirubin 7.7 H (0.2-1.3) mg/dL Conjugated Bilirubin (0.0-0.3) mg/dL Delta Bilirubin (0.0-0.2) mg/dL AST 112 H (17-59) U/L ALT 50 H (4-49) U/L Total Protein 4.2 L (6.3-8.2) g/dL Albumin 1.8 L (3.5-5.0) g/dL Free [place] LC, Quant (0.33-1.94) mg/dL Free [place] LC, Quant (0.57-2.63) mg/dL Crossmatch 01/13/24 01/13/24 01/13/24 Range/Units 01:04 05:58 08:18 WBC (3.8-10.6) k/uL RBC (4.30-5.90) m/uL Hgb (13.0-17.5) gm/dL Hct (39.0-53.0) % MCV (80.0-100.0) fL MCHC (31.0-37.0) g/dL RDW (11.5-15.5) % Plt Count (150-450) k/uL PT 27.7 H (10.0-12.5) sec INR 2.8 H (<1.2) ABG pH 7.34 L (7.35-7.45) ABG pCO2 23 L (35-45) mmHg ABG pO2 116 H (83-108) mmHg ABG HCO3 13 L (21-25) mmol/L ABG Total CO2 13 L (19-24) mmol/L ABG O2 Saturation 98.8 H (94-97) % Potassium (3.5-5.1) mmol/L Chloride (98-107) mmol/L Carbon Dioxide (22-30) mmol/L BUN (9-20) mg/dL Creatinine (0.66-1.25) mg/dL POC Glucose (mg/dL) 112 H (70-110) mg/dL Calcium (8.4-10.2) mg/dL Total Bilirubin (0.2-1.3) mg/dL Conjugated Bilirubin (0.0-0.3) mg/dL Delta Bilirubin (0.0-0.2) mg/dL AST (17-59) U/L ALT (4-49) U/L Total Protein (6.3-8.2) g/dL Albumin (3.5-5.0) g/dL Free [place] LC, Quant (0.33-1.94) mg/dL Free [place] LC, Quant (0.57-2.63) mg/dL Crossmatch 01/13/24 01/13/24 Range/Units 08:20 08:20 WBC 0.7 L* (3.8-10.6) k/uL RBC 2.51 L (4.30-5.90) m/uL Hgb 7.8 L (13.0-17.5) gm/dL Hct 25.2 L (39.0-53.0) % MCV 100.2 H D (80.0-100.0) fL MCHC (31.0-37.0) g/dL RDW 16.8 H (11.5-15.5) % Plt Count 18 L* (150-450) k/uL PT 26.9 H (10.0-12.5) sec INR 2.7 H (<1.2) ABG pH (7.35-7.45) ABG pCO2 (35-45) mmHg ABG pO2 (83-108) mmHg ABG HCO3 (21-25) mmol/L ABG Total CO2 (19-24) mmol/L ABG O2 Saturation (94-97) % Potassium (3.5-5.1) mmol/L Chloride (98-107) mmol/L Carbon Dioxide (22-30) mmol/L BUN (9-20) mg/dL Creatinine (0.66-1.25) mg/dL POC Glucose (mg/dL) (70-110) mg/dL Calcium (8.4-10.2) mg/dL Total Bilirubin (0.2-1.3) mg/dL Conjugated Bilirubin (0.0-0.3) mg/dL Delta Bilirubin (0.0-0.2) mg/dL AST (17-59) U/L ALT (4-49) U/L Total Protein (6.3-8.2) g/dL Albumin (3.5-5.0) g/dL Free [place] LC, Quant (0.33-1.94) mg/dL Free [place] LC, Quant (0.57-2.63) mg/dL Crossmatch Microbiology - Last 24 Hours (Table) 01/10/24 14:00 Gram Stain - Final Sputum Sputum Culture - Final Staphylococcus aureus Maricarmen albicans 01/11/24 16:25 Blood Culture - Preliminary Blood 01/10/24 11:00 Blood Culture Gram Stain - Preliminary Blood Blood Culture - Preliminary Molecular ID Assessment and Plan Plan: Assessment: 1. Acute kidney injury secondary to ATN secondary to septic shock, hemodynamic instability. Renal function worsening. Oliguric. No hydronephrosis noted on kidney ultrasound also left kidney was not visualized. Disproportionately elevated BUN partially due to steroids as well as potential underlying GI bleed. Has required blood transfusion this admission. 2. Chronic kidney disease stage IIIb with baseline creatinine near 2 secondary to cardiorenal syndrome. 3. Septic shock secondary to lower extremity wounds. Wound culture positive for group D Enterococcus. Blood cultures positive for gram-positive cocci. On antibiotics. ID following. 4. Chronic diastolic CHF with mild to moderate mitral and aortic regurgitation. 5. Pancytopenia. Concern for DIC as well as methotrexate toxicity. Hematology oncology following. 6. Rheumatoid arthritis maintained on methotrexate outpatient. 7. Acute hypoxic respiratory failure. Currently intubated. On 35% FiO2. 8. Metabolic acidosis secondary to acute kidney injury maintained on bicarb drip. 9. Hypokalemia from intracellular shifting from IV bicarb and low intake. Now slightly hyperkalemic due to acute kidney injury and acidosis. 10. Hypernatremia from free water diuresis and lack of oral water intake. Improved. 11. A-fib with RVR status post Cardizem drip. Now on amiodarone drip. Plan: Maintain bicarb drip. Tube feeds currently held. On high-dose vasopressor support. Continue to monitor renal function and urine output. Due to high BUN and concern for uremia, plan is to attempt renal replacement the rapy to see if it helps with his mentation. However patient's platelet count remains significantly low, INR elevated despite receiving vitamin K, and dialysis catheter cannot be placed at this time. Additionally patient is hemodynamically very unstable and likely will not be able to even tolerate renal replacement therapy. Status post multiple platelet transfusions. Wean steroids as able. No acute changes noted on brain CT. Prognosis guarded. Discussed with patient's present at bedside. Comfort measures have been discussed.
[2024-01-13] MEDS: AMIODARONE 360 MG in DEXTROSE 5% IN WATER 200 ML IV SCH (10:44)
--- NOTE | 2024-01-13 11:02 | P.PN ---
Subjective Progress Note Date: 01/13/24 Principal diagnosis: GI bleed This is a 73-year-old male who had presented to the emergency department with complaints of left arm pain after working out. He has a past medical history of atrial fibrillation on Coumadin, rheumatoid arthritis, diabetes mellitus and hypertension. On initial evaluation patient had significantly abnormal labs and was hypotensive. HPI obtained from chart and nursing as patient is currently intubated and sedated. He was admitted to the ICU. Patient was subsequently intubated and currently is now intubated and sedated. He is on multiple med ications with multiple consultants. He has acute kidney injury and is being followed by nephrology, vascular surgery was consulted for hemodialysis catheter. Apparently patient had a black bowel movement through the night, with anemia. So gastroenterology was consulted for possible GI bleed. Unfortunately patient has been severely thrombocytopenic and platelets are currently at 7000. Hematology is following patient. DIC workup was completed which was reported as negative. He has received 3 doses of vitamin K and 2 doses of platelets. Also suspecting methotrexate toxicity according to hematology Today's labs WBC 0.5 hemoglobin 8.0 platelet count 7000 INR 1.5 sodium 147 potassium 3.9 BUN 176 creatinine 1.98 01/12/2024 Patient seen and examined today as a follow-up. is at the bedside. Patient remains in the ICU sedated and intubated. WBC 0.3 hemoglobin 7.3 hematocrit 23 platelet count 13,000 INR 2.2. Patient's bilirubin also continues to trend up, bilirubin 6.8 AST 44 ALT 31 alkaline phosphatase 63. Nursing reports he had a couple clots noted in his tube feeding residual yesterday. And had a black stool through the night. Patient does have notable dried blood around the mouth and nursing reports multiple sores in his mouth that will bleed. He is status post 5 units of platelets. 01/13/2024 Patient seen and examined today as a follow-up. He remains in the ICU intubated and sedated critically ill. Through the night patient had a drop in his hemoglobin to 6.5 he was given 1 unit of blood, platelet count 18,000 and INR 2.8. He was given 1 unit of blood and vitamin K. Repeat labs this morning WBC 0.7 hemoglobin 7.8 platelet count 18,000 INR 2.7 sodium 143 potassium 5.6 BUN 208 creatinine 3.18 total bilirubin 7.7 AST 112 ALT 50 alkaline phosphatase 48. Nursing reported patient had bleeding from his mouth throughout the night. Black stool as well. Objective - Vital Signs Vital signs: Vital Signs Temp 98.5 F 01/13/24 05:28 Pulse 76 01/13/24 07:37 Resp 31 H 01/13/24 07:00 BP 121/47 01/13/24 05:28 Pulse Ox 99 01/13/24 07:00 FiO2 30 01/13/24 07:22 Intake & Output 01/12/24 01/13/24 01/13/24 18:59 06:59 18:59 Intake Total 8511.159 4500.889 Output Total 120 30 Balance 8366.679 9527.889 Weight 108 kg Intake: IV 473 1389 0.9 Pressure Bag 33 39 0.9 at KVO 240 180 Cefepime 2 gm In Sodium 100 Chloride 0.9% 100 ml @ 25 mls/hr IVPB Q8HR [facility] Rx# :[id number] Dextrose 5% in Water 1, 200 420 000 ml @ 10 mls/hr IV . Q24H [facility] Rx#:[id number] Dextrose 5% in Water 1, 600 000 ml @ 100 mls/hr IV . [id number] [facility] with Sodium Bicarb (1 Meq/ml) 150 ml Rx#:[id number] Phytonadione 10 mg In 50 Sodium Chloride 0.9% 50 ml @ 100 mls/hr IVPB ONCE STA Rx#:[id number] Intake, IV Titration 722.971 533.889 Amount Ampicillin-Sulbactam 3 gm 100 In Sodium Chloride 0.9% 100 ml @ 200 mls/hr IVPB Q12HR [facility] Rx#:[id number] DAPTOmycin 500 mg In 50 Sodium Chloride 0.9% 50 ml @ 100 mls/hr IVPB Q24H [facility] Rx#:[id number] Dextrose 5% in Water 1, 490 70 000 ml @ 70 mls/hr IV . [id number] [facility] Rx#:[id number] Diltiazem 125 mg In 99.875 Sodium Chloride 0.9% 100 ml @ 7.5 MG/HR 7.5 mls/hr IV .[id number] [facility] Rx#: [id number] Norepinephrine 32 mg In 218.967 Sodium Chloride 0.9% 218 ml @ 0.03 MCG/KG/MIN 1. 358 mls/hr IV .Q24H [facility] Rx#:[id number] Phytonadione 5 mg In 50 Sodium Chloride 0.9% 50 ml @ 100 mls/hr IVPB ONCE [facility] Rx#:[id number] Vasopressin 20 unit In 32.971 90.806 Sodium Chloride 0.9% 50 ml @ 0.03 UNITS/MIN 4.59 mls/hr IV .[id number] [facility] Rx# :[id number] propofoL 1,000 mg In 54.241 Empty Bag 1 bag @ 15 MCG/ KG/MIN 8.694 mls/hr IV . [id number] [facility] Rx#:[id number] Tube Feeding 90 140 Blood Product 362 610 Platelet Pheresis Pas 362 Psoralen Unit [id number] Rc As-1 Unit 310 [id number] Other 60 Output: Urine 120 30 Other: Voiding Method Indwelling Catheter Indwelling Catheter # Bowel Movements 0 ABP, PAP, CO, CI - Last Documented Arterial Blood Pressure 128/47 - Exam General appearance: The patient is sedated and intubated. HET: Head is normocephalic and atraumatic. Mouth with old dried blood noted around lips, oral sores. Neck: Supple. Heart: Regular. Lungs: Equal expansion. Abdomen: Soft, nontender, nondistended. Positive bowel sounds. Scrotal swelling. Skin: Jaundice. Extremities: Bilateral upper and lower extremity edema. Bilateral upper and lower extremity ecchymosis. Left lower extremity with dressing clean dry and intact. Skin tear medial aspect of left thigh. Neurological: Sedated and intubated. - Labs CBC & Chem 7: 01/13/24 08:20 01/13/24 01:04 Labs: Abnormal Lab Results - Last 24 Hours (Table) 01/07/24 01/12/24 01/12/24 Range/Units 08:31 05:50 05:50 WBC 0.3 L* (3.8-10.6) k/uL RBC (4.30-5.90) m/uL Hgb (13.0-17.5) gm/dL Hct (39.0-53.0) % MCV (80.0-100.0) fL MCHC (31.0-37.0) g/dL RDW (11.5-15.5) % Plt Count (150-450) k/uL PT (10.0-12.5) sec INR (<1.2) ABG pH (7.35-7.45) ABG pCO2 (35-45) mmHg ABG pO2 (83-108) mmHg ABG HCO3 (21-25) mmol/L ABG Total CO2 (19-24) mmol/L ABG O2 Saturation (94-97) % Potassium (3.5-5.1) mmol/L Chloride (98-107) mmol/L Carbon Dioxide (22-30) mmol/L BUN (9-20) mg/dL Creatinine (0.66-1.25) mg/dL POC Glucose (mg/dL) (70-110) mg/dL Calcium (8.4-10.2) mg/dL Total Bilirubin 6.5 H (0.2-1.3) mg/dL Conjugated Bilirubin 3.2 H (0.0-0.3) mg/dL Delta Bilirubin 2.2 H (0.0-0.2) mg/dL AST (17-59) U/L ALT (4-49) U/L Total Protein (6.3-8.2) g/dL Albumin (3.5-5.0) g/dL Free [place] LC, Quant 14.47 H (0.33-1.94) mg/dL [facility] [place] LC, Quant 10.74 H (0.57-2.63) mg/dL Crossmatch 01/12/24 01/12/24 01/12/24 Range/Units 09:24 10:20 23:29 WBC (3.8-10.6) k/uL RBC (4.30-5.90) m/uL Hgb (13.0-17.5) gm/dL Hct (39.0-53.0) % MCV (80.0-100.0) fL MCHC (31.0-37.0) g/dL RDW (11.5-15.5) % Plt Count (150-450) k/uL PT (10.0-12.5) sec INR (<1.2) ABG pH 7.52 H (7.35-7.45) ABG pCO2 25 L (35-45) mmHg ABG pO2 111 H (83-108) mmHg ABG HCO3 20 L (21-25) mmol/L ABG Total CO2 (19-24) mmol/L ABG O2 Saturation 99.1 H (94-97) % Potassium (3.5-5.1) mmol/L Chloride (98-107) mmol/L Carbon Dioxide (22-30) mmol/L BUN (9-20) mg/dL Creatinine (0.66-1.25) mg/dL POC Glucose (mg/dL) 44 L* (70-110) mg/dL Calcium (8.4-10.2) mg/dL Total Bilirubin (0.2-1.3) mg/dL Conjugated Bilirubin (0.0-0.3) mg/dL Delta Bilirubin (0.0-0.2) mg/dL AST (17-59) U/L ALT (4-49) U/L Total Protein (6.3-8.2) g/dL Albumin (3.5-5.0) g/dL [facility] [place] LC, Quant (0.33-1.94) mg/dL [facility] [place] LC, Quant (0.57-2.63) mg/dL Crossmatch See Detail 01/12/24 01/12/24 01/13/24 Range/Units 23:37 23:59 00:51 WBC (3.8-10.6) k/uL RBC (4.30-5.90) m/uL Hgb (13.0-17.5) gm/dL Hct (39.0-53.0) % MCV (80.0-100.0) fL MCHC (31.0-37.0) g/dL RDW (11.5-15.5) % Plt Count (150-450) k/uL PT (10.0-12.5) sec INR (<1.2) ABG pH 7.24 L (7.35-7.45) ABG pCO2 24 L (35-45) mmHg ABG pO2 117 H (83-108) mmHg ABG HCO3 10 L* (21-25) mmol/L ABG Total CO2 11 L (19-24) mmol/L ABG O2 Saturation 97.9 H (94-97) % Potassium (3.5-5.1) mmol/L Chloride (98-107) mmol/L Carbon Dioxide (22-30) mmol/L BUN (9-20) mg/dL Creatinine (0.66-1.25) mg/dL POC Glucose (mg/dL) 44 L* 142 H (70-110) mg/dL Calcium (8.4-10.2) mg/dL Total Bilirubin (0.2-1.3) mg/dL Conjugated Bilirubin (0.0-0.3) mg/dL Delta Bilirubin (0.0-0.2) mg/dL AST (17-59) U/L ALT (4-49) U/L Total Protein (6.3-8.2) g/dL Albumin (3.5-5.0) g/dL [facility] [place] LC, Quant (0.33-1.94) mg/dL [facility] [place] LC, Quant (0.57-2.63) mg/dL Crossmatch 01/13/24 01/13/24 01/13/24 Range/Units 01:04 01:04 01:04 WBC 0.4 L* (3.8-10.6) k/uL RBC 2.08 L (4.30-5.90) m/uL Hgb 6.5 L* (13.0-17.5) gm/dL Hct 21.9 L (39.0-53.0) % MCV 105.3 H D (80.0-100.0) fL MCHC 29.7 L (31.0-37.0) g/dL RDW 17.0 H (11.5-15.5) % Plt Count 18 L* (150-450) k/uL PT 27.7 H (10.0-12.5) sec INR 2.8 H (<1.2) ABG pH (7.35-7.45) ABG pCO2 (35-45) mmHg ABG pO2 (83-108) mmHg ABG HCO3 (21-25) mmol/L ABG Total CO2 (19-24) mmol/L ABG O2 Saturation (94-97) % Potassium 5.6 H (3.5-5.1) mmol/L Chloride 109 H (98-107) mmol/L Carbon Dioxide 8 L* (22-30) mmol/L BUN 208 H* (9-20) mg/dL Creatinine 3.18 H (0.66-1.25) mg/dL POC Glucose (mg/dL) (70-110) mg/dL Calcium 7.7 L (8.4-10.2) mg/dL Total Bilirubin 7.7 H (0.2-1.3) mg/dL Conjugated Bilirubin (0.0-0.3) mg/dL Delta Bilirubin (0.0-0.2) mg/dL AST 112 H (17-59) U/L ALT 50 H (4-49) U/L Total Protein 4.2 L (6.3-8.2) g/dL Albumin 1.8 L (3.5-5.0) g/dL [facility] [place] LC, Quant (0.33-1.94) mg/dL Free [place] LC, Quant (0.57-2.63) mg/dL Crossmatch 01/13/24 01/13/24 Range/Units 05:58 08:18 WBC (3.8-10.6) k/uL RBC (4.30-5.90) m/uL Hgb (13.0-17.5) gm/dL Hct (39.0-53.0) % MCV (80.0-100.0) fL MCHC (31.0-37.0) g/dL RDW (11.5-15.5) % Plt Count (150-450) k/uL PT (10.0-12.5) sec INR (<1.2) ABG pH 7.34 L (7.35-7.45) ABG pCO2 23 L (35-45) mmHg ABG pO2 116 H (83-108) mmHg ABG HCO3 13 L (21-25) mmol/L ABG Total CO2 13 L (19-24) mmol/L ABG O2 Saturation 98.8 H (94-97) % Potassium (3.5-5.1) mmol/L Chloride (98-107) mmol/L Carbon Dioxide (22-30) mmol/L BUN (9-20) mg/dL Creatinine (0.66-1.25) mg/dL POC Glucose (mg/dL) 112 H (70-110) mg/dL Calcium (8.4-10.2) mg/dL Total Bilirubin (0.2-1.3) mg/dL Conjugated Bilirubin (0.0-0.3) mg/dL Delta Bilirubin (0.0-0.2) mg/dL AST (17-59) U/L ALT (4-49) U/L Total Protein (6.3-8.2) g/dL Albumin (3.5-5.0) g/dL [facility] [place] LC, Quant (0.33-1.94) mg/dL Free [place] LC, Quant (0.57-2.63) mg/dL Crossmatch Microbiology - Last 24 Hours (Table) 01/11/24 16:25 Blood Culture - Preliminary Blood 01/10/24 11:00 Blood Culture Gram Stain - Preliminary Blood Blood Culture - Preliminary Molecular ID 01/10/24 14:00 Gram Stain - Preliminary Sputum Sputum Culture - Preliminary Presumptive Staph aureus Maricarmen albicans Assessment and Plan (1) Anemia Narrative/Plan: 73-year-old male with multiple comorbidities came in with coagulopathy, bacteremia and sepsis. Patient is quite ill in the ICU with multiple consultants. History of atrial fibrillation on Coumadin came in with coagulopathy with supratherapeutic INR. Patient with pancytopenia and profound thrombocytopenia likely secondary to sepsis and septic shock. DIC workup negative from hematology. Patient has received multiple doses of vitamin K as well as third dose of platelets. Reported black gel like stool from nursing rule out GI bleed. Patient is not stable at this time platelet count 7000. Possible GI bleed secondary to coagulopathy possible AVM, gastritis, esophagitis peptic ulcer disease or other etiology. Patient may also be swallowing blood from multiple sores in his mouth and bleeding with oral care. No plans at this time for endoscopic evaluation. Continue to monitor CBC and treat coagulopathy and thrombocytopenia per hematology. Continue to monitor CBC and transfuse for hemoglobin less than 7. Current Visit: Yes Status: Acute Code(s): D64.9 - ANEMIA, UNSPECIFIED SNOMED Code(s): 262236673 (2) FRED (acute kidney injury) Current Visit: Yes Status: Acute Priority: High Code(s): N17.9 - ACUTE KIDNEY FAILURE, UNSPECIFIED SNOMED Code(s): 61945391 (3) Coagulopathy Current Visit: Yes Status: Acute Priority: High Code(s): D68.9 - COAGULATION DEFECT, UNSPECIFIED SNOMED Code(s): 04616805 (4) Pancytopenia Current Visit: Yes Status: Acute Priority: High Code(s): D61.818 - OTHER PANCYTOPENIA SNOMED Code(s): 536296398 (5) Sepsis Current Visit: Yes Status: Acute Priority: High Code(s): A41.9 - SEPSIS, UNSPECIFIED ORGANISM SNOMED Code(s): 82351625 (6) Type 2 diabetes mellitus with other skin ulcer Current Visit: Yes Status: Acute Code(s): E11.622 - TYPE 2 DIABETES MELLITUS WITH OTHER SKIN ULCER; L98.499 - NON-PRESSURE CHRONIC ULCER OF SKIN OF SITES W UNSP SEVERITY SNOMED Code(s): 941846281437226 (7) Hyperbilirubinemia Narrative/Plan: Likely secondary to sepsis/septic shock Current Visit: Yes Status: Acute Code(s): E80.6 - OTHER DISORDERS OF BILIRUBIN METABOLISM SNOMED Code(s): 99225556 (8) Elevated LFTs Narrative/Plan: Elevated bilirubin and LFTs likely secondary to shock liver from sepsis and septic shock. Continue to monitor. Current Visit: Yes Status: Acute Code(s): R79.89 - OTHER SPECIFIED ABNORMAL FINDINGS OF BLOOD CHEMISTRY SNOMED Code(s): 749119622 (9) Supratherapeutic INR Current Visit: Yes Status: Acute Code(s): R79.1 - ABNORMAL COAGULATION PROFILE SNOMED Code(s): 376599150 Plan: 1. Continue symptomatic and supportive care 2. Daily CBC transfuse for hemoglobin less than 7 3. Daily CMP 4. Daily INR 5. Continue to monitor for GI bleed 6. Continue with recommendations from hematology 7. Continue with medical therapy. No plans at this time for any endoscopic evaluation due to profound thrombocytopenia and supratherapeutic INR. 8. Continue with recommendations from multiple consultants Plan of care was discussed with patient's who is at the bedside. She v erbalized understanding and in agreement. She stated all questions were answered. Thank you for this consultation, we will continue to follow. Dr. Veronique Ramsey I agree with the dictator's note, documented as a scribe by Lauren Arita.
--- NOTE | 2024-01-13 11:12 | P.PN ---
Subjective Progress Note Date: 01/13/24 Principal diagnosis: Acute kidney injury Patient seen and examined today as a follow-up. He remains in the ICU intubated and sedated critically ill. His is at the bedside. Through the night patient had a drop in his hemoglobin to 6.5 he was given 1 unit of blood, platel et count 18,000 and INR 2.8. He was given 1 unit of blood and vitamin K. Repeat labs this morning WBC 0.7 hemoglobin 7.8 platelet count 18,000 INR 2.7 sodium 143 potassium 5.6 BUN 208 creatinine 3.18 total bilirubin 7.7 AST 112 ALT 50 alkaline phosphatase 48. Nursing reported patient had bleeding from his mouth throughout the night. Black stool as well. Objective - Vital Signs Vital signs: Vital Signs Temp 98.5 F 01/13/24 05:28 Pulse 76 01/13/24 07:37 Resp 31 H 01/13/24 07:00 BP 121/47 01/13/24 05:28 Pulse Ox 99 01/13/24 07:00 FiO2 30 01/13/24 07:22 Intake & Output 01/12/24 01/13/24 01/13/24 18:59 06:59 18:59 Intake Total 8506.212 8195.889 Output Total 120 30 Balance 1582.654 0469.889 Weight 108 kg Intake: IV 473 1389 0.9 Pressure Bag 33 39 0.9 at KVO 240 180 Cefepime 2 gm In Sodium 100 Chloride 0.9% 100 ml @ 25 mls/hr IVPB Q8HR [facility] Rx# :[id number] Dextrose 5% in Water 1, 200 420 000 ml @ 10 mls/hr IV . Q24H [facility] Rx#:[id number] Dextrose 5% in Water 1, 600 000 ml @ 100 mls/hr IV . [id number] [facility] with Sodium Bicarb (1 Meq/ml) 150 ml Rx#:[id number] Phytonadione 10 mg In 50 Sodium Chloride 0.9% 50 ml @ 100 mls/hr IVPB ONCE STA Rx#:[id number] Intake, IV Titration 722.971 533.889 Amount Ampicillin-Sulbactam 3 gm 100 In Sodium Chloride 0.9% 100 ml @ 200 mls/hr IVPB Q12HR [facility] Rx#:[id number] DAPTOmycin 500 mg In 50 Sodium Chloride 0.9% 50 ml @ 100 mls/hr IVPB Q24H [facility] Rx#:[id number] Dextrose 5% in Water 1, 490 70 000 ml @ 70 mls/hr IV . [id number] [facility] Rx#:[id number] Diltiazem 125 mg In 99.875 Sodium Chloride 0.9% 100 ml @ 7.5 MG/HR 7.5 mls/hr IV .[id number] [facility] Rx#: [id number] Norepinephrine 32 mg In 218.967 Sodium Chloride 0.9% 218 ml @ 0.03 MCG/KG/MIN 1. 358 mls/hr IV .Q24H [facility] Rx#:[id number] Phytonadione 5 mg In 50 Sodium Chloride 0.9% 50 ml @ 100 mls/hr IVPB ONCE STA Rx#:[id number] Vasopressin 20 unit In 32.971 90.806 Sodium Chloride 0.9% 50 ml @ 0.03 UNITS/MIN 4.59 mls/hr IV .Q11H7M [facility] Rx# :[id number] propofoL 1,000 mg In 54.241 Empty Bag 1 bag @ 15 MCG/ KG/MIN 8.694 mls/hr IV . [id number] [facility] Rx#:[id number] Tube Feeding 90 140 Blood Product 362 610 Platelet Pheresis Pas 362 Psoralen Unit [id number] Rc As-1 Unit 310 [id number] Other 60 Output: Urine 120 30 Other: Voiding Method Indwelling Catheter Indwelling Catheter # Bowel Movements 0 ABP, PAP, CO, CI - Last Documented Arterial Blood Pressure 128/47 - Exam General appearance: The patient is sedated and intubated. HET: Head is normocephalic and atraumatic. Mouth with old dried blood noted around lips, oral sores. Neck: Supple. Heart: Regular. Lungs: Equal expansion. Abdomen: Soft, nontender, nondistended. Positive bowel sounds. Scrotal swelling. Skin: Jaundice. Extremities: Bilateral upper and lower extremity edema. Bilateral upper and lower extremity ecchymosis. Left lower extremity with dressing clean dry and intact. Skin tear medial aspect of left thigh. Neurological: Sedated and intubated. - Labs CBC & Chem 7: 01/13/24 08:20 07/17/24 01:04 Labs: Abnormal Lab Results - Last 24 Hours (Table) 01/07/24 01/12/24 01/12/24 Range/Units 08:31 05:50 05:50 WBC 0.3 L* (3.8-10.6) k/uL RBC (4.30-5.90) m/uL Hgb (13.0-17.5) gm/dL Hct (39.0-53.0) % MCV (80.0-100.0) fL MCHC (31.0-37.0) g/dL RDW (11.5-15.5) % Plt Count (150-450) k/uL PT (10.0-12.5) sec INR (<1.2) ABG pH (7.35-7.45) ABG pCO2 (35-45) mmHg ABG pO2 (83-108) mmHg ABG HCO3 (21-25) mmol/L ABG Total CO2 (19-24) mmol/L ABG O2 Saturation (94-97) % Potassium (3.5-5.1) mmol/L Chloride (98-107) mmol/L Carbon Dioxide (22-30) mmol/L BUN (9-20) mg/dL Creatinine (0.66-1.25) mg/dL POC Glucose (mg/dL) (70-110) mg/dL Calcium (8.4-10.2) mg/dL Total Bilirubin 6.5 H (0.2-1.3) mg/dL Conjugated Bilirubin 3.2 H (0.0-0.3) mg/dL Delta Bilirubin 2.2 H (0.0-0.2) mg/dL AST (17-59) U/L ALT (4-49) U/L Total Protein (6.3-8.2) g/dL Albumin (3.5-5.0) g/dL Free [place] LC, Quant 14.47 H (0.33-1.94) mg/dL Free [place] LC, Quant 10.74 H (0.57-2.63) mg/dL Crossmatch 01/12/24 01/12/24 01/12/24 Range/Units 09:24 10:20 23:29 WBC (3.8-10.6) k/uL RBC (4.30-5.90) m/uL Hgb (13.0-17.5) gm/dL Hct (39.0-53.0) % MCV (80.0-100.0) fL MCHC (31.0-37.0) g/dL RDW (11.5-15.5) % Plt Count (150-450) k/uL PT (10.0-12.5) sec INR (<1.2) ABG pH 7.52 H (7.35-7.45) ABG pCO2 25 L (35-45) mmHg ABG pO2 111 H (83-108) mmHg ABG HCO3 20 L (21-25) mmol/L ABG Total CO2 (19-24) mmol/L ABG O2 Saturation 99.1 H (94-97) % Potassium (3.5-5.1) mmol/L Chloride (98-107) mmol/L Carbon Dioxide (22-30) mmol/L BUN (9-20) mg/dL Creatinine (0.66-1.25) mg/dL POC Glucose (mg/dL) 44 L* (70-110) mg/dL Calcium (8.4-10.2) mg/dL Total Bilirubin (0.2-1.3) mg/dL Conjugated Bilirubin (0.0-0.3) mg/dL Delta Bilirubin (0.0-0.2) mg/dL AST (17-59) U/L ALT (4-49) U/L Total Protein (6.3-8.2) g/dL Albumin (3.5-5.0) g/dL Free [place] LC, Quant (0.33-1.94) mg/dL Free [place] LC, Quant (0.57-2.63) mg/dL Crossmatch See Detail 01/12/24 01/12/24 01/13/24 Range/Units 23:37 23:59 00:51 WBC (3.8-10.6) k/uL RBC (4.30-5.90) m/uL Hgb (13.0-17.5) gm/dL Hct (39.0-53.0) % MCV (80.0-100.0) fL MCHC (31.0-37.0) g/dL RDW (11.5-15.5) % Plt Count (150-450) k/uL PT (10.0-12.5) sec INR (<1.2) ABG pH 7.24 L (7.35-7.45) ABG pCO2 24 L (35-45) mmHg ABG pO2 117 H (83-108) mmHg ABG HCO3 10 L* (21-25) mmol/L ABG Total CO2 11 L (19-24) mmol/L ABG O2 Saturation 97.9 H (94-97) % Potassium (3.5-5.1) mmol/L Chloride (98-107) mmol/L Carbon Dioxide (22-30) mmol/L BUN (9-20) mg/dL Creatinine (0.66-1.25) mg/dL POC Glucose (mg/dL) 44 L* 142 H (70-110) mg/dL Calcium (8.4-10.2) mg/dL Total Bilirubin (0.2-1.3) mg/dL Conjugated Bilirubin (0.0-0.3) mg/dL Delta Bilirubin (0.0-0.2) mg/dL AST (17-59) U/L ALT (4-49) U/L Total Protein (6.3-8.2) g/dL Albumin (3.5-5.0) g/dL Free [place] LC, Quant (0.33-1.94) mg/dL Free [place] LC, Quant (0.57-2.63) mg/dL Crossmatch 01/13/24 01/13/24 01/13/24 Range/Units 01:04 01:04 01:04 WBC 0.4 L* (3.8-10.6) k/uL RBC 2.08 L (4.30-5.90) m/uL Hgb 6.5 L* (13.0-17.5) gm/dL Hct 21.9 L (39.0-53.0) % MCV 105.3 H D (80.0-100.0) fL MCHC 29.7 L (31.0-37.0) g/dL RDW 17.0 H (11.5-15.5) % Plt Count 18 L* (150-450) k/uL PT 27.7 H (10.0-12.5) sec INR 2.8 H (<1.2) ABG pH (7.35-7.45) ABG pCO2 (35-45) mmHg ABG pO2 (83-108) mmHg ABG HCO3 (21-25) mmol/L ABG Total CO2 (19-24) mmol/L ABG O2 Saturation (94-97) % Potassium 5.6 H (3.5-5.1) mmol/L Chloride 109 H (98-107) mmol/L Carbon Dioxide 8 L* (22-30) mmol/L BUN 208 H* (9-20) mg/dL Creatinine 3.18 H (0.66-1.25) mg/dL POC Glucose (mg/dL) (70-110) mg/dL Calcium 7.7 L (8.4-10.2) mg/dL Total Bilirubin 7.7 H (0.2-1.3) mg/dL Conjugated Bilirubin (0.0-0.3) mg/dL Delta Bilirubin (0.0-0.2) mg/dL AST 112 H (17-59) U/L ALT 50 H (4-49) U/L Total Protein 4.2 L (6.3-8.2) g/dL Albumin 1.8 L (3.5-5.0) g/dL Free [place] LC, Quant (0.33-1.94) mg/dL Free [place] LC, Quant (0.57-2.63) mg/dL Crossmatch 01/13/24 01/13/24 Range/Units 05:58 08:18 WBC (3.8-10.6) k/uL RBC (4.30-5.90) m/uL Hgb (13.0-17.5) gm/dL Hct (39.0-53.0) % MCV (80.0-100.0) fL MCHC (31.0-37.0) g/dL RDW (11.5-15.5) % Plt Count (150-450) k/uL PT (10.0-12.5) sec INR (<1.2) ABG pH 7.34 L (7.35-7.45) ABG pCO2 23 L (35-45) mmHg ABG pO2 116 H (83-108) mmHg ABG HCO3 13 L (21-25) mmol/L ABG Total CO2 13 L (19-24) mmol/L ABG O2 Saturation 98.8 H (94-97) % Potassium (3.5-5.1) mmol/L Chloride (98-107) mmol/L Carbon Dioxide (22-30) mmol/L BUN (9-20) mg/dL Creatinine (0.66-1.25) mg/dL POC Glucose (mg/dL) 112 H (70-110) mg/dL Calcium (8.4-10.2) mg/dL Total Bilirubin (0.2-1.3) mg/dL Conjugated Bilirubin (0.0-0.3) mg/dL Delta Bilirubin (0.0-0.2) mg/dL AST (17-59) U/L ALT (4-49) U/L Total Protein (6.3-8.2) g/dL Albumin (3.5-5.0) g/dL Free [place] LC, Quant (0.33-1.94) mg/dL Free Lambda LC, Quant (0.57-2.63) mg/dL Crossmatch Microbiology - Last 24 Hours (Table) 01/11/24 16:25 Blood Culture - Preliminary Blood 01/10/24 11:00 Blood Culture Gram Stain - Preliminary Blood Blood Culture - Preliminary Molecular ID 01/10/24 14:00 Gram Stain - Preliminary Sputum Sputum Culture - Preliminary Presumptive Staph aureus Maricarmen albicans Assessment and Plan Assessment: 1. Sepsis/septic shock 2. Acute on chronic kidney injury 3. Pancytopenia, with profound thrombocytopenia 4. History of atrial fibrillation who was on Coumadin with supratherapeutic INR 5. Left lower extremity wound status post injury and hematoma evacuation 6. Anemia 7. Coagulopathy, supratherapeutic INR 9. Elevated LFTs likely secondary from shock liver from underlying sepsis/septic shock Plan: Patient remains in critical condition. Nephrology requesting renal replacement therapy however patient continues to be profoundly thrombocytopenic with supratherapeutic INR 2.7 despite being given vitamin K therefore hemodialysis catheter placement not recommended at this time As well as nephrology and chief engineer waterworks stating patient likely would not tolerate hemodialysis. Will continue to monitor daily. Plan of care was discussed with the who is at the bedside who verbalized understanding and in agreement with plan of care at this time. She stated all questions were answered at this time. The impression and plan of care has been dictated as directed. Dr. Villanueva I performed a history and examination of this patient, discussed the same with the dictator. I agree with the dictator's note ,documented as a scribe. Any additional findings or plans will be noted.
--- NOTE | 2024-01-13 11:40 | P.PN ---
Subjective Progress Note Date: 01/13/24 Principal diagnosis: This is a 73-year-old white male with history of chronic atrial fibrillation, hypertension, rheumatoid arthritis, patient is normally maintained on Coumadin for his atrial fibrillation, he is also maintained on methotrexate for rheumatoid arthritis. For the last few days, the patient has been complaining of left shoulder pain. He saw his primary care physician/Dr. Lopez, and he was directed to go to the ER. Patient was evaluated in the ER on 01/05/2024, and after reviewing the ER note, and the admitting note by the admitting physician, patient was admitted with possible rotator cuff tear of the left shoulder, however on his initial evaluation, the patient was found to have significant abnormal labs. Patient was clearly found to have acute on chronic renal failure felt to be acute tubular necrosis related to hypotension as the patient was noted to be hypotensive initially in the ER. Patient was also found to have supratherapeutic INR level. And this was felt to be related to Coumadin. In addition to this the patient is known to have history of diabetes, he is also known to have history of hyperkalemia and hyperthyroidism, maintained on methimazole. Patient was admitted to [address] and seen by the hospitalist, he was also seen by the shellfish grower, and the main concern was mostly related to his acute kidney injury and elevated INR. However at 330 this morning, the rapid response team attended to the patient were in he was noted to have low blood pressure, he was also noted to have INR of 6.4, worsening creatinine of 2.96, and the patient was mostly hypotensive with blood pressure as low as 50/39. Patient was given 1.5 L of fluid bolus, blood pressure came up slightly, and I was notified about this patient at that time. I recommended immediate transfer to the ICU. In the ICU, patient required pressors in the form of norepinephrine he is presently on 0.23 mcg/kg/min he is also on vasopressin at 0.03 units/h. Bailey on IV fluid at 100 cc/h in the form of 0.9 normal saline. Labs in the ICU showed significant worsening compared to previous labs on admission including a WBC count of 0.6, hemoglobin is 9.4, platelets are 100,000's, INR was still elevated, and his D-dimer was 6.16. Renal profile has become worse with a BUN of 154 creatinine 3.05, slightly abnormal liver enzymes. Uric acid was 10.8 on admission. Patient had a CT of the brain earlier this morning which showed no evidence of bleed. I saw the patient in the ICU this morning, he seems to be quite ill and I have reviewed the chart, discussed and updated the family on his condition. In the meantime I have recommended different consultations including infectious disease consult for significant wound noted in the left calf region with purulent drainage from a large deep ulcer in the left calf area. I have also recommended broad-spectrum antibiotics to start empirically. Recommended hematology consultation. Looking at the significant abnormalities and specially his elevated INR, I recommended vitamin K, I also recommended Kcentra to be give n repeat INR was 2.2 few hours later considering the overall presentation, I am quite concerned about the possibility of sepsis/septic shock and the most likely source for his sepsis would likely be the left leg wound which seems to be quite deep, and there is a significant purulent drainage from that left leg. Surgical consultation was initiated to address this large wound in the left calf region. Patient was seen by hematology, and felt that this could be methotrexate toxicity. Although this is in the differential, I am more concerned about patient having sepsis/septic shock, of course the differential diagnosis will include methotrexate toxicity or methimazole toxicity. But again clinically this is felt to be less likely based on the fact that the patient presented with normal labs except for abnormal renal profile and abnormal INR on admission. His CBC was otherwise unremarkable. And looking back at his labs from October he had relatively normal CBC and slightly abnormal renal profile with GFR in the 40s. Today on 01/08/2024, remains in the ICU, intubated and mechanically ventilated, on propofol and on pressors. His assist-control rate is 20 tidal volume 500 FiO2 40% and PEEP of 5 ABG showed a pO2 of 146 pCO2 29 pH of 7.37 hence FiO2 was cut down to 35%. Patient is on propofol at 30 mcg/kg/min vasopressin at 0.03 units, norepinephrine at 0.38 mcg/kg/min. Patient is still receiving bicarb drip as recommended by nephrology. Patient is receiving Solu-Cortef, he is also receiving cefepime and daptomycin. Urine output has been in the range of 50 to 60/h. His renal functioning is a bit worse, patient has nonoliguric renal failure. We believe the patient developed acute tubular necrosis from sepsis and hypotension. Patient received few fluid boluses last night and he will receive more this morning. Again his urine output is picking up with fluid boluses. Labs landry the patient is showing slight improvement in his CBC,WBC count is up to 1.2 hemoglobin is 9.1. Platelets are low at 33,000. His fibrinogen today is 605, INR is 1.6. Sodium and potassium are normal bicarb is 13 anion gap is 16 with a BUN of 157 creatinine 3.11, lactic acid today is 3.8. Albumin is also low at 1.8. Globin is 2.7 chest x-ray is showing mostly right lower lobe atelectasis, possible pneumonia Reevaluated today on 01/09/2024, remains in the ICU, intubated and mechanically ventilated. Patient is on assist-control rate of 20 tidal volume 500 FiO2 35% and PEEP of 5 ABG showed a pO2 of 102 pCO2 31 pH of 7.52, no changes were made on the ventilator settings. However his sodium bicarb drip has been discontinued. Blood cultures came back positive for Staph aureus, does not seem to be MRSA. His wound cultures are also positive for Klebsiella and group D Enterococcus. Patient is on cefepime and daptomycin. Hemodynamically landry the patient is still requiring vasopressin at 0.03 and norepinephrine at 0.06 mcg/kg/min. Patient is still receiving IV fluid at 75 cc/h and is also on Solu- Cortef which I will cut down to 50 instead of 100 mg every 8 hours. Chest x-ray showed right lower lobe atelectasis, possible infiltrate. WBC count is 0.4 hemoglobin is 8 platelets are 12,000 has the patient received clearance of platelets today. He does have significant drop in his hemoglobin since admission down to 8, may require blood transfusion if it goes down to 7. INR today is 1.95 fibrinogen is 575. Renal profile is slightly better with creatinine down to 2.73 however BUN is 160. Over the last 24 hours, we cut down significantly on sedation, and the patient today seems to be awake, but generally weak, follows very simple instructions. Patient was evaluated today on , remains in the ICU, intubated and mechanically ventilated. Patient is on assist-control rate of 20 and I cut it down to 18 tidal volume 500 FiO2 35% and PEEP of 5. ABG showed a pO2 of 120 pCO2 31 pH of 7.51 and sed rate was decreased from 20-18. Patient continues to have pancytopenia with WBC count of 0.3 hemoglobin 8.2 platelets are 12,000 patient received a unit of platelets yesterday, and he will be receiving another unit today. Patient is on norepinephrine at 0.16 mcg/kg/min, propofol at 10 mcg/kg/min, vasopressin at 0.03 units/min. Patient is receiving IV fluid 0.9 normal saline at 75 cc/h, vital HP at 41 cc/h/goal. Remains on Solu-Cortef at 50 mg IV push every 8 hours. He is also on cefepime and daptomycin. Cultures of the wound from the left leg grew E. coli, Staph aureus, and group D Enterococcus. Blood cultures are positive for Staph aureus, does not seem to be MRSA at this point. His labs were reviewed, WBC count is 0.3 hemoglobin 8.2 platelets are 12,000, electrolytes showed low potassium of 2.9, being corrected as per protocol. BUN is 168 creatinine 2.29 chest x-ray continues to show no evidence of active disease, minimal atelectasis only. The plan today is to hold sedation again and assess mental status off propofol. Otherwise will continue the same present supportive care measures. Progress note 01/11/2024 Patient was evaluated today and still remains in the ICU, intubated and mechanically ventilated. ABG showed a pO2 of 118 and pCO2 of 29 with pH 7.55. Patient continues to have pancytopenia with WBC count of 0.5, hemoglobin 8, platelet count 7000. He has received 3 units of platelets. Patient is on norepinephrine 0.03 mcg/kg/min, diltiazem 7.5 mg/h, propofol 15 mcg/kg/min, and vasopressin 0.03 units/min. Patient is receiving IV fluids 0.9 normal saline at 75 cc/h. He is also on cefepime and daptomycin for septic shock. BUN is 176, creatinine is 1.98 and sodium is 147. Chest X-ray shows worsening left lower lobe infiltrate. Plan today is to get a CT brain without contrast to rule out hemorrhage due to low platelet count. Does not respond to voice but responds to pain. Continue the same supportive measures. Progress note dated 01/12/2024 Patient was evaluated today, remains in the ICU, intubated and mechanically ventilated on pressors. Patient is on assist-control rate of 18 with tidal volume 500, FiO2 35% and PEEP of 5. ABG showed a pO2 of 127, pCO2 25 and a pH of 7.5. Hence, FiO2 was cut down to 30%. Patient continues to have pancytopenia with a WBC count of 4.3, hemoglobin 7.3 and platelets 13,000. His BUN is 191 and creatinine is 2.34. He is on norepinephrine 0.2 mcg/kg/min vasopressin 0.03 units/min and Cardizem 7.5 mg/h daptomycin 500 mg, D5W 10 mL/h. He was put on D5W KVO and Lasix [address] brain without contrast done on 01/10 was normal. He was put on a spontaneous breathing trial today but he did not respond when asked to breathe spontaneously nor was he responding to voice commands and his RSBI was 59 with a RR of 30. So we are continuing with mechanical ventilation. Continue the same supportive care measures. Progress note dated 01/13/2024 Patient was evaluated today, remains in the ICU, intubated and mechanically ventilated,. Patient is on assist-control rate of 18, FiO2 of 30% and PEEP of 5. ABG today is at pO2 116, pCO2 23 and a pH of 7.34. Patient has been put on propofol 15 mcg/kg/min and amiodarone 1 mg/min. He is on vasopressin 0.03 units/min and his blood pressure was low overnight and his norepinephrine drip was increased to max 0.5 mcg/kg/min. He is also receiving bicarb 150 at 100 mm/h and normal saline at 10 ml/hr. Overnight his sugar was low and was given dextrose. His WBCs 0.7, hemoglobin 7.8, platelets 18,000 and INR is 2.7 . He was given a unit of platelets and vitamin K 5 mg. His sodium is 143, potassium 5.6, BUN 108 and creatinine 3.18. His kidney function has declined. He is going to be started on dialysis for renal replacement therapy and Dr. Villanueva's going to put dialysis catheter. His calcium is 7.7, bilirubin 7.7, AST [address] Rebolledo talked with the patient's , and explained about the patient's declining condition and poor prognosis. Continue maintaining BP and the same supportive care measures. Objective - Vital Signs Vital signs: Vital Signs Temp 98.5 F 01/13/24 05:28 Pulse 76 01/13/24 07:37 Resp 31 H 01/13/24 07:00 BP 121/47 01/13/24 05:28 Pulse Ox 99 01/13/24 07:00 FiO2 30 01/13/24 07:22 Intake & Output 01/12/24 01/13/24 01/13/24 18:59 06:59 18:59 Intake Total 2116.927 0009.889 4.16 Output Total 120 30 Balance 3527.097 1723.889 4.16 Weight 108 kg Intake: IV 473 1389 0.9 Pressure Bag 33 39 0.9 at KVO 240 180 Cefepime 2 gm In Sodium 100 Chloride 0.9% 100 ml @ 25 mls/hr IVPB Q8HR JESSA Rx# :[id number] Dextrose 5% in Water 1, 200 420 000 ml @ 10 mls/hr IV . Q24H JESSA Rx#:[id number] Dextrose 5% in Water 1, 600 000 ml @ 100 mls/hr IV . [id number] JESSA with Sodium Bicarb (1 Meq/ml) 150 ml Rx#:[id number] Phytonadione 10 mg In 50 Sodium Chloride 0.9% 50 ml @ 100 mls/hr IVPB ONCE STA Rx#:[id number] Intake, IV Titration 722.971 533.889 4.16 Amount Ampicillin-Sulbactam 3 gm 100 In Sodium Chloride 0.9% 100 ml @ 200 mls/hr IVPB Q12HR JESSA Rx#:[id number] DAPTOmycin 500 mg In 50 Sodium Chloride 0.9% 50 ml @ 100 mls/hr IVPB Q24H JESSA Rx#:[id number] Dextrose 5% in Water 1, 490 70 000 ml @ 70 mls/hr IV . [id number] JESSA Rx#:[id number] Diltiazem 125 mg In 99.875 Sodium Chloride 0.9% 100 ml @ 7.5 MG/HR 7.5 mls/hr IV .[id number] JESSA Rx#: [id number] Norepinephrine 32 mg In 218.967 4.16 Sodium Chloride 0.9% 218 ml @ 0.03 MCG/KG/MIN 1. 358 mls/hr IV .Q24H JESSA Rx#:[id number] Phytonadione 5 mg In 50 Sodium Chloride 0.9% 50 ml @ 100 mls/hr IVPB ONCE STA Rx#:[id number] Vasopressin 20 unit In 32.971 90.806 Sodium Chloride 0.9% 50 ml @ 0.03 UNITS/MIN 4.59 mls/hr IV .[id number] JESSA Rx# :[id number] propofoL 1,000 mg In 54.241 Empty Bag 1 bag @ 15 MCG/ KG/MIN 8.694 mls/hr IV . [id number] JESSA Rx#:[id number] Tube Feeding 90 140 Blood Product 362 610 Platelet Pheresis Pas 362 Psoralen Unit [id number] Rc As-1 Unit 310 [id number] Other 60 Output: Urine 120 30 Other: Voiding Method Indwelling Catheter Indwelling Catheter # Bowel Movements 0 ABP, PAP, CO, CI - Last Documented Arterial Blood Pressure 128/47 - Exam General: Reviewed 73-year-old white male intubated, mechanically ventilated,sedated, atraumatic normocephalic. Endotracheal tube and orogastric tube intact. HEENT: Pupils are round and equally reacting to light. No scleral icterus. No conjunctival pallor. Normocephalic, atraumatic. No pharyngeal erythema. No thyromegaly Cardio vascular: Normal S1-S2, no S3 gallop, no murmur. Pulmonary: Diminished breath sounds at the bases, rhonchi no wheezes Abdomen: Obese, soft, no rebound, no guarding Musculoskeletal: No deformities Extremities: Multiple areas of ecchymosis noted in the lower extremities. Ulcer remains in the mid aspect of the left lower extremity, with significant drainage of purulent material. There is also chronic venous stasis. Neurological: Could not assess as patient is sedated. - Labs CBC & Chem 7: 01/13/24 08:20 01/13/24 01:04 Labs: Abnormal Lab Results - Last 24 Hours (Table) 01/07/24 01/12/24 01/12/24 Range/Units 08:31 05:50 10:20 WBC (3.8-10.6) k/uL RBC (4.30-5.90) m/uL Hgb (13.0-17.5) gm/dL Hct (39.0-53.0) % MCV (80.0-100.0) fL MCHC (31.0-37.0) g/dL RDW (11.5-15.5) % Plt Count (150-450) k/uL PT (10.0-12.5) sec INR (<1.2) ABG pH (7.35-7.45) ABG pCO2 (35-45) mmHg ABG pO2 (83-108) mmHg ABG HCO3 (21-25) mmol/L ABG Total CO2 (19-24) mmol/L ABG O2 Saturation (94-97) % Potassium (3.5-5.1) mmol/L Chloride (98-107) mmol/L Carbon Dioxide (22-30) mmol/L BUN (9-20) mg/dL Creatinine (0.66-1.25) mg/dL POC Glucose (mg/dL) (70-110) mg/dL Calcium (8.4-10.2) mg/dL Total Bilirubin 6.5 H (0.2-1.3) mg/dL Conjugated Bilirubin 3.2 H (0.0-0.3) mg/dL Delta Bilirubin 2.2 H (0.0-0.2) mg/dL AST (17-59) U/L ALT (4-49) U/L Total Protein (6.3-8.2) g/dL Albumin (3.5-5.0) g/dL Free Fouke LC, Quant 14.47 H (0.33-1.94) mg/dL Free Lambda LC, Quant 10.74 H (0.57-2.63) mg/dL Crossmatch See Detail 01/12/24 01/12/24 01/12/24 Range/Units 23:29 23:37 23:59 WBC (3.8-10.6) k/uL RBC (4.30-5.90) m/uL Hgb (13.0-17.5) gm/dL Hct (39.0-53.0) % MCV (80.0-100.0) fL MCHC (31.0-37.0) g/dL RDW (11.5-15.5) % Plt Count (150-450) k/uL PT (10.0-12.5) sec INR (<1.2) ABG pH (7.35-7.45) ABG pCO2 (35-45) mmHg ABG pO2 (83-108) mmHg ABG HCO3 (21-25) mmol/L ABG Total CO2 (19-24) mmol/L ABG O2 Saturation (94-97) % Potassium (3.5-5.1) mmol/L Chloride (98-107) mmol/L Carbon Dioxide (22-30) mmol/L BUN (9-20) mg/dL Creatinine (0.66-1.25) mg/dL POC Glucose (mg/dL) 44 L* 44 L* 142 H (70-110) mg/dL Calcium (8.4-10.2) mg/dL Total Bilirubin (0.2-1.3) mg/dL Conjugated Bilirubin (0.0-0.3) mg/dL Delta Bilirubin (0.0-0.2) mg/dL AST (17-59) U/L ALT (4-49) U/L Total Protein (6.3-8.2) g/dL Albumin (3.5-5.0) g/dL Free Fouke LC, Quant (0.33-1.94) mg/dL Free Lambda LC, Quant (0.57-2.63) mg/dL Crossmatch 01/13/24 01/13/24 01/13/24 Range/Units 00:51 01:04 01:04 WBC 0.4 L* (3.8-10.6) k/uL RBC 2.08 L (4.30-5.90) m/uL Hgb 6.5 L* (13.0-17.5) gm/dL Hct 21.9 L (39.0-53.0) % MCV 105.3 H D (80.0-100.0) fL MCHC 29.7 L (31.0-37.0) g/dL RDW 17.0 H (11.5-15.5) % Plt Count 18 L* (150-450) k/uL PT (10.0-12.5) sec INR (<1.2) ABG pH 7.24 L (7.35-7.45) ABG pCO2 24 L (35-45) mmHg ABG pO2 117 H (83-108) mmHg ABG HCO3 10 L* (21-25) mmol/L ABG Total CO2 11 L (19-24) mmol/L ABG O2 Saturation 97.9 H (94-97) % Potassium 5.6 H (3.5-5.1) mmol/L Chloride 109 H (98-107) mmol/L Carbon Dioxide 8 L* (22-30) mmol/L BUN 208 H* (9-20) mg/dL Creatinine 3.18 H (0.66-1.25) mg/dL POC Glucose (mg/dL) (70-110) mg/dL Calcium 7.7 L (8.4-10.2) mg/dL Total Bilirubin 7.7 H (0.2-1.3) mg/dL Conjugated Bilirubin (0.0-0.3) mg/dL Delta Bilirubin (0.0-0.2) mg/dL AST 112 H (17-59) U/L ALT 50 H (4-49) U/L Total Protein 4.2 L (6.3-8.2) g/dL Albumin 1.8 L (3.5-5.0) g/dL Free Fouke LC, Quant (0.33-1.94) mg/dL Free Lambda LC, Quant (0.57-2.63) mg/dL Crossmatch 01/13/24 01/13/24 01/13/24 Range/Units 01:04 05:58 08:18 WBC (3.8-10.6) k/uL RBC (4.30-5.90) m/uL Hgb (13.0-17.5) gm/dL Hct (39.0-53.0) % MCV (80.0-100.0) fL MCHC (31.0-37.0) g/dL RDW (11.5-15.5) % Plt Count (150-450) k/uL PT 27.7 H (10.0-12.5) sec INR 2.8 H (<1.2) ABG pH 7.34 L (7.35-7.45) ABG pCO2 23 L (35-45) mmHg ABG pO2 116 H (83-108) mmHg ABG HCO3 13 L (21-25) mmol/L ABG Total CO2 13 L (19-24) mmol/L ABG O2 Saturation 98.8 H (94-97) % Potassium (3.5-5.1) mmol/L Chloride (98-107) mmol/L Carbon Dioxide (22-30) mmol/L BUN (9-20) mg/dL Creatinine (0.66-1.25) mg/dL POC Glucose (mg/dL) 112 H (70-110) mg/dL Calcium (8.4-10.2) mg/dL Total Bilirubin (0.2-1.3) mg/dL Conjugated Bilirubin (0.0-0.3) mg/dL Delta Bilirubin (0.0-0.2) mg/dL AST (17-59) U/L ALT (4-49) U/L Total Protein (6.3-8.2) g/dL Albumin (3.5-5.0) g/dL Free Fouke LC, Quant (0.33-1.94) mg/dL Free Lambda LC, Quant (0.57-2.63) mg/dL Crossmatch 01/13/24 01/13/24 Range/Units 08:20 08:20 WBC 0.7 L* (3.8-10.6) k/uL RBC 2.51 L (4.30-5.90) m/uL Hgb 7.8 L (13.0-17.5) gm/dL Hct 25.2 L (39.0-53.0) % MCV 100.2 H D (80.0-100.0) fL MCHC (31.0-37.0) g/dL RDW 16.8 H (11.5-15.5) % Plt Count 18 L* (150-450) k/uL PT 26.9 H (10.0-12.5) sec INR 2.7 H (<1.2) ABG pH (7.35-7.45) ABG pCO2 (35-45) mmHg ABG pO2 (83-108) mmHg ABG HCO3 (21-25) mmol/L ABG Total CO2 (19-24) mmol/L ABG O2 Saturation (94-97) % Potassium (3.5-5.1) mmol/L Chloride (98-107) mmol/L Carbon Dioxide (22-30) mmol/L BUN (9-20) mg/dL Creatinine (0.66-1.25) mg/dL POC Glucose (mg/dL) (70-110) mg/dL Calcium (8.4-10.2) mg/dL Total Bilirubin (0.2-1.3) mg/dL Conjugated Bilirubin (0.0-0.3) mg/dL Delta Bilirubin (0.0-0.2) mg/dL AST (17-59) U/L ALT (4-49) U/L Total Protein (6.3-8.2) g/dL Albumin (3.5-5.0) g/dL Free Fouke LC, Quant (0.33-1.94) mg/dL Free Lambda LC, Quant (0.57-2.63) mg/dL Crossmatch Microbiology - Last 24 Hours (Table) 01/10/24 11:00 Blood Culture Gram Stain - Preliminary Blood Blood Culture - Preliminary Presumptive Staph aureus Anaerobic Gm Negative Bacilli Molecular ID 01/10/24 14:00 Gram Stain - Final Sputum Sputum Culture - Final Staphylococcus aureus Maricarmen albicans 01/11/24 16:25 Blood Culture - Preliminary Blood Assessment and Plan Assessment: Impression: Sepsis or septic shock, secondary to Staph aureus bacteremia. Pancytopenia most likely secondary to sepsis Elevated INR secondary to his supratherapeutic Coumadin Thrombocytopenia most likely secondary to sepsis and septic shock Left lower extremity cellulitis and large infected ulcer noted in the calf region Chronic atrial fibrillation History of rheumatoid arthritis History of chronic kidney disease stage IIIb History of type 2 diabetes Acute on chronic kidney injury, most likely secondary to acute tubular necrosis, secondary to sepsis and septic shock and hypotension Hypotension secondary to sepsis or septic shock requiring pressors including norepinephrine and vasopressin History of hypothyroidism, maintained on methimazole Plan: Amiodarone 1 mg/min Propofol 15 mcg/kg/min Dialysis for renal replacement therapy Lasix 40mg Continue ventilatory support Continue hemodynamic support/ vasopressin and norepinephrine-increase norepinephrine 0.5 mcg/kg/min Continue daptomycin,cefepime blood culture and wound culture noted Enterococcus faecalis, E. coli, Staph aureus. Continue to monitor coagulation profile, CBC, platelets. Nutritional support with enteral feeding GI prophylaxis Continue to hold methotrexate and methimazole Patient remains critically ill. Critical care time is over 35 minutes Time with Patient: Greater than 30
--- NOTE | 2024-01-13 11:49 | P.PN ---
Subjective Progress Note Date: 01/13/24 Principal diagnosis: Reason for follow-up is sepsis and left lower extremity wound/cellulitis Patient is 73-year-old male with a past medical history significant for diabetes mellitus hypertension heart failure atrial fibrillation gout patient presenting to the hospital for evaluation of left shoulder pain subsequently developing a fever hypertension requiring admission to ICU concerning for left lower extremity wound with infection. On today's evaluation that is 01/13/2024, the patient did have a low-grade fever 100 F last night the patient is afebrile this morning patient remains to be intubated on the vent FiO2 is 30% no significant purulent secretions through the ET patient requiring more pressor support as reported by nursing staff and no diarrhea. Patient white count is 0.7 platelet count is 18 INR is 2.7 blood culture positive for both MSSA and gram-negative bacilli Objective - Vital Signs Vital signs: Vital Signs Temp 98.5 F 01/13/24 05:28 Pulse 76 01/13/24 07:37 Resp 31 H 01/13/24 07:00 BP 121/47 01/13/24 05:28 Pulse Ox 99 01/13/24 07:00 FiO2 30 01/13/24 07:22 Intake & Output 01/12/24 01/13/24 01/13/24 18:59 06:59 18:59 Intake Total 5371.715 9777.889 4.16 Output Total 120 30 Balance 4166.952 8603.889 4.16 Weight 108 kg Intake: IV 473 1389 0.9 Pressure Bag 33 39 0.9 at KVO 240 180 Cefepime 2 gm In Sodium 100 Chloride 0.9% 100 ml @ 25 mls/hr IVPB Q8HR [facility] Rx# :[id number] Dextrose 5% in Water 1, 200 420 000 ml @ 10 mls/hr IV . Q24H [facility] Rx#:[id number] Dextrose 5% in Water 1, 600 000 ml @ 100 mls/hr IV . [id number] [facility] with Sodium Bicarb (1 Meq/ml) 150 ml Rx#:[id number] Phytonadione 10 mg In 50 Sodium Chloride 0.9% 50 ml @ 100 mls/hr IVPB ONCE STA Rx#:[id number] Intake, IV Titration 722.971 533.889 4.16 Amount Ampicillin-Sulbactam 3 gm 100 In Sodium Chloride 0.9% 100 ml @ 200 mls/hr IVPB Q12HR [facility] Rx#:[id number] DAPTOmycin 500 mg In 50 Sodium Chloride 0.9% 50 ml @ 100 mls/hr IVPB Q24H [facility] Rx#:[id number] Dextrose 5% in Water 1, 490 70 000 ml @ 70 mls/hr IV . [id number] [facility] Rx#:[id number] Diltiazem 125 mg In 99.875 Sodium Chloride 0.9% 100 ml @ 7.5 MG/HR 7.5 mls/hr IV .[id number] [facility] Rx#: [id number] Norepinephrine 32 mg In 218.967 4.16 Sodium Chloride 0.9% 218 ml @ 0.03 MCG/KG/MIN 1. 358 mls/hr IV .Q24H [facility] Rx#:[id number] Phytonadione 5 mg In 50 Sodium Chloride 0.9% 50 ml @ 100 mls/hr IVPB ONCE STA Rx#:[id number] Vasopressin 20 unit In 32.971 90.806 Sodium Chloride 0.9% 50 ml @ 0.03 UNITS/MIN 4.59 mls/hr IV .[id number] [facility] Rx# :[id number] propofoL 1,000 mg In 54.241 Empty Bag 1 bag @ 15 MCG/ KG/MIN 8.694 mls/hr IV . [id number] [facility] Rx#:[id number] Tube Feeding 90 140 Blood Product 362 610 Platelet Pheresis Pas 362 Psoralen Unit [id number] Rc As-1 Unit 310 [id number] Other 60 Output: Urine 120 30 Other: Voiding Method Indwelling Catheter Indwelling Catheter # Bowel Movements 0 ABP, PAP, CO, CI - Last Documented Arterial Blood Pressure 128/47 - Exam GENERAL DESCRIPTION: An elderly male intubated on the vent RESPIRATORY SYSTEM: Unlabored breathing , decreased breath sounds at bases HEART: S1 S2 regular rate and rhythm , ABDOMEN: Soft , no tenderness EXTREMITIES: Left leg wound is currently dressed no drainage on the dressing - Labs CBC & Chem 7: 01/13/24 08:20 01/13/24 01:04 Labs: Abnormal Lab Results - Last 24 Hours (Table) 01/07/24 01/12/24 01/12/24 Range/Units 08:31 05:50 10:20 WBC (3.8-10.6) k/uL RBC (4.30-5.90) m/uL Hgb (13.0-17.5) gm/dL Hct (39.0-53.0) % MCV (80.0-100.0) fL MCHC (31.0-37.0) g/dL RDW (11.5-15.5) % Plt Count (150-450) k/uL PT (10.0-12.5) sec INR (<1.2) ABG pH (7.35-7.45) ABG pCO2 (35-45) mmHg ABG pO2 (83-108) mmHg ABG HCO3 (21-25) mmol/L ABG Total CO2 (19-24) mmol/L ABG O2 Saturation (94-97) % Potassium (3.5-5.1) mmol/L Chloride (98-107) mmol/L Carbon Dioxide (22-30) mmol/L BUN (9-20) mg/dL Creatinine (0.66-1.25) mg/dL POC Glucose (mg/dL) (70-110) mg/dL Calcium (8.4-10.2) mg/dL Total Bilirubin 6.5 H (0.2-1.3) mg/dL Conjugated Bilirubin 3.2 H (0.0-0.3) mg/dL Delta Bilirubin 2.2 H (0.0-0.2) mg/dL AST (17-59) U/L ALT (4-49) U/L Total Protein (6.3-8.2) g/dL Albumin (3.5-5.0) g/dL Free Ebro LC, Quant 14.47 H (0.33-1.94) mg/dL Free Lambda LC, Quant 10.74 H (0.57-2.63) mg/dL Crossmatch See Detail 01/12/24 01/12/24 01/12/24 Range/Units 23:29 23:37 23:59 WBC (3.8-10.6) k/uL RBC (4.30-5.90) m/uL Hgb (13.0-17.5) gm/dL Hct (39.0-53.0) % MCV (80.0-100.0) fL MCHC (31.0-37.0) g/dL RDW (11.5-15.5) % Plt Count (150-450) k/uL PT (10.0-12.5) sec INR (<1.2) ABG pH (7.35-7.45) ABG pCO2 (35-45) mmHg ABG pO2 (83-108) mmHg ABG HCO3 (21-25) mmol/L ABG Total CO2 (19-24) mmol/L ABG O2 Saturation (94-97) % Potassium (3.5-5.1) mmol/L Chloride (98-107) mmol/L Carbon Dioxide (22-30) mmol/L BUN (9-20) mg/dL Creatinine (0.66-1.25) mg/dL POC Glucose (mg/dL) 44 L* 44 L* 142 H (70-110) mg/dL Calcium (8.4-10.2) mg/dL Total Bilirubin (0.2-1.3) mg/dL Conjugated Bilirubin (0.0-0.3) mg/dL Delta Bilirubin (0.0-0.2) mg/dL AST (17-59) U/L ALT (4-49) U/L Total Protein (6.3-8.2) g/dL Albumin (3.5-5.0) g/dL Free Ebro LC, Quant (0.33-1.94) mg/dL Free Lambda LC, Quant (0.57-2.63) mg/dL Crossmatch 01/13/24 01/13/24 01/13/24 Range/Units 00:51 01:04 01:04 WBC 0.4 L* (3.8-10.6) k/uL RBC 2.08 L (4.30-5.90) m/uL Hgb 6.5 L* (13.0-17.5) gm/dL Hct 21.9 L (39.0-53.0) % MCV 105.3 H D (80.0-100.0) fL MCHC 29.7 L (31.0-37.0) g/dL RDW 17.0 H (11.5-15.5) % Plt Count 18 L* (150-450) k/uL PT (10.0-12.5) sec INR (<1.2) ABG pH 7.24 L (7.35-7.45) ABG pCO2 24 L (35-45) mmHg ABG pO2 117 H (83-108) mmHg ABG HCO3 10 L* (21-25) mmol/L ABG Total CO2 11 L (19-24) mmol/L ABG O2 Saturation 97.9 H (94-97) % Potassium 5.6 H (3.5-5.1) mmol/L Chloride 109 H (98-107) mmol/L Carbon Dioxide 8 L* (22-30) mmol/L BUN 208 H* (9-20) mg/dL Creatinine 3.18 H (0.66-1.25) mg/dL POC Glucose (mg/dL) (70-110) mg/dL Calcium 7.7 L (8.4-10.2) mg/dL Total Bilirubin 7.7 H (0.2-1.3) mg/dL Conjugated Bilirubin (0.0-0.3) mg/dL Delta Bilirubin (0.0-0.2) mg/dL AST 112 H (17-59) U/L ALT 50 H (4-49) U/L Total Protein 4.2 L (6.3-8.2) g/dL Albumin 1.8 L (3.5-5.0) g/dL Free Ebro LC, Quant (0.33-1.94) mg/dL Free Lambda LC, Quant (0.57-2.63) mg/dL Crossmatch 01/13/24 01/13/24 01/13/24 Range/Units 01:04 05:58 08:18 WBC (3.8-10.6) k/uL RBC (4.30-5.90) m/uL Hgb (13.0-17.5) gm/dL Hct (39.0-53.0) % MCV (80.0-100.0) fL MCHC (31.0-37.0) g/dL RDW (11.5-15.5) % Plt Count (150-450) k/uL PT 27.7 H (10.0-12.5) sec INR 2.8 H (<1.2) ABG pH 7.34 L (7.35-7.45) ABG pCO2 23 L (35-45) mmHg ABG pO2 116 H (83-108) mmHg ABG HCO3 13 L (21-25) mmol/L ABG Total CO2 13 L (19-24) mmol/L ABG O2 Saturation 98.8 H (94-97) % Potassium (3.5-5.1) mmol/L Chloride (98-107) mmol/L Carbon Dioxide (22-30) mmol/L BUN (9-20) mg/dL Creatinine (0.66-1.25) mg/dL POC Glucose (mg/dL) 112 H (70-110) mg/dL Calcium (8.4-10.2) mg/dL Total Bilirubin (0.2-1.3) mg/dL Conjugated Bilirubin (0.0-0.3) mg/dL Delta Bilirubin (0.0-0.2) mg/dL AST (17-59) U/L ALT (4-49) U/L Total Protein (6.3-8.2) g/dL Albumin (3.5-5.0) g/dL Free Ebro LC, Quant (0.33-1.94) mg/dL Free Lambda LC, Quant (0.57-2.63) mg/dL Crossmatch 01/13/24 01/13/24 Range/Units 08:20 08:20 WBC 0.7 L* (3.8-10.6) k/uL RBC 2.51 L (4.30-5.90) m/uL Hgb 7.8 L (13.0-17.5) gm/dL Hct 25.2 L (39.0-53.0) % MCV 100.2 H D (80.0-100.0) fL MCHC (31.0-37.0) g/dL RDW 16.8 H (11.5-15.5) % Plt Count 18 L* (150-450) k/uL PT 26.9 H (10.0-12.5) sec INR 2.7 H (<1.2) ABG pH (7.35-7.45) ABG pCO2 (35-45) mmHg ABG pO2 (83-108) mmHg ABG HCO3 (21-25) mmol/L ABG Total CO2 (19-24) mmol/L ABG O2 Saturation (94-97) % Potassium (3.5-5.1) mmol/L Chloride (98-107) mmol/L Carbon Dioxide (22-30) mmol/L BUN (9-20) mg/dL Creatinine (0.66-1.25) mg/dL POC Glucose (mg/dL) (70-110) mg/dL Calcium (8.4-10.2) mg/dL Total Bilirubin (0.2-1.3) mg/dL Conjugated Bilirubin (0.0-0.3) mg/dL Delta Bilirubin (0.0-0.2) mg/dL AST (17-59) U/L ALT (4-49) U/L Total Protein (6.3-8.2) g/dL Albumin (3.5-5.0) g/dL Free Ebro LC, Quant (0.33-1.94) mg/dL Free Lambda LC, Quant (0.57-2.63) mg/dL Crossmatch Microbiology - Last 24 Hours (Table) 01/10/24 11:00 Blood Culture Gram Stain - Preliminary Blood Blood Culture - Preliminary Presumptive Staph aureus Anaerobic Gm Negative Bacilli Molecular ID 01/10/24 14:00 Gram Stain - Final Sputum Sputum Culture - Final Staphylococcus aureus Maricarmen albicans 01/11/24 16:25 Blood Culture - Preliminary Blood Assessment and Plan (1) Sepsis Current Visit: Yes Status: Acute Priority: High Code(s): A41.9 - SEPSIS, UNSPECIFIED ORGANISM SNOMED Code(s): 19255128 (2) Leg wound, left Current Visit: Yes Status: Acute Priority: High Code(s): S81.802A - UNSPECIFIED OPEN WOUND, LEFT LOWER LEG, INITIAL ENCOUNTER SNOMED Code(s): 23043983310883448 (3) Bacteremia Current Visit: Yes Status: Acute Code(s): R78.81 - BACTEREMIA SNOMED Code(s): 7887324 Plan: 1patient with sepsis in this patient who did have fever leukopenia hypotension requiring admission to the ICU and this patient was in the hospital with escalation pain to the left shoulder area and also have a wound to the left lower extremity likely differential of as currently no evidence of pneumonia on the chest x-ray abdominal soft on clinical examination 2-patient with MSSA bacteremia source possibly skin soft tissue, blood culture has been repeated which is now growing gram-negative culture with E. coli seen in the leg wound blood cultures were repeated to document clearance of bacteremia 3--local wound care to the left leg wound with Santyl followed by moist dressing change daily wound care is following the patient 4local culture from the left leg is growing group D Enterococcus E. coli and MSSA 5- patient to continue with daptomycin along with cefepime pending final ID on the gram-negative at the bedside questions were answered, overall prognosis remains to be guarded Dictation was produced using [employer] software. please excuse any grammatical, word or spelling errors. Time with Patient: Less than 30
[2024-01-13 12:01] LABS: Glucose,Whole Blood 138 mg/dL (70-110)
[2024-01-13 13:18] VITALS: BMI 37.3
--- NOTE | 2024-01-13 14:54 | P.PN ---
Subjective Progress Note Date: 01/13/24 January 06, 2024 Patient mental status close and and the patient is also receiving Dilaudid may have contributed to his altered mental status his blood pressure dropped as well and patient was presumed to have sepsis and septic shock was transferred to ICU he is on 2 pressors at this time patient does not have any fever but does have severe neutropenia may be related to methotrexate although patient white count was normal yesterday which probably because of his left shoulder tear. Patient is moaning unable to give me any history patient does have wounds but does not appear to have any cellulitis there is no foul-smelling discharge there is some redness which is chronic and chronic venous stasis dermatosis patient was started on vancomycin and cefepime, trucking supervisor was consulted. January 07, 2024 Patient is 73-year-old male came in for left shoulder pain found to have rotator cuff. The left shoulder. Patient also found to have elevated INR of around 6.5 patient takes Coumadin for atrial fibrillation. Patient is also found to have acute renal failure with creatinine of around 3.6 patient was hypotensive patient is on Lasix, metolazone, lisinopril at home. Patient does have history of rheumatoid arthritis with rheumatoid deformities patient is on colchicine, methotrexate as an outpatient. Patient is also taking Farxiga at home. Patient does have a history of atrial fibrillation on atenolol patient is hypotensive cannot use atenolol patient heart rate started going up now is around 120s at this time. 01/08/2024 Patient is seen and evaluated in follow-up today currently remains in the ICU with multiple medical consultations following. Patient currently continues on mechanical ventilation with an FiO2 of 35 %, PEEP of 5. Patient continues on propofol undergoing weaning and sedation holidays to assess mentation. Wound care and infectious disease also following and patient is maintained on antibiotics in the form of cefepime and daptomycin. Preliminary wound culture showing group D Enterococcus with gram-negative bacilli of the left lower extremity wound as well as blood culture showing a molecular ID which is currently pending. Follow-up repeat blood cultures ordered and pending at this time. Patient also undergoing concerns of DIC workup with hematology following. White count is 1.2 today which is improved from 0.6 yesterday. Hemoglobin is stable at 9.1, platelets are 33, INR status post vitamin K improved and currently 1.6, D-dimer was elevated at 6.16. Sodium is 137 with a potassium of 3.7, BUN is 161 and creatinine is minimally improved at 2.82. Patient does have indwelling Villanueva catheter and has noted 400 output throughout the day. Lactic acid remains elevated although improved at 2.8 calcium is low at 7.2. Total bilirubin has also increased at 2.7 AST is 80 which is improved and ALT is 31, LDH is 274. Urinalysis was negative. Patient continues to be hypotensive requiring vasopressin as well as Levophed and per nursing staff, currently we aning. Patient also continues on sodium bicarb drip as well as Solu-Cortef. Overall prognosis is guarded. Patient is full code. Patient is evaluated today in follow-up in the intensive care unit. Patient caryl on the mechanical ventilator currently intubated and sedated. Patient is on an FiO2 of 35% with a PEEP of 5. Patient remains on propofol for sedation. Additionally patient is continued on Levophed and vasopressin with increased dose of the Levophed today. Patient's blood pressure did drop with the addition of propofol back on for sedation. Patient is remaining on IV Solu-Cortef dose decreased today. Additionally patient is on IV daptomycin and IV cefepime. Patient was found to be back was found to be bacteremic with Staph aureus suspect patient was in septic shock from his wounds on his lower extremities. Although his wound cultures are showing group D Enterococcus and gram-negative bacilli. His urine culture is normal. He [facility] ID is following this patient closely. Blood cultures were repeated today. Patient has concerns for DIC and hematology is following. His white blood cell count is 0.4 today, hemoglobin 8.0, platelet count of 12, PT of 19.1, INR 1.9, PTT 38.1, fibrinogen level is 575. Additionally patient is a BUN of 160 creatinine of 2.73. Patient had a chest x-ray today showing right lower lobe infiltrate. 01/10/2024 Patient is evaluated today in the intensive care unit in follow-up. Patient remains on mechanical ventilator intubated and sedated. Patient is currently on FiO2 of 35% with a PEEP of 5. Patient has been continued on propofol for sedation. Patient does continue on multiple blood pressure support medications including Levophed and vasopressin. Patient remains on IV Solu-Cortef. Blood culture positive for Staph aureus which is now growing in the wound culture as well. Patient remains on daptomycin and cefepime. Patient will receive a second unit of platelets today. Blood work today reveals white blood cell count of 0.3, hemoglobin 7.5, platelet count of 15, PT of 14.2, INR 1.4, fibrinogen 492, sodium 144, potassium 3.6, BUN of 171, creatinine 2.04, calcium level of 7.8. Chest x-ray today reveals a stable bibasilar opacities. 01/11/2024 Patient evaluated in follow-up today in the intensive care unit. Patient remains intubated and sedated currently on the mechanical ventilator with an FiO2 of 45% PEEP of 5. Patient has been off propofol and currently not followin g commands at this time not tracking with eyes. Patient will be going for a brain CT today. Patient continues on IV Unasyn and IV daptomycin. Staph bacteremia additionally has enterococcus and E. coli in the wound. Went to atrial fibrillation with rapid ventricular rate overnight he continues on IV Cardizem as well as IV Solu-Medrol. Patient was noted to have a large black foul-smelling bowel movement overnight. GI services has been consulted for evaluation and pending further recommendations. Repeat blood work today reveals a white blood cell count of 0.5, hemoglobin of 8.0, platelet count of 7, sodium of 147, BUN of 176, creatinine of 1.98. X-ray reveals worsening left lower lobe infiltrate correlate for pneumonia. 01/12/2024 Patient is evaluated in follow-up in the intensive care unit. Patient remains intubated and sedated currently on the mechanical ventilator with an FiO2 of 35% and a PEEP of 5. Patient had another large black bowel movement. Patient had a repeat blood culture that is now showing gram-negative bacilli keeping in mind that his first blood culture has shown gram-positive cocci, patient remains on IV daptomycin and IV Unasyn. His sputum culture is also coming back positive for Maricarmen and preliminary of staff aureus. Patient is being followed closely by GI services however due to his continued decreased platelet count any type of endoscopy is on hold. Labs today show a white blood cell count of 0.3, hemoglobin 7.3, platelet count of 13, sodium of 147, BUN of 191, creatinine of 2.34. Patient's PT 22, INR 2.2, fibrinogen level is 453. Patient received another dose of platelets today. He remains on IV Cardizem and today remains in atrial fibrillation with rapid ventricular rate. Chest x-ray today reveals near complete resolution of the left lower lobe atelectasis. Patient is on enteral nutrition vital high-protein with a goal rate of 60 mL/h. However patient is having continuous residuals of 4 to 500 mL and tube feedings have been on hold at this time. 01/13/2024 Patient is evaluated today in follow-up in the intensive care unit. Patient's Maya is at the bedside. Patient remains intubated and sedated on mechanical ventilator. Patient remains sedated with propofol. Patient continues to have black bowel movements. Any type of endoscopic evaluation has been placed on hold secondary to his significant pancytopenia. Additionally vascular surgery will not be placing a hemodialysis catheter at this time patient is considered high risk for this. Patient remains with staff aureus bacteremia and continues on IV daptomycin and IV cefepime. He has been started on a sodium bicarb drip with nephrology following closely. Additionally patient remains in atrial fibrillation with controlled ventricular rate, on IV a miodarone. Continues on IV vasopressin and IV Levophed. Rate has been increased on his pressor support today. Patient remains on leucovorin and remains off of methotrexate. Patient remains on IV Solu-Cortef. Patient also continued from [facility]. Patient's blood work reveals a white blood cell count of 0.7, hemoglobin 7.8, platelet count of 18, INR 2.7. Sodium of 143, potassium 5.6, chloride 109, CO2 8, BUN of 208, creatinine of 3.18, total bilirubin of 7.7, AST 112, ALT 50. REVIEW OF SYSTEMS: Unable to obtain as patient is currently on sedation and mechanical ventilation PHYSICAL EXAMINATION: GENERAL: This is a 73-year-old male who is currently maintained on mechanical ventilation with an FiO2 of 35% and PEEP is 5, well-developed, elderly appearing, ill-appearing, obese HEENT: Pupils are round and equally reacting to light. EOMI. No scleral icterus. No conjunctival pallor. Normocephalic, atraumatic. No pharyngeal erythema. No thyromegaly. CARDIOVASCULAR: S1 and S2 muffled and irregular, tachycardic irregularly irregular rhythm PULMONARY: Diminished breath sounds bilaterally with no wheezing or crackles noted ABDOMEN: Soft, nontender, nondistended, normoactive bowel sounds. No palpable organomegaly. EXTREMITIES: No cyanosis, clubbing, or pedal edema. Extensive wounds noted to bilateral lower extremities with a chronic appearing discoloration, open wound noted on the right with some bleeding noted NEUROLOGICAL: Unable to assess as patient is on mechanical ventilation and sedated SKIN: Ulcers in the lower extremity chronic venous stasis, multiple bruises and ecchymosis noted on bilateral upper extremities Assessment: -Concern for acute upper GI bleed with large black tarry bowel movement -Sepsis with septic shock, present on admission, most likely secondary to left lower extremity wounds. -Gram positive staph aureus bacteremia with ID following closely, wound culture showing gram negative bacilli, enterococcus and staph aureus. -Severe neutropenia secondary to methotrexate which is being held -Acute hypoxic respiratory failure requiring mechanical ventilation, currently FiO2 is 35% and PEEP of 5 -Acute renal failure: Nonoliguric, with acute tubular necrosis from hypotension. Nephrology is following the patient renal ultrasound did not show any obs truction -Chronic kidney disease stage IV baseline creatinine around 1.5-1.8 -Supratherapeutic INR, status post vitamin K, improving hold off on Coumadin target INR 2-3 patient is on Coumadin for atrial fibrillation. -Atrial fibrillation, paroxysmal with rapid ventricular rate presently rate controlled -Severe thrombocytopenia, likely secondary to sepsis with septic shock -Left rotator cuff tear: Orthopedic surgery evaluated the patient, Tylenol for pain and low-dose Dilaudid -Hypertension, currently hypotensive and on pressor support -Type 2 diabetes mellitus, [id number], patient to continue on insulin hold off further medications Farxiga will be held because of renal failure -Rheumatoid arthritis for now we have to hold colchicine and methotrexate because of renal failure -Hyperkalemia: Secondary to REX inhibitor, acute renal failure -Hypothyroidism for which patient is on methimazole, TSH level is 0.989 -Hyponatremia secondary to renal failure IV fluids as mentioned above -GI prophylaxis -DVT prophylaxis: Patient's INR is supratherapeutic will not need any pharmacolo gical anticoagulation at this time -Full code Plan: Patient is continued in the ICU with multiple medical consultations following maintained on pressor support continues on vasopressin and Levophed Patient also continues on antibiotics in the form of daptomycin and cefepime with infectious disease following cultures closely. Blood culture positive and has been repeated. ID on and following cultures for antibiotic management Wound care consulted for further management of the lower extremity wounds continue with santyl and dressing changes as recommended. Sepsis, present on admission most likely secondary to left lower extremity wounds that are quite extensive Patient undergoing sedation holidays to assess mentation and underwent CT of the brain yesterday showing mild atrophy with chronic appearing periventricular white matter ischemic changes with no evidence of acute intracranial hemorrhage or infarction noted. Propofol continues today. patient remains essentially unresponsive not following the commands during sedation holiday repeat brain ct again negative for acute process. For GI bleeding and GI services has been consulted for further recommendations. Patient will receive a unit of platelets today, has received 5 units of platelets so far. Patient to receive 1 unit of PRBC and 1 unit of platelets today. Now on IV amiodarone. Nephrology following, Hematology following as well as vascular surgery and wound care. Undergoing DIC workup, no plans for hemodialysis access placement today patient is considered high risk for bleeding. Will follow-up on repeat labs. Tube feedings are currently being held due to increased residuals Continue accuchecks ACHS and sliding scale insulin. Monarxio added and will monitor labs. Due to multiple complex medical issues, overall prognosis is critical and guarded at this time Patient remains full code The impression and plan of care has been dictated by Alize Masters, Nurse Practitioner as directed. Dr. Mindi MD I have performed a history and physical examination and medical decision making of this patient, discussed the same with the dictator, and agree with the dictators assessment and plan as written, documented as a scribe. Based on total visit time, I have performed more than 50% of this visit. Objective - Vital Signs Vital signs: Vital Signs Temp 98.5 F 01/13/24 05:28 Pulse 76 01/13/24 07:37 Resp 31 H 01/13/24 07:00 BP 121/47 01/13/24 05:28 Pulse Ox 99 01/13/24 07:00 FiO2 30 01/13/24 07:22 Intake & Output 01/12/24 01/13/24 01/13/24 18:59 06:59 18:59 Intake Total 4471.747 2479.889 Output Total 120 30 Balance 1848.270 3060.889 Weight 108 kg Intake: IV 473 1389 0.9 Pressure Bag 33 39 0.9 at KVO 240 180 Cefepime 2 gm In Sodium 100 Chloride 0.9% 100 ml @ 25 mls/hr IVPB Q8HR [facility] Rx# :[id number] Dextrose 5% in Water 1, 200 420 000 ml @ 10 mls/hr IV . Q24H [facility] Rx#:[id number] Dextrose 5% in Water 1, 600 000 ml @ 100 mls/hr IV . [id number] [facility] with Sodium Bicarb (1 Meq/ml) 150 ml Rx#:[id number] Phytonadione 10 mg In 50 Sodium Chloride 0.9% 50 ml @ 100 mls/hr IVPB [facility] Rx#:[id number] Intake, IV Titration 722.971 533.889 Amount Ampicillin-Sulbactam 3 gm 100 In Sodium Chloride 0.9% 100 ml @ 200 mls/hr IVPB Q12HR [facility] Rx#:[id number] DAPTOmycin 500 mg In 50 Sodium Chloride 0.9% 50 ml @ 100 mls/hr IVPB Q24H [facility] Rx#:[id number] Dextrose 5% in Water 1, 490 70 000 ml @ 70 mls/hr IV . [id number] [facility] Rx#:[id number] Diltiazem 125 mg In 99.875 Sodium Chloride 0.9% 100 ml @ 7.5 MG/HR 7.5 mls/hr IV .[id number] [facility] Rx#: [id number] Norepinephrine 32 mg In 218.967 Sodium Chloride 0.9% 218 ml @ 0.03 MCG/KG/MIN 1. 358 mls/hr IV .Q24H [facility] Rx#:[id number] Phytonadione 5 mg In 50 Sodium Chloride 0.9% 50 ml @ 100 mls/hr IVPB ONCE ST[facility] Rx#:[id number] Vasopressin 20 unit In 32.971 90.806 Sodium Chloride 0.9% 50 ml @ 0.03 UNITS/MIN 4.59 mls/hr IV .[id number] [facility] Rx# :[id number] propofoL 1,000 mg In 54.241 Empty Bag 1 bag @ 15 MCG/ KG/MIN 8.694 mls/hr IV . [id number] [facility] Rx#:[id number] Tube Feeding 90 140 Blood Product 362 610 Platelet Pheresis Pas 362 Psoralen Unit [id number] Rc As-1 Unit 310 [id number] Other 60 Output: Urine 120 30 Other: Voiding Method Indwelling Catheter Indwelling Catheter # Bowel Movements 0 ABP, PAP, CO, CI - Last Documented Arterial Blood Pressure 128/47 - Labs CBC & Chem 7: 01/13/24 08:20 01/13/24 01:04 Labs: Abnormal Lab Results - Last 24 Hours (Table) 01/07/24 01/12/24 01/12/24 Range/Units 08:31 05:50 10:20 WBC (3.8-10.6) k/uL RBC (4.30-5.90) m/uL Hgb (13.0-17.5) gm/dL Hct (39.0-53.0) % MCV (80.0-100.0) fL MCHC (31.0-37.0) g/dL RDW (11.5-15.5) % Plt Count (150-450) k/uL PT (10.0-12.5) sec INR (<1.2) ABG pH (7.35-7.45) ABG pCO2 (35-45) mmHg ABG pO2 (83-108) mmHg ABG HCO3 (21-25) mmol/L ABG Total CO2 (19-24) mmol/L ABG O2 Saturation (94-97) % Potassium (3.5-5.1) mmol/L Chloride (98-107) mmol/L Carbon Dioxide (22-30) mmol/L BUN (9-20) mg/dL Creatinine (0.66-1.25) mg/dL POC Glucose (mg/dL) (70-110) mg/dL Calcium (8.4-10.2) mg/dL Total Bilirubin 6.5 H (0.2-1.3) mg/dL Conjugated Bilirubin 3.2 H (0.0-0.3) mg/dL Delta Bilirubin 2.2 H (0.0-0.2) mg/dL AST (17-59) U/L ALT (4-49) U/L Total Protein (6.3-8.2) g/dL Albumin (3.5-5.0) g/dL Free [place] LC, Quant 14.47 H (0.33-1.94) mg/dL Free Lambda LC, Quant 10.74 H (0.57-2.63) mg/dL Crossmatch See Detail 01/12/24 01/12/24 01/12/24 Range/Units 23:29 23:37 23:59 WBC (3.8-10.6) k/uL RBC (4.30-5.90) m/uL Hgb (13.0-17.5) gm/dL Hct (39.0-53.0) % MCV (80.0-100.0) fL MCHC (31.0-37.0) g/dL RDW (11.5-15.5) % Plt Count (150-450) k/uL PT (10.0-12.5) sec INR (<1.2) ABG pH (7.35-7.45) ABG pCO2 (35-45) mmHg ABG pO2 (83-108) mmHg ABG HCO3 (21-25) mmol/L ABG Total CO2 (19-24) mmol/L ABG O2 Saturation (94-97) % Potassium (3.5-5.1) mmol/L Chloride (98-107) mmol/L Carbon Dioxide (22-30) mmol/L BUN (9-20) mg/dL Creatinine (0.66-1.25) mg/dL POC Glucose (mg/dL) 44 L* 44 L* 142 H (70-110) mg/dL Calcium (8.4-10.2) mg/dL Total Bilirubin (0.2-1.3) mg/dL Conjugated Bilirubin (0.0-0.3) mg/dL Delta Bilirubin (0.0-0.2) mg/dL AST (17-59) U/L ALT (4-49) U/L Total Protein (6.3-8.2) g/dL Albumin (3.5-5.0) g/dL Free [place] LC, Quant (0.33-1.94) mg/dL Free Lambda LC, Quant (0.57-2.63) mg/dL Crossmatch 01/13/24 01/13/24 01/13/24 Range/Units 00:51 01:04 01:04 WBC 0.4 L* (3.8-10.6) k/uL RBC 2.08 L (4.30-5.90) m/uL Hgb 6.5 L* (13.0-17.5) gm/dL Hct 21.9 L (39.0-53.0) % MCV 105.3 H D (80.0-100.0) fL MCHC 29.7 L (31.0-37.0) g/dL RDW 17.0 H (11.5-15.5) % Plt Count 18 L* (150-450) k/uL PT (10.0-12.5) sec INR (<1.2) ABG pH 7.24 L (7.35-7.45) ABG pCO2 24 L (35-45) mmHg ABG pO2 117 H (83-108) mmHg ABG HCO3 10 L* (21-25) mmol/L ABG Total CO2 11 L (19-24) mmol/L ABG O2 Saturation 97.9 H (94-97) % Potassium 5.6 H (3.5-5.1) mmol/L Chloride 109 H (98-107) mmol/L Carbon Dioxide 8 L* (22-30) mmol/L BUN 208 H* (9-20) mg/dL Creatinine 3.18 H (0.66-1.25) mg/dL POC Glucose (mg/dL) (70-110) mg/dL Calcium 7.7 L (8.4-10.2) mg/dL Total Bilirubin 7.7 H (0.2-1.3) mg/dL Conjugated Bilirubin (0.0-0.3) mg/dL Delta Bilirubin (0.0-0.2) mg/dL AST 112 H (17-59) U/L ALT 50 H (4-49) U/L Total Protein 4.2 L (6.3-8.2) g/dL Albumin 1.8 L (3.5-5.0) g/dL Free [place] LC, Quant (0.33-1.94) mg/dL Free Lambda LC, Quant (0.57-2.63) mg/dL Crossmatch 01/13/24 01/13/24 01/13/24 Range/Units 01:04 05:58 08:18 WBC (3.8-10.6) k/uL RBC (4.30-5.90) m/uL Hgb (13.0-17.5) gm/dL Hct (39.0-53.0) % MCV (80.0-100.0) fL MCHC (31.0-37.0) g/dL RDW (11.5-15.5) % Plt Count (150-450) k/uL PT 27.7 H (10.0-12.5) sec INR 2.8 H (<1.2) ABG pH 7.34 L (7.35-7.45) ABG pCO2 23 L (35-45) mmHg ABG pO2 116 H (83-108) mmHg ABG HCO3 13 L (21-25) mmol/L ABG Total CO2 13 L (19-24) mmol/L ABG O2 Saturation 98.8 H (94-97) % Potassium (3.5-5.1) mmol/L Chloride (98-107) mmol/L Carbon Dioxide (22-30) mmol/L BUN (9-20) mg/dL Creatinine (0.66-1.25) mg/dL POC Glucose (mg/dL) 112 H (70-110) mg/dL Calcium (8.4-10.2) mg/dL Total Bilirubin (0.2-1.3) mg/dL Conjugated Bilirubin (0.0-0.3) mg/dL Delta Bilirubin (0.0-0.2) mg/dL AST (17-59) U/L ALT (4-49) U/L Total Protein (6.3-8.2) g/dL Albumin (3.5-5.0) g/dL Free [place] LC, Quant (0.33-1.94) mg/dL Free Lambda LC, Quant (0.57-2.63) mg/dL Crossmatch 01/13/24 01/13/24 Range/Units 08:20 08:20 WBC 0.7 L* (3.8-10.6) k/uL RBC 2.51 L (4.30-5.90) m/uL Hgb 7.8 L (13.0-17.5) gm/dL Hct 25.2 L (39.0-53.0) % MCV 100.2 H D (80.0-100.0) fL MCHC (31.0-37.0) g/dL RDW 16.8 H (11.5-15.5) % Plt Count 18 L* (150-450) k/uL PT 26.9 H (10.0-12.5) sec INR 2.7 H (<1.2) ABG pH (7.35-7.45) ABG pCO2 (35-45) mmHg ABG pO2 (83-108) mmHg ABG HCO3 (21-25) mmol/L ABG Total CO2 (19-24) mmol/L ABG O2 Saturation (94-97) % Potassium (3.5-5.1) mmol/L Chloride (98-107) mmol/L Carbon Dioxide (22-30) mmol/L BUN (9-20) mg/dL Creatinine (0.66-1.25) mg/dL POC Glucose (mg/dL) (70-110) mg/dL Calcium (8.4-10.2) mg/dL Total Bilirubin (0.2-1.3) mg/dL Conjugated Bilirubin (0.0-0.3) mg/dL Delta Bilirubin (0.0-0.2) mg/dL AST (17-59) U/L ALT (4-49) U/L Total Protein (6.3-8.2) g/dL Albumin (3.5-5.0) g/dL Free [place] LC, Quant (0.33-1.94) mg/dL Free Lambda LC, Quant (0.57-2.63) mg/dL Crossmatch Microbiology - Last 24 Hours (Table) 01/10/24 14:00 Gram Stain - Final Sputum Sputum Culture - Final Staphylococcus aureus Maricarmen albicans 01/11/24 16:25 Blood Culture - Preliminary Blood 01/10/24 11:00 Blood Culture Gram Stain - Preliminary Blood Blood Culture - Preliminary Molecular ID Assessment and Plan Time with Patient: Less than 30
--- NOTE | 2024-01-13 15:31 | P.PN ---
Subjective Progress Note Date: 01/13/24 Patient remains intubated and sedated. Unfortunately his condition has continued to worsen. In ARF, nephrology recommending dialysis. 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 WBC 0.7, hemoglobin 7.8, s/p 1 unit PRBCs, platelets 18,000. INR increased today to 2.8, 10mg Vitamin K given, repeat INR 2.7. Fibrinogen 408. Persisting bleeding noted from mouth, and melena reported. Objective - Vital Signs Vital signs: Vital Signs Temp 98.5 F 01/13/24 05:28 Pulse 76 01/13/24 12:00 Resp 31 H 01/13/24 07:00 BP 121/47 01/13/24 05:28 Pulse Ox 99 01/13/24 07:00 FiO2 30 01/13/24 11:57 Intake & Output 01/12/24 01/13/24 01/13/24 18:59 06:59 18:59 Intake Total 1600.726 8195.889 4.16 Output Total 120 30 Balance 9603.513 8377.889 4.16 Weight 108 kg Intake: IV 473 1389 0.9 Pressure Bag 33 39 0.9 at KVO 240 180 Cefepime 2 gm In Sodium 100 Chloride 0.9% 100 ml @ 25 mls/hr IVPB Q8HR [facility] Rx# :[id number] Dextrose 5% in Water 1, 200 420 000 ml @ 10 mls/hr IV . Q24H [facility] Rx#:[id number] Dextrose 5% in Water 1, 600 000 ml @ 100 mls/hr IV . [id number] [facility] with Sodium Bicarb (1 Meq/ml) 150 ml Rx#:[id number] Phytonadione 10 mg In 50 Sodium Chloride 0.9% 50 ml @ 100 mls/hr IVPB ONCE STA Rx#:[id number] Intake, IV Titration 722.971 533.889 4.16 Amount Ampicillin-Sulbactam 3 gm 100 In Sodium Chloride 0.9% 100 ml @ 200 mls/hr IVPB Q12HR [facility] Rx#:[id number] DAPTOmycin 500 mg In 50 Sodium Chloride 0.9% 50 ml @ 100 mls/hr IVPB Q24H [facility] Rx#:[id number] Dextrose 5% in Water 1, 490 70 000 ml @ 70 mls/hr IV . [id number] [facility] Rx#:[id number] Diltiazem 125 mg In 99.875 Sodium Chloride 0.9% 100 ml @ 7.5 MG/HR 7.5 mls/hr IV .[id number] [facility] Rx#: [id number] Norepinephrine 32 mg In 218.967 4.16 Sodium Chloride 0.9% 218 ml @ 0.03 MCG/KG/MIN 1. 358 mls/hr IV .Q24H [facility] Rx#:[id number] Phytonadione 5 mg In 50 Sodium Chloride 0.9% 50 ml @ 100 mls/hr IVPB ONCE STA Rx#:[id number] Vasopressin 20 unit In 32.971 90.806 Sodium Chloride 0.9% 50 ml @ 0.03 UNITS/MIN 4.59 mls/hr IV .[id number] [facility] Rx# :[id number] propofoL 1,000 mg In 54.241 Empty Bag 1 bag @ 15 MCG/ KG/MIN 8.694 mls/hr IV . [id number] [facility] Rx#:[id number] Tube Feeding 90 140 Blood Product 362 610 Platelet Pheresis Pas 362 Psoralen Unit [id number] Rc As-1 Unit 310 [id number] Other 60 Output: Urine 120 30 Other: Voiding Method Indwelling Catheter Indwelling Catheter # Bowel Movements 0 ABP, PAP, CO, CI - Last Documented Arterial Blood Pressure 128/47 - Constitutional General appearance: Present: no acute distress - Respiratory Details: ventilated breath sounds - Cardiovascular Details: skin warm and dry - Integumentary Integumentary: Absent: cyanotic, jaundiced - Neurologic Neurologic Comment(s): sedated - Labs CBC & Chem 7: 01/13/24 08:20 01/13/24 01:04 Labs: Abnormal Lab Results - Last 24 Hours (Table) 01/07/24 01/12/24 01/12/24 Range/Units 08:31 05:50 10:20 WBC (3.8-10.6) k/uL RBC (4.30-5.90) m/uL Hgb (13.0-17.5) gm/dL Hct (39.0-53.0) % MCV (80.0-100.0) fL MCHC (31.0-37.0) g/dL RDW (11.5-15.5) % Plt Count (150-450) k/uL PT (10.0-12.5) sec INR (<1.2) ABG pH (7.35-7.45) ABG pCO2 (35-45) mmHg ABG pO2 (83-108) mmHg ABG HCO3 (21-25) mmol/L ABG Total CO2 (19-24) mmol/L ABG O2 Saturation (94-97) % Potassium (3.5-5.1) mmol/L Chloride (98-107) mmol/L Carbon Dioxide (22-30) mmol/L BUN (9-20) mg/dL Creatinine (0.66-1.25) mg/dL POC Glucose (mg/dL) (70-110) mg/dL Calcium (8.4-10.2) mg/dL Total Bilirubin 6.5 H (0.2-1.3) mg/dL Conjugated Bilirubin 3.2 H (0.0-0.3) mg/dL Delta Bilirubin 2.2 H (0.0-0.2) mg/dL AST (17-59) U/L ALT (4-49) U/L Total Protein (6.3-8.2) g/dL Albumin (3.5-5.0) g/dL [place] LC, Quant 14.47 H (0.33-1.94) mg/dL Free [place]ambda LC, Quant 10.74 H (0.57-2.63) mg/dL Crossmatch See Detail 01/12/24 01/12/24 01/12/24 Range/Units 23:29 23:37 23:59 WBC (3.8-10.6) k/uL RBC (4.30-5.90) m/uL Hgb (13.0-17.5) gm/dL Hct (39.0-53.0) % MCV (80.0-100.0) fL MCHC (31.0-37.0) g/dL RDW (11.5-15.5) % Plt Count (150-450) k/uL PT (10.0-12.5) sec INR (<1.2) ABG pH (7.35-7.45) ABG pCO2 (35-45) mmHg ABG pO2 (83-108) mmHg ABG HCO3 (21-25) mmol/L ABG Total CO2 (19-24) mmol/L ABG O2 Saturation (94-97) % Potassium (3.5-5.1) mmol/L Chloride (98-107) mmol/L Carbon Dioxide (22-30) mmol/L BUN (9-20) mg/dL Creatinine (0.66-1.25) mg/dL POC Glucose (mg/dL) 44 L* 44 L* 142 H (70-110) mg/dL Calcium (8.4-10.2) mg/dL Total Bilirubin (0.2-1.3) mg/dL Conjugated Bilirubin (0.0-0.3) mg/dL Delta Bilirubin (0.0-0.2) mg/dL AST (17-59) U/L ALT (4-49) U/L Total Protein (6.3-8.2) g/dL Albumin (3.5-5.0) g/dL [place] LC, Quant (0.33-1.94) mg/dL Free [place]ambda LC, Quant (0.57-2.63) mg/dL Crossmatch 01/13/24 01/13/24 01/13/24 Range/Units 00:51 01:04 01:04 WBC 0.4 L* (3.8-10.6) k/uL RBC 2.08 L (4.30-5.90) m/uL Hgb 6.5 L* (13.0-17.5) gm/dL Hct 21.9 L (39.0-53.0) % MCV 105.3 H D (80.0-100.0) fL MCHC 29.7 L (31.0-37.0) g/dL RDW 17.0 H (11.5-15.5) % Plt Count 18 L* (150-450) k/uL PT (10.0-12.5) sec INR (<1.2) ABG pH 7.24 L (7.35-7.45) ABG pCO2 24 L (35-45) mmHg ABG pO2 117 H (83-108) mmHg ABG HCO3 10 L* (21-25) mmol/L ABG Total CO2 11 L (19-24) mmol/L ABG O2 Saturation 97.9 H (94-97) % Potassium 5.6 H (3.5-5.1) mmol/L Chloride 109 H (98-107) mmol/L Carbon Dioxide 8 L* (22-30) mmol/L BUN 208 H* (9-20) mg/dL Creatinine 3.18 H (0.66-1.25) mg/dL POC Glucose (mg/dL) (70-110) mg/dL Calcium 7.7 L (8.4-10.2) mg/dL Total Bilirubin 7.7 H (0.2-1.3) mg/dL Conjugated Bilirubin (0.0-0.3) mg/dL Delta Bilirubin (0.0-0.2) mg/dL AST 112 H (17-59) U/L ALT 50 H (4-49) U/L Total Protein 4.2 L (6.3-8.2) g/dL Albumin 1.8 L (3.5-5.0) g/dL [place] LC, Quant (0.33-1.94) mg/dL [place] LC, Quant (0.57-2.63) mg/dL Crossmatch 01/13/24 01/13/24 01/13/24 Range/Units 01:04 05:58 08:18 WBC (3.8-10.6) k/uL RBC (4.30-5.90) m/uL Hgb (13.0-17.5) gm/dL Hct (39.0-53.0) % MCV (80.0-100.0) fL MCHC (31.0-37.0) g/dL RDW (11.5-15.5) % Plt Count (150-450) k/uL PT 27.7 H (10.0-12.5) sec INR 2.8 H (<1.2) ABG pH 7.34 L (7.35-7.45) ABG pCO2 23 L (35-45) mmHg ABG pO2 116 H (83-108) mmHg ABG HCO3 13 L (21-25) mmol/L ABG Total CO2 13 L (19-24) mmol/L ABG O2 Saturation 98.8 H (94-97) % Potassium (3.5-5.1) mmol/L Chloride (98-107) mmol/L Carbon Dioxide (22-30) mmol/L BUN (9-20) mg/dL Creatinine (0.66-1.25) mg/dL POC Glucose (mg/dL) 112 H (70-110) mg/dL Calcium (8.4-10.2) mg/dL Total Bilirubin (0.2-1.3) mg/dL Conjugated Bilirubin (0.0-0.3) mg/dL Delta Bilirubin (0.0-0.2) mg/dL AST (17-59) U/L ALT (4-49) U/L Total Protein (6.3-8.2) g/dL Albumin (3.5-5.0) g/dL [place] LC, Quant (0.33-1.94) mg/dL [place] LC, Quant (0.57-2.63) mg/dL Crossmatch 01/13/24 01/13/24 01/13/24 Range/Units 08:20 08:20 12:00 WBC 0.7 L* (3.8-10.6) k/uL RBC 2.51 L (4.30-5.90) m/uL Hgb 7.8 L (13.0-17.5) gm/dL Hct 25.2 L (39.0-53.0) % MCV 100.2 H D (80.0-100.0) fL MCHC (31.0-37.0) g/dL RDW 16.8 H (11.5-15.5) % Plt Count 18 L* (150-450) k/uL PT 26.9 H (10.0-12.5) sec INR 2.7 H (<1.2) ABG pH (7.35-7.45) ABG pCO2 (35-45) mmHg ABG pO2 (83-108) mmHg ABG HCO3 (21-25) mmol/L ABG Total CO2 (19-24) mmol/L ABG O2 Saturation (94-97) % Potassium (3.5-5.1) mmol/L Chloride (98-107) mmol/L Carbon Dioxide (22-30) mmol/L BUN (9-20) mg/dL Creatinine (0.66-1.25) mg/dL POC Glucose (mg/dL) 138 H (70-110) mg/dL Calcium (8.4-10.2) mg/dL Total Bilirubin (0.2-1.3) mg/dL Conjugated Bilirubin (0.0-0.3) mg/dL Delta Bilirubin (0.0-0.2) mg/dL AST (17-59) U/L ALT (4-49) U/L Total Protein (6.3-8.2) g/dL Albumin (3.5-5.0) g/dL [place] LC, Quant (0.33-1.94) mg/dL [place] LC, Quant (0.57-2.63) mg/dL Crossmatch Microbiology - Last 24 Hours (Table) 01/10/24 11:00 Blood Culture Gram Stain - Preliminary Blood Blood Culture - Preliminary Presumptive Staph aureus Anaerobic Gm Negative Bacilli Molecular ID 01/10/24 14:00 Gram Stain - Final Sputum Sputum Culture - Final Staphylococcus aureus Maricarmen albicans 01/11/24 16:25 Blood Culture - Preliminary Blood Assessment and Plan (1) FRED (acute kidney injury) Current Visit: Yes Status: Acute Priority: High Code(s): N17.9 - ACUTE KIDNEY FAILURE, UNSPECIFIED SNOMED Code(s): 25940167 (2) Coagulopathy Current Visit: Yes Status: Acute Priority: High Code(s): D68.9 - COAGULATION DEFECT, UNSPECIFIED SNOMED Code(s): 52103344 (3) Leg wound, left Current Visit: Yes Status: Acute Priority: High Code(s): S81.802A - UNSPECIFIED OPEN WOUND, LEFT LOWER LEG, INITIAL ENCOUNTER SNOMED Code(s): 15227512609449329 (4) Methotrexate adverse reaction Current Visit: Yes Status: Suspected Priority: High Code(s): T45.1X5A - ADVERSE EFFECT OF ANTINEOPLASTIC AND IMMUNOSUP DRUGS, INIT SNOMED Code(s): 880587595 (5) Pancytopenia Current Visit: Yes Status: Acute Priority: High Code(s): D61.818 - OTHER P ANCYTOPENIA SNOMED Code(s): 658428164 (6) Sepsis Current Visit: Yes Status: Acute Priority: High Code(s): A41.9 - SEPSIS, UNSPECIFIED ORGANISM SNOMED Code(s): 18473193 Plan: Coagulopathy -Patient on Coumadin for atrial fibrillation. On admission INR 9.1 -INR increased today to 2.8, 10mg Vitamin K given, repeat INR 2.7. Plan to keep INR 1.5 or less at this time -INR daily. INR may rebound as patient is not consuming oral intake at this time and worsening liver function Concerns for DIC -Fibrinogen 408. Plt 18,000. S/p 5 doses platelets since admit -CBC, Coags and fibrinogen labs ordered daily for now as pt condition remains critical Pancytopenia -After chart review, suspect methotrexate toxicity secondary to acute on chronic renal failure. Pt had elevated therapeutic values considering his last dose of mtx would have been at least 4 days prior -Rescue leucovorin given, he cont on BID dosing at this time. -Can take 2-3 weeks s/p treatment for bone marrow to begin to recover -Pancytopenia work up so far has not revealed a paraprotenemia-small artifact on immunofixation can be seen with acute illness and inflammation. MMA elevated with elevated B12 -CBC daily -Transfuse for hemoglobin less than 7 -Due to acute and critical condition and noted bleeding, goal for plts 20,000 -G-CSF has been started. Mild increase in WBC today Renal Failure: -Kidney function contimues to decline. Nephrology recommending dialysis. Unfortunately, due to coagulopathy and severe thrombocytopenia vascular surgery not recommending hemodialysis catheter at this time, as well as due to significant hypotension, nephrology and handicrafts teacher dont believe patient would likely not tolerate hemodialysis -If HD catheter is planned to be placed would recommend 1 dose platelets and Kcentra to be given at the time of procedure
[2024-01-13] MEDS: HYDROmorphone 0.5 MG/0.5 ML SYRINGE IVP PRN (16:50)
[2024-01-13] MEDS ORDERED: MORPHINE SULFATE 4 MG/ML SYRINGE IV PRN (18:03)
[2024-01-13] MEDS: MORPHINE SULFATE 4 MG/ML SYRINGE IVP ONE (18:27)
[2024-01-13] MEDS: MORPHINE SULFATE (100 MG/2 ML) 100 MG in SODIUM CHLORIDE 0.9% 100 ML IV SCH (18:34)
[2024-01-13] MEDS: ATROPINE OPHTH SOLN 1% 5ML BTL SUBLINGUAL PRN (18:48)
[2024-01-13] MEDS ORDERED: LORazepam 2 MG/ML INJ IV PRN (19:04)
[2024-01-13] MEDS: MORPHINE SULFATE 2 MG/ML SYRINGE IV PRN (19:11)
[2024-01-13] MEDS: LORazepam 2 MG/ML INJ IV STA (19:11)
[2024-01-13 19:36] VITALS: TEMP 99.1
[2024-01-13 19:47] VITALS: BP 37/18; PULSE 85; RESP 6
[2024-01-13] MEDS ORDERED: CEFEPIME 1 GM in SODIUM CHLORIDE 0.9% 50 ML IVPB SCH (21:00)
[2024-01-14] MEDS ORDERED: DAPTOmycin 500 MG in SODIUM CHLORIDE 0.9% 50 ML IVPB SCH (14:00)
[2024-01-15 12:41] LABS: Platelet Count 7 k/uL (150-450)
--- NOTE | 2024-01-15 22:04 | P.DS ---
Providers Date of admission: 01/05/24 20:01 Attending physician: Libertad Narayanan Consults: 01/05/24 19:55 Consult Physician Routine Consulting Provider: Sherley Mittal Consult Reason/Comments: arely Do you want consulting provider notified?: Yes 01/06/24 23:20 Consult Physician Routine Consulting Provider: [facility] Consult Reason/Comments: AFIB Do you want consulting provider notified?: Yes 01/07/24 00:40 Consult Physician Routine Consulting Provider: Guera Del Toro Consult Reason/Comments: Wounds Do you want consulting provider notified?: Yes, Notify in am 01/07/24 03:49 Consult Physician Routine Consulting Provider: Froy Napoles Consult Reason/Comments: hypotension Do you want consulting provider notified?: Already Contacted 01/07/24 07:34 Consult Physician Urgent Consulting Provider: Arsenio Baeza Consult Reason/Comments: ? DIC Do you want consulting provider notified?: Yes 01/10/24 10:53 Consult Physician Routine Consulting Provider: Alpesh Shetty Consult Reason/Comments: hemodialysis catheter Do you want consulting provider notified?: Yes 01/11/24 08:44 Consult Physician Routine Consulting Provider: Soumya Ramsey Consult Reason/Comments: GI bleed Do you want consulting provider notified?: Already Contacted Primary care physician: Laura Wade Hospital Course: 01/13/2024 Patient was a terminal wean at 1830 this evening. Time of 1753. Prelim inary cause of Infected diabetic wounds bilateral lower extremities leading to septic shock. January 06, 2024 Patient mental status close and and the patient is also receiving Dilaudid may have contributed to his altered mental status his blood pressure dropped as well and patient was presumed to have sepsis and septic shock was transferred to ICU he is on 2 pressors at this time patient does not have any fever but does have severe neutropenia may be related to methotrexate although patient white count was normal yesterday which probably because of his left shoulder tear. Patient is moaning unable to give me any history patient does have wounds but does not appear to have any cellulitis there is no foul-smelling discharge there is some redness which is chronic and chronic venous stasis dermatosis patient was started on vancomycin and cefepime, feather trimmer was consulted. January 07, 2024 Patient is 73-year-old male came in for left shoulder pain found to have rotator cuff. The left shoulder. Patient also found to have elevated INR of around 6.5 patient takes Coumadin for atrial fibrillation. Patient is also found to have acute renal failure with creatinine of around 3.6 patient was hypotensive patient is on Lasix, metolazone, lisinopril at home. Patient does have history of rheumatoid arthritis with rheumatoid deformities patient is on colchicine, methotrexate as an outpatient. Patient is also taking Farxiga at home. Patient does have a history of atrial fibrillation on atenolol patient is hypotensive cannot use atenolol patient heart rate started going up now is around 120s at this time. 01/08/2024 Patient is seen and evaluated in follow-up today currently remains in the ICU with multiple medical consultations following. Patient currently continues on mechanical ventilation with an FiO2 of 35 %, PEEP of 5. Patient continues on propofol undergoing weaning and sedation holidays to assess mentation. Wound care and infectious disease also following and patient is maintained on antibiotics in the form of cefepime and daptomycin. Preliminary wound culture showing group D Enterococcus with gram-negative bacilli of the left lower extremity wound as well as blood culture showing a molecular ID which is currently pending. Follow-up repeat blood cultures ordered and pending at this time. Patient also undergoing concerns of DIC workup with hematology following. White count is 1.2 today which is improved from 0.6 yesterday. Hemoglobin is stable at 9.1, platelets are 33, INR status post vitamin K improved and currently 1.6, D-dimer was elevated at 6.16. Sodium is 137 with a potassium of 3.7, BUN is 161 and creatinine is minimally improved at 2.82. Patient does have indwelling Villanueva catheter and has noted 400 output throughout the day. Lactic acid remains elevated although improved at 2.8 calcium is low at 7.2. Total bilirubin has also increased at 2.7 AST is 80 which is improved and ALT is 31, LDH is 274. Urinalysis was negative. Patient continues to be hypotensive requiring vasopressin as well as Levophed and per nursing staff, currently weaning. Patient also continues on sodium bicarb drip as well as Solu-Cortef. Overall prognosis is guarded. Patient is full code. Patient is evaluated today in follow-up in the intensive care unit. Patient caryl on the mechanical ventilator currently intubated and sedated. Patient is on an FiO2 of 35% with a PEEP of 5. Patient remains on propofol for sedation. Additionally patient is continued on Levophed and vasopressin with increased dose of the Levophed today. Patient's blood pressure did drop with the addition of propofol back on for sedation. Patient is remaining on IV Solu-Cortef dose decreased today. Additionally patient is on IV daptomycin and IV cefepime. Patient was found to be back was found to be bacteremic with Staph aureus suspect patient was in septic shock from his wounds on his lower extremities. Although his wound cultures are showing group D Enterococcus and gram-negative bacilli. His urine culture is normal. [facility] ID is following this patient closely. Blood cultures were repeated today. Patient has concerns for DIC and hematology is following. His white blood cell count is 0.4 today, hemoglobin 8.0, platelet count of 12, PT of 19.1, INR 1.9, PTT 38.1, fibrinogen level is 575. Additionally patient is a BUN of 160 creatinine of 2.73. Patient had a chest x-ray today showing right lower lobe infiltrate. 01/10/2024 Patient is evaluated today in the intensive care unit in follow-up. Patient rem ains on mechanical ventilator intubated and sedated. Patient is currently on FiO2 of 35% with a PEEP of 5. Patient has been continued on propofol for sedation. Patient does continue on multiple blood pressure support medications including Levophed and vasopressin. Patient remains on IV Solu-Cortef. Blood culture positive for Staph aureus which is now growing in the wound culture as well. Patient remains on daptomycin and cefepime. Patient will receive a second unit of platelets today. Blood work today reveals white blood cell count of 0.3, hemoglobin 7.5, platelet count of 15, PT of 14.2, INR 1.4, fibrinogen 492, sodium 144, potassium 3.6, BUN of 171, creatinine 2.04, calcium level of 7.8. Chest x-ray today reveals a stable bibasilar opacities. 01/11/2024 Patient evaluated in follow-up today in the intensive care unit. Patient remains intubated and sedated currently on the mechanical ventilator with an FiO2 of 45% PEEP of 5. Patient has been off propofol and currently not following commands at this time not tracking with eyes. Patient will be going for a brain CT today. Patient continues on IV Unasyn and IV daptomycin. Staph bacteremia additionally has enterococcus and E. coli in the wound. Went to atrial fibrillation with rapid ventricular rate overnight he continues on IV Cardizem as well as IV Solu-Medrol. Patient was noted to have a large black foul-smelling bowel movement overnight. GI services has been consulted for evaluation and pending further recommendations. Repeat blood work today reveals a white blood cell count of 0.5, hemoglobin of 8.0, platelet count of 7, sodium of 147, BUN of 176, creatinine of 1.98. X-ray reveals worsening left lower lobe infiltrate correlate for pneumonia. 01/12/2024 Patient is evaluated in follow-up in the intensive care unit. Patient remains intubated and sedated currently on the mechanical ventilator with an FiO2 of 35% and a PEEP of 5. Patient had another large black bowel movement. Patient had a repeat blood culture that is now showing gram-negative bacilli keeping in mind that his first blood culture has shown gram-positive cocci, patient remains on IV daptomycin and IV Unasyn. His sputum culture is also coming back positive for Maricarmen and preliminary of staff aureus. Patient is being followed closely by GI services however due to his continued decreased platelet count any type of endoscopy is on hold. Labs today show a white blood cell count of 0.3, hemoglobin 7.3, platelet count of 13, sodium of 147, BUN of 191, creatinine of 2.34. Patient's PT 22, INR 2.2, fibrinogen level is 453. Patient received another dose of platelets today. He remains on IV Cardizem and today remains in atrial fibrillation with rapid ventricular rate. Chest x-ray today reveals near complete resolution of the left lower lobe atelectasis. Patient is on enteral nutrition vital high-protein with a goal rate of 60 mL/h. However patient is having continuous residuals of 4 to 500 mL and tube feedings have been on hold at this time. 01/13/2024 Patient is evaluated today in follow-up in the intensive care unit. Patient's Maya is at the bedside. Patient remains intubated and sedated on mecha nical ventilator. Patient remains sedated with propofol. Patient continues to have black bowel movements. Any type of endoscopic evaluation has been placed on hold secondary to his significant pancytopenia. Additionally vascular surgery will not be placing a hemodialysis catheter at this time patient is considered high risk for this. Patient remains with staff aureus bacteremia and continues on IV daptomycin and IV cefepime. He has been started on a sodium bicarb drip with nephrology following closely. Additionally patient remains in atrial fibrillation with controlled ventricular rate, on IV amiodarone. Continues on IV vasopressin and IV Levophed. Rate has been increased on his pressor support today. Patient remains on leucovorin and remains off of methotrexate. Patient remains on IV Solu-Cortef. Patient also continued from [facility]. Patient's blood work reveals a white blood cell count of 0.7, hemoglobin 7.8, platelet count of 18, INR 2.7. Sodium of 143, potassium 5.6, ch loride 109, CO2 8, BUN of 208, creatinine of 3.18, total bilirubin of 7.7, AST 112, ALT 50. REVIEW OF SYSTEMS: Unable to obtain as patient is currently on sedation and mechanical ventilation PHYSICAL EXAMINATION: GENERAL: This is a 73-year-old male who is currently maintained on mechanical ventilation with an FiO2 of 35% and PEEP is 5, well-developed, elderly appearing, ill-appearing, obese HEENT: Pupils are round and equally reacting to light. EOMI. No scleral icterus. No conjunctival pallor. Normocephalic, atraumatic. No pharyngeal erythema. No thyromegaly. CARDIOVASCULAR: S1 and S2 muffled and irregular, tachycardic irregularly irregular rhythm PULMONARY: Diminished breath sounds bilaterally with no wheezing or crackles noted ABDOMEN: Soft, nontender, nondistended, normoactive bowel sounds. No palpable organomegaly. EXTREMITIES: No cyanosis, clubbing, or pedal edema. Extensive wounds noted to bilateral lower extremities with a chronic appearing discoloration, open wound noted on the right with some bleeding noted NEUROLOGICAL: Unable to assess as patient is on mechanical ventilation and sedated SKIN: Ulcers in the lower extremity chronic venous stasis, multiple bruises and ecchymosis noted on bilateral upper extremities Assessment: -Concern for acute upper GI bleed with large black tarry bowel movement -Sepsis with septic shock, present on admission, most likely secondary to left lower extremity wounds. -Gram positive staph aureus bacteremia with ID following closely, wound culture showing gram negative bacilli, enterococcus and staph aureus. -Severe neutropenia secondary to methotrexate which is being held -Acute hypoxic respiratory failure requiring mechanical ventilation, currently FiO2 is 35% and PEEP of 5 -Acute renal failure: Nonoliguric, with acute tubular necrosis from hypotension. Nephrology is following the patient renal ultrasound did not show any obstruction -Chronic kidney disease stage IV baseline creatinine around 1.5-1.8 -Supratherapeutic INR, status post vitamin K, improving hold off on Coumadin target INR 2-3 patient is on Coumadin for atrial fibrillation. -Atrial fibrillation, paroxysmal with rapid ventricular rate presently rate controlled -Severe thrombocytopenia, likely secondary to sepsis with septic shock -Left rotator cuff tear: Orthopedic surgery evaluated the patient, Tylenol for pain and low-dose Dilaudid -Hypertension, currently hypotensive and on pressor support -Type 2 diabetes mellitus, [id number], patient to continue on insulin hold off further medications Farxiga will be held because of renal failure -Rheumatoid arthritis for now we have to hold colchicine and methotrexate because of renal failure -Hyperkalemia: Secondary to REX inhibitor, acute renal failure -Hypothyroidism for which patient is on methimazole, TSH level is 0.989 -Hyponatremia secondary to renal failure IV fluids as mentioned above -GI prophylaxis -DVT prophylaxis: Patient's INR is supratherapeutic will not need any ph armacological anticoagulation at this time -Full code Plan: Patient is continued in the ICU with multiple medical consultations following maintained on pressor support continues on vasopressin and Levophed Patient also continues on antibiotics in the form of daptomycin and cefepime with infectious disease following cultures closely. Blood culture positive and has been repeated. ID on and following cultures for antibiotic management Wound care consulted for further management of the lower extremity wounds continue with santyl and dressing changes as recommended. Sepsis, present on admission most likely secondary to left lower extremity wounds that are quite extensive Patient undergoing sedation holidays to assess mentation and underwent CT of the brain yesterday showing mild atrophy with chronic appearing periventricular white matter ischemic changes with no evidence of acute intracranial hemorrhage or infarction noted. Propofol continues today. patient remains essentially unresponsive not following the commands during sedation holiday repeat brain ct again negative for acute process. For GI bleeding and GI services has been consulted for further recommendations. Patient will receive a unit of platelets today, has received 5 units of platelets so far. Patient to receive 1 unit of PRBC and 1 unit of platelets today. Now on IV amiodarone. Nephrology following, Hematology following as well as vascular surgery and wound care. Undergoing DIC workup, no plans for hemodialysis access placement today patient is considered high risk for bleeding. Will follow-up on repeat labs. Tube feedings are currently being held due to increased residuals Continue accuchecks ACHS and sliding scale insulin. Jonathan added and will monitor labs. Due to multiple complex medical issues, overall prognosis is critical and guarded at this time Patient remains full code The impression and plan of care has been dictated by Alize Masters, Nurse Practitioner as directed. Dr. Mindi MD I have performed a history and physical examination and medical decision making of this patient, discussed the same with the dictator, and agree with the dictators assessment and plan as written, documented as a scribe. Based on total visit time, I have performed more than 50% of this visit. Plan - Discharge Summary Discharge Rx Participant: Yes New Discharge Prescriptions: No Action Potassium Chloride ER [K-Dur 10] 20 meq PO BID calcitrioL [Rocaltrol] 0.25 mcg PO MOFR Cholecalciferol [Vitamin D3 (25 Mcg = 1000 Iu)] 50 mcg PO DAILY Folic Acid 1 mg PO DAILY metHOTREXate sodium [Methotrexate] 17.5 mg PO SA L.acidoph,Paracasei, B.lactis [Probiotic] 1 cap PO DAILY lisinopriL [Zestril] 5 mg PO PC-LUNCH allopurinoL [Zyloprim] 300 mg PO W/SUPPER Furosemide [Lasix] 40 mg PO BID Warfarin [Coumadin] 5 mg PO RONDON Warfarin [Coumadin] 2.5 mg PO MOTUWETHFRSA Tart Bourne 2 tab PO DAILY Colchicine 0.6 mg PO DAILY metOLazone [Zaroxolyn] 2.5 mg PO MOWEFR Empagliflozin [Jardiance] 10 mg PO DAILY Glucosa Rondon 2Kcl/Chondroitin Rondon [Glucosamine-Chondroitin Cap] 1 cap PO BID Cyanocobalamin (Vitamin B-12) [Vitamin B-12] 1,000 mcg PO DAILY Super Beets 1 scoop PO DAILY Magnesium Oxide [Mag-Ox] 400 mg PO DAILY Ascorbic Acid/Multivit-Min [Emergen-C 1,000 mg Packet] 1,000 mg PO DAILY methIMAzole [Tapazole] 2.5 mg PO Q2D atenoloL [Tenormin] 50 mg PO DAILY Discharge Medication List Ascorbic Acid/Multivit-Min [Emergen-C 1,000 mg Packet] 1,000 mg PO DAILY 01/05/24 [History] Cholecalciferol [Vitamin D3 (25 Mcg = 1000 Iu)] 50 mcg PO DAILY 01/05/24 [History] Colchicine 0.6 mg PO DAILY 01/05/24 [History] Cyanocobalamin (Vitamin B-12) [Vitamin B-12] 1,000 mcg PO DAILY 01/05/24 [History] Empagliflozin [Jardiance] 10 mg PO DAILY 01/05/24 [History] Folic Acid 1 mg PO DAILY 01/05/24 [History] Furosemide [Lasix] 40 mg PO BID 01/05/24 [History] Glucosa Rondon 2Kcl/Chondroitin Rondon [Glucosamine-Chondroitin Cap] 1 cap PO BID 01/05/24 [History] L.acidoph,Paracasei, B.lactis [Probiotic] 1 cap PO DAILY 01/05/24 [History] Magnesium Oxide [Mag-Ox] 400 mg PO DAILY 01/05/24 [History] Potassium Chloride ER [K-Dur 10] 20 meq PO BID 01/05/24 [History] Super Beets 1 scoop PO DAILY 01/05/24 [History] Tart Bourne 2 tab PO DAILY 01/05/24 [History] Warfarin [Coumadin] 2.5 mg PO MOTUWETHFRSA 01/05/24 [History] Warfarin [Coumadin] 5 mg PO RONDON 01/05/24 [History] allopurinoL [Zyloprim] 300 mg PO W/SUPPER 01/05/24 [History] atenoloL [Tenormin] 50 mg PO DAILY 01/05/24 [History] calcitrioL [Rocaltrol] 0.25 mcg PO MOFR 01/05/24 [History] lisinopriL [Zestril] 5 mg PO PC-LUNCH 01/05/24 [History] metHOTREXate sodium [Methotrexate] 17.5 mg PO SA 01/05/24 [History] metOLazone [Zaroxolyn] 2.5 mg PO MOWEFR 01/05/24 [History] methIMAzole [Tapazole] 2.5 mg PO Q2D 01/05/24 [History] Follow up Appointment(s)/Referral(s): Laura Wade DO [Primary Care Provider] - 1-2 days Discharge Disposition: - Preliminary Cause of Preliminary Cause of : Infected diabetic wounds bilateral lower extremities leading to septic shoc
== END 2024-01-13 22:50 | disposition expired | DRG 682 ==
LOC: EC 15:35 → 3SCARD 20:01 → 2SICU 01-07 04:05
PROVIDERS: ADMIT Hospitalist; ATTEND Hospitalist
PROC: 5A1955Z Respiratory Ventilation, Greater than 96 Consecutive Hours (ICD-10-PCS; principal; 2024-01-07)
PROC: 3E033XZ Introduction of Vasopressor into Peripheral Vein, Percutaneous Approach (ICD-10-PCS; 2024-01-07)
PROC: 30283B1 Transfusion of Nonautologous 4-Factor Prothrombin Complex Concentrate into Vein, Percutaneous Approach (ICD-10-PCS; 2024-01-07)
PROC: 06HY33Z Insertion of Infusion Device into Lower Vein, Percutaneous Approach (ICD-10-PCS; 2024-01-07)
PROC: 04HY32Z Insertion of Monitoring Device into Lower Artery, Percutaneous Approach (ICD-10-PCS; 2024-01-07)
PROC: 4A133B1 Monitoring of Arterial Pressure, Peripheral, Percutaneous Approach (ICD-10-PCS; 2024-01-07)
PROC: 4A133J1 Monitoring of Arterial Pulse, Peripheral, Percutaneous Approach (ICD-10-PCS; 2024-01-07)
PROC: 0D9670Z Drainage of Stomach with Drainage Device, Via Natural or Artificial Opening (ICD-10-PCS; 2024-01-07)
PROC: 0BH17EZ Insertion of Endotracheal Airway into Trachea, Via Natural or Artificial Opening (ICD-10-PCS; 2024-01-07)
PROC: 3E0G76Z Introduction of Nutritional Substance into Upper GI, Via Natural or Artificial Opening (ICD-10-PCS; 2024-01-08)
PROC: 30243R1 Transfusion of Nonautologous Platelets into Central Vein, Percutaneous Approach (ICD-10-PCS; 2024-01-09)
PROC: 3E043RZ Introduction of Antiarrhythmic into Central Vein, Percutaneous Approach (ICD-10-PCS; 2024-01-10)
PROC: 30243N1 Transfusion of Nonautologous Red Blood Cells into Central Vein, Percutaneous Approach (ICD-10-PCS; 2024-01-13)
DX: N17.0 Acute kidney failure with tubular necrosis (principal); A41.01 Sepsis due to Methicillin susceptible Staphylococcus aureus; J96.01 Acute respiratory failure with hypoxia; R65.21 Severe sepsis with septic shock; K72.00 Acute and subacute hepatic failure without coma; D61.818 Other pancytopenia; D68.9 Coagulation defect, unspecified; I13.0 Hypertensive heart and chronic kidney disease with heart failure and stage 1 through stage 4 chronic kidney disease, or unspecified chronic kidney disease; I48.21 Permanent atrial fibrillation; I50.32 Chronic diastolic (congestive) heart failure; L97.225 Non-pressure chronic ulcer of left calf with muscle involvement without evidence of necrosis; E87.0 Hyperosmolality and hypernatremia; E87.4 Mixed disorder of acid-base balance; E87.1 Hypo-osmolality and hyponatremia; L03.116 Cellulitis of left lower limb; J98.11 Atelectasis; K92.1 Melena; E11.22 Type 2 diabetes mellitus with diabetic chronic kidney disease; E11.622 Type 2 diabetes mellitus with other skin ulcer; M06.9 Rheumatoid arthritis, unspecified; N18.4 Chronic kidney disease, stage 4 (severe); I08.0 Rheumatic disorders of both mitral and aortic valves; E05.90 Thyrotoxicosis, unspecified without thyrotoxic crisis or storm; Z66 Do not resuscitate; Z51.5 Encounter for palliative care; D69.59 Other secondary thrombocytopenia; E86.9 Volume depletion, unspecified; E83.9 Disorder of mineral metabolism, unspecified; B95.2 Enterococcus as the cause of diseases classified elsewhere; B96.20 Unspecified Escherichia coli [E. coli] as the cause of diseases classified elsewhere; T44.7X5A Adverse effect of beta-adrenoreceptor antagonists, initial encounter; T38.0X5A Adverse effect of glucocorticoids and synthetic analogues, initial encounter; T45.1X5A Adverse effect of antineoplastic and immunosuppressive drugs, initial encounter; T45.515A Adverse effect of anticoagulants, initial encounter; T46.4X5A Adverse effect of angiotensin-converting-enzyme inhibitors, initial encounter; E87.5 Hyperkalemia; E87.6 Hypokalemia; S70.12XA Contusion of left thigh, initial encounter; M19.019 Primary osteoarthritis, unspecified shoulder; M75.122 Complete rotator cuff tear or rupture of left shoulder, not specified as traumatic; M10.9 Gout, unspecified; I87.8 Other specified disorders of veins; S41.112A Laceration without foreign body of left upper arm, initial encounter; S41.111A Laceration without foreign body of right upper arm, initial encounter; K06.8 Other specified disorders of gingiva and edentulous alveolar ridge; Z79.84 Long term (current) use of oral hypoglycemic drugs; Z79.01 Long term (current) use of anticoagulants; Z79.631 Long term (current) use of antimetabolite agent; Z79.899 Other long term (current) drug therapy; Z97.8 Presence of other specified devices; Z87.891 Personal history of nicotine dependence; X50.0XXA Overexertion from strenuous movement or load, initial encounter; Y93.B3 Activity, free weights
CPT/HCPCS: 36415; 36600; 70450; 71045; 76770; 80048; 80053; 80204; 81001; 82248; 82272; 82550; 82607; 82728; 82746; 82784; 82805; 83010; 83540; 83550; 83605; 83615; 83735; 83880; 83883; 83921; 84132; 84165; 84295; 84443; 84450; 84460; 85025; 85027; 85045; 85379; 85384; 85610; 85730; 86334; 86850; 86900; 86901; 86920; 87040; 87070; 87075; 87077; 87086; 87186; 87205; 93005; 93306; 94002; 94003; 94640; 96361; 96365; 96366; 96375; 96376; 99285